=== PATIENT | male | born 1965 | race Caucasian/White ===

== ENCOUNTER 2017-10-02 13:46 | Emergency (ER) | payer OTHER ==
[2016-05-14 15:19] VITALS: Ht 175.3 cm; Wt 101.3 kg
[~2017-10-02] VITALS: Ht 175.3 cm; Wt 101.3 kg
[~2017-10-02 13:46] MED LIST: ALB18R INH; ALBU8.5H IH; BUPR-472 PO; CLIN300C99 PO; CYCL10TA29 PO; DULO30CA35 PO; ESCI10TA8 PO; FLU45SYR25 IM ONLY; FLUT1BLS3 INH; GABA-503 PO; GABA-549 PO; GLIM2TAB43 PO; INSU100I10 SQ; INSU100I30 SUBQ; INSU100I35 SQ; KET10 PO; LEVO-85 PO; LIR18IPT SUBQ; LIRA0.6P3 SQ; LISI-353 PO; LOR5/325 PO; METF-410 PO; METR-160 PO; MONT10TA PO; MULT-820 PO; OXYC5TAB38 PO; PRED20TA6 PO; SERT-1 PO; SERT-184 PO; SILD100T59 PO; SIMV-54 PO; SITA1TBM4 PO; SITA25TA PO; SULF-198 PO; TRAM-420 PO; VALS160T22 PO; VALS320T PO; VALS80TA2 PO; VANC250C3 PO; [UNRECOGNIZED DRUG - SUPPLY]
--- NOTE | 2017-10-02 13:56 | ER Report ---
History and Physical Time Seen By MD: 13:55 Hx. of Stated Complaint: PT REPORTS BLISTERS ON FEET, HAS DIABETES SO IS WORRIED HPI/ROS pt is a 52 year old male who is a diabetic toes moi feet amputated 2015, was walking in lacrosse last weekend and developed blisters to forefoot, these have popped and now has superficial open kalen to forefoot of both feet, wound are covered in dirt and hair as the patient has been walking without socks Remainder of the 14 system rev: Yes Allergies: Coded Allergies: clindamycin (Verified Allergy, Unknown, RASH, 10/02/17) piperacillin (Verified Allergy, Unknown, RASH, 10/02/17) tazobactam (Verified Allergy, Unknown, RASH, 10/02/17) Home Meds Active Scripts Sulfamethoxazole/Trimet 800-160 Mg Tab (BACTRIM DS TABLET) 1 Each Tablet, 1 TAB PO Q12H, #14 TAB Prov:RADHA PETERSON APRN-Ankur 10/02/17 Albuterol Sulfate 90 Mcg/Act (PROAIR HFA 90 MCG/ACT) 8.5 Gm Hfa.aer.ad, 1-2 PUFF IH Q4H Y for WHEEZING, #1 INHALER Prov:JARET RUANO MD 07/02/17 Valsartan (Valsartan) 320 Mg Tablet, 1 TAB PO QDAY, #30 TAB 6 Refills Prov:JARET RUANO MD 07/02/17 Escitalopram Oxalate (ESCITALOPRAM OXALATE) 10 Mg Tablet, 10 MG PO QDAY, #30 TAB 6 Refills Prov:JARET RUANO MD 07/02/17 Insulin Glargine,Hum.rec.anlog (Basaglar Kwikpen U-100) 100 Unit/Ml (3 Ml) Insuln.pen, 36 UNITS SQ QHS, #5 BOX 6 Refills ADD 2 UNITS EVERY 3 DAYS UNTIL FBS 120 OR LESS. Max dose 50 units/day Prov:JARET RUANO MD 06/05/17 Gabapentin (GABAPENTIN) 600 Mg Tablet, 600 MG PO TID, #90 TAB 3 Refills Prov:JARET RUANO MD 06/04/17 Bupropion Hcl (WELLBUTRIN XL) 150 Mg Tab.er.24h, 1 TAB PO QDAY, #90 TAB 1 Refill Prov:JARET RUANO MD 11/09/16 Simvastatin (SIMVASTATIN) 40 Mg Tablet, 40 MG PO HS, #30 TAB 6 Refills Prov:JARET RUANO MD 11/09/16 Insulin Aspart (NOVOLOG FLEXPEN) 100 Unit/1 Ml Insuln.pen, 5 UNIT SQ TIDAC, #5 VIAL 6 Refills Prov:JARET RUANO MD 07/13/16 Sildenafil Citrate (VIAGRA) 100 Mg Tablet, 100 MG PO QDAY Y for ED, #9 TAB Prov:JARET RUANO MD 09/23/15 Reported Medications Fluticasone/Vilanterol (Breo Ellipta 200-25 Mcg INH) 1 Each Blst.w.dev, 1 INH INH QDAY 07/02/17 Montelukast Sodium (SINGULAIR) 10 Mg Tablet, 1 TAB PO QDAY, TAB 07/02/17 Multivitamin (MULTIVITAMINS) 1 Each Tablet, 1 TAB PO QDAY 09/23/15 Hx Smoking: No Smoking Status: Never Smoker Exposure to Second Hand Smoke?: No Hx Substance Use Disorder: No Hx Alcohol Use: Yes (2-3 drinks per day) Constitutional Vital Sign - Last 24 Hours 10/02/17 10/02/17 10/02/17 10/02/17 13:51 13:53 14:01 14:16 Temp 98.8 Pulse 123 115 112 Resp 16 B/P (MAP) 126/92 126/92 (103) Pulse Ox 92 93 92 O2 Delivery Room Air 10/02/17 10/02/17 14:31 15:23 Pulse 110 104 B/P (MAP) 122/75 (91) Pulse Ox 92 92 Physical Exam 52-year-old male with pills appears chronically ill HEENT head is normocephalic/ atraumatic tympanic membranes are non-reddened throat is non-reddened neck is supple no JVD heart rate is regular no murmurs rubs or gallops lungs clear to auscultation abdomen is obese bowel sounds 4 quadrants a moves all extremities has had amputated toes on both feet at the forefoot of both feet he has open areas that are red and abraded no drainage no redness around the area Medical Decision Making Data Points Result Diagram: 10/02/17 1430 10/02/17 1430 Laboratory Hematology Test 10/02/17 14:30 Red Blood Count 4.15 M/uL (4.00-5.60) Mean Corpuscular Volume 95.0 fL (80.0-96.0) Mean Corpuscular Hemoglobin 32.5 pg (26.0-33.0) Mean Corpuscular Hemoglobin Concent 34.2 g/dL (32.0-36.0) Red Cell Distribution Width 12.4 % (11.5-14.5) Mean Platelet Volume 8.0 fL (7.2-11.1) Neutrophils (%) (Auto) 71.8 % (39.4-72.5) Lymphocytes (%) (Auto) 17.1 % (17.6-49.6) Monocytes (%) (Auto) 8.4 % (4.1-12.4) Eosinophils (%) (Auto) 2.0 % (0.4-6.7) Basophils (%) (Auto) 0.7 % (0.3-1.4) Nucleated RBC Relative Count (auto) 0.1 /100WBC Neutrophils # (Auto) 4.6 K/uL (2.0-7.4) Lymphocytes # (Auto) 1.1 K/uL (1.3-3.6) Monocytes # (Auto) 0.5 K/uL (0.3-1.0) Eosinophils # (Auto) 0.1 K/uL (0.0-0.5) Basophils # (Auto) 0.0 K/uL (0.0-0.1) Nucleated RBC Absolute Count (auto) 0.00 K/uL Sodium Level 136 mmol/L (137-145) Potassium Level 4.1 mmol/L (3.5-5.0) Chloride Level 103 mmol/L (98-107) Carbon Dioxide Level 25 mmol/L (22-30) Blood Urea Nitrogen 24 mg/dl (9-21) Creatinine 1.00 mg/dl (0.66-1.25) Glomerular Filtration Rate Calc > 60.0 Random Glucose 437 mg/dl (75-110) Calcium Level 9.2 mg/dl (8.4-10.2) Total Bilirubin 1.0 mg/dl (0.2-1.3) Aspartate Amino Transf (AST/SGOT) 28 U/L (0-35) Alanine Aminotransferase (ALT/SGPT) 48 U/L (0-56) Alkaline Phosphatase 80 U/L (0-126) Total Protein 6.6 gm/dl (6.3-8.2) Albumin 3.5 g/dl (3.5-5.0) Chemistry Test 10/02/17 14:30 White Blood Count 6.4 k/uL (4.5-11.0) Red Blood Count 4.15 M/uL (4.00-5.60) Hemoglobin 13.5 g/dL (14.0-18.0) Hematocrit 39.4 % (42.0-52.0) Mean Corpuscular Volume 95.0 fL (80.0-96.0) Mean Corpuscular Hemoglobin 32.5 pg (26.0-33.0) Mean Corpuscular Hemoglobin Concent 34.2 g/dL (32.0-36.0) Red Cell Distribution Width 12.4 % (11.5-14.5) Platelet Count 191 K/uL (150-450) Mean Platelet Volume 8.0 fL (7.2-11.1) Neutrophils (%) (Auto) 71.8 % (39.4-72.5) Lymphocytes (%) (Auto) 17.1 % (17.6-49.6) Monocytes (%) (Auto) 8.4 % (4.1-12.4) Eosinophils (%) (Auto) 2.0 % (0.4-6.7) Basophils (%) (Auto) 0.7 % (0.3-1.4) Nucleated RBC Relative Count (auto) 0.1 /100WBC Neutrophils # (Auto) 4.6 K/uL (2.0-7.4) Lymphocytes # (Auto) 1.1 K/uL (1.3-3.6) Monocytes # (Auto) 0.5 K/uL (0.3-1.0) Eosinophils # (Auto) 0.1 K/uL (0.0-0.5) Basophils # (Auto) 0.0 K/uL (0.0-0.1) Nucleated RBC Absolute Count (auto) 0.00 K/uL Glomerular Filtration Rate Calc > 60.0 Calcium Level 9.2 mg/dl (8.4-10.2) Total Bilirubin 1.0 mg/dl (0.2-1.3) Aspartate Amino Transf (AST/SGOT) 28 U/L (0-35) Alanine Aminotransferase (ALT/SGPT) 48 U/L (0-56) Alkaline Phosphatase 80 U/L (0-126) Total Protein 6.6 gm/dl (6.3-8.2) Albumin 3.5 g/dl (3.5-5.0) ED Course/Re-evaluation ED Course Blood sugar is 437 and talked to patient and his he states he did not take his long-term insulin last night and said she will give his dose as soon as I get home tonight Re-evaluation discussed patient with physical therapy they filled is more appropriate for dressing changes to go through Dr. Vaughn as this wound does not be debrided at this point I did talk to Dr. Vaughn he will see the patient next Sunday he asked 1st is sent home dressing supplies to do Xeroform gauze dressings daily for this patient until seen in the clinic and I will put him on Bactrim DS one by mouth twice a day, until seen in clinic Decision to Disposition Date: Oct 02, 2017 Decision to Disposition Time: 15:18 Depart Departure Latest Vital Signs Vital Signs Date Time Temp Pulse Resp B/P (MAP) Pulse Ox O2 Delivery O2 Flow Rate FiO2 10/02/17 15:23 104 122/75 (91) 92 10/02/17 13:51 98.8 16 Room Air Impression: Primary Impression: Diabetes mellitus type 2, controlled, with complications Additional Impressions: Hyperglycemia Blister of foot, right Blister of foot, left Condition: Improved Disposition: HOME OR SELF-CARE Referrals: LESLEY SHAH MD New Scripts Sulfamethoxazole/Trimet 800-160 Mg Tab (BACTRIM DS TABLET) 1 Each Tablet 1 TAB PO Q12H, #14 TAB Prov: RADHA PETERSON TRUSS ASSEMBLER-C 10/02/17 Patient Instructions: Blister (ED), Diabetes and Your Skin (DC) Additional Instructions: See Dr. 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
[2017-10-02] MEDS ORDERED: TRIMETH/SULFA DS 160-800MG TAB PO ONE (14:05)
[2017-10-02] MEDS ORDERED: SULF-198 PO (14:18)
[2017-10-02 14:51] LABS: PLATELET COUNT, AUTOMATED 191 K/uL (150-450)
[2017-10-02 15:23] VITALS: BP 122/75
== END 2017-10-02 15:26 | disposition home or self-care (01) ==
LOC: ER 14:00
DX: E11.65 Type 2 diabetes mellitus with hyperglycemia (principal); S90.822A Blister (nonthermal), left foot, initial encounter; S90.821A Blister (nonthermal), right foot, initial encounter
CPT/HCPCS: 82040; 82247; 82310; 82374; 82435; 82565; 82947; 84075; 84132; 84155; 84295; 84450; 84460; 84520; 85025; 99283

== ENCOUNTER → 2017-11-19 | Outpatient (CLI) | payer OTHER ==
[2016-05-14 15:19] VITALS: BMI 29.8
[~2017-11-19] MED LIST changes: -VALS320T PO; +VALS320T4 PO; -VALS80TA2 PO; +VALS80TA7 PO
--- NOTE | 2017-11-19 17:25 | RADIOLOGY IMAGING REPORT ---
FACILITY: [facility] PATIENT NAME: Peter Quintero : 1965 MR: [id number] V: [id number] EXAM DATE: ORDERING PHYSICIAN: LESLEY SHAH TECHNOLOGIST: Location: [facility] Patient: Peter Quintero : 1965 Visit/Account:[id number] Date of Sevice: 11/19/2017 VENOUS DOPP LOWER BILAT EXTREM ADDITIONAL PERTINENT HISTORY: Bilateral lower extremity edema with bilateral lower extremity pain. COMPARISON STUDIES: None. FINDINGS: Grayscale compression, duplex and color Doppler interrogation of the bilateral lower extremity deep v eins from common femoral vein to proximal calf was performed. The greater saphenous vein in the ipsil ateral proximal thigh was evaluated using similar technique. Bilateral lower extremity: Common femoral vein: Negative. Femoral vein: Negative. Deep femoral vein: Negative. Popliteal vein: Negative. Visualized deep calf veins Negative. Greater saphenous vein in the proximal thigh: Negative. Popliteal fossa: negative Surrounding soft tissues: There are mildly enlarged but otherwise normal-appearing lymph nodes in the groin region bilaterally. IMPRESSION: 1. No evidence of deep venous thrombosis involving the bilateral lower extremity. Report Dictated By: Madi Melton MD at 11/19/2017 5:19 PM Report E-Signed By: Madi Melton MD at 11/19/2017 5:21 PM WSN:[id number]
== END ==
LOC: RAD 15:42
PROVIDERS: ATTEND Surgery
DX: R59.0 Localized enlarged lymph nodes (principal)
CPT/HCPCS: 93970

== ENCOUNTER 2018-02-20 15:15 | Emergency (ER) | payer OTHER ==
[2016-05-14 15:19] VITALS: Wt 113.4 kg
[~2018-02-20 15:15] MED LIST changes: -METF-410 PO; +METF-411 PO
[2018-02-20] MEDS ORDERED: ASPIRIN 81 MG CHEW PO ONE (15:25)
[2018-02-20] MEDS ORDERED: cloNIDine HCL 0.1 MG TAB PO ONE (15:25)
[2018-02-20] MEDS ORDERED: methylPREDNIS SUCC 125 MG/2ML IVP ONE (15:30)
--- NOTE | 2018-02-20 15:30 | ER Report ---
History and Physical Time Seen By MD: 15:26 Hx. of Stated Complaint: Pt experiencing SOB and is coughing up phlem. Cough for 6 months. No fevers. Inhaler provides some relief. Pt is reporting swollen legs for a month. HPI/ROS CHIEF COMPLAINT: Persistent cough HISTORY OF PRESENT ILLNESS: Patient is a 52-year-old poorly controlled diabetic hypertensive morbidly obese comes emergency Department with a complaint of 6 months of a progressive and worsening cough. Patient says that the cough is sometimes productive of some thickish white sputum. Patient denies chest pain at this time. Patient states that he is a diabetic who was had both sets of toes amputated bilaterally. He is also complaining of some right lower extremity edema. Patient denies any chest pain at this time nausea vomiting diarrhea fever chills or additional complaints noted patient denies any exertional dyspnea orthopnea or PND patient also states that he has been off of his inhaled steroid for the last several months due to insurance restrictions REVIEW OF SYSTEMS: Respiratory: has cough, no dyspnea. Cardiovascular: No chest pain, no palpitations. Gastrointestinal: [No vomiting, no abdominal pain.] Musculoskeletal: [No back pain.] Remainder of the 14 system rev: Yes Allergies: Coded Allergies: clindamycin (Verified Allergy, Unknown, RASH, 10/02/17) piperacillin (Verified Allergy, Unknown, RASH, 10/02/17) tazobactam (Verified Allergy, Unknown, RASH, 10/02/17) Home Meds Active Scripts Tramadol Hcl (TRAMADOL HCL) 50 Mg Tablet, 50 MG PO QID Y for pain, #30 TAB Prov:JARET RUANO MD 12/14/17 Bupropion Hcl (WELLBUTRIN XL) 150 Mg Tab.er.24h, 1 TAB PO QDAY, #90 TAB 1 Refill Prov:JARET RUANO MD 12/11/17 Simvastatin (SIMVASTATIN) 40 Mg Tablet, 40 MG PO HS, #90 TAB 4 Refills Prov:JARET RUANO MD 11/12/17 Gabapentin (GABAPENTIN) 600 Mg Tablet, 600 MG PO TID, #270 TAB 4 Refills Prov:JARET RUANO MD 10/15/17 Albuterol Sulfate 90 Mcg/Act (PROAIR HFA 90 MCG/ACT) 8.5 Gm Hfa.aer.ad, 1-2 PUFF IH Q4H Y for WHEEZING, #1 INHALER Prov:JARET RUANO MD 07/02/17 Valsartan (Valsartan) 320 Mg Tablet, 1 TAB PO QDAY, #30 TAB 6 Refills Prov:JARET RUANO MD 07/02/17 Sildenafil Citrate (VIAGRA) 100 Mg Tablet, 100 MG PO QDAY Y for ED, #9 TAB Prov:JARET RUANO MD 09/23/15 Reported Medications Metformin Hcl (METFORMIN HCL ER) 750 Mg Tab.er.24h 02/20/18 Dulaglutide (Trulicity) 0.75 Mg/0.5 Ml Pen.injctr 02/20/18 Insulin Glargine,Hum.rec.anlog (Basaglar Kwikpen U-100) 100 Unit/Ml (3 Ml) Insuln.pen, 40 SUBQ QHS 02/20/18 Insulin Aspart 100 Un/Ml Pen (NOVOLOG FLEXPEN) 100 Unit/1 Ml Insuln.pen, 20 UNIT SQ TID, ML 02/20/18 Fluticasone/Vilanterol (Breo Ellipta 200-25 Mcg INH) 1 Each Blst.w.dev, 1 INH INH QDAY 07/02/17 Montelukast Sodium (SINGULAIR) 10 Mg Tablet, 1 TAB PO QDAY, TAB 07/02/17 Multivitamin (MULTIVITAMINS) 1 Each Tablet, 1 TAB PO QDAY 09/23/15 Discontinued Scripts Escitalopram Oxalate (ESCITALOPRAM OXALATE) 10 Mg Tablet, 10 MG PO QDAY, #30 TAB 6 Refills Prov:JARET RUANO MD 07/02/17 Insulin Glargine,Hum.rec.anlog (Basaglar Kwikpen U-100) 100 Unit/Ml (3 Ml) Insuln.pen, 36 UNITS SQ QHS, #5 BOX 6 Refills ADD 2 UNITS EVERY 3 DAYS UNTIL FBS 120 OR LESS. Max dose 50 units/day Prov:JARET RUANO MD 06/05/17 Insulin Aspart 100 Un/Ml Pen (NOVOLOG FLEXPEN) 100 Unit/1 Ml Insuln.pen, 5 UNIT SQ TIDAC, #5 VIAL 6 Refills Prov:JARET RUANO MD 07/13/16 Reviewed Nurses Notes: Yes Old Medical Records Reviewed: Yes Hx Smoking: No Smoking Status: Never Smoker Exposure to Second Hand Smoke?: No Hx Substance Use Disorder: No Hx Alcohol Use: Yes (2-3 drinks per day) Constitutional Vital Sign - Last 24 Hours 02/20/18 02/20/18 02/20/18 02/20/18 15:20 15:21 15:23 15:30 Temp 98.8 Pulse 100 100 Resp 16 26 B/P (MAP) 202/110 198/115 (142) 202/110 (140) 207/118 (147) Pulse Ox 96 100 O2 Delivery Room Air 02/20/18 02/20/18 02/20/18 02/20/18 15:49 16:00 16:15 16:20 Pulse 96 97 Resp 16 12 11 B/P (MAP) 189/109 (135) 191/108 (135) 168/89 (115) Pulse Ox 95 94 95 02/20/18 02/20/18 16:30 16:35 Pulse 104 Resp 15 B/P (MAP) 176/90 (118) Pulse Ox 97 Physical Exam General Appearance: [The patient is alert, has no immediate need for airway protection and no current signs of toxicity.] [ ] Eyes: Pupils equal and round no injection. Respiratory: Chest is non tender, lungs are clear to auscultation. Cardiac: regular rate and rhythm [ ] Gastrointestinal: Abdomen is soft and non tender, no masses, bowel sounds normal. Musculoskeletal: Neck: Neck is supple and non tender. Extremities have full range of motion and are non tender. Skin: No rashes or lesions. Right lower extremity examination has a knee brace approximately was He has a notable +1 pitting edema noted underneath the angle of the brace DIFFERENTIAL DIAGNOSIS: After history and physical exam differential diagnosis was considered for cardiac cough hyperreactive airway pulmonary emboli and DVT Medical Decision Making Data Points Result Diagram: 02/20/18 1531 02/20/18 1531 Laboratory Hematology Test 02/20/18 15:31 Red Blood Count 5.04 M/uL (4.00-5.60) Mean Corpuscular Volume 77.6 fL (80.0-96.0) Mean Corpuscular Hemoglobin 25.5 pg (26.0-33.0) Mean Corpuscular Hemoglobin Concent 32.8 g/dL (32.0-36.0) Red Cell Distribution Width 15.0 % (11.5-14.5) Mean Platelet Volume 7.1 fL (7.2-11.1) Neutrophils (%) (Auto) 62.9 % (39.4-72.5) Lymphocytes (%) (Auto) 24.0 % (17.6-49.6) Monocytes (%) (Auto) 9.3 % (4.1-12.4) Eosinophils (%) (Auto) 3.0 % (0.4-6.7) Basophils (%) (Auto) 0.8 % (0.3-1.4) Nucleated RBC Relative Count (auto) 0.0 /100WBC Neutrophils # (Auto) 3.9 K/uL (2.0-7.4) Lymphocytes # (Auto) 1.5 K/uL (1.3-3.6) Monocytes # (Auto) 0.6 K/uL (0.3-1.0) Eosinophils # (Auto) 0.2 K/uL (0.0-0.5) Basophils # (Auto) 0.0 K/uL (0.0-0.1) Nucleated RBC Absolute Count (auto) 0.00 K/uL D-Dimer Quantitative (PE/DVT) 0.72 ug/ml (0-0.50) Sodium Level 145 mmol/L (137-145) Potassium Level 4.1 mmol/L (3.5-5.0) Chloride Level 104 mmol/L (98-107) Carbon Dioxide Level 29 mmol/L (22-30) Blood Urea Nitrogen 13 mg/dl (9-21) Creatinine 0.90 mg/dl (0.66-1.25) Glomerular Filtration Rate Calc > 60.0 Random Glucose 263 mg/dl (75-110) Calcium Level 9.4 mg/dl (8.4-10.2) Total Bilirubin 0.7 mg/dl (0.2-1.3) Aspartate Amino Transf (AST/SGOT) 34 U/L (0-35) Alanine Aminotransferase (ALT/SGPT) 27 U/L (0-56) Alkaline Phosphatase 121 U/L (0-126) Troponin I < 0.012 ng/ml B-Type Natriuretic Peptide 238 pg/ml (0-100) Total Protein 8.4 g/dl (6.3-8.2) Albumin 3.7 g/dl (3.5-5.0) Chemistry Test 02/20/18 15:31 White Blood Count 6.2 k/uL (4.5-11.0) Red Blood Count 5.04 M/uL (4.00-5.60) Hemoglobin 12.9 g/dL (14.0-18.0) Hematocrit 39.2 % (42.0-52.0) Mean Corpuscular Volume 77.6 fL (80.0-96.0) Mean Corpuscular Hemoglobin 25.5 pg (26.0-33.0) Mean Corpuscular Hemoglobin Concent 32.8 g/dL (32.0-36.0) Red Cell Distribution Width 15.0 % (11.5-14.5) Platelet Count 373 K/uL (150-450) Mean Platelet Volume 7.1 fL (7.2-11.1) Neutrophils (%) (Auto) 62.9 % (39.4-72.5) Lymphocytes (%) (Auto) 24.0 % (17.6-49.6) Monocytes (%) (Auto) 9.3 % (4.1-12.4) Eosinophils (%) (Auto) 3.0 % (0.4-6.7) Basophils (%) (Auto) 0.8 % (0.3-1.4) Nucleated RBC Relative Count (auto) 0.0 /100WBC Neutrophils # (Auto) 3.9 K/uL (2.0-7.4) Lymphocytes # (Auto) 1.5 K/uL (1.3-3.6) Monocytes # (Auto) 0.6 K/uL (0.3-1.0) Eosinophils # (Auto) 0.2 K/uL (0.0-0.5) Basophils # (Auto) 0.0 K/uL (0.0-0.1) Nucleated RBC Absolute Count (auto) 0.00 K/uL D-Dimer Quantitative (PE/DVT) 0.72 ug/ml (0-0.50) Glomerular Filtration Rate Calc > 60.0 Calcium Level 9.4 mg/dl (8.4-10.2) Total Bilirubin 0.7 mg/dl (0.2-1.3) Aspartate Amino Transf (AST/SGOT) 34 U/L (0-35) Alanine Aminotransferase (ALT/SGPT) 27 U/L (0-56) Alkaline Phosphatase 121 U/L (0-126) Troponin I < 0.012 ng/ml B-Type Natriuretic Peptide 238 pg/ml (0-100) Total Protein 8.4 g/dl (6.3-8.2) Albumin 3.7 g/dl (3.5-5.0) Coagulation Test 02/20/18 15:31 D-Dimer Quantitative (PE/DVT) 0.72 ug/ml ED Course/Re-evaluation ED Course ED clinical course medical decision making 52-year-old male with a productive or nonproductive cough for the past 6 months BNP elevation shows an early detection of congestive heart failure had some swelling in his lower extremity ultrasound was negative PE rule out was also negative he'll be initially diagnosed with early congestive heart failure. Hypertension in the ED which was treated with medication his sugar was elevated he is on insulin advised him to close to regulate advised him to follow up close with primary care for outpatient echocardiogram cardiology follow-up and further workup diagnosis congestive heart failure Decision to Disposition Date: Feb 20, 2018 Decision to Disposition Time: 18:15 Depart Departure Latest Vital Signs Vital Signs Date Time Temp Pulse Resp B/P (MAP) Pulse Ox O2 Delivery O2 Flow Rate FiO2 02/20/18 16:35 104 15 97 02/20/18 16:30 176/90 (118) 02/20/18 15:20 98.8 Room Air Impression: Primary Impression: Congestive heart failure Condition: Improved Disposition: HOME OR SELF-CARE Referrals: JARET RUANO MD (PCP) 10 Days Patient Instructions: Congestive Heart Failure Zones JACQUIE LENTZ MD Feb 20, 2018 15:30
[2018-02-20] MEDS ORDERED: INSU100I10 SUBQ (15:31)
[2018-02-20] MEDS ORDERED: INSU100I35 SQ (15:31)
[2018-02-20] MEDS ORDERED: DULA0.75 (15:31)
[2018-02-20] MEDS ORDERED: METF750T25 (15:31)
[2018-02-20 15:46] LABS: PLATELET COUNT, AUTOMATED 373 K/uL (150-450)
--- NOTE | 2018-02-20 15:50 | EKG ---
FACILITY: [facility] [place] PATIENT NAME: SANTA DE SOUZA : [id number] MR: [id number] V: [id number] EXAM DATE: ORDERING PHYSICIAN: JACQUIE LENTZ TECHNOLOGIST: [place] Test Reason : Blood Pressure : / mmHG Vent. Rate : 098 BPM Atrial Rate : 098 BPM P-R Int : 140 ms QRS Dur : 076 ms QT Int : 340 ms P-R-T Axes : 042 021 043 degrees QTc Int : 434 ms Normal sinus rhythm No ST-T abnormalities R wave progression consistent with old ant/sep SC vs lead placement When compared with ECG of 25-MAY-2016 05:44, Now with poor R wave progression Confirmed by REJI NI ([id number]) on 02/21/2018 11:14:25 AM Referred By: Confirmed By:REJI NI
--- NOTE | 2018-02-20 16:15 | RADIOLOGY IMAGING REPORT ---
FACILITY: [facility] PATIENT NAME: Peter Quintero : 1965 MR: [id number] V: [id number] EXAM DATE: ORDERING PHYSICIAN: JACQUIE LENTZ TECHNOLOGIST: Location: [facility] Patient: Peter Quintero : 1965 Visit/Account:[id number] Date of Sevice: 02/20/2018 CHEST PA AND LAT COMPARISONS: 2 view chest dated May 07, 2016 ADDITIONAL PERTINENT HISTORY: Chest pain FINDINGS: Cardiomediastinal silhouette: Negative. Pulmonary vasculature: Negative. Lung lovell: Negative. Pleural spaces: Negative. Osseous structures: Mild spondylitic change involving the thoracic spine. Otherwise negative Surrounding soft tissues: Negative. IMPRESSION: No evidence of acute cardiopulmonary disease. Report Dictated By: Madi Melton MD at 02/20/2018 4:11 PM Report E-Signed By: Madi Melton MD at 02/20/2018 4:12 PM [id number]
[2018-02-20 16:30] VITALS: BP 176/90
[2018-02-20] MEDS ORDERED: NS 0.9% 25 ML BAG 50 ML ONE (16:41)
[2018-02-20] MEDS ORDERED: IOPAMIDOL 76% 100 ML INFUS BTL 100 ML ONE (16:41)
--- NOTE | 2018-02-20 16:47 | RADIOLOGY IMAGING REPORT ---
FACILITY: [facility] PATIENT NAME: Peter Quintero : 1965 MR: [id number] V: [id number] EXAM DATE: ORDERING PHYSICIAN: JACQUIE LENTZ TECHNOLOGIST: Location: [facility] Patient: Peter Quintero : 1965 Visit/Account:[id number] Date of Sevice: 02/20/2018 VENOUS DOPP LOW RIGHT EXTREMIT Provided history: Swelling Additional pertinent history: none COMPARISON STUDIES: Ultrasound 11/19/17 FINDINGS: Right leg grayscale, duplex and color Doppler interrogation of the lower extremity deep venous system from common femoral vein to proximal calf was performed. The greater saphenous vein was evaluated us ing similar technique. Common femoral vein: negative Femoral vein: negative Deep femoral vein: negative Popliteal vein: negative Visualized deep calf veins: negative Popliteal fossa: negative Greater saphenous vein in the proximal thigh: negative IMPRESSION: No evidence of acute DVT in the right lower extremity. Report Dictated By: Arie Gutierres MD at 02/20/2018 4:42 PM Report E-Signed By: Arie Gutierres MD at 02/20/2018 4:43 PM WSN:[id number]
--- NOTE | 2018-02-20 17:44 | RADIOLOGY IMAGING REPORT ---
FACILITY: [facility] [place] PATIENT NAME: Peter Quintero : 1965 MR: [id number] V: [id number] EXAM DATE: ORDERING PHYSICIAN: JACQUIE LENTZ TECHNOLOGIST: Location: [facility] Patient: Peter Quintero : 1965 Visit/Account:[id number] Date of Sevice: 02/20/2018 EXAMINATION: CT CHEST PULMONARY ANGIOGRAM COMPARISON: Chest x-ray same day and earlier. HISTORY: Shortness of breath and cough. PROCEDURE: Pulmonary arterial phase imaging of the chest with 100 mL intravenous Isovue 370. Reconstr uction of the source data set includes multiplanar 2D in the sagittal and coronal planes, and 3D davidson nstructed coronal slab MIP series. One of the following dose optimization techniques was utilized in the performance of this exam: Autom ated exposure control; adjustment of the mA and/or kV according to the patient's size; or use of an i terative reconstruction technique. Specific details can be referenced in the facility's radiology C T exam operational policy. FINDINGS: Pulmonary vasculature: There is adequate contrast opacification of the pulmonary arterial system. No pulmonary embolism. Main pulmonary artery size is normal. Cardiac and mediastinum: Cardiac chamber size is within normal limits. Mild coronary calcifications. No pericardial effusion. No thoracic aortic aneurysm. No thoracic lymph node enlargement. Lungs and pleura: No focal consolidation or pulmonary nodule. No pneumothorax, pulmonary edema, or pl eural effusion. Airways: Negative. Upper abdomen: No evidence of acute disease within the visualized upper abdomen. Osseous structures: Mild degenerative change throughout the thoracic spine. No acute findings. IMPRESSION: No pulmonary embolism or evidence of acute cardiopulmonary disease. Report Dictated By: Lui Powers MD at 02/20/2018 5:34 PM Report E-Signed By: Lui Powers MD at 02/20/2018 5:40 PM WSN:[id number]
[2018-02-22] MEDS ORDERED: ALBU8.5H IH (16:42)
== END 2018-02-20 18:57 | disposition home or self-care (01) ==
LOC: ER 15:27
DX: I50.9 Heart failure, unspecified (principal); I10 Essential (primary) hypertension; E11.9 Type 2 diabetes mellitus without complications; E66.01 Morbid (severe) obesity due to excess calories
CPT/HCPCS: 71046; 71275; 83880; 84484; 85025; 85379; 93005; 93971; 96374; 99284; J2930; Q9967; 82040; 82247; 82310; 82374; 82435; 82565; 82947; 84075; 84132; 84155; 84295; 84450; 84460; 84520

== ENCOUNTER → 2018-03-06 | Outpatient (CLI) | payer OTHER ==
[2016-05-14 15:19] VITALS: BMI 29.8
[~2018-03-06] MED LIST changes: +DULA0.75; +FURO-47 PO; +INSU100I10 SUBQ; +METF750T25; +METO25TA23 PO; +POTA-23 PO; +REGADENOSON 0.4 MG/5 ML SYR ONE
--- NOTE | 2018-03-06 16:24 | RADIOLOGY IMAGING REPORT ---
FACILITY: [facility] PATIENT NAME: Peter Quintero : 1965 MR: [id number] V: [id number] EXAM DATE: ORDERING PHYSICIAN: JARET RUANO TECHNOLOGIST: Location: [facility] Patient: Peter Quintero : 1965 Visit/Account:[id number] Date of Sevice: 03/06/2018 EXAMINATION: Single isotope SPECT imaging with regadenoson infusion and gated SPECT imaging. DATE OF EXAMINATION: 03/06/2018. DATE OF INTERPRETATION: 03/06/2018. REQUESTING PHYSICIAN: JARET RUANO. INDICATION: The patient is a 52-year-old male evaluated for CHF with diabetes. PROCEDURE: After informed consent the patient received an intravenous injection of 12.4 mCi of Tc-99 m sestamibi followed at an appropriate time interval by rest imaging. The patient then subsequently received an intravenous infusion of 0.4 mg of regadenoson per protocol without complication. Resting heart rate was 100 bpm with a peak heart rate of 112 bpm. Blood pressure at rest was 150 / 84 and f ollowing infusion was 151 / 79. Baseline EKG demonstrates normal sinus rhythm. There were no EKG ch anges of ischemia following infusion. Symptoms were nonspecific. The patient then received an intra venous injection of 30.5 mCi of Tc-99m sestamibi followed by stress imaging. RAW DATA: Examination of the summed raw data revealed a adequate quality study. Diaphragmatic attenu ation present. MYOCARDIAL PERFUSION: The tomographic images demonstrate small sized, mild intensity defect in the b damaso to mid inferior wall on rest and stress images. This defect normalizes with prone imaging sugges ting attenuation artifact. No transient ischemic dilation.. GATED IMAGES: The gated images demonstrate normal left ventricular systolic function with LVEF 55%. No regional wall motion abnormalities.. IMPRESSION: 1. Nondiagnostic pharmacologic stress ECG. 2. Probably normal myocardial perfusion scan. Attenuation artifact present. 3. Normal LV systolic function; LVEF 55%. 4. Based on the results of this exam, the patient appears to be at oh risk for near term future cardi ovascular events. Intermediate long-term risk based on need for pharmacologic stress agent as opposed to exercise. Report Dictated By: Wojciech Valencia at 03/06/2018 4:14 PM Report E-Signed By: Wojciech Valencia at 03/06/2018 4:20 PM WSN:[id number]
== END ==
LOC: NUC 01:16
PROVIDERS: ATTEND Internal Medicine
DX: I50.9 Heart failure, unspecified (principal)
CPT/HCPCS: 78452; 93017; A9500; J2785

== ENCOUNTER → 2018-03-07 | Outpatient (CLI) | payer OTHER ==
[2016-05-14 15:19] VITALS: BMI 29.8
[~2018-03-07] MED LIST changes: -REGADENOSON 0.4 MG/5 ML SYR ONE
== END ==
LOC: US 00:56
PROVIDERS: ATTEND Internal Medicine
DX: I50.9 Heart failure, unspecified (principal)
CPT/HCPCS: 93306

== ENCOUNTER → 2018-03-10 | Emergency (ER) | payer OTHER ==
[2016-05-14 15:19] VITALS: Wt 98.9 kg
--- NOTE | 2018-03-10 12:14 | ER Report ---
History and Physical Time Seen By MD: 12:14 HPI/ROS CHIEF COMPLAINT: Calf pain HISTORY OF PRESENT ILLNESS: This is a 52-year-old male who presents to the emergency department for increased right calf pain. Patient states that over the last couple of days he's had an increase in right calf discomfort moving up the calf. Patient has a history of diabetic neuropathy, amputations poor wound healing and infections. Patient states that "I pushed through the pain on Sunday and Sunday" then patient states the pain was so intense today and the right leg right calf that he decided to come in for further evaluation. Patient denies chest pain or shortness of breath, no nausea or vomiting. No other aches or pains. No fevers. No chills. REVIEW OF SYSTEMS: Constitutional: No fever, no chills. Eyes: No discharge. ENT: No sore throat. Cardiovascular: No chest pain, no palpitations. Respiratory: No cough, no shortness of breath. Gastrointestinal: No abdominal pain, no vomiting. Genitourinary: No hematuria. Musculoskeletal: As above. Skin: No rashes. Neurological: No headache. Allergies: Coded Allergies: clindamycin (Verified Allergy, Unknown, RASH, 10/02/17) piperacillin (Verified Allergy, Unknown, RASH, 10/02/17) tazobactam (Verified Allergy, Unknown, RASH, 10/02/17) Home Meds Active Scripts Metoprolol Succinate (METOPROLOL SUCCINATE) 25 Mg Tab.er.24h, 1 TAB PO QDAY, # 30 TAB 3 Refills Prov:JARET LEMOS MD 02/26/18 Potassium Chloride (KLOR-CON 10) 10 Meq Tablet.er, 10 MEQ PO QDAY, #30 TAB 3 Refills Prov:JARET LEMOS MD 02/26/18 Furosemide (FUROSEMIDE) 40 Mg Tablet, 1 TAB PO QDAY, #30 TAB 3 Refills Prov:JARET LEMOS MD 02/26/18 Albuterol Sulfate 90 Mcg/Act (PROAIR HFA 90 MCG/ACT) 8.5 Gm Hfa.aer.ad, 1-2 PUFF IH Q4H Y for WHEEZING, #1 INHALER Prov:JARET LEMOS MD 02/22/18 Tramadol Hcl (TRAMADOL HCL) 50 Mg Tablet, 50 MG PO QID Y for pain, #30 TAB Prov:JARET LEMOS MD 12/14/17 Bupropion Hcl (WELLBUTRIN XL) 150 Mg Tab.er.24h, 1 TAB PO QDAY, #90 TAB 1 Refill Prov:JARET LEMOS MD 12/11/17 Simvastatin (SIMVASTATIN) 40 Mg Tablet, 40 MG PO HS, #90 TAB 4 Refills Prov:JARET LEMOS MD 11/12/17 Gabapentin (GABAPENTIN) 600 Mg Tablet, 600 MG PO TID, #270 TAB 4 Refills Prov:JARET LEMOS MD 10/15/17 Valsartan (Valsartan) 320 Mg Tablet, 1 TAB PO QDAY, #30 TAB 6 Refills Prov:JARET LEMOS MD 07/02/17 Sildenafil Citrate (VIAGRA) 100 Mg Tablet, 100 MG PO QDAY Y for ED, #9 TAB Prov:JARET LEMOS MD 09/23/15 Reported Medications Metformin Hcl (METFORMIN HCL ER) 750 Mg Tab.er.24h 02/20/18 Dulaglutide (Trulicity) 0.75 Mg/0.5 Ml Pen.injctr 02/20/18 Insulin Glargine,Hum.rec.anlog (Basaglar Kwikpen U-100) 100 Unit/Ml (3 Ml) Insuln.pen, 40 SUBQ QHS 02/20/18 Insulin Aspart 100 Un/Ml Pen (NOVOLOG FLEXPEN) 100 Unit/1 Ml Insuln.pen, 20 UNIT SQ TID, ML 02/20/18 Fluticasone/Vilanterol (Breo Ellipta 200-25 Mcg INH) 1 Each Blst.w.dev, 1 INH INH QDAY 07/02/17 Montelukast Sodium (SINGULAIR) 10 Mg Tablet, 1 TAB PO QDAY, TAB 07/02/17 Multivitamin (MULTIVITAMINS) 1 Each Tablet, 1 TAB PO QDAY 09/23/15 Past Medical/Surgical History Patient has a past medical and surgical history of asthma, back pain, wears contacts, type II diabetes, depression, anxiety, hernia repair, toes amputated secondary to diabetes, morbidly obese, poor wound healing. Reviewed Nurses Notes: Yes Hx Smoking: No Smoking Status: Never Smoker Exposure to Second Hand Smoke?: No Hx Substance Use Disorder: No Hx Alcohol Use: Yes (2-3 drinks per day) Constitutional Vital Sign - Last 24 Hours 03/10/18 03/10/18 03/10/18 03/10/18 12:12 13:32 14:02 14:30 Temp 98.4 Pulse 104 104 Resp 16 18 B/P (MAP) 137/91 137/89 (105) 128/83 (98) 125/83 (97) Pulse Ox 94 92 O2 Delivery Room Air Room Air 03/10/18 03/10/18 15:28 16:00 Pulse 101 B/P (MAP) 123/75 (91) 126/74 (91) Physical Exam General Appearance: The patient is alert, has no immediate need for airway protection and no signs of toxicity. Eyes: Pupils equal and round no pallor or injection. ENT, Mouth: Mucous membranes are moist. Respiratory: There are no retractions, lungs are clear to auscultation. Cardiovascular: Regular rate and rhythm, no murmurs, clicks or rubs. Gastrointestinal: Abdomen is soft and non tender, no masses, bowel sounds normal. Neurological: Alert and oriented 4. Moving all extremities. Following all commands. No focal neuro deficits. Skin: Warm and dry, no rashes. Poor healing wounds to the right foot, no rashes , crepitus, cellulitis or obvious infectious process. Musculoskeletal: Neck is supple non tender. Extremities right calf tender to touch, no erythema, cellulitis or obvious deformities. DIFFERENTIAL DIAGNOSIS: After history and physical exam differential diagnosis was considered for DVT, osteomyelitis, myalgias secondary to simvastatin and chronic pain. Medical Decision Making Data Points Result Diagram: 03/10/18 1300 03/10/18 1300 Laboratory Hematology Test 03/10/18 13:00 Red Blood Count 4.94 M/uL (4.00-5.60) Mean Corpuscular Volume 76.8 fL (80.0-96.0) Mean Corpuscular Hemoglobin 25.3 pg (26.0-33.0) Mean Corpuscular Hemoglobin Concent 33.0 g/dL (32.0-36.0) Red Cell Distribution Width 15.5 % (11.5-14.5) Mean Platelet Volume 7.3 fL (7.2-11.1) Neutrophils (%) (Auto) 76.0 % (39.4-72.5) Lymphocytes (%) (Auto) 14.2 % (17.6-49.6) Monocytes (%) (Auto) 6.8 % (4.1-12.4) Eosinophils (%) (Auto) 2.2 % (0.4-6.7) Basophils (%) (Auto) 0.8 % (0.3-1.4) Nucleated RBC Relative Count (auto) 0.0 /100WBC Neutrophils # (Auto) 7.8 K/uL (2.0-7.4) Lymphocytes # (Auto) 1.5 K/uL (1.3-3.6) Monocytes # (Auto) 0.7 K/uL (0.3-1.0) Eosinophils # (Auto) 0.2 K/uL (0.0-0.5) Basophils # (Auto) 0.1 K/uL (0.0-0.1) Nucleated RBC Absolute Count (auto) 0.00 K/uL Sodium Level 141 mmol/L (137-145) Potassium Level 5.6 mmol/L (3.5-5.0) Chloride Level 102 mmol/L (98-107) Carbon Dioxide Level 24 mmol/L (22-30) Blood Urea Nitrogen 30 mg/dl (9-21) Creatinine 1.20 mg/dl (0.66-1.25) Glomerular Filtration Rate Calc > 60.0 Random Glucose 256 mg/dl (75-110) Calcium Level 10.0 mg/dl (8.4-10.2) Total Bilirubin 0.7 mg/dl (0.2-1.3) Aspartate Amino Transf (AST/SGOT) 32 U/L (0-35) Alanine Aminotransferase (ALT/SGPT) 25 U/L (0-56) Alkaline Phosphatase 137 U/L (0-126) Total Protein 8.7 g/dl (6.3-8.2) Albumin 3.9 g/dl (3.5-5.0) Chemistry Test 03/10/18 13:00 White Blood Count 10.3 k/uL (4.5-11.0) Red Blood Count 4.94 M/uL (4.00-5.60) Hemoglobin 12.5 g/dL (14.0-18.0) Hematocrit 37.9 % (42.0-52.0) Mean Corpuscular Volume 76.8 fL (80.0-96.0) Mean Corpuscular Hemoglobin 25.3 pg (26.0-33.0) Mean Corpuscular Hemoglobin Concent 33.0 g/dL (32.0-36.0) Red Cell Distribution Width 15.5 % (11.5-14.5) Platelet Count 520 K/uL (150-450) Mean Platelet Volume 7.3 fL (7.2-11.1) Neutrophils (%) (Auto) 76.0 % (39.4-72.5) Lymphocytes (%) (Auto) 14.2 % (17.6-49.6) Monocytes (%) (Auto) 6.8 % (4.1-12.4) Eosinophils (%) (Auto) 2.2 % (0.4-6.7) Basophils (%) (Auto) 0.8 % (0.3-1.4) Nucleated RBC Relative Count (auto) 0.0 /100WBC Neutrophils # (Auto) 7.8 K/uL (2.0-7.4) Lymphocytes # (Auto) 1.5 K/uL (1.3-3.6) Monocytes # (Auto) 0.7 K/uL (0.3-1.0) Eosinophils # (Auto) 0.2 K/uL (0.0-0.5) Basophils # (Auto) 0.1 K/uL (0.0-0.1) Nucleated RBC Absolute Count (auto) 0.00 K/uL Glomerular Filtration Rate Calc > 60.0 Calcium Level 10.0 mg/dl (8.4-10.2) Total Bilirubin 0.7 mg/dl (0.2-1.3) Aspartate Amino Transf (AST/SGOT) 32 U/L (0-35) Alanine Aminotransferase (ALT/SGPT) 25 U/L (0-56) Alkaline Phosphatase 137 U/L (0-126) Total Protein 8.7 g/dl (6.3-8.2) Albumin 3.9 g/dl (3.5-5.0) EKG/Imaging Imaging Location: [facility] [place] Patient: Peter Quintero : 1965 Visit/Account:[id number] Date of Sevice: 03/10/2018 Bilateral lower extremity venous ultrasound INDICATION: Pain COMPARISON: February 20, 2018 FINDINGS: The left common femoral, greater saphenous, superficial femoral, profunda femoral, popliteal, posterior tibial and peroneal veins are normal without thrombus. The right common femoral, greater saphenous, superficial femoral, profunda femoral, popliteal, posterior tibial and peroneal veins are normal without thrombus. Incidental benign reactive lymph nodes noted in the right inguinal region. IMPRESSION: Normal bilateral lower extremity venous ultrasound without DVT or venous thrombosis. Report Dictated By: Jason Woodson MD at 03/10/2018 3:40 PM Report E-Signed By: Jason Woodson MD at 03/10/2018 3:42 PM WSN:[id number] Location: [facility] [place] Patient: [place] : 1965 Visit/Account:[id number] Date of Sevice: 03/10/2018 FOOT 2 VIEW RIGHT, TIBIA FIBULA RIGHT Indication: History of amputation with pain Comparison: None Available Findings: There are changes from distal transmetatarsal indication of the foot. Diffuse soft tissue swelling is present. No periosteal reaction is identified. The tibia and fibula are intact without acute bony abnormality No evidence of radiopaque foreign body. IMPRESSION: 1. Postsurgical changes from distal transmetatarsal amputation but no acute abnormalities identified 2. Negative tibia and fibula Report Dictated By: Yoshi Yousif at 03/10/2018 1:43 PM Report E-Signed By: Yoshi Yousif at 03/10/2018 1:46 PM WSN:[id number] Location: [facility] [place] Patient: Leon, Peter : 1965 Visit/Account:[id number] Date of Sevice: 03/10/2018 FOOT 2 VIEW RIGHT, TIBIA FIBULA RIGHT Indication: History of amputation with pain Comparison: None Available Findings: There are changes from distal transmetatarsal indication of the foot. Diffuse soft tissue swelling is present. No periosteal reaction is identified. The tibia and fibula are intact without acute bony abnormality No evidence of radiopaque foreign body. IMPRESSION: 1. Postsurgical changes from distal transmetatarsal amputation but no acute abnormalities identified 2. Negative tibia and fibula Report Dictated By: Yoshi Yousif at 03/10/2018 1:43 PM Report E-Signed By: Yoshi Yousif at 03/10/2018 1:46 PM WSN:[id number] ED Course/Re-evaluation Clinical Indication for ER IV: IV Access ED Course The patient was admitted to room. A history of physical pain. Differential diagnoses were considered. An IV was started. A CBC, CMP and myoglobin were obtained. H&H showing 12.5 and 37.9, platelet count 520, chemistry showing potassium 5.6, BUN 30, glucose 256. X-ray of the right foot and tib-fib showing no abnormalities no acute changes. Negative venous Doppler. I did review the imaging studies with the patient as well as the laboratory studies. I did tell the patient that his blood sugar was elevated he did state that he had a milkshake. I did tell the patient that the pain that he is experiencing in his leg could be from the change in his fluid status, taking high-dose Lasix with a proximally 30 pound weight loss over the last several weeks could be conjoining to this as well as a mildly elevated potassium. I did tell him that he contact Dr. Lemos in the morning to see if he can increase his fluid intake, and possibly adjusting his potassium. The patient states he'll call Dr. Lemos's office tomorrow, he does have a follow-up appointment this which he will keep. The patient had no other questions or concerns at this time and was discharged home. I also suggested using compression stockings which may help with some of his discomfort. Decision to Disposition Date: Mar 10, 2018 Decision to Disposition Time: 16:02 Depart Departure Latest Vital Signs Vital Signs Date Time Temp Pulse Resp B/P (MAP) Pulse Ox O2 Delivery O2 Flow Rate FiO2 03/10/18 16:00 126/74 (91) 03/10/18 15:28 101 03/10/18 13:32 18 92 Room Air 03/10/18 12:12 98.4 Impression: Primary Impression: Diabetes mellitus Additional Impressions: Hyperglycemia Bilateral calf pain Condition: Improved Disposition: HOME OR SELF-CARE Referrals: JARET LEMOS MD (PCP) Patient Instructions: Diabetic Foot Ulcers (ED), Diabetic Hyperglycemia (ED), Leg Pain (ED) Additional Instructions: There is no evidence of a DVT or clot in your legs. No signs of bone infections noted on Xray. Drink the recommended amount of fluid Dr. Lemos has instructed you to drink. Consider calling Dr. Tapia office tomorrow and discuss your fluid restrictions , see if you can increase the amount, this could help with the muscular pain you are experiencing. Get plenty of rest. Continue to monitor your diabetes. Continue to monitor your wound and follow with Dr. Callejas as scheduled. Follow up with Dr. Lemos as scheduled this coming . Try compression stockings or clemencia wraps for the calf pain. Return to the ED for any other concerns or worsening symptoms. 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
[2018-03-10 13:16] LABS: PLATELET COUNT, AUTOMATED 520 K/uL (150-450)
--- NOTE | 2018-03-10 13:50 | RADIOLOGY IMAGING REPORT ---
FACILITY: [facility] [place] PATIENT NAME: Peter Quintero : 1965 MR: [id number] V: [id number] EXAM DATE: ORDERING PHYSICIAN: ADRIANE SHOEMAKER TECHNOLOGIST: Location: [facility] [place] Patient: Peter Quintero : 1965 Visit/Account:[id number] Date of Sevice: 03/10/2018 FOOT 2 VIEW RIGHT, TIBIA FIBULA RIGHT Indication: History of amputation with pain Comparison: None Available Findings: There are changes from distal transmetatarsal indication of the foot. Diffuse soft tissue swelling i s present. No periosteal reaction is identified. The tibia and fibula are intact without acute bony abnormality No evidence of radiopaque foreign body. IMPRESSION: 1. Postsurgical changes from distal transmetatarsal amputation but no acute abnormalities identified 2. Negative tibia and fibula Report Dictated By: Yoshi Yousif at 03/10/2018 1:43 PM Report E-Signed By: Yoshi Yousif at 03/10/2018 1:46 PM WSN:[email or web address]
--- NOTE | 2018-03-10 13:50 | RADIOLOGY IMAGING REPORT ---
[place] [facility] [place] NAME: Peter Quintero : 1965 MR: [id number] V: [id number] EXAM DATE: ORDERING PHYSICIAN: ADRIANE SHOEMAKER TECHNOLOGIST: Location: [facility] Patient: Peter Quintero : 1965 Visit/Account:[id number] Date of Sevice: 03/10/2018 FOOT 2 VIEW RIGHT, TIBIA FIBULA RIGHT Indication: History of amputation with pain Comparison: None Available Findings: There are changes from distal transmetatarsal indication of the foot. Diffuse soft tissue swelling i s present. No periosteal reaction is identified. The tibia and fibula are intact without acute bony abnormality No evidence of radiopaque foreign body. IMPRESSION: 1. Postsurgical changes from distal transmetatarsal amputation but no acute abnormalities identified 2. Negative tibia and fibula Report Dictated By: Yoshi Yousif at 03/10/2018 1:43 PM Report E-Signed By: Yoshi Yousif at 03/10/2018 1:46 PM WSN:[id number]
--- NOTE | 2018-03-10 15:46 | RADIOLOGY IMAGING REPORT ---
FACILITY: [facility] [place] PATIENT NAME: Peter Quintero : 1965 MR: [id number] V: [id number] EXAM DATE: ORDERING PHYSICIAN: ADRIANE SHOEMAKER TECHNOLOGIST: Location: [facility] [place] Patient: Peter Quintero : 1965 Visit/Account:[id number] Date of Sevice: 03/10/2018 Bilateral lower extremity venous ultrasound INDICATION: Pain COMPARISON: February 20, 2018 FINDINGS: The left common femoral, greater saphenous, superficial femoral, profunda femoral, popliteal, posteri or tibial and peroneal veins are normal without thrombus. The right common femoral, greater saphenous, superficial femoral, profunda femoral, popliteal, community health counselor ior tibial and peroneal veins are normal without thrombus. Incidental benign reactive lymph nodes noted in the right inguinal region. IMPRESSION: Normal bilateral lower extremity venous ultrasound without DVT or venous thrombosis. Report Dictated By: Jason Woodson MD at 03/10/2018 3:40 PM Report E-Signed By: Jason Woodson MD at 03/10/2018 3:42 PM WSN:[id number]
[2018-03-10 16:00] VITALS: BP 126/74
== END ==
LOC: ER 12:15
DX: E11.621 Type 2 diabetes mellitus with foot ulcer (principal); L97.509 Non-pressure chronic ulcer of other part of unspecified foot with unspecified severity; M79.604 Pain in right leg; M79.605 Pain in left leg
CPT/HCPCS: 82040; 82247; 82310; 82374; 82435; 82565; 82947; 83874; 84075; 84132; 84155; 84295; 84450; 84460; 84520; 85025; 93970; 99284

== ENCOUNTER → 2018-03-14 | Outpatient (CLI) | payer OTHER ==
[2016-05-14 15:19] VITALS: BMI 29.8
[2018-03-14 09:43] LABS: PLATELET COUNT, AUTOMATED 516 K/uL (150-450)
[2018-03-14 10:53] LABS: LDL CHOLESTEROL 41 mg/dl
== END ==
LOC: LAB 09:22
PROVIDERS: ATTEND Internal Medicine
DX: I50.9 Heart failure, unspecified (principal); E11.8 Type 2 diabetes mellitus with unspecified complications; E78.5 Hyperlipidemia, unspecified; I10 Essential (primary) hypertension
CPT/HCPCS: 36415; 82040; 82247; 82310; 82374; 82435; 82465; 82565; 82947; 83036; 83718; 83880; 84075; 84132; 84155; 84295; 84443; 84450; 84460; 84478; 84520; 85025

== ENCOUNTER → 2018-03-20 | Outpatient (CLI) | payer OTHER ==
[2016-05-14 15:19] VITALS: BMI 29.8
[~2018-03-20] MED LIST changes: -VALS320T4 PO; +VALS320T5 PO; -VALS80TA7 PO; +VALS80TA8 PO
--- NOTE | 2018-03-20 16:08 | RADIOLOGY IMAGING REPORT ---
FACILITY: [facility] [place] PATIENT NAME: Peter Quintero : 1965 MR: [id number] V: [id number] EXAM DATE: ORDERING PHYSICIAN: JARET RUANO TECHNOLOGIST: Location: [facility] [place] Patient: Peter Quintero : 1965 Visit/Account:[id number] Date of Sevice: 03/20/2018 ARTERIAL BILAT LOWER EXT EXAMINATION: Noninvasive vascular imaging of the the length bilaterally. Technique: There has been calculation of the ankle-brachial indices using brachial artery systolic bl ood pressure and ankle systolic blood pressure. There has also been ultrasound grayscale imaging wit h Doppler waveform analysis and color flow evaluation of the arteries of the legs bilaterally. HISTORY: 52-year-old male with pain in both legs. Patient with diabetes and history of toe amputati ons both feet. COMPARISON: None. Findings: Right side: Grayscale imaging findings: Grayscale imaging shows mild mural atherosclerotic change in the common f emoral and superficial femoral arteries bilaterally but no significant luminal encroachment upon galindo scale imaging. There is minimal evidence chronic change in the popliteal artery. CERTIFIED SHORTHAND REPORTER peak systolic velocity: 75 cm/sec. Waveform is triphasic. Proximal SFA peak systolic velocity: 100 cm/sec. The waveform is biphasic.. Distal SFA peak systolic velocity: 108 cm/sec. The waveform is triphasic. Popliteal artery peak systolic velocity: 95 cm/sec. The waveform is triphasic. Profunda artery peak systolic velocity: 60 cm/sec. The waveform is biphasic Posterior tibial artery peak systolic velocity: 106 cm/sec. Waveform is triphasic proximally with go od upstroke but some diastolic flow. Distally there are is perhaps a monophasic waveform Anterior tibial artery peak systolic velocity: 76 cm/sec. The waveform is triphasic Peroneal artery peak systolic velocity: 81 cm/sec. The waveform is triphasic. Dorsalis pedis artery: The peak systolic velocity is on and 47 cm. The waveform is monophasic with lo w resistance flow Left side: Grayscale imaging findings: Grayscale findings show no significant apical chronic plaque in the inflo w vessels of the left common femoral artery, superficial femoral artery and popliteal artery. There i s no encroachment upon the lumen by grayscale imaging. CERTIFIED SHORTHAND REPORTER peak systolic velocity: 140 cm/second. Waveform is triphasic Proximal SFA peak systolic velocity: 100 cm/sec. The waveform is triphasic. Distal SFA peak systolic velocity: 109 cm/sec. The waveform is triphasic. Popliteal artery peak systolic velocity: 89 cm/sec. The waveform is triphasic. Profunda artery peak systolic velocity: 69 cm/sec. The waveform is biphasic. Posterior tibial artery peak systolic velocity: 106 cm/sec. The waveform is triphasic Anterior tibial artery peak systolic velocity: 106 cm/sec. Waveform is triphasic Peroneal artery peak systolic velocity: 52 cm/sec. The waveform is triphasic IMPRESSION: 1. Triphasic or biphasic waveforms seen from the common femoral arteries to the distal infrapopliteal vessels. These findings would suggest normal inflow and infrapopliteal blood flow. The microvasculat ure has not been studied, but given the history of toe amputations it seems the patient has very sign ificant microvascular disease. A TBI index might be helpful for further evaluation. Report Dictated By: Vince Romero MD at 03/20/2018 2:40 PM Report E-Signed By: Vince Romero MD at 03/20/2018 4:05 PM WSN:[id number]
== END ==
LOC: US 01:44
PROVIDERS: ATTEND Internal Medicine
DX: I10 Essential (primary) hypertension (principal); E78.4 Other hyperlipidemia; I50.22 Chronic systolic (congestive) heart failure; F41.9 Anxiety disorder, unspecified; E11.8 Type 2 diabetes mellitus with unspecified complications
CPT/HCPCS: 93925

== ENCOUNTER 2018-07-16 22:06 | Emergency (ER) | payer OTHER ==
[2016-05-14 15:19] VITALS: Wt 103.4 kg
[~2018-07-16 22:06] MED LIST changes: +IRBE300T6 PO; -METF-411 PO; +METF-450 PO
[2018-07-16 22:16] VITALS: BP 171/96
--- NOTE | 2018-07-16 22:17 | ER Report ---
History and Physical Time Seen By : 22:17 HPI/ROS CHIEF COMPLAINT: Wound VAC problem HISTORY OF PRESENT ILLNESS: 52-year-old male presents with concerns about his wound VAC not functioning. Patient has amputation all his toes off of both feet. He has an open wound on his right foot. This undergoing wound VAC therapy. Patient notes the wound VAC stopped working for several hours tonight. He was able to plug the unit in and began to function again. Patient was told that if he had any problems, to come in to the ER for evaluation. Patient has an appointment in the morning to see Dr. Vaughn and PTT for casting of the same foot with the wound VAC intact. Patient notes no fever or chills. He notes no drainage. There is some staining of the dressings on his foot. Patient's blood pressures elevated. Allergies: Coded Allergies: clindamycin (Verified Allergy, Unknown, RASH, 10/02/17) piperacillin (Verified Allergy, Unknown, RASH, 10/02/17) tazobactam (Verified Allergy, Unknown, RASH, 10/02/17) Home Meds Active Scripts Tramadol Hcl (TRAMADOL HCL) 50 Mg Tablet, 50 MG PO QID PRN for chronic pain, #60 TAB 2 Refills Prov:JARET RUANO MD 04/25/18 Irbesartan (IRBESARTAN) 300 Mg Tablet, 300 MG PO QDAY, #30 TAB 6 Refills Prov:JARET RUANO MD 04/17/18 Duloxetine Hcl (CYMBALTA) 30 Mg Capsule.dr, 30 MG PO QDAY, #30 CAP 3 Refills Prov:JARET RUANO MD 03/14/18 Furosemide (FUROSEMIDE) 40 Mg Tablet, 1 TAB PO QDAY PRN for edema, #30 TAB 3 Refills Prov:JARET RUANO MD 03/14/18 Metoprolol Succinate (METOPROLOL SUCCINATE) 25 Mg Tab.er.24h, 1 TAB PO QDAY, #30 TAB 3 Refills Prov:JARET RUANO MD 02/26/18 Albuterol Sulfate 90 Mcg/Act (PROAIR HFA 90 MCG/ACT) 8.5 Gm Hfa.aer.ad, 1-2 PUFF IH Q4H PRN for WHEEZING, #1 INHALER Prov:JARET RUANO MD 02/22/18 Bupropion Hcl (WELLBUTRIN XL) 150 Mg Tab.er.24h, 1 TAB PO QDAY, #90 TAB 1 Refill Prov:JARET RUANO MD 12/11/17 Simvastatin (SIMVASTATIN) 40 Mg Tablet, 40 MG PO HS, #90 TAB 4 Refills Prov:JARET RUANO MD 11/12/17 Gabapentin (GABAPENTIN) 600 Mg Tablet, 600 MG PO TID, #270 TAB 4 Refills Prov:JARET RUANO MD 10/15/17 Sildenafil Citrate (VIAGRA) 100 Mg Tablet, 100 MG PO QDAY PRN for ED, #9 TAB Prov:JARET RUANO MD 09/23/15 Reported Medications Metformin Hcl (METFORMIN HCL ER) 750 Mg Tab.er.24h 02/20/18 Dulaglutide (Trulicity) 0.75 Mg/0.5 Ml Pen.injctr 02/20/18 Insulin Glargine,Hum.rec.anlog (Basaglar Kwikpen U-100) 100 Unit/Ml (3 Ml) Insuln.pen, 40 SUBQ QHS 02/20/18 Insulin Aspart 100 Un/Ml Pen (NOVOLOG FLEXPEN) 100 Unit/1 Ml Insuln.pen, 20 UNIT SQ TID, ML 02/20/18 Fluticasone/Vilanterol (Breo Ellipta 200-25 Mcg INH) 1 Each Blst.w.dev, 1 INH INH QDAY 07/02/17 Montelukast Sodium (SINGULAIR) 10 Mg Tablet, 1 TAB PO QDAY, TAB 07/02/17 Multivitamin (MULTIVITAMINS) 1 Each Tablet, 1 TAB PO QDAY 09/23/15 Past Medical/Surgical History Below information was copied from Dr. Ruano's note Patient is a 52-year-old male who came in today to see me for follow-up The patient was found to have mild congestive heart failure and was placed on furosemide and potassium his symptoms have resolved he mostly had edema of the lower extremities his BNP was slightly elevated at 238 Patient was seen in the emergency room recently on 03/10/18 he was having burning pain in both of his lower extremities. He was advised to stop furosemide but the pain has not improved patient complains of pain to be burning/aching and it does get worse with walking and improves with rest however he has noticed that some time he has it while sitting. The pain gets worse when he is on his feet. Currently he is using furosemide only when necessary basis Echocardiogram has shown slightly reduced LV systolic function of 50-55% with evidence of borderline hypertrophy of left ventricular wall left breast size was normal rest of the echo was unremarkable patient also underwent Lexiscan recently on 03/06/18 and was negative for reversible ischemia Past medical history significant for insulin-requiring diabetes mellitus and is currently on metformin 1000 mg twice a day, [place], Basaglar insulin 40 units at bedtime and NovoLog sliding scale. Patient is currently following up with activity therapist for his diabetes he has several complications related to diabetes including diabetic neuropathy and history of bilateral transmetatarsal amputation of both feet done on 05/25/16 because of infection. Currently he is f ollowing up with Dr. 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 he has recently been placed on Breo Ellipta and according to patient it has not made any difference in his symptoms Past medical history significant for depression and he is currently on Wellbutrin 150 mg once every morning and was recently placed on duloxetine 30 mg daily he does not wish to increase the dose of duloxetine because of sexual side effects Past medical history significant for hypertension and is currently on valsartan irbesartan 300 mg daily Past medical history significant for hypertension and hyperlipidemia for which he is on simvastatin 40 mg daily To mention that he has had a history of drinking alcohol but has completely stopped drinking completely Past Family Social History Reviewed Reviewed by: Dr. Jaret Ruano Reviewed: Past Medical Hx, Surgical Hx Past Medical History Cardiovascular: Reports hx of: hyperlipidemia hypertension Genitourinary: Reports hx of: kidney stones Endocrine: Reports hx of: diabetes type 2 Hematology/oncology (M): Denies hx of: prostate cancer Past Surgical History Gastrointestinal: Reports hx of: hernia repair (2009) Reviewed Nurses Notes: Yes Old Medical Records Reviewed: Yes Hx Smoking: No Smoking Status: Never Smoker Exposure to Second Hand Smoke?: No Hx Substance Use Disorder: No Hx Alcohol Use: Yes (2-3 drinks per day) Constitutional Vital Sign - Last 24 Hours 07/16/18 07/16/18 22:16 22:55 Temp 99.3 Pulse 105 98 Resp 20 B/P (MAP) 171/96 Pulse Ox 92 93 O2 Delivery Room Air Room Air Physical Exam General Appearance: The patient is alert, has no immediate need for airway protection and no current signs of toxicity. Vital signs stable, afebrile, blood pressure elevated Eyes: Pupils equal and round no injection. Respiratory: Chest is non tender, lungs are clear to auscultation. Cardiac: regular rate and rhythm Gastrointestinal: Abdomen is soft and non tender, no masses, bowel sounds normal. Musculoskeletal: Neck: Neck is supple and non tender. Extremities have full range of motion and are non tender. There are bilateral amputations of the anterior foot. The left foot is in a cast. The right foot is in a bulky dressing. There is some blood staining to the distal aspect of the dressings. There is no tenderness. The dressings are left intact. Since he will be seen in the morning Skin: No rashes or lesions. DIFFERENTIAL DIAGNOSIS: After history and physical exam differential diagnosis was considered for wound VAC malfunction, hypertension, anxiety, cellulitis. Medical Decision Making ED Course/Re-evaluation ED Course Patient was admitted to an examination room. H&P was done. The dental diagnoses was considered. On clinical examination. Patient's wound VAC appears to be functioning. The dressings are intact. Follow-up in the morning. I think unpacking his dressings at this point would not yield any benefit. He will have to be redressed in the morning. He is post-to have his right foot casted in a permanent cast with the wound VAC functioning on his dictated foot. Patient's blood pressures mildly elevated with concerns over malfunctioning wound VAC. Patient's advised to follow-up tomorrow with PT and Dr. Vaughn as planned. Decision to Disposition Date: Jul 16, 2018 Decision to Disposition Time: 22:39 Depart Departure Latest Vital Signs Vital Signs Date Time Temp Pulse Resp B/P (MAP) Pulse Ox O2 Delivery O2 Flow Rate FiO2 07/16/18 22:55 98 93 Room Air 07/16/18 22:16 99.3 20 171/96 Impression: Primary Impression: Encounter for management of wound VAC Additional Impression: Hypertension Condition: Improved Disposition: HOME OR SELF-CARE Referrals: JARET RUANO MD (PCP) Patient Instructions: Chronic Wound Care (ED) Additional Instructions: Follow-up with PT and Dr. Vaughn tomorrow as planned Problem Qualifiers Additional Impression: Hypertension Hypertension type: essential hypertension Qualified Codes: I10 - Essential (primary) hypertension MORENO HUGHES DO Jul 16, 2018 22:17
== END 2018-07-16 23:00 | disposition home or self-care (01) ==
LOC: ER 22:17
DX: Z45.89 Encounter for adjustment and management of other implanted devices (principal); I10 Essential (primary) hypertension; S91.301A Unspecified open wound, right foot, initial encounter
CPT/HCPCS: 99281

== ENCOUNTER 2018-07-29 12:00 | Outpatient (RCR) | payer OTHER ==
[2016-05-14 15:19] VITALS: BMI 29.8
--- NOTE | 2018-07-26 00:07 | PT INITIAL EVALUATION ---
MEDICAL DIAGNOSIS: neuropathic ulcer; R) foot; plantar surface TREATMENT DIAGNOSIS: same DATE OF ONSET: long-standing; slow healing wound SUBJECTIVE: Pt typically seen by Dr. Callejas's office and is scheduled for wound vac dressing change on Sun07/17/18, but noted to have drainage and leak of vac dressing. Pt arrives here for care, as Dr. Callejas is out of the office. Dr. Conner provided script for PT to eval and treat in order to address urgent wound care needs, as wound vac has now been non-functioning for an hour. REHAB PROBLEM LIST: Difficult to manage wound vac on plantar surface of R) transmetatarsal amputated foot. OBJECTIVE: Wound at R) plantar surface of foot measures: 8.8cm L x 6.5cm W x 0.5cm D. ASSESSMENT: Pt noted to have leakage of wound vac dressing seal and ineffective vac suction for at least 1 hour currently. Pt tolerated dressing change and cleansing of wound bed with betadine followed by application of marathon skin protectant to periwound skin and new wound vac application. Settings remain the same at 125mmHg, continuous suction and canister changed. Pt reminded to charge battery regularly and check for proper function of unit every few hours while awake. Short Term Goals 1. PT to assist in managing wound vac to ensure fewer complications and pauses in pt's effective use. 2. Pt to be aware of alarms and indications of non-operating vac, in order to report more quickly to care provider. 3. Pt to be compliant with contacting [facility] during off hours to attempt to resolve any vac related issues quickly to avoid a break in suction. 4. Pt to coordinate care with Dr. Callejas's staff to scheduled casting and vac change as often as possible within their clinic. Patient's Goals Effective seal for vac without blockage, to allow for vac application under total contact cast x 7 days. PLAN: Patient to be seen PRN for complicated wound vac dressing changes to coordinate with Dr. Callejas's staff as needed in support of pt's casting schedule and modifications to plan of care with any complications. Thank you for this referral. If you have any questions, comments, or concerns about this report or plan, please contact me at . H. Vicki Davies, PT, MPT, OMS MTDD
[~2018-07-29 12:00] MED LIST changes: -DULA0.75; +DULA0.75 INJ; -GABA-503 PO; +GABA-533 PO; -METF750T25; +METF750T25 PO; -METR-160 PO; +METR500T15 PO
[2018-08-06] MEDS ORDERED: INSU100I35 SQ (16:57)
[2018-08-06] MEDS ORDERED: INSU100I10 SUBQ (16:57)
[2018-08-29] MEDS ORDERED: ATR80PT PO (15:05)
[2018-08-29] MEDS ORDERED: DULO60CA56 PO (15:05)
[2018-08-29] MEDS ORDERED: TRAM-420 PO (15:06)
[2018-08-29] MEDS ORDERED: FLAS1EAC2 TD (15:51)
[2018-08-29] MEDS ORDERED: FLAS1KIT2 (15:51)
== END 2018-07-29 18:00 | disposition home or self-care (01) ==
LOC: PT 12:00
PROVIDERS: ATTEND Surgery
DX: L97.412 Non-pressure chronic ulcer of right heel and midfoot with fat layer exposed (principal)
CPT/HCPCS: 97161; 97606

== ENCOUNTER → 2018-08-28 | Outpatient (CLI) | payer OTHER ==
[2016-05-14 15:19] VITALS: BMI 29.8
[~2018-08-28] MED LIST changes: +ATR80PT PO; +DULA0.75; -DULA0.75 INJ; +DULO60CA56 PO; +FLAS1EAC2 TD; +FLAS1KIT2; +GABA-503 PO; -GABA-533 PO; +METF750T25; -METF750T25 PO; -METR500T15 PO; +METR500T54 PO
[2018-08-28 12:35] LABS: PLATELET COUNT, AUTOMATED 367 K/uL (150-450)
== END ==
LOC: LAB 12:15
PROVIDERS: ATTEND Internal Medicine
DX: I73.9 Peripheral vascular disease, unspecified (principal); E78.5 Hyperlipidemia, unspecified; I50.9 Heart failure, unspecified; E11.9 Type 2 diabetes mellitus without complications; I10 Essential (primary) hypertension; R79.0 Abnormal level of blood mineral; R79.9 Abnormal finding of blood chemistry, unspecified
CPT/HCPCS: 36415; 81001; 82040; 82043; 82247; 82310; 82374; 82435; 82465; 82565; 82728; 82947; 83036; 83540; 83550; 83718; 83880; 84075; 84132; 84153; 84155; 84295; 84443; 84450; 84460; 84478; 84520; 85025

== ENCOUNTER → 2018-09-20 | Outpatient (CLI) | payer OTHER ==
[2016-05-14 15:19] VITALS: BMI 29.8
[~2018-09-20] MED LIST changes: -GABA-503 PO; +GABA-533 PO; +METR500T15 PO; -METR500T54 PO
== END ==
LOC: LAB 11:40
PROVIDERS: ATTEND Surgery
DX: M75.91 Shoulder lesion, unspecified, right shoulder (principal)
CPT/HCPCS: 88305

== ENCOUNTER 2018-09-30 10:41 | Inpatient (IN) | payer OTHER ==
[~2018-09-30] VITALS: Ht 180.3 cm; Wt 95.4 kg
[~2018-09-30 10:41] MED LIST changes: -DULA0.75; +DULA0.75 INJ; -METF750T25; +METF750T25 PO
--- NOTE | 2018-09-30 10:42 | ER Report ---
History and Physical Time Seen By MD: 10:42 HPI/ROS CHIEF COMPLAINT: Fever, cough, shortness breath, dehydration HISTORY OF PRESENT ILLNESS: Patient is a 53-year-old male here with complaints of cough, fever, shortness breath, dehydration, decreased appetite, nausea, vomiting, body aches since Sunday. Patient reportedly has not been tolerating much oral intake that he is tolerating small quantities of fluids. He has been febrile at home and was found to be febrile at 103F today, tachycardic, hypoxic in the 70s on room air. Patient is diabetic and noted that he had hyperglycemia. Patient was sent over from his PCP due to his clinical presentation. REVIEW OF SYSTEMS: Constitutional: + fever, + chills. Eyes: No discharge. ENT: No sore throat. + dry MM Cardiovascular: No chest pain, no palpitations. + tachycardic Respiratory: + cough, + shortness of breath. Gastrointestinal: No abdominal pain, + nausea and vomiting. Genitourinary: No hematuria. Musculoskeletal: No back pain. Skin: No rashes. Neurological: + headache. Allergies: Coded Allergies: clindamycin (Verified Allergy, Unknown, RASH, 10/02/17) piperacillin (Verified Allergy, Unknown, RASH, 10/02/17) tazobactam (Verified Allergy, Unknown, RASH, 10/02/17) Home Meds Active Scripts Flash Glucose Sensor (Freestyle Muna 14 Day Sensor) 1 Each Kit, UNIT Q2WK, #2 11 Refills Prov:JARET RUANO MD 08/29/18 Flash Glucose Scanning [place] (Freestyle Muna 14 Day [place]) 1 Each Each, UNIT TD DIRECTED, #1 Prov:JARET RUANO MD 08/29/18 Tramadol Hcl (TRAMADOL HCL) 50 Mg Tablet, 50 MG PO QID PRN for chronic pain, #60 TAB 2 Refills Prov:JARET RUANO MD 08/29/18 Duloxetine Hcl (CYMBALTA) 60 Mg Capsule.dr, 60 MG PO QDAY, #30 CAP 6 Refills Prov:JARET RUANO MD 08/29/18 Atorvastatin (LIPITOR) 80 Mg Tab, 1 TAB PO QDAY, #90 TAB 3 Refills Prov:JARET RUANO MD 08/29/18 Insulin Glargine,Hum.rec.anlog (Basaglar Kwikpen U-100) 100 Unit/Ml (3 Ml) Insuln.pen, 40 UNITS SUBQ QHS, #1 BOX 6 Refills Prov:JARET RUANO MD 08/06/18 Insulin Aspart 100 Un/Ml Pen (NOVOLOG FLEXPEN) 100 Unit/1 Ml Insuln.pen, 20 UNIT SQ TID, #1 BOX 6 Refills Prov:JARET RUANO MD 08/06/18 Irbesartan (IRBESARTAN) 300 Mg Tablet, 300 MG PO QDAY, #30 TAB 6 Refills Prov:JARET RUANO MD 04/17/18 Furosemide (FUROSEMIDE) 40 Mg Tablet, 1 TAB PO QDAY PRN for edema, #30 TAB 3 Refills Prov:JARET RUANO MD 03/14/18 Metoprolol Succinate (METOPROLOL SUCCINATE) 25 Mg Tab.er.24h, 1 TAB PO QDAY, #30 TAB 3 Refills Prov:JARET RUANO MD 02/26/18 Albuterol Sulfate 90 Mcg/Act (PROAIR HFA 90 MCG/ACT) 8.5 Gm Hfa.aer.ad, 1-2 PUFF IH Q4H PRN for WHEEZING, #1 INHALER Prov:JARET RUANO MD 02/22/18 Bupropion Hcl (WELLBUTRIN XL) 150 Mg Tab.er.24h, 1 TAB PO QDAY, #90 TAB 1 Refill Prov:JARET RUANO MD 12/11/17 Gabapentin (GABAPENTIN) 600 Mg Tablet, 600 MG PO TID, #270 TAB 4 Refills Prov:JARET RUANO MD 10/15/17 Sildenafil Citrate (VIAGRA) 100 Mg Tablet, 100 MG PO QDAY PRN for ED, #9 TAB Prov:JARET RUANO MD 09/23/15 Reported Medications Metformin Hcl (METFORMIN HCL ER) 750 Mg Tab.er.24h 02/20/18 Dulaglutide (Trulicity) 0.75 Mg/0.5 Ml Pen.injctr 02/20/18 Fluticasone/Vilanterol (Breo Ellipta 200-25 Mcg INH) 1 Each Blst.w.dev, 1 INH INH QDAY 07/02/17 Montelukast Sodium (SINGULAIR) 10 Mg Tablet, 1 TAB PO QDAY, TAB 07/02/17 Multivitamin (MULTIVITAMINS) 1 Each Tablet, 1 TAB PO QDAY 09/23/15 Hx Smoking: No Smoking Status: Never Smoker Exposure to Second Hand Smoke?: No Hx Substance Use Disorder: No Hx Alcohol Use: Yes (2-3 drinks per day) Constitutional Vital Sign - Last 24 Hours 09/30/18 10:47 Temp 103.0 Pulse 124 Resp 18 B/P (MAP) 146/76 Pulse Ox 90 O2 Delivery Nasal Cannula Physical Exam General Appearance: The patient is alert, has no immediate need for airway protection and no signs of toxicity. Moderate distress Eyes: Pupils equal and round no pallor or injection. ENT, Mouth: Mucous membranes are dry Respiratory: + diffuse crackles, + cough Cardiovascular: Regular and tachy Gastrointestinal: Abdomen is soft and non tender, no masses, bowel sounds normal. Neurological: No focal deficits Skin: Warm and dry, no rashes. Musculoskeletal: Neck is supple non tender. Extremities are nontender, nonswollen and have full range of motion. DIFFERENTIAL DIAGNOSIS: After history and physical exam differential diagnosis was considered for shortness of breath including but not limited to pulmonary infectious process, COPD, asthma, pulmonary embolus and congestive heart failure, viral syndrome, sepsis Medical Decision Making Data Points Result Diagram: 09/30/18 1105 09/30/18 1105 Laboratory Hematology Test 09/30/18 11:05 09/30/18 11:15 09/30/18 12:01 Red Blood Count 4.28 M/uL (4.00-5.60) Mean Corpuscular Volume 76.0 fL (80.0-96.0) Mean Corpuscular Hemoglobin 23.5 pg (26.0-33.0) Mean Corpuscular Hemoglobin Concent 30.9 g/dL (32.0-36.0) Red Cell Distribution Width 17.1 % (11.5-14.5) Mean Platelet Volume 7.3 fL (7.2-11.1) Neutrophils (%) (Auto) 87.3 % (39.4-72.5) Lymphocytes (%) (Auto) 6.9 % (17.6-49.6) Monocytes (%) (Auto) 5.1 % (4.1-12.4) Eosinophils (%) (Auto) 0.5 % (0.4-6.7) Basophils (%) (Auto) 0.2 % (0.3-1.4) Nucleated RBC Relative Count (auto) 0.0 /100WBC Neutrophils # (Auto) 9.2 K/uL (2.0-7.4) Lymphocytes # (Auto) 0.7 K/uL (1.3-3.6) Monocytes # (Auto) 0.5 K/uL (0.3-1.0) Eosinophils # (Auto) 0.1 K/uL (0.0-0.5) Basophils # (Auto) 0.0 K/uL (0.0-0.1) Nucleated RBC Absolute Count (auto) 0.00 K/uL Sodium Level 137 mmol/L (137-145) Potassium Level 4.3 mmol/L (3.5-5.0) Chloride Level 102 mmol/L (98-107) Carbon Dioxide Level 19 mmol/L (22-30) Blood Urea Nitrogen 39 mg/dl (9-21) Creatinine 2.10 mg/dl (0.66-1.25) Glomerular Filtration Rate Calc 33.5 Random Glucose 248 mg/dl (75-110) Lactate 2.6 mmol/L (0.7-2.1) Calcium Level 8.7 mg/dl (8.4-10.2) Total Bilirubin 1.8 mg/dl (0.2-1.3) Aspartate Amino Transf (AST/SGOT) 21 U/L (0-35) Alanine Aminotransferase (ALT/SGPT) 24 U/L (0-56) Alkaline Phosphatase 108 U/L (0-126) B-Type Natriuretic Peptide 202 pg/ml (0-100) Total Protein 7.2 g/dl (6.3-8.2) Albumin 3.3 g/dl (3.5-5.0) Influenza Virus Type A (PCR) Negative (NEGATIVE) Influenza Virus Type B (PCR) Negative (NEGATIVE) Whole Blood Glucose 235 mg/DL (75-110) Blood Gas Patient Temperature 103 DEGREES Venous Blood pH 7.42 (7.31-7.41) Venous Blood Partial Pressure CO2 29 mmHg Venous Blood Partial Pressure O2 146 mmHg Venous Blood HCO3 19 mmol/L Venous Blood Oxygen Saturation 99 % Venous Blood Base Excess -5 mmol/L Oxygen Liters/Minute Room air Chemistry Test 09/30/18 11:05 09/30/18 11:15 09/30/18 12:01 White Blood Count 10.6 k/uL (4.5-11.0) Red Blood Count 4.28 M/uL (4.00-5.60) Hemoglobin 10.1 g/dL (14.0-18.0) Hematocrit 32.5 % (42.0-52.0) Mean Corpuscular Volume 76.0 fL (80.0-96.0) Mean Corpuscular Hemoglobin 23.5 pg (26.0-33.0) Mean Corpuscular Hemoglobin Concent 30.9 g/dL (32.0-36.0) Red Cell Distribution Width 17.1 % (11.5-14.5) Platelet Count 274 K/uL (150-450) Mean Platelet Volume 7.3 fL (7.2-11.1) Neutrophils (%) (Auto) 87.3 % (39.4-72.5) Lymphocytes (%) (Auto) 6.9 % (17.6-49.6) Monocytes (%) (Auto) 5.1 % (4.1-12.4) Eosinophils (%) (Auto) 0.5 % (0.4-6.7) Basophils (%) (Auto) 0.2 % (0.3-1.4) Nucleated RBC Relative Count (auto) 0.0 /100WBC Neutrophils # (Auto) 9.2 K/uL (2.0-7.4) Lymphocytes # (Auto) 0.7 K/uL (1.3-3.6) Monocytes # (Auto) 0.5 K/uL (0.3-1.0) Eosinophils # (Auto) 0.1 K/uL (0.0-0.5) Basophils # (Auto) 0.0 K/uL (0.0-0.1) Nucleated RBC Absolute Count (auto) 0.00 K/uL Glomerular Filtration Rate Calc 33.5 Lactate 2.6 mmol/L (0.7-2.1) Calcium Level 8.7 mg/dl (8.4-10.2) Total Bilirubin 1.8 mg/dl (0.2-1.3) Aspartate Amino Transf (AST/SGOT) 21 U/L (0-35) Alanine Aminotransferase (ALT/SGPT) 24 U/L (0-56) Alkaline Phosphatase 108 U/L (0-126) B-Type Natriuretic Peptide 202 pg/ml (0-100) Total Protein 7.2 g/dl (6.3-8.2) Albumin 3.3 g/dl (3.5-5.0) Influenza Virus Type A (PCR) Negative (NEGATIVE) Influenza Virus Type B (PCR) Negative (NEGATIVE) Whole Blood Glucose 235 mg/DL (75-110) Blood Gas Patient Temperature 103 DEGREES Venous Blood pH 7.42 (7.31-7.41) Venous Blood Partial Pressure CO2 29 mmHg Venous Blood Partial Pressure O2 146 mmHg Venous Blood HCO3 19 mmol/L Venous Blood Oxygen Saturation 99 % Venous Blood Base Excess -5 mmol/L Oxygen Liters/Minute Room air Toxicology Test 09/30/18 11:05 EKG/Imaging Monitor Interpretation: Sinus Tachycardia Imaging Please see radiology report. No acute consolidation or effusion noted by my read. ED Course/Re-evaluation ED Course Patient is a 53-year-old male with a history of diabetes here with complaints of a cough, fevers, shortness of breath found to be hypoxic in the low 70s on room air, generalized body aches, dehydration, nausea, vomiting. Patient was found to have an elevated lactate, with blood cell count was normal, flu was negative. Patient also was found to have acute kidney injury likely prerenal in etiology. Patient was given IV fluids, 10 units insulin for hyperglycemia, Levaquin for initial antimicrobial coverage, IV Tylenol for fever reduction. Patient was also noted to be tachycardic sinus in the 120s. I discussed the patient with Dr. Sims who accepted the patient to his service. Decision to Disposition Date: Sep 30, 2018 Decision to Disposition Time: 12:35 Depart Departure Latest Vital Signs Vital Signs Date Time Temp Pulse Resp B/P (MAP) Pulse Ox O2 Delivery O2 Flow Rate FiO2 09/30/18 10:47 103.0 124 18 146/76 90 Nasal Cannula Impression: Primary Impression: Acute renal failure Additional Impressions: Dehydration Acute respiratory failure Condition: Condition Unchanged Disposition: Admitted from ER Referrals: JARET RUANO MD (PCP) Problem Qualifiers FAB HALL DO Sep 30, 2018 10:42
[2018-09-30] MEDS ORDERED: NS(*) 0.9% 1000 ML BAG 1,000 ML IV ONE ×2 (10:50→12:41)
[2018-09-30 11:21] LABS: PLATELET COUNT, AUTOMATED 274 K/uL (150-450)
[2018-09-30] MEDS ORDERED: LEVOFLOXACIN/D5W 750 MG/150 ML 150 ML IVPB ONE (12:15)
[2018-09-30] MEDS ORDERED: INSU HUM REG 100 U/ML(ER ONLY) 10 ML VIAL IV ONE (12:15)
[2018-09-30] MEDS ORDERED: ACETAMINOPHEN(*)1000 MG/100 ML 100 ML IVPB ONE (12:15)
[2018-09-30 13:11] VITALS: BP 129/74
--- NOTE | 2018-09-30 13:32 | RADIOLOGY IMAGING REPORT ---
FACILITY: [facility] [place] PATIENT NAME: Peter Quintero : 1965 MR: [id number] V: [id number] EXAM DATE: ORDERING PHYSICIAN: FAB HALL TECHNOLOGIST: Location: [facility] Patient: Peter Quinteor : 1965 Visit/Account:[id number] Date of Sevice: 09/30/2018 Exam type: CHEST PA LAT History: cough Comparison: February 20, 2018. Findings: The lungs are free of acute effusions, infiltrates or edema. The cardiac silhouette is normal in siz e. There are moderate spondylotic changes of the thoracic spine. IMPRESSION: 1. No acute cardiopulmonary process is seen Report Dictated By: Carole Boyd MD at 09/30/2018 1:28 PM Report E-Signed By: Carole Boyd MD at 09/30/2018 1:29 PM WSN:[email or web address]
[2018-09-30] MEDS ORDERED: INSULIN HUM LISPRO 100 UN/ML 3 ML VIAL SUBQ PRN (13:55)
[2018-09-30] MEDS ORDERED: INSULIN ASPART 100 U/ML 3 ML PEN SQ SCH ×2 (14:00→17:00)
--- NOTE | 2018-09-30 14:11 | History & Physical ---
History of Present Illness Chief Complaint Cough and fever History of Present Illness This patient presented to the emergency room complaining of cough and fever. He reports that his symptoms started 3 days ago. He denies any sick contacts. History Problems: (1) Diabetic ulcer of left foot Status: Acute (2) Diabetic ulcer of right foot Status: Acute (3) Diabetes mellitus type 2 with complications, uncontrolled Status: Chronic (4) Diabetic neuropathy Status: Chronic (5) Hypertension Status: Acute (6) Anxiety and depression (7) Peripheral arterial disease (8) Status post transmetatarsal amputation of left foot Status: Chronic (9) Status post transmetatarsal amputation of right foot Status: Chronic Home Meds Active Scripts Flash Glucose Sensor (Freestyle Muna 14 Day Sensor) 1 Each Kit, UNIT Q2WK, #2 11 Refills Prov:JARET RUANO MD 08/29/18 Flash Glucose Scanning [place] (Freestyle Muna 14 Day [place]) 1 Each Each, UNIT TD DIRECTED, #1 Prov:JARET RUANO MD 08/29/18 Tramadol Hcl (TRAMADOL HCL) 50 Mg Tablet, 50 MG PO QID PRN for chronic pain, #60 TAB 2 Refills Prov:JARET RUANO MD 08/29/18 Duloxetine Hcl (CYMBALTA) 60 Mg Capsule.dr, 60 MG PO QDAY, #30 CAP 6 Refills Prov:JARET RUANO MD 08/29/18 Atorvastatin (LIPITOR) 80 Mg Tab, 1 TAB PO QDAY, #90 TAB 3 Refills Prov:JARET RUANO MD 08/29/18 Insulin Glargine,Hum.rec.anlog (Basaglar Kwikpen U-100) 100 Unit/Ml (3 Ml) Insuln.pen, 40 UNITS SUBQ QHS, #1 BOX 6 Refills Prov:JARET RUANO MD 08/06/18 Insulin Aspart 100 Un/Ml Pen (NOVOLOG FLEXPEN) 100 Unit/1 Ml Insuln.pen, 20 UNIT SQ TID, #1 BOX 6 Refills Prov:JARET RUANO MD 08/06/18 Irbesartan (IRBESARTAN) 300 Mg Tablet, 300 MG PO QDAY, #30 TAB 6 Refills Prov:JARET RUANO MD 04/17/18 Furosemide (FUROSEMIDE) 40 Mg Tablet, 1 TAB PO QDAY PRN for edema, #30 TAB 3 Refills Prov:JARET RUANO MD 03/14/18 Metoprolol Succinate (METOPROLOL SUCCINATE) 25 Mg Tab.er.24h, 1 TAB PO QDAY, #30 TAB 3 Refills Prov:JARET RUANO MD 02/26/18 Albuterol Sulfate 90 Mcg/Act (PROAIR HFA 90 MCG/ACT) 8.5 Gm Hfa.aer.ad, 1-2 PUFF IH Q4H PRN for WHEEZING, #1 INHALER Prov:JARET RUANO MD 02/22/18 Bupropion Hcl (WELLBUTRIN XL) 150 Mg Tab.er.24h, 1 TAB PO QDAY, #90 TAB 1 Refill Prov:JARET RUANO MD 12/11/17 Gabapentin (GABAPENTIN) 600 Mg Tablet, 600 MG PO TID, #270 TAB 4 Refills Prov:JARET RUANO MD 10/15/17 Sildenafil Citrate (VIAGRA) 100 Mg Tablet, 100 MG PO QDAY PRN for ED, #9 TAB Prov:JARET RUANO MD 09/23/15 Reported Medications Metformin Hcl (METFORMIN HCL ER) 750 Mg Tab.er.24h 02/20/18 Dulaglutide (Trulicity) 0.75 Mg/0.5 Ml Pen.injctr 02/20/18 Fluticasone/Vilanterol (Breo Ellipta 200-25 Mcg INH) 1 Each Blst.w.dev, 1 INH INH QDAY 07/02/17 Montelukast Sodium (SINGULAIR) 10 Mg Tablet, 1 TAB PO QDAY, TAB 07/02/17 Multivitamin (MULTIVITAMINS) 1 Each Tablet, 1 TAB PO QDAY 09/23/15 Allergies: Coded Allergies: clindamycin (Verified Allergy, Unknown, RASH, 10/02/17) piperacillin (Verified Allergy, Unknown, RASH, 10/02/17) tazobactam (Verified Allergy, Unknown, RASH, 10/02/17) Patient History: Patient reports no known family medical history. Hx Smoking: No Smoking Status: Never Smoker Exposure to Second Hand Smoke?: Yes Caffeine Intake: Soda Caffeine/Cups Per Day: 4-5 cups Hx Alcohol Use: Yes (2-3 drinks per day) Alcohol Used: Beer When Quit Alcohol?: 03/2018 Hx Substance Use Disorder: No Social Drug Use: Never History of IV Drug Use: No Review of Systems All Systems Reviewed/Normal: Yes, Except as Noted Constitutional: Fever Respiratory: Cough Exam Vital Signs Vital Signs Date Time Temp Pulse Resp B/P (MAP) Pulse Ox O2 Delivery O2 Flow Rate FiO2 09/30/18 13:11 101.8 114 20 129/74 (92) 93 Nasal Cannula 3.0 Neuro: No Gross deficits Eyes: PERRLA Cardiovascular: Regular Rate and Rhythm Respiratory: Other (Crackles on left.) GI: Abd Soft and Non-Tender Extremities: No Edema Integumentary: No Cyanosis Medical Decision Making Data Points Result Diagram: 09/30/18 1105 09/30/18 1105 EKG / Imaging Imaging Chest x-ray reviewed. Assessment and Plan Problems: (1) Acute bronchitis Assessment & Plan: He did present with fever and cough over the last 3 days. His initial chest x-ray is negative, but we have elected to start empiric antibiotics. A repeat x-ray is ordered for the morning. Testing for influenza was negative. (2) Sepsis Assessment & Plan: He did present with fever and an elevated lactate. He received 2 liters of fluid in the emergency department. A repeat lactate level is pending. (3) Acute renal failure Status: Resolved Assessment & Plan: He has been started on IV fluids. We have also held his irbesartan. A repeat chemistry is ordered for the morning. (4) Diabetes mellitus type 2, controlled, with complications Status: Chronic Assessment & Plan: He is on chronic treatment with Trulicity, Lantus, metformin, and NovoLog. We have held the metformin and Trulicity. He has been placed on sliding scale level #3. (5) Diabetic ulcer of both feet Status: Chronic Assessment & Plan: He is followed by the wound care clinic and Dr. Callejas. (6) Benign hypertension Status: Chronic Assessment & Plan: He is on chronic treatment with metoprolol and irbesartan. The irbesartan is on hold. (7) Anxiety and depression Assessment & Plan: He is on chronic treatment with Wellbutrin. Central Venous Access Medical Necessity for Access: Medication Administration Copies to: JARET RUANO MD ; Venous Thromboembolism Antithrombotics Is Pt On Any Antithrombotics?: No Exam Sepsis Risk: Sepsis Risk LESLEY DEVRIES DO Sep 30, 2018 14:11
[2018-09-30] MEDS: GABAPENTIN 300 MG CAP PO SCH ×2 (15:07→21:17)
[2018-09-30 15:41] VITALS: BP 120/67
--- NOTE | 2018-09-30 15:47 | Pharmacy Note ---
Pharmacy Note Date Provider Notified: Sep 30, 2018 Time Provider Notified: 14:00 Provider Notified: Dr. Sims Note: Levaquin 750 mg IV q24h ordered. Patient's Scr 2.10 and Crcl 44 ml/min so called to recommend 750 mg IV q48h. agreed and order was changed IFEANYI KATZ Sep 30, 2018 15:47
[2018-09-30] MEDS: INSULIN ASPART 100 U/ML 3 ML PEN SUBQ PRN ×2 (16:45→21:18)
[2018-09-30] MEDS: ALBUTEROL/IPRATROPIUM 3 ML NEB NEB SCH (17:12)
[2018-09-30] MEDS: NS(*) 0.9% 1000 ML BAG 1,000 ML IV PRN (17:38)
[2018-09-30 19:15] VITALS: BP 112/62
[2018-09-30] MEDS: ACETAMINOPHEN 500 MG TAB PO PRN (19:28)
[2018-09-30] MEDS: INSULIN GLARGINE 100 U/ML 3 ML PEN SQ SCH (21:00)
[2018-09-30 23:31] VITALS: BP 134/69
[2018-10-01] MEDS: ACETAMINOPHEN 500 MG TAB PO PRN ×2 (01:55→12:58)
[2018-10-01 02:23] VITALS: BP 127/60
[2018-10-01] MEDS: NS(*) 0.9% 1000 ML BAG 1,000 ML IV PRN (04:21)
[2018-10-01] MEDS: ALBUTEROL/IPRATROPIUM 3 ML NEB NEB SCH ×3 (05:23→16:55)
[2018-10-01] MEDS: FLUTICASONE/VILANTEROL 1 EACH INHALER INH SCH (05:23)
--- NOTE | 2018-10-01 06:23 | RADIOLOGY IMAGING REPORT ---
FACILITY: [facility] - [place] PATIENT NAME: Peter Quintero : 1965 MR: [id number] V: [id number] EXAM DATE: ORDERING PHYSICIAN: LESLEY DEVRIES TECHNOLOGIST: Location: [facility] Patient: Peter Quintero : 1965 Visit/Account:[id number] Date of Sevice: 10/01/2018 EXAMINATION: PA and Lateral Chest 10/01/2018 6:00 AM HISTORY: Cough, fever COMPARISON: 09/30/2018 FINDINGS: Cardiomediastinal contours: Normal Lungs and pleura: Stable vasculature. Minimal subsegmental atelectasis in the lateral lower lungs. No significant acute focal infiltrate or consolidation. Pleural spaces remain clear. Bones/soft tissues: Degenerative spurring along the spine. IMPRESSION: No significant acute cardiopulmonary abnormality. Report Dictated By: Bc Mendoza MD at 10/01/2018 6:16 AM Report E-Signed By: Bc Mendoza MD at 10/01/2018 6:18 AM WSN:[id number]
[2018-10-01 06:30] LABS: PLATELET COUNT, AUTOMATED 195 K/uL (150-450)
[2018-10-01 07:49] VITALS: BP 124/59
[2018-10-01] MEDS: INSULIN ASPART 100 U/ML 3 ML PEN SUBQ PRN ×3 (07:55→21:08)
[2018-10-01] MEDS: GABAPENTIN 300 MG CAP PO SCH ×3 (08:37→21:03)
[2018-10-01] MEDS: traMADol 50 MG TAB PO PRN ×3 (08:37→21:04)
[2018-10-01] MEDS: ENOXAPARIN 40 MG/0.4ML SYR SC SCH (08:37)
[2018-10-01] MEDS: METOPROLOL SUCC XL 25 MG TABCR PO SCH (08:37)
[2018-10-01] MEDS: DULoxetine HCL 30 MG CAPCR PO SCH (08:37)
[2018-10-01] MEDS: MONTELUKAST SODIUM 10 MG TAB PO SCH (08:37)
[2018-10-01] MEDS: buPROPion XL 150 MG TABCR PO SCH (08:38)
[2018-10-01] MEDS ORDERED: [UNRECOGNIZED DRUG - OTHER] IVPB ONE (09:00)
[2018-10-01] MEDS ORDERED: VANCOMYCIN HCL IVPB ONE (09:00)
[2018-10-01] MEDS ORDERED: VANCOMYCIN IVPB ONE (09:00)
--- NOTE | 2018-10-01 09:30 | Pharmacy Note ---
Vancomycin Management Note Vanco Dosing Note Pharmacy Services Pharmacokinetic Dosing Consult, Vancomycin Pharmacy has been consulted for dosing and monitoring of vancomycin for 53 yo M with bacteremia/sepsis and potential osteomyelitis r/o of RLE. Pertinent Past Medical History: DM2 with neuropathy, transmetatarsal amputations of both feet, Hx of alcohol use (2-3 drinks/day), PAD, acute renal failure, and depression/anxiety Antibiotics prior to admission; No antibiotics prior to admission. Receiving regular wound care for both feet Additional Antimicrobials: 09/30/18- Levofloxacin 750 mg IV -- initial CrCl <50 ml/min, Q48H--> due to severity of infection, improvement of renal function, CrCl ~60mL/min using AdjBW, changed to Q24H 10/01/18- Vancomycin 2.75g* IV x 1, then 1.75g IV q12h *Discussed an increased load over 2.5g (per protocol cap) with provider, s econdary to sepsis risk, positive blood cultures, and clinical assessment of the patient. Will monitor closely Patient Information: Height (cm): 180.34cm (71 in) Actual Body Weight (ABW): 112.9kg, IBW 75.3kg, AdjBW 90.4kg Pertinent Lab Tests WHITE BLOOD COUNT wnl 10.6 on admission NEUTROPHILS 87.3%, 9.2 H BLOOD UREA NITROGEN 39-->37 SCR 2.1 --> 1.8 (baseline 0.8-1.3) VANCOMYCIN TROUGH: Scheduled 10/02/18 at 0800, goal 15-20 mcg/mL Culture Results: BLOOD 09/30/18- GPC in chains in 4/4 bottles, turned (+) in < 24h WOUND 09/30/18- GPC in chains 2+ Assessment: CrCl ~60mL/min, Scr 1.8, AdjBW 90.4kg Renal function is improving with hydration, will monitor closely Vancomycin Monitoring Assessment Goal Vancomycin Trough Level: 15-20 mcg/mL, MRI of R lower leg pending, r/o osteomyelitis Plan: 1) Vancomycin 25 mg/kg loading dose (based on ABW): 2.85 g IV x 1--> per protocol recommended cap is 2.5g, based on clinical assessment and discussion with provider will give 2.75g x 1 2) Vancomycin maintenance dose (based on ABW): 1.75g IV q12h 3) Vancomycin monitoring: Early trough, 10/02/18 @0800, goal 15-20 mcg/ml Pharmacy will continue to monitor daily and adjust regimen as appropriate. Thank you for the consult. Laura Landin, PharmD, OP LAURA LANDIN Oct 01, 2018 09:03
[2018-10-01] MEDS ORDERED: PROMETHAZINE 25 MG/ML 1 ML AMP IVP PRN (09:40)
--- NOTE | 2018-10-01 09:55 | Antimicrobial Stewardship ---
Antimicrobial Stewardship Empiricly appropriate: Yes Significant PMH: Yes (DM, PAD, Transmetatarsal Amputations, neuropathy, ARF, Depression, wound care bilateral foot wounds) Support empiric regimen: Yes Approriate Cultures done: Yes (Blood Cx and wound cx) Gram stain show Microbs: Yes (09/30/18- Blood Cx x2 - GPC in chains 4/4 bottles, Wound Cx - GPC 2+ growth) Renal/Hepatic dosing: Yes (CrCl ~60 ml/min, Scr 1.8, Adj BW 90.4kg) Appropriate dose for site: Yes Serum concentration checked: Yes (10/02/18- Vancomycin trough pending at 0800) IV to PO Opportunity: No Determine cumulative duration: Day 1 Abx Determine standard duration: unknown at this time, pending MRI and cultures Comment 53 yo M with a PMH of DM2 with neuropathy, s/p transmetatarsal amputations on both LE, ARF, wound care who presented to the ED with cough and fever WBC wnl, left shift 87.3% neutrophils Tmax 103F Lactate 2.1 -->1.8 Scr 2.1 -->1.8, improving (baseline 0.8-1.2) Hx - 2016--> grew S. agalactiae (group B) Blood Cx x2 - Growing GPC in chains in 4/4 bottles Wound Cx - growing GPC 2+ Antibiotics: Levofloxacin 750mg IV q24h--> CrCl ~60 ml/min, Vancomycin 2.75g IV x 1, then 1.75g IV q12h ALL: clindamycin and zosyn--> rashes from both Trough pending 10/02/18 @ 0800, goal 15-20 mcg/ml Pt with a history of transmetatarsal amputations of both feet, currently undergoing wound care for two wounds (one on each foot), L foot healing nicely, RLE - erythematous, swollen, tunneling wounds. Pending LLE MRI to rule out osteomyelitis. Positive blood cx, on levofloxacin and vancomycin. Will follow cultures, MRI, and patient's clinical symptoms. Laura Landin, PharmD, BCOP LAUAR LANDIN Oct 01, 2018 09:55
--- NOTE | 2018-10-01 11:29 | Hospitalist Progress Note ---
Subjective Progress Notes Subjective Persistent fever with increasing pain in right foot/leg. Physical Exam Vital Signs Date Time Temp Pulse Resp B/P (MAP) Pulse Ox O2 Delivery O2 Flow Rate FiO2 10/01/18 07:57 96 Nasal Cannula 2.0 10/01/18 07:49 100.2 113 20 124/59 (80) Intake and Output 10/01/18 07:00 Intake Total 3272 ml Output Total 700 ml Balance 2572 ml Intake Oral 922 ml IV Total 2350 ml Output Urine Total 700 ml General Appearance: Alert, Awake Cardiovascular: Regular Rate and Rhythm Respiratory: Clear to Auscultation GI: Soft and Non-Tender Extremities: Other (RLE with previous transmetatarsal amputation largewound ove r plantar aspect of foot with foul smelling, dark, bloody drainage. Erythema extending from mid-tibia/fibula distal involving foot. Significant edema as well. Pain with virtually any manipulation of the foot/ankle/leg.) Integumentary: Generalized Fragile Skin Result Diagram: 10/01/18 0540 10/01/18 0540 Monitor Interpretation: Sinus Tachycardia Assessment and Plan Problems: (1) Diabetic ulcer of both feet Status: Chronic Assessment & Plan: It appears he has an acute (or acute on chronic) infection involving his right foot/leg. It appears he has cellulitis at a minimum, but suspect he could have abscess or possibly osteomyelitis as well. Will broaden coverage with the addition of IV vancomycin. Continue IV Levaquin as well. He is followed by the wound care clinic and Dr. Callejas. (2) Sepsis Assessment & Plan: He did present with fever and an elevated lactate. He received 2 liters of fluid in the emergency department. Repeat lactate level was normal. His blood cultures are growing GPC. Vancomycin has been added to his regimen. It appears the right foot/leg are the most likely source. Will get MRI to see if he has abscess or bone involvement. Dr. Callejas seeing as well. (3) Acute renal failure Status: Resolved Assessment & Plan: Improved. Creatinine is 1.8 this AM (2.1 at time of admission). He is on IV fluids. We have also held his irbesartan. (4) Diabetes mellitus type 2, controlled, with complications Status: Chronic Assessment & Plan: He is on chronic treatment with Trulicity, Lantus, metformin, and NovoLog. We have held the metformin and Trulicity. He has been placed on Lantus and sliding scale level #3. (5) Benign hypertension Status: Chronic Assessment & Plan: He is on chronic treatment with metoprolol and irbesartan. The irbesartan is on hold. (6) Anxiety and depression Assessment & Plan: He is on chronic treatment with Wellbutrin. Central Venous Access Medical Necessity for Access: Medication Administration Exam Sepsis Risk: Sepsis Risk DEIRDRE PEREZ MD Oct 01, 2018 11:29
[2018-10-01] MEDS ORDERED: LEVOFLOXACIN/D5W 750 MG/150 ML 150 ML IVPB SCH ×2 (12:00→15:00)
[2018-10-01] MEDS ORDERED: VANCOMYCIN(*) 1 GM VIAL 1 GM, VANCOMYCIN HCL 0.750 GM VIAL 0.75 GM in NS(*) 0.9% 250 ML... IVPB SCH ×2 (13:00→21:00)
[2018-10-01] MEDS: MORPHINE 2 MG/ML SYR IVP PRN ×2 (14:21→21:10)
--- NOTE | 2018-10-01 14:43 | RADIOLOGY IMAGING REPORT ---
FACILITY: [facility] - [place] PATIENT NAME: Peter Quintero : 1965 MR: [id number] V: [id number] EXAM DATE: ORDERING PHYSICIAN: LESLEY DEVRIES TECHNOLOGIST: [place] [facility] [place] Peter Quintero : 1965 Visit/Account:[id number] Date of Sevice: 09/30/2018 MR EXT LWR NONJNT W/& W/O CON RT, MR FOOT RT W & W/O CON INDICATION: Chronic right foot wound. Possible abscess. Swelling. COMPARISON: None available TECHNIQUE: Multiplanar multisequence MR images were obtained through the right foot and the right tib ia and fibula before and after administration of 15 mL IV MultiHance contrast. FINDINGS: There is extensive subcutaneous edema surrounding the midfoot and forefoot as well as the ankle consi stent with cellulitis. There is a large skin defect or ulceration along the plantar margin of the dis sneha forefoot seen best on image 9 of the short axis images with also complex rim-enhancing fluid claudette ection containing a prominent air-fluid level adjacent to this large ulceration seen best in image 10 of the short axis images Extensive postoperative change from prior amputation the right foot at the level of the metatarsals a gain noted. This is better seen on prior plain radiographs 03/10/2018 There is markedly abnormal marrow signal within the residual 3rd through the 5th metatarsals with con comitant decreased signal on T1 concerning for osteomyelitis involving all 3 residual metatarsals. Th ere is patchy likely reactive edema also suggested within the 1st and 2nd metatarsals.. Early osteomy elitis is difficult to exclude. The MR images of the right lower leg show significant motion artifact throughout the exam where there is also prominent subcutaneous edema about the right lower leg soft tissues consistent with cellulit is. There is no evidence of abnormal marrow enhancement of the tibia or fibula to suggest osteomyelitis. There is evidence of abnormal rim-enhancing complex fluid within the extensor digitorum muscle seen b est on images 8 through 15 of the axial series. This may represent an intramuscular abscess collectio n and/or tenosynovitis as there appears be fluid surrounding the extensor tendons of the level the an kle. Minimal tenosynovitis of the proximal peroneus longus and brevis also suggested. IMPRESSION: 1. Significant motion artifact right lower leg with findings concerning for intramuscular abscess of the extensor digitorum muscle as above. 2. No acute or aggressive osseous abnormality of the visualized bones right tibia and fibula. 3. The MR images of the foot show postop changes from prior resection of the metatarsals with evidenc e of osteomyelitis of the 3rd through the 5th digits at the metatarsals with an adjacent complex air- fluid level within an abscess collection adjacent to the distal residual metatarsals. 4. Cellulitis about the right lower leg and foot as well. Report Dictated By: Félix Hernandez MD at 10/01/2018 2:15 PM Report E-Signed By: Félix Hernandez MD at 10/01/2018 2:38 PM WSN:[id number]
--- NOTE | 2018-10-01 14:43 | RADIOLOGY IMAGING REPORT ---
FACILITY: [facility] - [place] PATIENT NAME: Peter Quintero : 1965 MR: [id number] V: [id number] EXAM DATE: ORDERING PHYSICIAN: DEIRDRE PEREZ TECHNOLOGIST: Location: [facility] Patient: Peter Quintero : 1965 Visit/Account:[id number] Date of Sevice: 10/01/2018 MR EXT LWR NONJNT W/& W/O CON RT, MR FOOT RT W & W/O CON INDICATION: Chronic right foot wound. Possible abscess. Swelling. COMPARISON: None available TECHNIQUE: Multiplanar multisequence MR images were obtained through the right foot and the right tib ia and fibula before and after administration of 15 mL IV MultiHance contrast. FINDINGS: There is extensive subcutaneous edema surrounding the midfoot and forefoot as well as the ankle consi stent with cellulitis. There is a large skin defect or ulceration along the plantar margin of the dis sneha forefoot seen best on image 9 of the short axis images with also complex rim-enhancing fluid claudette ection containing a prominent air-fluid level adjacent to this large ulceration seen best in image 10 of the short axis images Extensive postoperative change from prior amputation the right foot at the level of the metatarsals a gain noted. This is better seen on prior plain radiographs 03/10/2018 There is markedly abnormal marrow signal within the residual 3rd through the 5th metatarsals with con comitant decreased signal on T1 concerning for osteomyelitis involving all 3 residual metatarsals. Th ere is patchy likely reactive edema also suggested within the 1st and 2nd metatarsals.. Early osteomy elitis is difficult to exclude. The MR images of the right lower leg show significant motion artifact throughout the exam where there is also prominent subcutaneous edema about the right lower leg soft tissues consistent with cellulit is. There is no evidence of abnormal marrow enhancement of the tibia or fibula to suggest osteomyelitis. There is evidence of abnormal rim-enhancing complex fluid within the extensor digitorum muscle seen b est on images 8 through 15 of the axial series. This may represent an intramuscular abscess collectio n and/or tenosynovitis as there appears be fluid surrounding the extensor tendons of the level the an kle. Minimal tenosynovitis of the proximal peroneus longus and brevis also suggested. IMPRESSION: 1. Significant motion artifact right lower leg with findings concerning for intramuscular abscess of the extensor digitorum muscle as above. 2. No acute or aggressive osseous abnormality of the visualized bones right tibia and fibula. 3. The MR images of the foot show postop changes from prior resection of the metatarsals with evidenc e of osteomyelitis of the 3rd through the 5th digits at the metatarsals with an adjacent complex air- fluid level within an abscess collection adjacent to the distal residual metatarsals. 4. Cellulitis about the right lower leg and foot as well. Report Dictated By: Félix Hernandez MD at 10/01/2018 2:15 PM Report E-Signed By: Félix Hernandez MD at 10/01/2018 2:38 PM WSN:[id number]
[2018-10-01] MEDS ORDERED: diphenhydrAMINE 25 MG CAP PO PRN (15:00)
[2018-10-01 16:59] VITALS: BP 133/71
[2018-10-01 19:09] VITALS: BP 131/70
--- NOTE | 2018-10-01 19:32 | General Surgery Consultation ---
History of Present Illness Requesting Physician Dr. Dennys Ascencio Reason for Consult Chronic right foot wound with infection and sepsis Chief Complaint Increased right foot pain, I feel like I have the flu History of Present Illness 53-year-old gentleman, well-known to me as I have followed him for over the last 2 years. I 1st met him 2 years ago he had bilateral plantar ulcers from standing on hot concrete while standing on his hotel balcony in [place]. These ulcers rapidly progressed down to his bones and I treated these with bilateral transmetatarsal amputations. He healed well from both of these however a year ago developed bilateral plantar ulcers once again. We have been providing wound care for these in his left foot has almost completely healed at this point but his right foot ulcer has shown equivocal healing. It has at times been exhibiting new skin growth from the edges but also at the same time has been demonstrating some tunneling both towards his heal and now more recently between the 2nd and 3rd metatarsal bones on the midfoot portion of the wound. He has been undergoing routine intensive wound care but four days ago began noticing increased pain in his foot with increased swelling and yesterday began feeling like he had the flu. He had an appointment with his PCM, Dr. Ruano, but he was noted to have a fever and he was looking very ill and so he was sent to the ER and admitted to the hospitalist service from the emergency room. An MRI of his foot and lower leg today is concerning for osteomyelitis and all 5 of the metatarsal bones and surrounding complex fluid collections with diffuse cellulitis involving his foot and ankle. I have been consult to assist with further management. 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 (6) Status post transmetatarsal amputation of left foot Status: Chronic (7) Status post transmetatarsal amputation of right foot Status: Chronic Home Meds Active Scripts Flash Glucose Sensor (Freestyle Muna 14 Day Sensor) 1 Each Kit, UNIT Q2WK, #2 11 Refills Prov:JARET RUANO MD 08/29/18 Flash Glucose Scanning Elbert (Freestyle Muna 14 Day Elbert) 1 Each Each, UNIT TD DIRECTED, #1 Prov:JARET RUANO MD 08/29/18 Tramadol Hcl (TRAMADOL HCL) 50 Mg Tablet, 50 MG PO QID PRN for chronic pain, #60 TAB 2 Refills Prov:JARET RUANO MD 08/29/18 Duloxetine Hcl (CYMBALTA) 60 Mg Capsule.dr, 60 MG PO QDAY, #30 CAP 6 Refills Prov:JARET RUANO MD 08/29/18 Atorvastatin (LIPITOR) 80 Mg Tab, 1 TAB PO QDAY, #90 TAB 3 Refills Prov:JARET RUANO MD 08/29/18 Insulin Glargine,Hum.rec.anlog (Basaglar Kwikpen U-100) 100 Unit/Ml (3 Ml) Insuln.pen, 40 UNITS SUBQ QHS, #1 BOX 6 Refills Prov:JARET RUANO MD 08/06/18 Insulin Aspart 100 Un/Ml Pen (NOVOLOG FLEXPEN) 100 Unit/1 Ml Insuln.pen, 20 UNIT SQ TID, #1 BOX 6 Refills Prov:JARET RUANO MD 08/06/18 Irbesartan (IRBESARTAN) 300 Mg Tablet, 300 MG PO QDAY, #30 TAB 6 Refills Prov:JARET RUANO MD 04/17/18 Metoprolol Succinate (METOPROLOL SUCCINATE) 25 Mg Tab.er.24h, 1 TAB PO QDAY, #30 TAB 3 Refills Prov:JARET RUANO MD 02/26/18 Albuterol Sulfate 90 Mcg/Act (PROAIR HFA 90 MCG/ACT) 8.5 Gm Hfa.aer.ad, 1-2 PUFF IH Q4H PRN for WHEEZING, #1 INHALER Prov:JARET RUANO MD 02/22/18 Bupropion Hcl (WELLBUTRIN XL) 150 Mg Tab.er.24h, 1 TAB PO QDAY, #90 TAB 1 Refill Prov:JARET RUANO MD 12/11/17 Gabapentin (GABAPENTIN) 600 Mg Tablet, 600 MG PO TID, #270 TAB 4 Refills Prov:JARET RUANO MD 10/15/17 Reported Medications Metformin Hcl (METFORMIN HCL ER) 750 Mg Tab.er.24h, 2 TAB PO QAM WITH BREAKFAST 02/20/18 Dulaglutide (Trulicity) 0.75 Mg/0.5 Ml Pen.injctr, 0.75 MG INJ QWEEK 02/20/18 Fluticasone/Vilanterol (Breo Ellipta 200-25 Mcg INH) 1 Each Blst.w.dev, 1 INH INH QDAY 07/02/17 Multivitamin (MULTIVITAMINS) 1 Each Tablet, 1 TAB PO QDAY 09/23/15 Discontinued Reported Medications Montelukast Sodium (SINGULAIR) 10 Mg Tablet, 1 TAB PO QHS, TAB 07/02/17 Discontinued Scripts Furosemide (FUROSEMIDE) 40 Mg Tablet, 1 TAB PO QDAY PRN for edema, #30 TAB 3 Refills Prov:JARET RUANO MD 03/14/18 Sildenafil Citrate (VIAGRA) 100 Mg Tablet, 100 MG PO QDAY PRN for ED, #9 TAB Prov:JARET RUANO MD 09/23/15 Allergies: Coded Allergies: clindamycin (Verified Allergy, Unknown, RASH, 10/02/17) piperacillin (Verified Allergy, Unknown, RASH, 10/02/17) tazobactam (Verified Allergy, Unknown, RASH, 10/02/17) Family History: Patient reports no known family medical history. Review of Systems All Systems Reviewed/Normal: Yes, Except as Noted Constitutional: Fever, Chills, Night Sweats Musculoskeletal: Pain Exam Vital Signs Vital Signs Date Time Temp Pulse Resp B/P (MAP) Pulse Ox O2 Delivery O2 Flow Rate FiO2 10/01/18 19:09 97.9 109 18 131/70 (90) 94 Nasal Cannula 1.0 General Appearance: Alert, Awake, No Acute Distress, Afebrile Neuro: No Gross deficits Eyes: PERRLA Extremities: Warm, Perfused, Other (his right foot is edematous from the low tibial portion down to the end of his midfoot, amputation site. It is tender to palpation. It is slightly discolored but not bright red or purple. The wound appears clean but exhibits copious malodorous drainage and there is tunneling between the 2nd and 3rd metatarsal bones.) Psych: Alert & Oriented X3, Appropriate Mood & Affect Medical Decision Making Data Points Result Diagram: 10/01/18 1458 10/01/18 0540 Assessment and Plan Problems: (1) Osteomyelitis of foot, right, acute Status: Acute Assessment & Plan: 10/01/18: I have gone over his MRI findings with him in detail. I have recommended below-knee amputation. I have also presented the option of surgical drainage of the abscesses and then long-term antibiotics but I have also told him that I think this is a high probability of long-term failure due to the chronic wound on the plantar surface of his foot that has so far been resistant to healing over the last year. Even if he responded well to the drainage and antibiotics, he is at high risk for recurring infections and it is my feeling that, although I believe this has a low chance of success, it has a high probability of recurrence and will only delay his progression back to an ambulatory status. He seems to understand this discussion and wishes to think about this overnight although he did mention towards the end of my 30 minute discussion with him that "we oughtta just go ahead and do what is doing to be required." I will discuss this further with him in the morning and if he decides to proceed with a below-knee amputation then we can do this in the next couple of days. If he desires surgical drainage then this can also be done in the next couple of days. I will continue to follow along with you. (2) Abscess of right foot Status: Acute (3) Cellulitis of right foot Status: Acute Central Venous Access Medical Necessity for Access: Medication Administration Condition Stable Time Spent: < 30 min Venous Thromboembolism Antithrombotics Is Pt On Any Antithrombotics?: No LESLEY SHAH MD Oct 01, 2018 19:32
[2018-10-01] MEDS: INSULIN GLARGINE 100 U/ML 3 ML PEN SQ SCH (21:33)
[2018-10-02] VITALS (10 sets, daily range): BP systolic 122–150; BP diastolic 63–78
[2018-10-02] MEDS ORDERED: VANCOMYCIN(*) 1 GM VIAL 1 GM, VANCOMYCIN HCL 0.750 GM VIAL 0.75 GM in NS(*) 0.9% 250 ML... IVPB SCH (01:00)
[2018-10-02] MEDS: ACETAMINOPHEN 500 MG TAB PO PRN ×2 (01:45→19:33)
[2018-10-02] MEDS: traMADol 50 MG TAB PO PRN ×3 (03:27→18:14)
[2018-10-02 05:44] LABS: PLATELET COUNT, AUTOMATED 211 K/uL (150-450)
[2018-10-02] MEDS: FLUTICASONE/VILANTEROL 1 EACH INHALER INH SCH ×2 (06:00→18:30)
[2018-10-02] MEDS: ALBUTEROL/IPRATROPIUM 3 ML NEB NEB SCH (06:15)
[2018-10-02] MEDS: INSULIN ASPART 100 U/ML 3 ML PEN SUBQ PRN ×4 (08:19→20:38)
[2018-10-02] MEDS: METOPROLOL SUCC XL 25 MG TABCR PO SCH (08:26)
[2018-10-02] MEDS: GABAPENTIN 300 MG CAP PO SCH ×3 (08:27→20:36)
[2018-10-02] MEDS: MONTELUKAST SODIUM 10 MG TAB PO SCH (08:27)
[2018-10-02] MEDS: DULoxetine HCL 30 MG CAPCR PO SCH (08:27)
[2018-10-02] MEDS: buPROPion XL 150 MG TABCR PO SCH (08:28)
[2018-10-02] MEDS ORDERED: ALBUTEROL/IPRATROPIUM 3 ML NEB NEB PRN (10:45)
[2018-10-02] MEDS ORDERED: NS(*) 0.9% 250 ML BAG 250 ML ONE ×2 (11:33→16:46)
[2018-10-02] MEDS ORDERED: LEVOFLOXACIN/D5W 750 MG/150 ML 150 ML IVPB SCH (12:00)
[2018-10-02] MEDS ORDERED: VANCOMYCIN(*) 1 GM VIAL 1 GM, VANCOMYCIN (*) 0.5 GM VIAL 0.5 GM in NS(*) 0.9% 250 ML BA... IVPB SCH (13:04)
[2018-10-02] MEDS ORDERED: INFLUENZA VIRUS VAC 0.5ML SYR IM ONLY ONE (13:55)
[2018-10-02] MEDS: VANCOMYCIN(*) 1 GM VIAL 1 GM, VANCOMYCIN (*) 0.5 GM VIAL 0.5 GM in NS(*) 0.9% 250 ML BA... IVPB SCH (14:53)
--- NOTE | 2018-10-02 14:53 | Medical Nutrition Therapy ---
Nutrition Anthropometrics Height (Inches): 71.00 Height (Calculated Centimeters: 180.513106 Weight (Pounds): 249 Weight (Calculated Kilograms): 112.945 BMI: 34.7 Umesh Nutrition Score: Probably Inadequate Umesh Nutrition Risk Score: 13 Dietary Referral Nutrition Risk Factors: Nutrition Risk Comment: Physical Findings Physical Appearance: Obese BMI 30-39 Skin Appearance Skin Appearance: Edema Edema Location Modifier: Edema Location: Type of Edema: Degree of Edema: Gastrointestinal Symptoms GI Symtoms: Nausea, Appetite Changes Tube Present: Bowel Sounds: Recent Bowel Pattern: Stool Characteristics: Nutritional Diagnosis Nutritional Risk Acuity 2: Abcess/Non-Healing Wound (bilateral foot ulcers with ostomyelitis to Rt foot), Sepsis Nutritional Risk Acuity 3: Fair Appetite Past Medical History: T2DM, hyperlipidemia, HTN, diabetic neuropathy Nutritional Acuity: 2-Moderate Nutrition Diagnosis: Increased Nutrient Needs Nutrition Etiology: Psychological Issues Nutrition Problem/Etiology/Sym: Increased nutr needs r/t dx foot ulcers with ostomyelitis AEB alb 2.4. Adjusted Energy Requirement Re: 2500 ([place] adj for obestiy X 1.2-1.3 SF ([id number])) Protein Requirement: 130 (1.5gm- 1.75 gm/kg IBW (122-142)) Additional Diet Restrictions: PUT PROTEIN POWDER IN APPROPRIATE FOODS Diet Comment To RSA: ENCOURAGE HIGH PROTEIN Nutrition Monitoring & Eval Nutrition Goals: Eat 75-100% Meal RD Patient Assessment Time: [address] Assessment Type: RD Assessment Patient Nutrition Acuity: 2-Moderate Follow Up Date: Oct 06, 2018 Nutritional Comment: 10/02 Pt admitted with osteomylitis to rt foot. Pt has dx T2DM. Pt is on ADA diet and intake average 45%. BG ranging 185-262. Pt is recieving Lantus. Alb low at 2.5, BUN/creatinine elevated at 38/1.9. Pt has increased protein needs r/t wound. Will put protein powder in appropriate foods to ensure pt is recieving adequte protein for healing. Will offer nutr education when appropriate. Will cont to monitor and encourage intake. CHIQUITA PEDROZA Oct 02, 2018 14:53
--- NOTE | 2018-10-02 15:14 | RADIOLOGY IMAGING REPORT ---
FACILITY: [facility] - [place] PATIENT NAME: Peter Quintero : 1965 MR: [id number] V: [id number] EXAM DATE: ORDERING PHYSICIAN: REJI NI TECHNOLOGIST: Location: [facility] - [place] Patient: Peter Quintero : 1965 Visit/Account:[id number] Date of Sevice: 10/02/2018 KIDNEYS EXAMINATION: Renal ultrasound. History: Elevated serum creatinine COMPARISON STUDIES: FINDINGS: Kidneys: Right kidney- 14.5 x 6.5 x 6.9 cm Left kidney- 14.1 x 7.3 x 5.5 cm Uniform and symmetric blood flow in each kidney by Doppler ultrasound. Hydronephrosis: none Resistive index on the right 0.65 non the left 0.73 There is increased echogenicity of the renal parenchyma bilaterally. This can be seen with medical r enal disease Bladder: Prevoid volume 533 mL. Post void residual 137 mL. Bilateral ureteral jets are present. Prostate gland appears mildly prominent and heterogeneous Abdominal aorta and IVC: Aorta and IVC are patent by Doppler ultrasound. IMPRESSION: There is increased echogenicity in the kidneys bilaterally which can be seen with medical renal disea se Urinary bladder prevoid volume 533 mL and postvoid residual 137 mL. Mildly prominent heterogeneous prostate gland Report Dictated By: Carole Boyd MD at 10/02/2018 3:07 PM Report E-Signed By: Carole Boyd MD at 10/02/2018 3:09 PM WSN:[email or web address]
--- NOTE | 2018-10-02 15:47 | Hospitalist Progress Note ---
Subjective Progress Notes Subjective Overall, feeling improved from admission. He is still deciding about having a BKA. Physical Exam Vital Signs Date Time Temp Pulse Resp B/P (MAP) Pulse Ox O2 Delivery O2 Flow Rate FiO2 10/02/18 14:37 93 Nasal Cannula 1.0 10/02/18 14:34 99.2 117 20 130/63 l Intake and Output 10/02/18 06:59 Intake Total 1155 ml Output Total 295 ml Balance 860 ml Intake Oral 240 ml IV Total 915 ml Output Urine Total 295 ml # Voids 4 # Bowel Movements 3 General Appearance: Alert, Awake, No Acute Distress Cardiovascular: Regular Rate and Rhythm Respiratory: Clear to Auscultation Result Diagram: 10/02/18 0702 10/02/18 0524 Monitor Interpretation: Sinus Tachycardia Assessment and Plan Problems: (1) Osteomyelitis of foot, right, acute Status: Acute Assessment & Plan: 4 days prior to admission, he developed more right foot pain and then flu symptoms the day before admission. He had bilateral transmetatarsal amputation about 2 years ago. The left is nearly healed, but the right hasn't healed, so has had aggressive wound care. Now he has osteom yelitis in the 3rd-5th metatarsals with an adjacent complex of air/fluid level. Dr. Callejas is recommending a BKA, but the patient wants to think about it. Continue Vancomycin and Levofloxacin. (2) Sepsis Assessment & Plan: He did present with fever, SOB, hypoxia, myalgias and an elevated lactate. He received 2 liters of fluid in the emergency department. Repeat lactate level was normal. His blood cultures and wound culture are growing GPC. See below. (3) Acute renal failure Status: Resolved Assessment & Plan: Improved. Creatinine is 1.9 this AM (2.1 at time of admission). He is on IV fluids. We have also held his irbesartan. (4) Iron deficiency anemia Status: Chronic Assessment & Plan: Iron is very low and is lower than when checked in August. He has had a microcytosis since February of 2018. Will check stool for occult blood. He likely will need an iron infusion. (5) Diabetes mellitus type 2, controlled, with complications Status: Chronic Assessment & Plan: He is on chronic treatment with Trulicity, Lantus, metformin, and NovoLog. We have held the metformin and Trulicity. He was placed on his usual Lantus of 40 units and sliding scale level #3. Glucose ranging from 209-262. Lantus to be increased to 50 units. (6) Benign hypertension Status: Chronic Assessment & Plan: He is on chronic treatment with metoprolol and irbesartan. The irbesartan is on hold. BP wnl. (7) Anxiety and depression Assessment & Plan: He is on chronic treatment with Wellbutrin. Central Venous Access Medical Necessity for Access: Medication Administration Exam Sepsis Risk: No Definite Risk REJI NI MD Oct 02, 2018 15:47
--- NOTE | 2018-10-02 17:02 | RADIOLOGY IMAGING REPORT ---
FACILITY: [facility] - [place] PATIENT NAME: Peter Quintero : 1965 MR: [id number] V: [id number] EXAM DATE: ORDERING PHYSICIAN: REJI NI TECHNOLOGIST: [facility] Patient: Peter Quintero : 1965 Visit/Account:[id number] Date of Sevice: 10/02/2018 Exam type: PICC LINE INSERTION, US GUIDANCE VASCULAR ACCESS History: poor vascular access, custodial IV access Comparison: None. Findings: Informed consent was obtained. The patient's left arm was prepped and draped usual sterile fashion. Local anesthesia was accomplished with 1% lidocaine. Utilizing both sonographic and fluoroscopic gu idance a 44 cm long trimmed double-lumen 5 Chinese power PICC was inserted via the patent left basilic vein with the distal tip resting in superior vena cava. Both lumens the proper flushed with 5 mL of saline flush. Proximal portion PICC line was adhered patient's arm the sterile dressing. The sonog raphic images were saved to PACS. The procedure was accomplished without apparent cortication. The fluoroscopy dose area product was 54.3 micro-Chahal per meter squared. IMPRESSION: 1. Successful placement of a 44 cm long trimmed 5 Chinese double-lumen power PICC inserted via the pa tent left basilic vein with the distal tip resting in superior vena cava Report Dictated By: Carole Boyd MD at 10/02/2018 4:55 PM Report E-Signed By: Carole Boyd MD at 10/02/2018 4:57 PM WSN:[email or web address]
--- NOTE | 2018-10-02 17:02 | RADIOLOGY IMAGING REPORT ---
FACILITY: [facility] [place] PATIENT NAME: Peter Quintero : 1965 MR: [id number] V: [id number] EXAM DATE: ORDERING PHYSICIAN: REJI NI TECHNOLOGIST: Location: [facility] - [place] Patient: Peter Quintero : 1965 Visit/Account:[id number] Date of Sevice: 10/02/2018 Exam type: PICC LINE INSERTION, US GUIDANCE VASCULAR ACCESS History: poor vascular access, half-way IV access Comparison: None. Findings: Informed consent was obtained. The patient's left arm was prepped and draped usual sterile fashion. Local anesthesia was accomplished with 1% lidocaine. Utilizing both sonographic and fluoroscopic gu idance a 44 cm long trimmed double-lumen 5 Mauritian power PICC was inserted via the patent left basilic vein with the distal tip resting in superior vena cava. Both lumens the proper flushed with 5 mL of saline flush. Proximal portion PICC line was adhered patient's arm the sterile dressing. The sonog raphic images were saved to PACS. The procedure was accomplished without apparent cortication. The fluoroscopy dose area product was 54.3 micro-Chahal per meter squared. IMPRESSION: 1. Successful placement of a 44 cm long trimmed 5 Mauritian double-lumen power PICC inserted via the pa tent left basilic vein with the distal tip resting in superior vena cava Report Dictated By: Carole Boyd MD at 10/02/2018 4:55 PM Report E-Signed By: Carole Boyd MD at 10/02/2018 4:57 PM WSN:[email or web address]
[2018-10-02] MEDS: LEVOFLOXACIN/D5W 750 MG/150 ML 150 ML IVPB SCH (17:03)
[2018-10-02] MEDS: INSULIN GLARGINE 100 U/ML 3 ML PEN SQ SCH (20:37)
[2018-10-02] MEDS: NS(*) 0.9% 1000 ML BAG 1,000 ML IV PRN (21:31)
[2018-10-03] VITALS (8 sets, daily range): BP systolic 100–147; BP diastolic 67–84
[2018-10-03] MEDS: VANCOMYCIN(*) 1 GM VIAL 1 GM, VANCOMYCIN (*) 0.5 GM VIAL 0.5 GM in NS(*) 0.9% 250 ML BA... IVPB SCH ×2 (02:28→15:41)
[2018-10-03] MEDS: traMADol 50 MG TAB PO PRN ×2 (02:36→13:54)
[2018-10-03 06:18] LABS: PLATELET COUNT, AUTOMATED 268 K/uL (150-450)
--- NOTE | 2018-10-03 07:52 | General Surgery Progress Note ---
Subjective Progress Notes Subjective Right foot is hurting more this morning. Physical Exam Vital Signs Date Time Temp Pulse Resp B/P (MAP) Pulse Ox O2 Delivery O2 Flow Rate FiO2 10/03/18 02:40 83 10/03/18 02:28 98.7 104 18 100/75 (83) 1.0 10/02/18 19:20 Nasal Cannula Intake and Output 10/03/18 06:59 Intake Total 3000 ml Output Total 775 ml Balance 2225 ml Intake Oral 700 ml IV Total 1800 ml Blood Product 500 ml Output Urine Total 775 ml # Voids 4 General Appearance: Alert, Awake, No Acute Distress, Afebrile Extremities: Other (Dressing in place right leg below knee is much more edematous this morning. Dressing is intact) Result Diagram: 10/03/1860610/03/18606 Monitor Interpretation: Sinus Tachycardia Assessment and Plan Problems: (1) Osteomyelitis of foot, right, acute Status: Acute Assessment & Plan: 10/01/18: I have gone over his MRI findings with him in det ail. I have recommended below-knee amputation. I have also presented the option of surgical drainage of the abscesses and then long-term antibiotics but I have also told him that I think this is a high probability of long-term failure due to the chronic wound on the plantar surface of his foot that has so far been resistant to healing over the last year. Even if he responded well to the drainage and antibiotics, he is at high risk for recurring infections and it is my feeling that, although I believe this has a low chance of success, it has a high probability of recurrence and will only delay his progression back to an ambulatory status. He seems to understand this discussion and wishes to think about this overnight although he did mention towards the end of my 30 minute discussion with him that "we oughtta just go ahead and do what is doing to be required." I will discuss this further with him in the morning and if he decides to proceed with a below-knee amputation then we can do this in the next couple of days. If he desires surgical drainage then this can also be done in the next couple of days. I will continue to follow along with you. 10/02/18: Slept better. Still deciding on surgery. He would like to talk to enrollment counselor before surgery. Hopefully enrollment counselor can come up to [place] from [facility] tomorrow. 10/03/18: WBC up this morning, swelling worse, more pain, still having fevers. I have recommended that we proceed with surgery today due to his worsening clinical condition. After thought, he is agreeable with proceeding with right BKA later today. I have explained the surgery to him in great detail along with the alternatives, risks, and expected recovery. His questions have been answered. He would like to proceed with right BKA today. (2) Abscess of right foot Status: Acute (3) Cellulitis of right foot Status: Acute Central Venous Access Medical Necessity for Access: Medication Administration Condition Stable. Time Spent: < 30 min Exam Sepsis Risk: No Definite Risk LESLEY SHAH MD Oct 03, 2018 07:52
[2018-10-03] MEDS: MORPHINE 2 MG/ML SYR IVP PRN (08:03)
--- NOTE | 2018-10-03 08:39 | EKG ---
FACILITY: [facility] - [place] PATIENT NAME: SANTA DE SOUZA : [id number] MR: [id number] V: [id number] EXAM DATE: ORDERING PHYSICIAN: LESLEY SHAH TECHNOLOGIST: DORA Test Reason : PRE OP Blood Pressure : / mmHG Vent. Rate : 109 BPM Atrial Rate : 109 BPM P-R Int : 134 ms QRS Dur : 090 ms QT Int : 322 ms P-R-T Axes : 039 027 -02 degrees QTc Int : 433 ms Sinus tachycardia Otherwise normal ECG When compared with ECG of 20-FEB-2018 15:36, No significant change was found Confirmed by LESLEY DEVRIES ([id number]) on 10/03/2018 5:57:11 PM Referred By: PABLO Confirmed By:LESLEY DEVRIES
[2018-10-03] MEDS: GABAPENTIN 300 MG CAP PO SCH ×3 (08:54→21:00)
[2018-10-03] MEDS: DULoxetine HCL 30 MG CAPCR PO SCH (08:54)
[2018-10-03] MEDS: MONTELUKAST SODIUM 10 MG TAB PO SCH (08:54)
[2018-10-03] MEDS: METOPROLOL SUCC XL 25 MG TABCR PO SCH (08:54)
[2018-10-03] MEDS: buPROPion XL 150 MG TABCR PO SCH (08:54)
[2018-10-03] MEDS: NS(*) 0.9% 1000 ML BAG 1,000 ML IV PRN (09:14)
[2018-10-03] MEDS ORDERED: FERRIC CARBOXY 750 MG SDV 750 MG in NS(*) 0.9% 250 ML BAG 250 ML IVPB ONE (10:45)
--- NOTE | 2018-10-03 11:06 | Hospitalist Progress Note ---
Subjective Progress Notes Subjective He has no complaints this morning. He reports he is getting BKA this afternoon. Patient Complains of: Cardiovascular: No: Chest Pain Respiratory: No: Shortness of Breath Physical Exam Vital Signs Date Time Temp Pulse Resp B/P (MAP) Pulse Ox O2 Delivery O2 Flow Rate FiO2 10/03/18 07:49 99.6 110 20 147/84 (105) 92 Nasal Cannula 1.0 Intake and Output 10/03/18 00:00 Intake Total 2851 ml Output Total 420 ml Balance 2431 ml Intake Oral 536 ml IV Total 1815 ml Blood Product 500 ml Output Urine Total 420 ml # Voids 4 # Bowel Movements 1 General Appearance: Alert, Awake, No Acute Distress, Afebrile Neuro: No Gross deficits Cardiovascular: Other (tachycardia noted, regular ) Respiratory: No Respiratory Distress, Clear to Auscultation GI: Soft and Non-Tender Extremities: Warm, Perfused, Edema (2+pitting edema to right lower extremity) Psych: Alert & Oriented X3, Appropriate Mood & Affect Result Diagram: 10/03/1807 10/03/18 06 Monitor Interpretation: Sinus Tachycardia Assessment and Plan Problems: (1) Osteomyelitis of foot, right, acute Status: Acute Assessment & Plan: 4 days prior to admission, he developed more right foot pain and then flu symptoms the day before admission. He had bilateral transmetatarsal amputation about 2 years ago. The left is nearly healed, but the right hasn't healed, so has had aggressive wound care. Now he has osteomyelitis in the 3rd-5th metatarsals with an adjacent complex of air/fluid level. Dr. Callejas is recommending a BKA, which is scheduled today at 3PM. Continue Vancomycin and Levofloxacin. (2) Sepsis Assessment & Plan: He did present with fever, SOB, hypoxia, myalgias and an elevated lactate. He received 2 liters of fluid in the emergency department. Repeat lactate level was normal. His blood cultures and wound culture are growing strep dysgalactiae. See below. (3) Acute renal failure Status: Resolved Assessment & Plan: Improved. Creatinine is 1.6 this AM (2.1 at time of admission). He is on IV fluids. We have also held his irbesartan. (4) Iron deficiency anemia Status: Chronic Assessment & Plan: Iron is very low and is lower than when checked in August. He has had a microcytosis since February of 2018. Will check stool for occult blood. He will receive IV infusion prior to surgery. (5) Diabetes mellitus type 2, controlled, with complications Status: Chronic Assessment & Plan: He is on chronic treatment with Trulicity, Lantus, metformin, and NovoLog. We have held the metformin and Trulicity. He was placed on his usual Lantus of 40 units and sliding scale level #3. Glucose ranging from 209-262. Lantus to be increased to 50 units. (6) Benign hypertension Status: Chronic Assessment & Plan: He is on chronic treatment with metoprolol and irbesartan. The irbesartan is on hold. BP wnl. (7) Anxiety and depression Assessment & Plan: He is on chronic treatment with Wellbutrin. Central Venous Access Medical Necessity for Access: Medication Administration Exam Sepsis Risk: Sepsis Risk SORAYA HARMON Oct 03, 2018 11:06
[2018-10-03] MEDS ORDERED: FAMOTIDINE 20 MG TAB PO ONE (13:00)
[2018-10-03] MEDS ORDERED: NORMOSOL R SOLN(*) 1000 ML BAG 1,000 ML IV ONE (15:00)
[2018-10-03] MEDS ORDERED: LIDOCAINE MPF 1% 5 ML VIAL ONE (16:32)
[2018-10-03] MEDS ORDERED: PROPOFOL EMUL(*) 10MG/ML 20 ML 20 ML ONE (16:32)
[2018-10-03] MEDS ORDERED: ONDANSETRON 4 MG/2 ML VIAL ONE (16:32)
[2018-10-03] MEDS ORDERED: MIDAZOLAM 2 MG/2 ML VIAL ONE (16:32)
[2018-10-03] MEDS ORDERED: DEXAMETHASONE SOD PHOS 10MG/ML ONE (16:32)
[2018-10-03] MEDS ORDERED: KETAMINE HCL-NS 50 MG/5 ML SYR ONE (16:33)
[2018-10-03] MEDS ORDERED: NORMOSOL R SOLN(*) 1000 ML BAG 0 ML IV ONE (17:06)
[2018-10-03] MEDS: LEVOFLOXACIN/D5W 750 MG/150 ML 150 ML IVPB SCH (17:28)
[2018-10-03] MEDS ORDERED: fentaNYL CITR 100 MCG/2 ML AMP ONE (17:45)
[2018-10-03] MEDS ORDERED: BUPIV/EPI 0.25% 1:200,000 50ML INFIL ONE (17:47)
[2018-10-03] MEDS ORDERED: SUGAMMADEX SOD 200 MG/2 ML SDV ONE (18:08)
[2018-10-03] MEDS ORDERED: ROCURONIUM BROM 10 MG/ML 10 ML ONE (18:08)
[2018-10-03] MEDS ORDERED: NEOMYCIN/POLYMYX/BACITR 30 GM TP ONE (20:28)
[2018-10-03] MEDS: INSULIN GLARGINE 100 U/ML 3 ML PEN SQ SCH (21:00)
[2018-10-03] MEDS ORDERED: NALOXONE HCL 0.4 MG/ML VIAL IVP PRN (21:00)
[2018-10-03 21:06] LABS: PLATELET COUNT, AUTOMATED 280 K/uL (150-450)
--- NOTE | 2018-10-03 21:18 | Post Operative Progress Note ---
Post Operative Progress Note Date: Oct 03, 2018 Time: 21:03 Surgeon: Júnior Dictation number: [id number] Anesthesia: GETA by Dr. Fonseca Pre-Op Diagnosis: Right foot diabetic wound with sepsis and osteomyelitis Post-Op Diagnosis: SARTHAK Findings: pus in extensor digitorum longus muscle compartment up to just below knee Procedure(s): Right BKA Specimen Removed:(May be N/A): Right lower leg/foot Complications: None Total Tourniquet Time: 60 minutes Splint: Knee brace placed after surgery Fluids: 2L crystalloid Estimated Blood Loss: 100mL Date OP Note Dictated: Oct 03, 2018 Time OP Note Dictated: 21:09 LESLEY SHAH MD Oct 03, 2018 21:18
--- NOTE | 2018-10-03 21:57 | OPERATIVE REPORT 1 ---
EVENT DATE: October 03, 2018 SURGEON: Jono Callejas MD ANESTHESIOLOGIST: Christopher Fonseca MD ANESTHESIA: General endotracheal anesthesia. PREOPERATIVE DIAGNOSIS Chronic right foot diabetic ulcer with osteomyelitis and sepsis. POSTOPERATIVE DIAGNOSIS Chronic right foot diabetic ulcer with osteomyelitis and sepsis. PROCEDURE PERFORMED Right below-knee amputation. COMPLICATIONS None. CONDITION Stable. BLOOD LOSS 100 mL INTRAVENOUS FLUIDS Crystalloid 2 L. SPECIMENS Right foot and lower leg. FINDINGS The patient had pus in his extensor digitorum longus muscle compartment up to just below the knee. All of the rest of the muscles and bones looked unremarkable at the level of the amputation. INDICATIONS This is a 53-year-old gentleman with diabetes who I have been taking care of for several years. I initially came into contact with him after a trip to [place] where he walked barefoot on a hot balcony, and because of his neuropathy, he did not sense the heat and had two ulcers on his feet. He ultimately ended up with osteomyelitis, and I treated him with bilateral transmetatarsal amputations. He healed well from this, but then a year ago, he apparently went to [place] again and was walking around and developed blisters on the plantar surfaces of his feet. These blisters eventually fell off, and he had underlying wounds. We have been providing wound care for the last year. His left foot wound has now completely healed, but his right foot wound has never healed very successfully. We would see some progress, but then it would regress. Over the last week, he has noticed increased swelling and pain and ultimately developed flu-like symptoms, prompting him to come into the ER where he was admitted. A CT reveals osteomyelitis in all five metatarsal bones as well as surrounding abscesses and even some evidence of an abscess going up into his lower leg. I have been discussing below-knee amputation, and he has been considering it, but today he was feeling worse, and his white count went up, and so I have discussed amputation with him again, and he elected to proceed with amputation today. DESCRIPTION OF PROCEDURE The patient was brought to the operating room and placed supine on the operating table. General endotracheal anesthesia was administered, and a tourniquet was placed on his thigh. His right leg was prepped and draped from his foot all the way up to his distal thigh in a sterile fashion. Timeout was completed, and I marked the skin on his lower leg at 13 cm distal to the tibial tuberosity. I made a transverse incision anteriorly all the way medially and laterally and then cut through all of the muscles anterior to the plane between the tibia and the fibula. I then used a periosteal elevator to separate the soft tissues from the tibia circumferentially and then cut the tibia with a power bone saw at about 11 cm from the tibial tuberosity all the way through. I then cut the fibula at about 10 cm from the tibial tuberosity all the way through. I then cut off the anterior portion of the tibia at an angle so that it would not put pressure on the overlying flaps and cause necrosis of the tissue or an ulcer over this area, especially when he is up on a prosthetic. I then used an amputation knife and cut all of the soft tissues away from the posterior surfaces of the tibia and fibula distally to create a posterior flap. Once the foot was completely amputated, it was sent off to Pathology. I trimmed up the posterior muscles to create a nice flap that had adequate muscular coverage over the bones, but was not too thick. Also when I was dissecting through the musculature, copious amounts of pus were coming from the distal portion of the foot, and there was one compartment, the extensor digitorum longus muscle compartment laterally that had pus tracking up proximally for approximately 8 cm. I used 3 L of sterile normal saline through the pulse lavage and irrigated out copiously the entire exposed tissues, but especially focused on the extensor digitorum longus muscle compartment where the pus was coming out. At the end of this, this was also cleaned out. I then placed a 10 mm flat Morales-Gould drain in this muscle compartment, and this exited his anterolateral leg superior to the amputation site, and I sewed this to the skin with an 0 silk suture. After I had the posterior flap trimmed appropriately, we let down the tourniquet, and I controlled any residual bleeding with 2-0 silk sutures. I then folded the posterior flap over and sewed the muscle fascia and compartment fascia on the posterior flap to the anterior fascia with interrupted 3-0 Vicryl sutures. Once I had the skin trimmed up, I closed the skin incision with veronica. I then cleaned and dried the skin and placed antibiotic ointment over the entire incision and veronica and covered this with Xeroform, followed by 4 x 4 gauze, and then wrapped his lower leg with Kerlix and then an Jax wrap. I then placed his leg in a knee splint to keep the knee fully extended to prevent posterior contracture. He was then awoken, extubated in the operating room, and transported to the recovery room in stable condition having tolerate the procedure without any apparent problems. OTTO
[2018-10-03] MEDS: INSULIN ASPART 100 U/ML 3 ML PEN SUBQ PRN (23:07)
[2018-10-03] MEDS ORDERED: PCA LOCKBOX KEYS XX ONE (23:30)
[2018-10-03] MEDS: MORPHINE 1 MG/ML 30 ML PCA IV PRN (23:42)
[2018-10-04] VITALS (10 sets, daily range): BP systolic 85–143; BP diastolic 77–88
[2018-10-04] MEDS: NS(*) 0.9% 1000 ML BAG 1,000 ML IV PRN ×2 (02:03→14:08)
[2018-10-04] MEDS: VANCOMYCIN(*) 1 GM VIAL 1 GM, VANCOMYCIN (*) 0.5 GM VIAL 0.5 GM in NS(*) 0.9% 250 ML BA... IVPB SCH (02:04)
[2018-10-04] MEDS: FLUTICASONE/VILANTEROL 1 EACH INHALER INH SCH (06:00)
[2018-10-04 06:26] LABS: PLATELET COUNT, AUTOMATED 304 K/uL (150-450)
--- NOTE | 2018-10-04 08:46 | General Surgery Progress Note ---
Subjective Progress Notes Subjective No complaints this morning. Not much pain. Had some issues with delirium after surgery but this is improving. Physical Exam Vital Signs Date Time Temp Pulse Resp B/P (MAP) Pulse Ox O2 Delivery O2 Flow Rate FiO2 10/04/18 06:32 87 10/04/18 06:00 20 10/04/18 06:00 97.5 81 133/88 (103) Nasal Cannula 1.0 Intake and Output 10/04/18 06:59 Intake Total 4050 ml Output Total 1205 ml Balance 2845 ml Intake Oral 600 ml IV Total 3450 ml Output Urine Total 1150 ml Drainage Total 55 ml # Voids 4 General Appearance: Alert, Awake, No Acute Distress, Afebrile Extremities: Other (his right lower leg, amputation site, is wrapped in the surgical dressing and in a straight knee brace.) Result Diagram: 10/04/18 0555 10/04/18 0555 Monitor Interpretation: Sinus Tachycardia Assessment and Plan Problems: (1) Osteomyelitis of foot, right, acute Status: Acute Assessment & Plan: 10/01/18: I have gone over his MRI findings with him in detail. I have recommended below-knee amputation. I have also presented the option of surgical drainage of the abscesses and then long-term antibiotics but I have also told him that I think this is a high probability of long-term failure due to the chronic wound on the plantar surface of his foot that has so far been resistant to healing over the last year. Even if he responded well to the drainage and antibiotics, he is at high risk for recurring infections and it is my feeling that, although I believe this has a low chance of success, it has a high probability of recurrence and will only delay his progression back to an ambulatory status. He seems to understand this discussion and wishes to think about this overnight although he did mention towards the end of my 30 minute discussion with him that "we oughtta just go ahead and do what is doing to be required." I will discuss this further with him in the morning and if he decides to proceed with a below-knee amputation then we can do this in the next couple o f days. If he desires surgical drainage then this can also be done in the next couple of days. I will continue to follow along with you. 10/02/18: Slept better. Still deciding on surgery. He would like to talk to oil well cable tool operator before surgery. Hopefully oil well cable tool operator can come up to [place] from [facility] tomorrow. 10/03/18: WBC up this morning, swelling worse, more pain, still having fevers. I have recommended that we proceed with surgery today due to his worsening clinical condition. After thought, he is agreeable with proceeding with right BKA later today. I have explained the surgery to him in great detail along with the alternatives, risks, and expected recovery. His questions have been answered. He would like to proceed with right BKA today. 10/04/18: POD#1 s/p right BKA. Patient is doing well this morning. He has been afebrile overnight and his heart rate has come down from tachycardia into the 80s. We'll keep the dressing on today and will plan on removing it tomorrow and start to mobilize him with physical therapy. The oil well cable tool operator is due to meet with him today. We'll need to have him fitted for a clamshell stump brace. He had pus all the way up the lateral compartment of his lower leg and this was washed out and a RASTA drain was placed in the infected space and this will remain in until the output declines and is no longer purulent. I have explained the surgery to him and he seems to understand and he seems to be feeling better this morning. (2) Abscess of right foot Status: Acute (3) Cellulitis of right foot Status: Acute Central Venous Access Medical Necessity for Access: Medication Administration Condition Stable Time Spent: < 30 min Exam Sepsis Risk: No Definite Risk LESLEY SHAH MD Oct 04, 2018 08:46
--- NOTE | 2018-10-04 08:53 | Hospitalist Progress Note ---
Subjective Progress Notes Subjective He is receiving treatment for osteomyelitis of his right foot. He did have Right BKA yesterday. He was noted to have hallucinations post-operatively. He is still hallucinating some this morning. He has no complaints otherwise. Patient Complains of: Cardiovascular: No: Chest Pain Respiratory: No: Shortness of Breath Physical Exam Vital Signs Date Time Temp Pulse Resp B/P (MAP) Pulse Ox O2 Delivery O2 Flow Rate FiO2 10/04/18 06:32 87 10/04/18 06:00 20 10/04/18 06:00 97.5 81 133/88 (103) Nasal Cannula 1.0 Intake and Output 10/04/18 06:59 Intake Total 4050 ml Output Total 1205 ml Balance 2845 ml Intake Oral 600 ml IV Total 3450 ml Output Urine Total 1150 ml Drainage Total 55 ml # Voids 4 General Appearance: Alert, Awake, No Acute Distress, Afebrile Neuro: No Gross deficits Cardiovascular: Regular Rate and Rhythm Respiratory: No Respiratory Distress, Clear to Auscultation GI: Soft and Non-Tender Extremities: Warm, Perfused; No Edema Psych: Alert & Oriented X3, Other (hallucinating blood on his body) Result Diagram: 10/04/18 0555 10/04/18 0555 Monitor Interpretation: Sinus Tachycardia Assessment and Plan Problems: (1) Osteomyelitis of foot, right, acute Status: Acute Assessment & Plan: 4 days prior to admission, he developed more right foot pain and then flu symptoms the day before admission. He had bilateral transmetatarsal amputation about 2 years ago. The left is nearly healed, but the right hasn't healed, so has had aggressive wound care. Now he has osteo myelitis in the 3rd-5th metatarsals with an adjacent complex of air/fluid level. Dr. Callejas performed right BKA 10/03/18. He was noted to have abscess which extended along the lateral aspect of the leg up to the knee. He does have drain to leg this morning. Continue Vancomycin and Levofloxacin. (2) Sepsis Assessment & Plan: He did present with fever, SOB, hypoxia, myalgias and an elevated lactate. He received 2 liters of fluid in the emergency department. Repeat lactate level was normal. His blood cultures and wound culture are growing strep dysgalactiae. See below. (3) Acute renal failure Status: Resolved Assessment & Plan: Improved. Creatinine is 1.5 this AM (2.1 at time of a dmission). He is on IV fluids. We have also held his irbesartan. (4) Iron deficiency anemia Status: Chronic Assessment & Plan: Iron is very low and is lower than when checked in August. He has had a microcytosis since February of 2018. Will check stool for occult blood. He did receive IV iron infusion prior to surgery 10/03. Iron improved this morning. (5) Diabetes mellitus type 2, controlled, with complications Status: Chronic Assessment & Plan: He is on chronic treatment with Trulicity, Lantus, metformin, and NovoLog. We have held the metformin and Trulicity. He was placed on his usual Lantus of 40 units and sliding scale level #3. Glucose ranging from 209-262. Lantus to be increased to 50 units. (6) Benign hypertension Status: Chronic Assessment & Plan: He is on chronic treatment with metoprolol and irbesartan. The irbesartan is on hold. BP wnl. (7) Anxiety and depression Assessment & Plan: He is on chronic treatment with Wellbutrin. Central Venous Access Medical Necessity for Access: Medication Administration Exam Sepsis Risk: No Definite Risk SORAYA HARMON Oct 04, 2018 08:53
[2018-10-04] MEDS: GABAPENTIN 300 MG CAP PO SCH ×3 (09:32→21:48)
[2018-10-04] MEDS: DULoxetine HCL 30 MG CAPCR PO SCH (09:32)
[2018-10-04] MEDS: MONTELUKAST SODIUM 10 MG TAB PO SCH (09:32)
[2018-10-04] MEDS: buPROPion XL 150 MG TABCR PO SCH (09:32)
[2018-10-04] MEDS: METOPROLOL SUCC XL 25 MG TABCR PO SCH (09:33)
[2018-10-04] MEDS: INSULIN ASPART 100 U/ML 3 ML PEN SUBQ PRN ×4 (09:35→21:51)
[2018-10-04] MEDS: INSULIN ASPART 100 U/ML 3 ML PEN SUBQ SCH ×2 (12:28→17:17)
--- NOTE | 2018-10-04 17:28 | Antimicrobial Stewardship ---
Antimicrobial Stewardship Empiricly appropriate: Yes (Pt with known osteomyelitis and abscess of the R lower extremity, s/p amputation on 10/03) Approriate Cultures done: Yes (Wound cx pending- potential anaerobe) Gram stain show Microbs: Yes (possible anaerobe in wound, s. dysgalatiae in blood) Organism identified: Yes Review the antibiotic sensitiv: Yes (Blood Cx x 4 bottles = S. dysgal actiae/equisimilis, repeat Cx NGTD on 10/03) Renal/Hepatic dosing: Yes (Scr improved to 1.5) Monitored for Toxicities: Yes Determine cumulative duration: Day 1 post op Determine standard duration: 7-14 days or longer depending on progress/drainage Comment 53 yo M who presented with longstanding R foot wound (seeing wound care for past year) who presented to the ED with fevers. Blood cultures positive, wound cx pending (r/o anaerobe). He is now s/p RLE amputation. S. dysgalactiae (+) blood cx, sensitive to ceftriaxone and vancomycin. Stop Vancomycin and start ceftriaxone with consideration of the addition of flagyl to cover potential anaerobe in the wound. Per Dr. Callejas's note, R leg with significant abscess extending into the stump, post op drain in place draining pus. Will add metronidazole to cover potential anaerobe. Consideration of extent of infection and potential residual infected tissue, would be more aggressive with post op antibiotic treatment. May need 14 days or longer of therapy depending on progress. Will continue to follow. Switch antibiotic to Ceftriaxone 2g IV Q24h to continue for a minimum of 7 days post amputation (may need 14 days or longer) and add metronidazole to cover possible anaerobe. Laura Landin, PharmD, BCOP LAURA LANDIN Oct 04, 2018 16:51
[2018-10-04] MEDS: cefTRIAXone(*) 2 GM VIAL 2 GM in NS(*) 0.9% 100 ML ADDVANT BAG 100 ML IVPB SCH (17:38)
[2018-10-04] MEDS: metroNIDAZOLE* 500MG/100ML BAG 100 ML IVPB SCH (18:37)
[2018-10-04] MEDS: INSULIN GLARGINE 100 U/ML 3 ML PEN SQ SCH (21:48)
[2018-10-05 00:27] VITALS: BP 109/74
[2018-10-05] MEDS ORDERED: PCA LOCKBOX KEYS XX ONE (01:24)
[2018-10-05] MEDS: MORPHINE 1 MG/ML 30 ML PCA IV PRN (01:32)
[2018-10-05] MEDS: metroNIDAZOLE* 500MG/100ML BAG 100 ML IVPB SCH ×5 (01:34→23:58)
[2018-10-05] MEDS: NS(*) 0.9% 1000 ML BAG 1,000 ML IV PRN ×2 (04:31→17:44)
[2018-10-05 05:14] VITALS: BP 136/92
[2018-10-05] MEDS: FLUTICASONE/VILANTEROL 1 EACH INHALER INH SCH (06:00)
[2018-10-05 06:24] LABS: PLATELET COUNT, AUTOMATED 419 K/uL (150-450)
--- NOTE | 2018-10-05 07:28 | General Surgery Progress Note ---
Subjective Progress Notes Subjective Much clearer this morning, was confused last pm, fell out of bed. Now with sitter at bedside. Physical Exam Vital Signs Date Time Temp Pulse Resp B/P (MAP) Pulse Ox O2 Delivery O2 Flow Rate FiO2 10/05/18 05:14 97.6 85 16 136/92 (107) 94 Nasal Cannula 1.0 Intake and Output 10/05/18 06:59 Intake Total 1415 ml Output Total 1335 ml Balance 80 ml Intake Oral 240 ml IV Total 1175 ml Output Urine Total 1215 ml Drainage Total 120 ml # Voids 2 General Appearance: Alert, Awake, No Acute Distress, Afebrile Extremities: Other (left leg cast in place, right BKA in knee immobilizer. RASTA drain with bloody output) Result Diagram: 10/05/1841 10/05/18540 Monitor Interpretation: Sinus Tachycardia Assessment and Plan Problems: (1) Osteomyelitis of foot, right, acute Status: Acute Assessment & Plan: 10/01/18: I have gone over his MRI findings with him in detail. I have recommended below-knee amputation. I have also presented the option of surgical drainage of the abscesses and then long-term antibiotics but I have also told him that I think this is a high probability of long-term failure due to the chronic wound on the plantar surface of his foot that has so far been resistant to healing over the last year. Even if he responded well to the drainage and antibiotics, he is at high risk for recurring infections and it is my feeling that, although I believe this has a low chance of success, it has a high probability of recurrence and will only delay his progression back to an ambulatory status. He seems to understand this discussion and wishes to think ab out this overnight although he did mention towards the end of my 30 minute discussion with him that "we oughtta just go ahead and do what is doing to be required." I will discuss this further with him in the morning and if he decides to proceed with a below-knee amputation then we can do this in the next couple of days. If he desires surgical drainage then this can also be done in the next couple of days. I will continue to follow along with you. 10/02/18: Slept better. Still deciding on surgery. He would like to talk to social human services assistants before surgery. Hopefully social human services assistants can come up to [place] from [facility] tomorrow. 1/24/19: WBC up this morning, swelling worse, more pain, still having fevers. I have recommended that we proceed with surgery today due to his worsening clinical condition. After thought, he is agreeable with proceeding with right BKA later today. I have explained the surgery to him in great detail along with the alternatives, risks, and expected recovery. His questions have been answered. He would like to proceed with right BKA today. 10/04/18: POD#1 s/p right BKA. Patient is doing well this morning. He has been afebrile overnight and his heart rate has come down from tachycardia into the 80s. We'll keep the dressing on today and will plan on removing it tomorrow and start to mobilize him with physical therapy. The social human services assistants is due to meet with him today. We'll need to have him fitted for a clamshell stump brace. He had pus all the way up the lateral compartment of his lower leg and this was washed out and a RASTA drain was placed in the infected space and this will remain in until the output declines and is no longer purulent. I have explained the surgery to him and he seems to understand and he seems to be feeling better this morning. 10/05/18: POD#2 s/p right BKA. Had confusion/delirium last night and fell out of bed. No injuries sustained. Sitter now at bedside. [place] x3 this morning. RASTA still with bloody output, will leave drain until output has dried up. (2) Abscess of right foot Status: Acute (3) Cellulitis of right foot Status: Acute Central Venous Access Medical Necessity for Access: Medication Administration Time Spent: < 30 min Exam Sepsis Risk: No Definite Risk NIKI ROJAS MD Oct 05, 2018 07:28
[2018-10-05 07:43] VITALS: BP 137/84
--- NOTE | 2018-10-05 08:35 | Hospitalist Progress Note ---
Subjective Progress Notes Subjective Confusion has improved. He is awake and alert. He is having some "phantom" pain in right ankle/foot. No fever this AM. Physical Exam Vital Signs Date Time Temp Pulse Resp B/P (MAP) Pulse Ox O2 Delivery O2 Flow Rate FiO2 10/05/18 08:01 16 92 10/05/18 07:43 97.8 89 137/84 (101) Room Air 10/05/18 05:14 1.0 Intake and Output 10/05/18 07:00 Intake Total 1415 ml Output Total 1335 ml Balance 80 ml Intake Oral 240 ml IV Total 1175 ml Output Urine Total 1215 ml Drainage Total 120 ml # Voids 2 General Appearance: Alert, Awake, Other (oriented to person and place) Cardiovascular: Regular Rate and Rhythm Respiratory: Clear to Auscultation Chest: No Tenderness GI: Soft and Non-Tender Extremities: Other (RLE dressed/LLE in walking cast) Result Diagram: 10/05/18 0541 10/05/18 0541 Assessment and Plan Problems: (1) Delirium Status: Acute Assessment & Plan: It sounds as if he had some post-operative delirium. He is improved this AM. Will continue to treat the acute infectious process in RLE. Watch closely. Continue 1:1 care for now. (2) Osteomyelitis of foot, right, acute Status: Acute Assessment & Plan: 4 days prior to admission, he developed more right foot pain and then "flu-like" symptoms the day before admission. He had bilateral transmetatarsal amputation about 2 years ago. The left is nearly healed, but the right hadn't healed (so he has had aggressive wound care). Now he had developed osteomyelitis in the 3rd-5th metatarsals with an adjacent complex of air/fluid level. Dr. Callejas performed right BKA 10/03/18. He was noted to have abscess which extended along the lateral aspect of the leg up to the knee. He does have drain in place. Will continue IV Rocephin and Flagyl. Continue wound care. Discuss mobilization with PT/OT. (3) Sepsis Assessment & Plan: He did present with fever, SOB, hypoxia, myalgias and an elevated lactate. He received 2 liters of fluid in the emergency department. Repeat lactate level was normal. His blood cultures and wound culture grew strep dysgalactiae. See below. (4) Acute renal failure Status: Resolved Assessment & Plan: Improved. Creatinine is 1.3 this AM (2.1 at time of admission). He is on IV fluids - will decrease rate to TKO as he is taking PO fairly well. We have also held his irbesartan. (5) Iron deficiency anemia Status: Chronic Assessment & Plan: Iron is very low and is lower than when checked in August. He has had a microcytosis since February of 2018. Will check stool for occult blood. He did receive IV iron infusion prior to surgery 10/03. Will need to cons ider GI evaluation once the acute problems are resolved. (6) Diabetes mellitus type 2, controlled, with complications Status: Chronic Assessment & Plan: He is on chronic treatment with Trulicity, Lantus, metformin, and NovoLog. We have held the metformin and Trulicity. He was initially placed on his usual Lantus of 40 units and sliding scale level #3, but needed to be increased to 50 units daily. Glucose still significantly elevated. Will modify to twice daily dosing - Lantus 30 units BID. (7) Benign hypertension Status: Chronic Assessment & Plan: He is on chronic treatment with metoprolol and irbesartan. The irbesartan is on hold. BP acceptable. (8) Anxiety and depression Assessment & Plan: He is on chronic treatment with Wellbutrin. Central Venous Access Medical Necessity for Access: Medication Administration Exam Sepsis Risk: No Definite Risk DEIRDRE PEREZ MD Oct 05, 2018 08:35
[2018-10-05] MEDS: METOPROLOL SUCC XL 25 MG TABCR PO SCH (08:47)
[2018-10-05] MEDS: GABAPENTIN 300 MG CAP PO SCH ×3 (08:47→20:28)
[2018-10-05] MEDS: DULoxetine HCL 30 MG CAPCR PO SCH (08:47)
[2018-10-05] MEDS: buPROPion XL 150 MG TABCR PO SCH (08:47)
[2018-10-05] MEDS: traMADol 50 MG TAB PO PRN ×2 (09:02→14:44)
[2018-10-05] MEDS: MONTELUKAST SODIUM 10 MG TAB PO SCH (09:02)
[2018-10-05] MEDS: INSULIN GLARGINE 100 U/ML 3 ML PEN SQ SCH ×2 (09:30→20:29)
[2018-10-05] MEDS: INSULIN ASPART 100 U/ML 3 ML PEN SUBQ PRN ×3 (11:40→20:30)
--- NOTE | 2018-10-05 13:12 | Medical Nutrition Therapy ---
Nutrition Anthropometrics Height (Inches): 71.00 Height (Calculated Centimeters: 180.930373 Weight (Pounds): 249 Weight (Calculated Kilograms): 112.945 BMI: 34.7 Umesh Nutrition Score: Probably Inadequate Umesh Nutrition Risk Score: 12 Dietary Referral Nutrition Risk Factors: Nutrition Risk Comment: Physical Findings Physical Appearance: Obese BMI 30-39 Skin Appearance Skin Appearance: Edema Edema Location Modifier: Right Edema Location: Lower Extremity Type of Edema: Degree of Edema: Gastrointestinal Symptoms GI Symtoms: Appetite Changes Tube Present: Bowel Sounds: Recent Bowel Pattern: Stool Characteristics: Nutritional Diagnosis Nutritional Risk Acuity 2: Abcess/Non-Healing Wound (s/p rt BKA), Sepsis Nutritional Risk Acuity 3: Fair Appetite, Nutrit Anemia (low FE) Past Medical History: T2DM, hyperlipidemia, HTN, diabetic neuropathy Nutritional Acuity: 2-Moderate Nutrition Diagnosis: Increased Nutrient Needs Nutrition Etiology: Psychological Issues Nutrition Problem/Etiology/Sym: Increased nutr needs r/t dx foot ulcers and s/p Rt BKA, alb 2.1. Adjusted Energy Requirement Re: 2500 ([place] adj for obestiy X 1.2-1.3 SF ([id number])) Protein Requirement: 130 (1.5gm- 1.75 gm/kg IBW (122-142)) Fluid Requirement: 2500 (1ml/kg) Additional Diet Restrictions: PUT PROTEIN POWDER IN APPROPRIATE FOODS Diet Comment To RSA: ENCOURAGE HIGH PROTEIN AND IRON: BEEF, EGGS, BEANS, PEANUT BUTTER Nutrition Monitoring & Eval Nutrition Goals: Eat 75-100% Meal Nutrition Follow-Up: Fair Intake RD Patient Assessment Time: [address] Assessment Type: RD Re-Assessment Patient Nutrition Acuity: 2-Moderate Follow Up Date: Oct 08, 2018 Nutritional Comment: 10/02 Pt admitted with osteomylitis to rt foot. Pt has dx T2DM. Pt is on ADA diet and intake average 45%. BG ranging 185-262. Pt is recieving Lantus. Alb low at 2.5, BUN/creatinine elevated at 38/1.9. Pt has increased protein needs r/t wound. Will put protein powder in appropriate foods to ensure pt is recieving adequte protein for healing. Will offer nutr education when appropriate. Will cont to monitor and encourage intake. BK 10/05 Pt s/p Rt BKA. Cont on ADA diet and eating 100% post op. BG elevated 200's up to 365. Alb declined to 2.3. ARF resolved. Will cont to monitor and encourage intake. CHIQUITA PEDROZA Oct 05, 2018 13:12
[2018-10-05 14:51] VITALS: BP 142/80
--- NOTE | 2018-10-05 15:55 | RADIOLOGY IMAGING REPORT ---
[place] [facility] [place] Peter Quintero : 1965 MR: [id number] V: [id number] EXAM DATE: ORDERING PHYSICIAN: DEIRDRE PEREZ TECHNOLOGIST[place] [facility] [place] Quinter[place] : 1965 Visit/Account:[id number] Date of Sevice: 10/05/2018 KNEE LIMITED RIGHT HISTORY: Fall COMPARISON: None FINDINGS: Right knee: Status post BKA with skin veronica and drain. Gas within the soft tissues noted. No evid ence of acute fracture. Knee joint is unremarkable. No significant degenerative changes. No evidence of AVN. No joint effusion. No loose body. IMPRESSION: 1. Postoperative changes from recent BKA with surgical drain and gas within the soft tissues. No ac aurelio osseous abnormality. Report Dictated By: Celestine Pereira MD at 10/05/2018 3:50 PM Report E-Signed By: Celestine Pereira MD at 10/05/2018 3:52 PM [id number]
--- NOTE | 2018-10-05 16:52 | RADIOLOGY IMAGING REPORT ---
FACILITY: [facility] - [place] PATIENT NAME: Peter Quintero : 1965 MR: [id number] V: [id number] EXAM DATE: ORDERING PHYSICIAN: DEIRDRE PEREZ TECHNOLOGIST: Location: [facility] [place] Patient: Peter Quintero : 1965 Visit/Account:[id number] Date of Sevice: 10/05/2018 FEMUR RIGHT HISTORY: Fall. Pain. COMPARISON: None FINDINGS: No acute femoral fracture. Hip joint is well aligned. Chondroid lesion versus chronic bon e infarct within the mid femoral shaft. IMPRESSION: 1. No acute osseous abnormality. Report Dictated By: Celestine Pereira MD at 10/05/2018 4:45 PM Report E-Signed By: Celestine Pereira MD at 10/05/2018 4:48 PM WSN:[id number]
[2018-10-05] MEDS: cefTRIAXone(*) 2 GM VIAL 2 GM in NS(*) 0.9% 100 ML ADDVANT BAG 100 ML IVPB SCH (17:09)
[2018-10-05 18:36] VITALS: BP 143/85
[2018-10-05 22:46] VITALS: BP 132/86
[2018-10-06] MEDS ORDERED: PCA LOCKBOX KEYS XX ONE (00:26)
[2018-10-06] MEDS: MORPHINE 1 MG/ML 30 ML PCA IV PRN (00:39)
[2018-10-06 03:08] VITALS: BP 139/84
[2018-10-06] MEDS: NS(*) 0.9% 1000 ML BAG 1,000 ML IV PRN (05:09)
[2018-10-06] MEDS: metroNIDAZOLE* 500MG/100ML BAG 100 ML IVPB SCH ×3 (05:25→18:04)
[2018-10-06 05:57] LABS: PLATELET COUNT, AUTOMATED 482 K/uL (150-450)
[2018-10-06] MEDS: FLUTICASONE/VILANTEROL 1 EACH INHALER INH SCH (06:00)
--- NOTE | 2018-10-06 07:01 | General Surgery Progress Note ---
Subjective Progress Notes Subjective Having muscle spasms right leg. Less confused last pm. Did require straight cath for urinary retention. Patient Complains of: Neurological: Confusion Physical Exam Vital Signs Date Time Temp Pulse Resp B/P (MAP) Pulse Ox O2 Delivery O2 Flow Rate FiO2 10/06/18 06:28 18 93 10/06/18 03:08 97.7 91 139/84 (102) Room Air 10/05/18 05:14 1.0 Intake and Output 10/06/18 07:00 Intake Total 1440 ml Output Total 2345 ml Balance -905 ml Intake Oral 240 ml IV Total 1200 ml Output Urine Total 2195 ml Drainage Total 120 ml Other 30 ml # Voids 4 # Bowel Movements 3 General Appearance: Alert, Awake, No Acute Distress, Afebrile Extremities: Other (RASTA output decreasing, less purulent and more serous, dressing changes daily) Result Diagram: 10/06/18 0536 10/06/18 0536 Assessment and Plan Problems: (1) Osteomyelitis of foot, right, acute Status: Acute Assessment & Plan: 10/01/18: I have gone over his MRI findings with him in detail. I have recommended below-knee amputation. I have also presented the option of surgical drainage of the abscesses and then long-term antibiotics but I have also told him that I think this is a high probability of long-term failure due to the chronic wound on the plantar surface of his foot that has so far been resistant to healing over the last year. Even if he responded well to the drainage and antibiotics, he is at high risk for recurring infections and it is my feeling that, although I believe this has a low chance of success, it has a high probability of recurrence and will only delay his progression back to an ambulatory status. He seems to understand this discussion and wishes to think ab out this overnight although he did mention towards the end of my 30 minute discussion with him that "we oughtta just go ahead and do what is doing to be required." I will discuss this further with him in the morning and if he decides to proceed with a below-knee amputation then we can do this in the next couple of days. If he desires surgical drainage then this can also be done in the next couple of days. I will continue to follow along with you. 10/02/18: Slept better. Still deciding on surgery. He would like to talk to crew leader/control room operator before surgery. Hopefully crew leader/control room operator can come up to [place] from [facility] tomorrow. 10/03/18: WBC up this morning, swelling worse, more pain, still having fevers. I have recommended that we proceed with surgery today due to his worsening clinical condition. After thought, he is agreeable with proceeding with right BKA later today. I have explained the surgery to him in great detail along with the alternatives, risks, and expected recovery. His questions have been answered. He would like to proceed with right BKA today. 10/04/18: POD#1 s/p right BKA. Patient is doing well this morning. He has been afebrile overnight and his heart rate has come down from tachycardia into the 80s. We'll keep the dressing on today and will plan on removing it tomorrow and start to mobilize him with physical therapy. The crew leader/control room operator is due to meet with him today. We'll need to have him fitted for a clamshell stump brace. He had pus all the way up the lateral compartment of his lower leg and this was washed out and a RASTA drain was placed in the infected space and this will remain in until the output declines and is no longer purulent. I have explained the surgery to him and he seems to understand and he seems to be feeling better this morning. 10/05/18: POD#2 s/p right BKA. Had confusion/delirium last night and fell out of bed. No injuries sustained. Sitter now at bedside. CHAMPAGNE x3 this morning. RASTA still with bloody output, will leave drain until output has dried up. 10/06/18: POD#3 s/p right BKA. Mental status clearing, Did require straight cath for urinary retention. Afebrile, WBC down to 14 K, RASTA output more serous. Continue IV antibiotics. Daily dressing changes. (2) Abscess of right foot Status: Acute (3) Cellulitis of right foot Status: Acute (4) Urinary retention Status: Acute Assessment & Plan: 10/06/18: Required straight cath last pm with 1100 ml returned. Will start Flowmax 0.4 mg daily. Central Venous Access Medical Necessity for Access: Medication Administration Exam Sepsis Risk: No Definite Risk NIKI ROJAS MD Oct 06, 2018 07:00
[2018-10-06 07:08] VITALS: BP 142/78
[2018-10-06] MEDS: buPROPion XL 150 MG TABCR PO SCH (08:29)
[2018-10-06] MEDS: MONTELUKAST SODIUM 10 MG TAB PO SCH (08:29)
[2018-10-06] MEDS: METOPROLOL SUCC XL 25 MG TABCR PO SCH (08:29)
[2018-10-06] MEDS: DULoxetine HCL 30 MG CAPCR PO SCH (08:29)
[2018-10-06] MEDS: GABAPENTIN 300 MG CAP PO SCH ×3 (08:29→20:34)
[2018-10-06] MEDS: INSULIN GLARGINE 100 U/ML 3 ML PEN SQ SCH ×2 (08:29→20:33)
[2018-10-06] MEDS: TAMSULOSIN HCL 0.4 MG CAP PO SCH (08:30)
[2018-10-06] MEDS: CYCLOBENZAPRINE HCL 10 MG TAB PO PRN ×2 (10:36→18:41)
[2018-10-06] MEDS: ENOXAPARIN 40 MG/0.4ML SYR SC SCH (10:36)
[2018-10-06 11:51] VITALS: BP 160/92
[2018-10-06] MEDS: INSULIN ASPART 100 U/ML 3 ML PEN SUBQ PRN ×3 (11:56→20:33)
--- NOTE | 2018-10-06 16:21 | Hospitalist Progress Note ---
Subjective Progress Notes Subjective 53M admitted after BKA. LISA overnight, continues to have significant pain and cramping. Patient Complains of: Musculoskeletal: Pain Physical Exam Vital Signs Date Time Temp Pulse Resp B/P (MAP) Pulse Ox O2 Delivery O2 Flow Rate FiO2 10/06/18 14:14 16 94 10/06/18 11:51 98.2 102 160/92 (114) Room Air 10/05/18 05:14 1.0 Intake and Output 10/06/18 07:00 Intake Total 1440 ml Output Total 2345 ml Balance -905 ml Intake Oral 240 ml IV Total 1200 ml Output Urine Total 2195 ml Drainage Total 120 ml Other 30 ml # Voids 4 # Bowel Movements 3 General Appearance: Alert, Awake, No Acute Distress, Afebrile Neuro: No Gross deficits ENT: Normal Cardiovascular: Normal Rhythm & Peripheral Pulses Respiratory: No Respiratory Distress GI: Soft and Non-Tender Musculoskeletal: Other (R bka, dressing clean and dry.) Integumentary: Skin Intact without Lesion / Mass Result Diagram: 10/06/1836 10/06/1836 Assessment and Plan Problems: (1) Osteomyelitis of foot, right, acute Status: Acute Assessment & Plan: 4 days prior to admission, he developed more right foot pain and then "flu-like" symptoms the day before admission. He had bilateral transmetatarsal amputation about 2 years ago. The left is nearly healed, but the right hadn't healed (so he has had aggressive wound care). Now he had developed osteomyelitis in the 3rd-5th metatarsals with an adjacent complex of air/fluid level. Dr. Callejas performed right BKA 10/03/18. He was noted to have abscess which extended along the lateral aspect of the leg up to the knee. He does have drain in place. Will continue IV Rocephin and Flagyl. Continue wound care. PT/OT. (2) Sepsis Assessment & Plan: He did present with fever, SOB, hypoxia, myalgias and an elevated lactate. He received 2 liters of fluid in the emergency department. Repeat lactate level was normal. His blood cultures and wound culture grew strep dysgalactiae. See below. (3) Delirium Status: Acute Assessment & Plan: Improved, Post-operative delirium. Will continue to treat the acute infectious process in RLE. (4) Acute renal failure Status: Resolved Assessment & Plan: Improved. We have held his irbesartan. (5) Iron deficiency anemia Status: Chronic Assessment & Plan: Iron is very low and is lower than when checked in August. He has had a microcytosis since February of 2018. Will check stool for occult blood. He did receive IV iron infusion prior to surgery 10/03. Will need to consider GI evaluation once the acute problems are resolved. (6) Diabetes mellitus type 2, controlled, with complications Status: Chronic Assessment & Plan: He is on chronic treatment with Trulicity, Lantus, metformin, and NovoLog. We have held the metformin and Trulicity. He was ini tially placed on his usual Lantus of 40 units and sliding scale level #3, but needed to be increased to 50 units daily. Glucose still significantly elevated. Will modify to twice daily dosing - Lantus 30 units BID. (7) Benign hypertension Status: Chronic Assessment & Plan: He is on chronic treatment with metoprolol and irbesartan. The irbesartan is on hold. BP acceptable. (8) Anxiety and depression Assessment & Plan: He is on chronic treatment with Wellbutrin. Central Venous Access Medical Necessity for Access: Medication Administration Exam Sepsis Risk: No Definite Risk RASMUSSEN BRIGIDA PALMER DO Oct 06, 2018 16:21
[2018-10-06] MEDS: cefTRIAXone(*) 2 GM VIAL 2 GM in NS(*) 0.9% 100 ML ADDVANT BAG 100 ML IVPB SCH (16:39)
[2018-10-06 16:41] VITALS: BP 145/87
[2018-10-06] MEDS ORDERED: HYDROmorphone HCL 2 MG/ML SDV IVP PRN (17:55)
[2018-10-06] MEDS: oxyCODONE HCL 5 MG CAP PO PRN (18:14)
[2018-10-06 18:36] VITALS: BP 157/95
[2018-10-06] MEDS: MELATONIN 3 MG TAB PO PRN (20:34)
[2018-10-06 22:06] VITALS: BP 152/86
[2018-10-07] MEDS: metroNIDAZOLE* 500MG/100ML BAG 100 ML IVPB SCH ×5 (00:38→23:59)
[2018-10-07] MEDS: oxyCODONE HCL 5 MG CAP PO PRN ×3 (00:41→21:21)
[2018-10-07] MEDS: FLUTICASONE/VILANTEROL 1 EACH INHALER INH SCH ×2 (05:10→05:11)
[2018-10-07 06:01] LABS: PLATELET COUNT, AUTOMATED 378 K/uL (150-450)
[2018-10-07 07:37] VITALS: BP 158/81
[2018-10-07] MEDS: INSULIN ASPART 100 U/ML 3 ML PEN SUBQ PRN ×4 (07:56→21:24)
[2018-10-07] MEDS: DULoxetine HCL 30 MG CAPCR PO SCH (08:38)
[2018-10-07] MEDS: INSULIN GLARGINE 100 U/ML 3 ML PEN SQ SCH ×2 (08:39→21:22)
[2018-10-07] MEDS: METOPROLOL SUCC XL 25 MG TABCR PO SCH (08:42)
[2018-10-07] MEDS: MONTELUKAST SODIUM 10 MG TAB PO SCH (08:43)
[2018-10-07] MEDS: GABAPENTIN 300 MG CAP PO SCH ×3 (08:43→21:21)
[2018-10-07] MEDS: buPROPion XL 150 MG TABCR PO SCH (08:43)
[2018-10-07] MEDS: TAMSULOSIN HCL 0.4 MG CAP PO SCH (08:43)
[2018-10-07] MEDS: ENOXAPARIN 40 MG/0.4ML SYR SC SCH (08:43)
--- NOTE | 2018-10-07 10:46 | RADIOLOGY IMAGING REPORT ---
[facility] PATIENT NAME: Peter Quintero : 1965 MR: [id number] V: [id number] EXAM DATE: ORDERING PHYSICIAN: SORAYA HARMON TECHNOLOGIST: Location: [facility] - [place] Patient: Peter Quintero : 1965 Visit/Account:[id number] Date of Sevice: 10/07/2018 EXAMINATION: CT head without IV contrast HISTORY: Altered mental status after surgery. COMPARISON: None. TECHNIQUE: Contiguous axial images were obtained from the skull base to the vertex without intraven ous contrast. Sagittal and coronal reformatted images are also submitted. One of the following dose optimization techniques was utilized in the performance of this exam: Autom ated exposure control; adjustment of the mA and/or kV according to the patient's size; or use of an i terative reconstruction technique. Specific details can be referenced in the facility's radiology C T exam operational policy. FINDINGS: Brain volume: Normal. Ventricles: Normal. Acute ischemic changes: None. Hemorrhage: No acute intracranial hemorrhage. Masses/edema: None. Chahal-white: Negative. White matter: Normal. Vessels: Negative. Extra-axial: Negative. Calvarium/scalp: Negative. Skull base/visualized face: Negative. Visualized sinuses/orbits: Mild mucosal thickening in both maxillary sinuses. Mild nasal septal dev iation to the right. IMPRESSION: No acute hemorrhage or intracranial mass lesion. No CT evidence of acute infarct. Report Dictated By: Jennifer Morrow MD at 10/07/2018 10:40 AM Report E-Signed By: Jennifer Morrow MD at 10/07/2018 10:41 AM WSN:[id number]
[2018-10-07] MEDS: IRBESARTAN 150 MG TAB PO SCH (10:59)
[2018-10-07 11:01] VITALS: BP 159/83
--- NOTE | 2018-10-07 11:34 | General Surgery Progress Note ---
Subjective Progress Notes Subjective Had a restless night Patient Complains of: Neurological: Confusion Physical Exam Vital Signs Date Time Temp Pulse Resp B/P (MAP) Pulse Ox O2 Delivery O2 Flow Rate FiO2 10/07/18 11:01 98.6 103 20 159/83 (108) 92 Room Air 10/05/18 05:14 1.0 Intake and Output 10/07/18 07:00 Intake Total 1700 ml Output Total 1420 ml Balance 280 ml Intake Oral 1200 ml IV Total 500 ml Output Urine Total 1350 ml Drainage Total 70 ml # Voids 7 # Bowel Movements 4 General Appearance: Alert, Awake, No Acute Distress, Afebrile Extremities: Other (Right stump drain serous, still with >100 ml/day output. RN reports incision looks good upon her dressing change.) Result Diagram: 10/07/1832 10/07/18531 Assessment and Plan Problems: (1) Osteomyelitis of foot, right, acute Status: Acute Assessment & Plan: 10/01/18: I have gone over his MRI findings with him in detail. I have recommended below-knee amputation. I have also presented the option of surgical drainage of the abscesses and then long-term antibiotics but I have also told him that I think this is a high probability of long-term failure due to the chronic wound on the plantar surface of his foot that has so far been resistant to healing over the last year. Even if he responded well to the drainage and antibiotics, he is at high risk for recurring infections and it is my feeling that, although I believe this has a low chance of success, it has a high probability of recurrence and will only delay his progression back to an ambulatory status. He seems to understand this discussion and wishes to think about this overnight although he did mention towards the end of my 30 minute discussion with him that "we oughtta just go ahead and do what is doing to be required." I will discuss this further with him in the morning and if he decides to proceed with a below-knee amputation then we can do this in the next couple of days. If he desires surgical drainage then this can also be done in the next couple of days. I will continue to follow along with you. 10/02/18: Slept better. Still deciding on surgery. He would like to talk to ham clerk before surgery. Hopefully ham clerk can come up to [place] from [facility] tomorrow. 1/24/19: WBC up this morning, swelling worse, more pain, still having fevers. I have recommended that we proceed with surgery today due to his worsening clinical condition. After thought, he is agreeable with proceeding with right BKA later today. I have explained the surgery to him in great detail along with the alternatives, risks, and expected recovery. His questions have been answered. He would like to proceed with right BKA today. 10/04/18: POD#1 s/p right BKA. Patient is doing well this morning. He has been afebrile overnight and his heart rate has come down from tachycardia into the 80s. We'll keep the dressing on today and will plan on removing it tomorrow and start to mobilize him with physical therapy. The ham clerk is due to meet with him today. We'll need to have him fitted for a clamshell stump brace. He had pus all the way up the lateral compartment of his lower leg and this was washed out and a RASTA drain was placed in the infected space and this will remain in until the output declines and is no longer purulent. I have explained the surgery to him and he seems to understand and he seems to be feeling better this morning. 10/05/18: POD#2 s/p right BKA. Had confusion/delirium last night and fell out of bed. No injuries sustained. Sitter now at bedside. CHAMPAGNE x3 this morning. RASTA still with bloody output, will leave drain until output has dried up. 10/06/18: POD#3 s/p right BKA. Mental status clearing, Did require straight cath for urinary retention. Afebrile, WBC down to 14 K, RASTA output more serous. Continue IV antibiotics. Daily dressing changes. 10/07/18: POD#4 s/p BKA. Some confusion again last pm, CHAMPAGNE x3 now, CT head done today is normal. Remains afebrile. RASTA output serous but still over 100 ml/24 hours. Continue IV antibiotics, continue daily dressing changes, ham clerk to fit for clam shell type brace tomorrow. Will need to have drain out before up on the early mobilization device. (2) Abscess of right foot Status: Acute (3) Cellulitis of right foot Status: Acute (4) Urinary retention Status: Acute Assessment & Plan: 10/06/18: Required straight cath last pm with 1100 ml returned. Will start Flowmax 0.4 mg daily. Central Venous Access Medical Necessity for Access: Medication Administration Time Spent: < 30 min Exam Sepsis Risk: Sepsis Risk NIKI ROJAS MD Oct 07, 2018 11:34
--- NOTE | 2018-10-07 11:56 | Hospitalist Progress Note ---
Subjective Progress Notes Subjective He is post-op right BKA. Nursing staff reports his mental status is still altered since surgery. He is requiring assistance to eat. He denies any complaints this morning. Patient Complains of: Cardiovascular: No: Chest Pain Respiratory: No: Shortness of Breath Physical Exam Vital Signs Date Time Temp Pulse Resp B/P (MAP) Pulse Ox O2 Delivery O2 Flow Rate FiO2 10/07/18 11:01 98.6 103 20 159/83 (108) 92 Room Air 10/05/18 05:14 1.0 Intake and Output 10/07/18 07:00 Intake Total 1700 ml Output Total 1420 ml Balance 280 ml Intake Oral 1200 ml IV Total 500 ml Output Urine Total 1350 ml Drainage Total 70 ml # Voids 7 # Bowel Movements 4 General Appearance: Alert, Awake, No Acute Distress, Afebrile Neuro: No Gross deficits, Other (able to pull himself up in bed, no weakness in upper extremities) Cardiovascular: Regular Rate and Rhythm Respiratory: No Respiratory Distress, Clear to Auscultation GI: Soft and Non-Tender Extremities: Warm, Perfused; No Edema Psych: Appropriate Mood & Affect, Other (alert to person and place, not time) Result Diagram: 10/07/18 0532 10/07/18 0532 Assessment and Plan Problems: (1) Osteomyelitis of foot, right, acute Status: Acute Assessment & Plan: 4 days prior to admission, he developed more right foot pain and then "flu-like" symptoms the day before admission. He had bilateral transmetatarsal amputation about 2 years ago. The left is nearly healed, but the right hadn't healed (so he has had aggressive wound care). Now he had developed osteomyelitis in the 3rd-5th metatarsals with an adjacent complex of air/fluid level. Dr. Callejas performed right BKA 10/03/18. He was noted to have abscess which extended along the lateral aspect of the leg up to the knee. He does have drain in place. Will continue IV Rocephin and Flagyl. Continue wound care. PT/OT. (2) Sepsis Assessment & Plan: He did present with fever, SOB, hypoxia, myalgias and an elevated lactate. He received 2 liters of fluid in the emergency department. Repeat lactate level was normal. His blood cultures and wound culture grew strep dysgalactiae. See below. (3) Delirium Status: Acute Assessment & Plan: Head CT shows no acute processes. Post-operative delirium. Will continue to treat the acute infectious process in E. (4) Acute renal failure Status: Resolved Assessment & Plan: Improved. (5) Iron deficiency anemia Status: Chronic Assessment & Plan: Iron is very low and is lower than when checked in August. He has had a microcytosis since February of 2018. Will check stool for occult blood. He did receive IV iron infusion prior to surgery 10/03. Will need to consider GI evaluation once the acute problems are resolved. (6) Diabetes mellitus type 2, controlled, with complications Status: Chronic Assessment & Plan: He is on chronic treatment with Trulicity, Lantus, metformin , and NovoLog. We have held the metformin and Trulicity. He was initially placed on his usual Lantus of 40 units and sliding scale level #3, but needed to be increased to 50 units daily. Glucose still significantly elevated. Will modify to twice daily dosing - Lantus 30 units BID. (7) Benign hypertension Status: Chronic Assessment & Plan: He is on chronic treatment with metoprolol and irbesartan. BP acceptable. (8) Anxiety and depression Assessment & Plan: He is on chronic treatment with Wellbutrin. Central Venous Access Medical Necessity for Access: Medication Administration Exam Sepsis Risk: Sepsis Risk SORAYA HARMON Oct 07, 2018 11:56
[2018-10-07 15:14] VITALS: BP 150/78
[2018-10-07] MEDS: ACETAMINOPHEN 500 MG TAB PO PRN (15:17)
[2018-10-07] MEDS: cefTRIAXone(*) 2 GM VIAL 2 GM in NS(*) 0.9% 100 ML ADDVANT BAG 100 ML IVPB SCH (16:41)
[2018-10-07 19:22] VITALS: BP 147/73
[2018-10-07] MEDS: CYCLOBENZAPRINE HCL 10 MG TAB PO PRN (19:59)
[2018-10-07] MEDS: MELATONIN 3 MG TAB PO PRN (21:21)
[2018-10-07] MEDS: LOPERAMIDE HCL 2 MG CAP PO PRN (21:59)
[2018-10-08 02:40] VITALS: BP 154/81
[2018-10-08] MEDS: LOPERAMIDE HCL 2 MG CAP PO PRN ×3 (02:51→21:43)
[2018-10-08] MEDS: FLUTICASONE/VILANTEROL 1 EACH INHALER INH SCH (05:35)
[2018-10-08] MEDS: metroNIDAZOLE* 500MG/100ML BAG 100 ML IVPB SCH ×3 (05:40→21:44)
[2018-10-08] MEDS ORDERED: NS(*) 0.9% 250 ML BAG 250 ML ONE (06:32)
[2018-10-08 07:10] VITALS: BP 150/68
[2018-10-08] MEDS: MONTELUKAST SODIUM 10 MG TAB PO SCH (09:55)
[2018-10-08] MEDS: IRBESARTAN 150 MG TAB PO SCH (09:55)
[2018-10-08] MEDS: TAMSULOSIN HCL 0.4 MG CAP PO SCH (09:55)
[2018-10-08] MEDS: DULoxetine HCL 30 MG CAPCR PO SCH (09:55)
[2018-10-08] MEDS: buPROPion XL 150 MG TABCR PO SCH (09:55)
[2018-10-08] MEDS: METOPROLOL SUCC XL 25 MG TABCR PO SCH (09:55)
[2018-10-08] MEDS: GABAPENTIN 300 MG CAP PO SCH ×3 (09:56→21:44)
[2018-10-08] MEDS: ENOXAPARIN 40 MG/0.4ML SYR SC SCH (09:56)
[2018-10-08] MEDS: INSULIN GLARGINE 100 U/ML 3 ML PEN SQ SCH ×2 (09:56→21:44)
--- NOTE | 2018-10-08 10:57 | Medical Nutrition Therapy ---
Nutrition Anthropometrics Height (Inches): 71.00 Height (Calculated Centimeters: 180.246919 Weight (Pounds): 249 Weight (Calculated Kilograms): 112.945 BMI: 34.7 Umesh Nutrition Score: Adequate Umesh Nutrition Risk Score: 14 Dietary Referral Nutrition Risk Factors: Nutrition Risk Comment: Physical Findings Physical Appearance: Obese BMI 30-39 Skin Appearance Skin Appearance: Edema Edema Location Modifier: Right Edema Location: Lower Extremity Type of Edema: Degree of Edema: Gastrointestinal Symptoms GI Symtoms: Appetite Changes, Diarrhea, Change in Bowel Pattern Tube Present: Bowel Sounds: Recent Bowel Pattern: Stool Characteristics: Nutritional Diagnosis Nutritional Risk Acuity 2: Abcess/Non-Healing Wound (s/p rt BKA), Sepsis Nutritional Risk Acuity 3: Fair Appetite, Nutrit Anemia (low FE) Past Medical History: T2DM, hyperlipidemia, HTN, diabetic neuropathy Nutritional Acuity: 2-Moderate Nutrition Diagnosis: Increased Nutrient Needs Nutrition Etiology: Psychological Issues Nutrition Problem/Etiology/Sym: Increased nutr needs r/t dx foot ulcers and s/p Rt BKA, alb 2.1. Adjusted Energy Requirement Re: 2500 ([place] adj for obestiy X 1.2-1.3 SF ([id number])) Protein Requirement: 130 (1.5gm- 1.75 gm/kg IBW (122-142)) Fluid Requirement: 2500 (1ml/kg) Diet Type: Diabetic Nutrition Intervention: Cont diet as ordered, Encourage intake, Between meal supplement Additional Diet Restrictions: PUT PROTEIN POWDER IN APPROPRIATE FOODS Diet Comment To RSA: ENCOURAGE HIGH PROTEIN AND IRON: BEEF, EGGS, BEANS, PEANUT BUTTER Nutrition Monitoring & Eval Nutrition Goals: Eat 75-100% Meal Nutrition Follow-Up: Fair Intake RD Patient Assessment Time: [address] Assessment Type: RD Re-Assessment Patient Nutrition Acuity: 2-Moderate Follow Up Date: Oct 11, 2018 Nutritional Comment: 10/02 Pt admitted with osteomylitis to rt foot. Pt has dx T2DM. Pt is on ADA diet and intake average 45%. BG ranging 185-262. Pt is recieving Lantus. Alb low at 2.5, BUN/creatinine elevated at 38/1.9. Pt has increased protein needs r/t wound. Will put protein powder in appropriate foods to ensure pt is recieving adequte protein for healing. Will offer nutr education when appropriate. Will cont to monitor and encourage intake. BK 10/05 Pt s/p Rt BKA. Cont on ADA diet and eating 100% post op. BG elevated 200's up to 365. Alb declined to 2.3. ARF resolved. Will cont to monitor and encourage intake. BK 10/08 Pt's intake declnied yesterday to 5-30%. Nursing reporting altered mental status and pt requiring feeding which may have affected intake. BG improved with high of 235 yesteday and 106 fasting this morning. Will cont to offer nutr supplment and encourage high protein. Will offer nutr education when appropriate. CHIQUITA PEDROZA Oct 08, 2018 10:57
--- NOTE | 2018-10-08 11:17 | Hospitalist Progress Note ---
Subjective Progress Notes Subjective He seems to be improving in mental status. However, he seems to have increased depression. He has made some comments to nurses about "being done with life". Patient Complains of: Cardiovascular: No: Chest Pain Respiratory: No: Shortness of Breath Physical Exam Vital Signs Date Time Temp Pulse Resp B/P (MAP) Pulse Ox O2 Delivery O2 Flow Rate FiO2 10/08/18 07:10 97.6 78 16 150/68 (95) 92 Room Air 10/05/18 05:14 1.0 Intake and Output 10/08/18 06:59 Intake Total 1739 ml Output Total 1215 ml Balance 524 ml Intake Oral 600 ml IV Total 1139 ml Output Urine Total 1125 ml Drainage Total 90 ml # Voids 3 # Bowel Movements 5 General Appearance: Alert, Awake, No Acute Distress, Afebrile Neuro: No Gross deficits Cardiovascular: Regular Rate and Rhythm Respiratory: No Respiratory Distress, Clear to Auscultation GI: Soft and Non-Tender Extremities: Warm, Perfused; No Edema Psych: Alert & Oriented X3, Appropriate Mood & Affect Result Diagram: 10/07/18 0532 10/07/18 0532 Assessment and Plan Problems: (1) Osteomyelitis of foot, right, acute Status: Acute Assessment & Plan: 4 days prior to admission, he developed more right foot pain and then "flu-like" symptoms the day before admission. He had bilateral palmer smetatarsal amputation about 2 years ago. The left is nearly healed, but the right hadn't healed (so he has had aggressive wound care). Now he had developed osteomyelitis in the 3rd-5th metatarsals with an adjacent complex of air/fluid level. Dr. Callejas performed right BKA 10/03/18. He was noted to have abscess which extended along the lateral aspect of the leg up to the knee. He does have drain in place. Will continue IV Rocephin and Flagyl. Continue wound care. PT/OT. (2) Sepsis Assessment & Plan: He did present with fever, SOB, hypoxia, myalgias and an elevated lactate. He received 2 liters of fluid in the emergency department. Repeat lactate level was normal. His blood cultures and wound culture grew strep dysgalactiae. See below. (3) Delirium Status: Acute Assessment & Plan: Head CT shows no acute processes. Post-operative delirium. Will continue to treat the acute infectious process in RLE. (4) Acute renal failure Status: Resolved Assessment & Plan: Improved. (5) Iron deficiency anemia Status: Chronic Assessment & Plan: Iron is very low and is lower than when checked in August. He has had a microcytosis since February of 2018. He did receive IV iron infusion prior to surgery 10/03. Will need to consider GI evaluation once the acute problems are resolved. (6) Diabetes mellitus type 2, controlled, with complications Status: Chronic Assessment & Plan: He is on chronic treatment with Trulicity, Lantus, metformin, and NovoLog. We have held the metformin and Trulicity. He was initially placed on his usual Lantus of 40 units and sliding scale level #3, but needed to be increased to 50 units daily. Glucose still significantly elevated. His dosing was modified to Lantus 30 units BID. (7) Benign hypertension Status: Chronic Assessment & Plan: He is on chronic treatment with metoprolol and irbesartan. BP acceptable. (8) Anxiety and depression Assessment & Plan: He is on chronic treatment with Wellbutrin. He has increased depression this morning. We have consulted [facility] to come see patient today. Central Venous Access Medical Necessity for Access: Medication Administration Exam Sepsis Risk: No Definite Risk SORAYA HARMON Oct 08, 2018 11:17
[2018-10-08 11:33] VITALS: BP 167/81
--- NOTE | 2018-10-08 13:57 | Psychiatric Consult ---
History of Present Illness Requesting Physician Kesha High Reason for Consult: Psychiatric Illness Reason for Consult depression after BKA History of Present Illness 53 year old man with diabetes had semi-urgent BKA 5 days ago. Now he is depressed, had a couple of bowel/bladder accidents even though he knows when he needs to go. Also had post-operative delerium including hallucinations, but this seems to be clearing. Today on interview he is alert, fully oriented, with no evidence of confusion or delerium. He rates his depression at a 9/10, and acknowledges suicidal thoughts but no active plan nor intention. He says depression, anger, irritability, negativity, hopelessness have been with him over the past two years since he had several toes amputated. He has been on wellbutrin XL 150 mg per day for two years, and cymbalta 60 mg was added about 6 months ago for anxiety and for nerve pain. He does feel these meds help, but not all the way. Now with the sudden BKA (due to sepsis secondary to non- healing foot ulcer) he feels even more depressed, describing shock at how fast it all happened, denial, frustration at being helpless, wishing he could wake up and it would all be a bad dream. He says the reason that he has had some loss of continence is that the urge to move his bowels comes on suddenly and strongly and he can't get help in there in time-- says he had the same problem with urgency the last time he was hospitalized, and thinks a bedside commode might help. He had one prior episode of depression 4 years ago and was on zoloft briefly at that time. He has never been in any outpatient therapy. Never history of suicide attempt, never hx of psychiatric hospitalization. Pt does not use drugs or alcohol. Pt is to who is supportive and to whom I spoke as well. Patient Refused Consult: No [facility]HS - Subjective Progress Notes Subjective "I do have suicidal thoughts but I would never do anything. I want to see how things are gonna be-- the last time when I had the toes off things weren't as bad as I thought afterwards." Suicidal Ideation: Ongoing Homicidal Ideation: None BHS - Objective Mental Status Exam General Appearance: Casual, Good Eye Contact, Cooperative, Polite, Tearful (on the verge, holding back tears) Speech: Clear, Normal Rate, Normal Rhythm, Normal Volume (low volume), Normal Tone, Delayed Mood: Dysthmic/Depressed Affect: Calm, Sad Thought Process: Organized, Logical, Goal Directed Thought Content: Suicidal Ideation (denies any plan or intent); No Homicidal Id eation, No Delusions, No Auditory Halllucinations, No Visual Hallucinations, No Thought Broadcasting, No Ideas of Reference, No Obsessions, No Compulsions, No Other Sensorium: Clear Cognition: Alert & Oriented-Person, Alert & Oriented-Place, Alert & Oriented- Time, [id number] Memory: Immediate, Recent, Remote Intelligence: Average Insight Judgment: Fair Result Diagram: 10/07/1853110/07/18531 [facility] Assessment and Plan [id number] Encounter Date: Oct 08, 2018 [id number] Encounter Time: 11:30 Follow Up Testing Recommended: No Problems: (1) Persistent depressive disorder with anxious distress, currently severe Status: Chronic Assessment & Plan: Pt has ongoing history of chronic depression for at least the past 4 years, now with superimposed bereavement over sudden BKA. Recommendations: 1) increase bupropion XL to 300 mg q am. 2) Pychiatry will continue to follow pt for supportive psychotherapy. 3) try bedside commode with PT to train safe transfers 4) I spoke with his and will assist her to get him set up with [facility] for outpatient psychotherapy after discharge from hospital. 5) see if there is an amputation support group or someone he could talk to who has been through this. (2) Delirium Status: Acute Assessment & Plan: Sounds like he had acute post-op delerium, now seems resolved. Agree with transition to tramadol. IF further delerium occurs could give risperidone 0.25 mg q 6 hrs prn-- but doubt he will need this. Treatment Recommendation: Outpatient Treatment, Other (will follow) STEPAN ARCINIEGA MD Oct 08, 2018 13:57
[2018-10-08] MEDS: traMADol 50 MG TAB PO PRN ×2 (16:04→22:43)
[2018-10-08 18:55] VITALS: BP 147/73
[2018-10-08] MEDS: cefTRIAXone(*) 2 GM VIAL 2 GM in NS(*) 0.9% 100 ML ADDVANT BAG 100 ML IVPB SCH (19:41)
--- NOTE | 2018-10-08 21:33 | General Surgery Progress Note ---
Subjective Progress Notes Subjective (delayed note. pt seen around noon) pt doing fine. pain is about 4/10. not much appetite. Physical Exam Vital Signs Date Time Temp Pulse Resp B/P (MAP) Pulse Ox O2 Delivery O2 Flow Rate FiO2 10/08/18 18:55 97.9 87 18 147/73 (97) 97 Room Air 10/05/18 05:14 1.0 Intake and Output 10/08/18 07:00 Intake Total 1739 ml Output Total 1215 ml Balance 524 ml Intake Oral 600 ml IV Total 1139 ml Output Urine Total 1125 ml Drainage Total 90 ml # Voids 3 # Bowel Movements 5 General Appearance: No Acute Distress Extremities: Other (brace just placed on lle. jan - small amount serous.) Result Diagram: 10/07/18 0532 10/07/18 0532 Assessment and Plan Problems: (1) Osteomyelitis of foot, right, acute Status: Acute Assessment & Plan: 10/01/18: I have gone over his MRI findings with him in detail. I have recommended below-knee amputation. I have also presented the option of surgical drainage of the abscesses and then long-term antibiotics but I have also told him that I think this is a high probability of long-term failure due to the chronic wound on the plantar surface of his foot that has so far been resistant to healing over the last year. Even if he responded well to the drainage and antibiotics, he is at high risk for recurring infections and it is my feeling that, although I believe this has a low chance of success, it has a high probability of recurrence and will only delay his progression back to an ambulatory status. He seems to understand this discussion and wishes to think about this overnight although he did mention towards the end of my 30 minute discussion with him that "we oughtta just go ahead and do what is doing to be required." I will discuss this further with him in the morning and if he decides to proceed with a below-knee amputation then we can do this in the next couple of days. If he desires surgical drainage then this can also be done in the next couple of days. I will continue to follow along with you. 10/02/18: Slept better. Still deciding on surgery. He would like to talk to flight tower dispatcher before surgery. Hopefully flight tower dispatcher can come up to [place] from [facility] tomorrow. 10/03/18: WBC up this morning, swelling worse, more pain, still having fevers. I have recommended that we proceed with surgery today due to his worsening clinical condition. After thought, he is agreeable with proceeding with right BKA later today. I have explained the surgery to him in great detail along with the alternatives, risks, and expected recovery. His questions have been answered. He would like to proceed with right BKA today. 10/04/18: POD#1 s/p right BKA. Patient is doing well this morning. He has been afebrile overnight and his heart rate has come down from tachycardia into the 80s. We'll keep the dressing on today and will plan on removing it tomorrow and start to mobilize him with physical therapy. The flight tower dispatcher is due to meet with him today. We'll need to have him fitted for a clamshell stump brace. He had pus all the way up the lateral compartment of his lower leg and this was washed out and a JAN drain was placed in the infected space and this will remain in until the output declines and is no longer purulent. I have explained the surgery to him and he seems to understand and he seems to be feeling better this morning. 10/05/18: POD#2 s/p right BKA. Had confusion/delirium last night and fell out of bed. No injuries sustained. Sitter now at bedside. CHAMPAGNE x3 this morning. JAN still with bloody output, will leave drain until output has dried up. 10/06/18: POD#3 s/p right BKA. Mental status clearing, Did require straight cath for urinary retention. Afebrile, WBC down to 14 K, JAN output more serous. Continue IV antibiotics. Daily dressing changes. 10/07/18: POD#4 s/p BKA. Some confusion again last pm, CHAMP[place]NE x3 now, CT head done today is normal. Remains afebrile. JAN output serous but still over 100 ml/24 hours. Continue IV antibiotics, continue daily dressing changes, flight tower dispatcher to fit for clam shell type brace tomorrow. Will need to have drain out before up on the early mobilization device. 10/08/18: cont abx. PT to work with patient today. will check wound tomorrow and may d/c drain if still having minimal output. (2) Abscess of right foot Status: Acute (3) Cellulitis of right foot Status: Acute (4) Urinary retention Status: Acute Assessment & Plan: 10/06/18: Required straight cath last pm with 1100 ml returned. Will start Flowmax 0.4 mg daily. Central Venous Access Medical Necessity for Access: Medication Administration Exam Sepsis Risk: No Definite Risk BETTY ALVAREZ Oct 08, 2018 21:33
[2018-10-08] MEDS: PREGABALIN 25 MG CAP PO SCH (21:43)
[2018-10-08] MEDS: MELATONIN 3 MG TAB PO PRN (21:43)
[2018-10-08] MEDS: INSULIN ASPART 100 U/ML 3 ML PEN SUBQ PRN (21:46)
[2018-10-09] MEDS: metroNIDAZOLE* 500MG/100ML BAG 100 ML IVPB SCH ×4 (03:29→20:59)
[2018-10-09] MEDS: FLUTICASONE/VILANTEROL 1 EACH INHALER INH SCH (05:15)
[2018-10-09 06:14] LABS: PLATELET COUNT, AUTOMATED 378 K/uL (150-450)
[2018-10-09 07:37] VITALS: BP 169/85
[2018-10-09] MEDS: LOPERAMIDE HCL 2 MG CAP PO PRN (08:03)
[2018-10-09] MEDS: buPROPion XL 150 MG TABCR PO SCH (09:00)
[2018-10-09] MEDS: LACTOBACILLUS ACIDOPHILUS TAB PO SCH ×2 (09:00→17:12)
[2018-10-09] MEDS ORDERED: POTASSIUM CHL 20 MEQ TABCR PO ONE (09:00)
[2018-10-09] MEDS: ENOXAPARIN 40 MG/0.4ML SYR SC SCH (09:00)
[2018-10-09] MEDS: DULoxetine HCL 30 MG CAPCR PO SCH (09:00)
[2018-10-09] MEDS: PREGABALIN 25 MG CAP PO SCH ×2 (09:01→20:58)
[2018-10-09] MEDS: METOPROLOL SUCC XL 25 MG TABCR PO SCH (09:01)
[2018-10-09] MEDS: MONTELUKAST SODIUM 10 MG TAB PO SCH (09:01)
[2018-10-09] MEDS: IRBESARTAN 150 MG TAB PO SCH (09:01)
[2018-10-09] MEDS: GABAPENTIN 300 MG CAP PO SCH ×3 (09:09→20:59)
[2018-10-09] MEDS: TAMSULOSIN HCL 0.4 MG CAP PO SCH (09:15)
[2018-10-09] MEDS: INSULIN GLARGINE 100 U/ML 3 ML PEN SQ SCH ×2 (09:28→21:04)
[2018-10-09] MEDS ORDERED: MAGNESIUM SUL* 2 GM/50 ML IVPB 50 ML IVPB ONE ×2 (10:00→16:00)
--- NOTE | 2018-10-09 10:53 | Hospitalist Progress Note ---
Subjective Progress Notes Subjective He reports having some loose stools with the antibiotics. He has no other complaints this morning. Patient Complains of: Cardiovascular: No: Chest Pain Respiratory: No: Shortness of Breath Physical Exam Vital Signs Date Time Temp Pulse Resp B/P (MAP) Pulse Ox O2 Delivery O2 Flow Rate FiO2 10/09/18 07:37 98.4 69 20 169/85 (113) 92 10/09/18 01:45 Room Air Intake and Output 10/09/18 07:00 Intake Total 525 ml Output Total 980 ml Balance -455 ml Intake Oral 210 ml IV Total 315 ml Output Urine Total 900 ml Drainage Total 80 ml # Voids 2 # Bowel Movements 3 General Appearance: Alert, Awake, No Acute Distress, Afebrile Neuro: No Gross deficits Cardiovascular: Regular Rate and Rhythm Respiratory: No Respiratory Distress, Clear to Auscultation GI: Soft and Non-Tender Psych: Alert & Oriented X3, Appropriate Mood & Affect Result Diagram: 10/09/18 0530 10/09/18 0530 Assessment and Plan Problems: (1) Osteomyelitis of foot, right, acute Status: Acute Assessment & Plan: 4 days prior to admission, he developed more right foot pain and then "flu-like" symptoms the day before admission. He had bilateral transmetatarsal amputation about 2 years ago. The left is nearly healed, but the right hadn't healed (so he has had aggressive wound care). Now he had developed osteomyelitis in the 3rd-5th metatarsals with an adjacent complex of air/fluid level. Dr. Callejas performed right BKA 10/03/18. He was noted to have abscess which extended along the lateral aspect of the leg up to the knee. He does have drain in place. Will continue IV Rocephin and Flagyl. Continue wound care. PT/OT. Will add probiotics to help with antibiotics. (2) Sepsis Assessment & Plan: He did present with fever, SOB, hypoxia, myalgias and an elevated lactate. He received 2 liters of fluid in the emergency department. Repeat lactate level was normal. His blood cultures and wound culture grew strep dysgalactiae. See below. (3) Delirium Status: Acute Assessment & Plan: Head CT shows no acute processes. Post-operative delirium. Will continue to treat the acute infectious process in RLE. (4) Acute renal failure Status: Resolved Assessment & Plan: Improved. (5) Iron deficiency anemia Status: Chronic Assessment & Plan: Iron is very low and is lower than when checked in August. He has had a microcytosis since February of 2018. He did receive IV iron infusion prior to surgery 10/03. Will need to consider GI evaluation once the acute problems are resolved. (6) Diabetes mellitus type 2, controlled, with complications Status: Chronic Assessment & Plan: He is on chronic treatment with Trulicity, Lantus, metformin, and NovoLog. We have held the metformin and Trulicity. He was initially placed on his usual Lantus of 40 units and sliding scale level #3, but needed to be increased to 50 units daily. Glucose still significantly elevated. His dosing was modified to Lantus 30 units BID. (7) Benign hypertension Status: Chronic Assessment & Plan: He is on chronic treatment with metoprolol and irbesartan. BP acceptable. (8) Anxiety and depression Assessment & Plan: He is on chronic treatment with Wellbutrin. He has increased depression this morning. We have consulted [facility]. Dr. Conn recommended increasing his Wellbutrin dose. Central Venous Access Medical Necessity for Access: Medication Administration Exam Sepsis Risk: No Definite Risk SORAYA HARMON Oct 09, 2018 10:52
[2018-10-09] MEDS: INSULIN ASPART 100 U/ML 3 ML PEN SUBQ PRN (11:57)
[2018-10-09] MEDS: traMADol 50 MG TAB PO PRN ×2 (13:15→20:58)
--- NOTE | 2018-10-09 15:16 | General Surgery Progress Note ---
Subjective Progress Notes Subjective no acute events Physical Exam Vital Signs Date Time Temp Pulse Resp B/P (MAP) Pulse Ox O2 Delivery O2 Flow Rate FiO2 10/09/18 10:48 93 Room Air 10/09/18 07:37 98.4 69 20 169/85 (113) Intake and Output 10/09/18 07:00 Intake Total 525 ml Output Total 980 ml Balance -455 ml Intake Oral 210 ml IV Total 315 ml Output Urine Total 900 ml Drainage Total 80 ml # Voids 2 # Bowel Movements 3 Extremities: Other (right lower ext, inc c/d/i, no gross infection, jan - small amount serosang) Result Diagram: 10/09/18 0530 10/09/18 0530 Assessment and Plan Problems: (1) Osteomyelitis of foot, right, acute Status: Acute Assessment & Plan: 10/01/18: I have gone over his MRI findings with him in detail. I have recommended below-knee amputation. I have also presented the option of surgical drainage of the abscesses and then long-term antibiotics but I have also told him that I think this is a high probability of long-term failure due to the chronic wound on the plantar surface of his foot that has so far been resistant to healing over the last year. Even if he responded well to the drainage and antibiotics, he is at high risk for recurring infections and it is my feeling that, although I believe this has a low chance of success, it has a high probability of recurrence and will only delay his progression back to an ambulatory status. He seems to understand this discussion and wishes to think a bout this overnight although he did mention towards the end of my 30 minute discussion with him that "we oughtta just go ahead and do what is doing to be required." I will discuss this further with him in the morning and if he decides to proceed with a below-knee amputation then we can do this in the next couple of days. If he desires surgical drainage then this can also be done in the next couple of days. I will continue to follow along with you. 10/02/18: Slept better. Still deciding on surgery. He would like to talk to tar distillation supervisor before surgery. Hopefully tar distillation supervisor can come up to [place] from [facility] tomorrow. 10/03/18: WBC up this morning, swelling worse, more pain, still having fevers. I have recommended that we proceed with surgery today due to his worsening clinical condition. After thought, he is agreeable with proceeding with right BKA later today. I have explained the surgery to him in great detail along with the alternatives, risks, and expected recovery. His questions have been answered. He would like to proceed with right BKA today. 10/04/18: POD#1 s/p right BKA. Patient is doing well this morning. He has been afebrile overnight and his heart rate has come down from tachycardia into the 80s. We'll keep the dressing on today and will plan on removing it tomorrow and start to mobilize him with physical therapy. The tar distillation supervisor is due to meet with him today. We'll need to have him fitted for a clamshell stump brace. He had pus all the way up the lateral compartment of his lower leg and this was washed out and a JAN drain was placed in the infected space and this will remain in until the output declines and is no longer purulent. I have explained the surgery to him and he seems to understand and he seems to be feeling better this morning. 10/05/18: POD#2 s/p right BKA. Had confusion/delirium last night and fell out of bed. No injuries sustained. Sitter now at bedside. CHAMPAGNE x3 this morning. JAN still with bloody output, will leave drain until output has dried up. 10/06/18: POD#3 s/p right BKA. Mental status clearing, Did require straight cath for urinary retention. Afebrile, WBC down to 14 K, JAN output more serous. Continue IV antibiotics. Daily dressing changes. 10/07/18: POD#4 s/p BKA. Some confusion again last pm, CHAMPAGNE x3 now, CT head done today is normal. Remains afebrile. JAN output serous but still over 100 ml/24 hours. Continue IV antibiotics, continue daily dressing changes, tar distillation supervisor to fit for clam shell type brace tomorrow. Will need to have drain out before up on the early mobilization device. 10/08/18: cont abx. PT to work with patient today. will check wound tomorrow and may d/c drain if still having minimal output. 10/09/18: doing well. cont abx, physical therapy. (2) Abscess of right foot Status: Acute (3) Cellulitis of right foot Status: Acute (4) Urinary retention Status: Acute Assessment & Plan: 10/06/18: Required straight cath last pm with 1100 ml returned. Will start Flowmax 0.4 mg daily. Central Venous Access Medical Necessity for Access: Medication Administration Exam Sepsis Risk: No Definite Risk BETTY ALVAREZ Oct 09, 2018 15:16
[2018-10-09 15:40] VITALS: BP 162/87
--- NOTE | 2018-10-09 17:09 | RADIOLOGY IMAGING REPORT ---
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 Findings: Informed consent was obtained. Patient's right arm was prepped and draped usual sterile fashion. Lo sara anesthesia was accomplished with 1% lidocaine. Utilizing both sonographic and fluoroscopic mason nce a 40 cm long 5 Australian double lumen power PICC was inserted via the patent right basilic vein with the distal tip resting in the superior vena cava at the caval atrial junction junction.. Both lumen s of power PICC were flushed with 5 mL of saline flush. Proximal portion PICC line was adhered the p atient's arm the sterile dressing. The sonographic images were saved to PACS. The procedure was wit hout apparent complication. The fluoroscopy dose area product was 150.10 micro-Chahal per meter square d. IMPRESSION: 1. Successful placement of a 40 cm long trimmed 5 Australian double-lumen power PICC inserted via the pa tent right basilic vein with the distal tip resting in superior vena cava Report Dictated By: Carole Boyd MD at 10/09/2018 5:03 PM Report E-Signed By: Carole Boyd MD at 10/09/2018 5:06 PM WSN:[email or web address]
--- NOTE | 2018-10-09 17:09 | RADIOLOGY IMAGING REPORT ---
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 Findings: Informed consent was obtained. Patient's right arm was prepped and draped usual sterile fashion. Lo sara anesthesia was accomplished with 1% lidocaine. Utilizing both sonographic and fluoroscopic mason nce a 40 cm long 5 Kosovan double lumen power PICC was inserted via the patent right basilic vein with the distal tip resting in the superior vena cava at the caval atrial junction junction.. Both lumen s of power PICC were flushed with 5 mL of saline flush. Proximal portion PICC line was adhered the p atient's arm the sterile dressing. The sonographic images were saved to PACS. The procedure was wit hout apparent complication. The fluoroscopy dose area product was 150.10 micro-Chahal per meter square d. IMPRESSION: 1. Successful placement of a 40 cm long trimmed 5 Kosovan double-lumen power PICC inserted via the pa tent right basilic vein with the distal tip resting in superior vena cava Report Dictated By: Carole Boyd MD at 10/09/2018 5:03 PM Report E-Signed By: Carole Boyd MD at 10/09/2018 5:06 PM WSN:[email or web address]
[2018-10-09] MEDS: cefTRIAXone(*) 2 GM VIAL 2 GM in NS(*) 0.9% 100 ML ADDVANT BAG 100 ML IVPB SCH (17:13)
[2018-10-09 19:38] VITALS: BP 165/80
[2018-10-10] MEDS: metroNIDAZOLE* 500MG/100ML BAG 100 ML IVPB SCH ×2 (03:29→09:44)
[2018-10-10] MEDS: traMADol 50 MG TAB PO PRN ×4 (03:29→23:09)
[2018-10-10 03:33] VITALS: BP 176/90
[2018-10-10] MEDS: FLUTICASONE/VILANTEROL 1 EACH INHALER INH SCH (05:36)
[2018-10-10 05:58] LABS: PLATELET COUNT, AUTOMATED 412 K/uL (150-450)
[2018-10-10 07:20] VITALS: BP 177/97
[2018-10-10] MEDS ORDERED: KCL (*) 20 MEQ/100 ML PREMIX 100 ML IV ONE (07:45)
[2018-10-10] MEDS: ENOXAPARIN 40 MG/0.4ML SYR SC SCH (08:49)
[2018-10-10] MEDS: METOPROLOL SUCC XL 25 MG TABCR PO SCH (08:50)
[2018-10-10] MEDS: LACTOBACILLUS ACIDOPHILUS TAB PO SCH ×2 (08:50→16:54)
[2018-10-10] MEDS: MONTELUKAST SODIUM 10 MG TAB PO SCH (08:50)
[2018-10-10] MEDS: DULoxetine HCL 30 MG CAPCR PO SCH (08:50)
[2018-10-10] MEDS: GABAPENTIN 300 MG CAP PO SCH ×3 (08:51→21:44)
[2018-10-10] MEDS: amLODIPine BESYL(*) 5 MG TAB PO SCH (08:51)
[2018-10-10] MEDS: buPROPion XL 150 MG TABCR PO SCH (08:51)
[2018-10-10] MEDS: PREGABALIN 50 MG CAPSULE PO SCH ×2 (08:51→21:44)
[2018-10-10] MEDS: IRBESARTAN 150 MG TAB PO SCH (08:52)
[2018-10-10] MEDS: TAMSULOSIN HCL 0.4 MG CAP PO SCH (08:58)
[2018-10-10] MEDS: INSULIN GLARGINE 100 U/ML 3 ML PEN SQ SCH ×2 (09:00→21:45)
--- NOTE | 2018-10-10 09:29 | General Surgery Progress Note ---
Subjective Progress Notes Subjective no acute events Physical Exam Vital Signs Date Time Temp Pulse Resp B/P (MAP) Pulse Ox O2 Delivery O2 Flow Rate FiO2 10/10/18 07:20 97.9 75 18 177/97 (123) 94 Room Air Intake and Output 10/10/18 07:00 Intake Total 690 ml Output Total 2480 ml Balance -1790 ml Intake Oral 690 ml Output Urine Total 2425 ml Drainage Total 55 ml # Voids 4 # Bowel Movements 4 Extremities: Other (right bka, inc c/d/i. minimal serosang output from jan. i removed jan without complication.) Result Diagram: 10/10/18 0530 10/10/18 0530 Assessment and Plan Problems: (1) Osteomyelitis of foot, right, acute Status: Acute Assessment & Plan: 10/01/18: I have gone over his MRI findings with him in detail. I have recommended below-knee amputation. I have also presented the option of surgical drainage of the abscesses and then long-term antibiotics but I have also told him that I think this is a high probability of long-term abena lure due to the chronic wound on the plantar surface of his foot that has so far been resistant to healing over the last year. Even if he responded well to the drainage and antibiotics, he is at high risk for recurring infections and it is my feeling that, although I believe this has a low chance of success, it has a high probability of recurrence and will only delay his progression back to an ambulatory status. He seems to understand this discussion and wishes to think about this overnight although he did mention towards the end of my 30 minute discussion with him that "we oughtta just go ahead and do what is doing to be required." I will discuss this further with him in the morning and if he decides to proceed with a below-knee amputation then we can do this in the next couple of days. If he desires surgical drainage then this can also be done in the next couple of days. I will continue to follow along with you. 10/02/18: Slept better. Still deciding on surgery. He would like to talk to commercial lines assistant before surgery. Hopefully commercial lines assistant can come up to [place] from [facility] tomorrow. 10/03/18: WBC up this morning, swelling worse, more pain, still having fevers. I have recommended that we proceed with surgery today due to his worsening clinical condition. After thought, he is agreeable with proceeding with right BKA later today. I have explained the surgery to him in great detail along with the alternatives, risks, and expected recovery. His questions have been ans wered. He would like to proceed with right BKA today. 10/04/18: POD#1 s/p right BKA. Patient is doing well this morning. He has been afebrile overnight and his heart rate has come down from tachycardia into the 80s. We'll keep the dressing on today and will plan on removing it tomorrow and start to mobilize him with physical therapy. The commercial lines assistant is due to meet with him today. We'll need to have him fitted for a clamshell stump brace. He had pus all the way up the lateral compartment of his lower leg and this was washed out and a JAN drain was placed in the infected space and this will remain in until the output declines and is no longer purulent. I have explained the surgery to him and he seems to understand and he seems to be feeling better this morning. 10/05/18: POD#2 s/p right BKA. Had confusion/delirium last night and fell out of bed. No injuries sustained. Sitter now at bedside. CHAMPAGNE x3 this morning. JAN still with bloody output, will leave drain until output has dried up. 10/06/18: POD#3 s/p right BKA. Mental status clearing, Did require straight cath for urinary retention. Afebrile, WBC down to 14 K, JAN output more serous. Continue IV antibiotics. Daily dressing changes. 10/07/18: POD#4 s/p BKA. Some confusion again last pm, CHAMPAGNE x3 now, CT head done today is normal. Remains afebrile. JAN output serous but still over 100 ml/24 hours. Continue IV antibiotics, continue daily dressing changes, commercial lines assistant to fit for clam shell type brace tomorrow. Will need to have drain out before up on the early mobilization device. 10/08/18: cont abx. PT to work with patient today. will check wound tomorrow and may d/c drain if still having minimal output. 10/09/18: doing well. cont abx, physical therapy. 10/10/18: i removed drain. wound healing well. cont abx. (2) Abscess of right foot Status: Acute (3) Cellulitis of right foot Status: Acute (4) Urinary retention Status: Acute Assessment & Plan: 10/06/18: Required straight cath last pm with 1100 ml returned. Will start Flowmax 0.4 mg daily. Central Venous Access Medical Necessity for Access: Medication Administration Exam Sepsis Risk: No Definite Risk BETTY ALVAREZ Oct 10, 2018 09:29
[2018-10-10] MEDS ORDERED: NS(*) 0.9% 250 ML BAG 250 ML ONE (09:36)
--- NOTE | 2018-10-10 11:51 | Hospitalist Progress Note ---
Subjective Progress Notes Subjective He is having increased neuropathic pain to bilateral lower extremities overnight. He reports some improvement in stomach symptoms. Patient Complains of: Cardiovascular: No: Chest Pain Respiratory: No: Shortness of Breath Physical Exam Vital Signs Date Time Temp Pulse Resp B/P (MAP) Pulse Ox O2 Delivery O2 Flow Rate FiO2 10/10/18 10:56 92 Room Air 10/10/18 07:20 97.9 75 18 177/97 (123) Intake and Output 10/10/18 00:00 Intake Total 690 ml Output Total 2090 ml Balance -1400 ml Intake Oral 690 ml Output Urine Total 2050 ml Drainage Total 40 ml # Voids 5 # Bowel Movements 3 General Appearance: Alert, Awake, No Acute Distress, Afebrile Neuro: No Gross deficits Cardiovascular: Regular Rate and Rhythm Respiratory: No Respiratory Distress, Clear to Auscultation GI: Soft and Non-Tender Extremities: Warm, Perfused; No Edema Psych: Alert & Oriented X3, Appropriate Mood & Affect Result Diagram: 10/10/18 0530 10/10/18 0530 Assessment and Plan Problems: (1) Osteomyelitis of foot, right, acute Status: Acute Assessment & Plan: 4 days prior to admission, he developed more right foot pain and then "flu-like" symptoms the day before admission. He had bilateral transmetatarsal amputation about 2 years ago. The left is nearly healed, but the right hadn't healed (so he has had aggressive wound care). Now he had developed osteomyelitis in the 3rd-5th metatarsals with an adjacent complex of air/fluid level. Dr. Callejas performed right BKA 10/03/18. He was noted to have abscess which extended along the lateral aspect of the leg up to the knee. He does have drain in place. He was placed on IV Rocephin and Flagyl. Flagyl stopped 10/10. Continue wound care. PT/OT. Will add probiotics to help with antibiotics. (2) Sepsis Assessment & Plan: He did present with fever, SOB, hypoxia, myalgias and an elevated lactate. He received 2 liters of fluid in the emergency department. Repeat lactate level was normal. His blood cultures and wound culture grew strep dysgalactiae. See below. (3) Delirium Status: Acute Assessment & Plan: Head CT shows no acute processes. Post-operative delirium. Will continue to treat the acute infectious process in RLE. (4) Acute renal failure Status: Resolved Assessment & Plan: Improved. (5) Iron deficiency anemia Status: Chronic Assessment & Plan: Iron is very low and is lower than when checked in August. He has had a microcytosis since February of 2018. He did receive IV iron infusion prior to surgery 10/03. Will need to consider GI evaluation once the acute problems are resolved. (6) Diabetes mellitus type 2, controlled, with complications Status: Chronic Assessment & Plan: He is on chronic treatment with Trulicity, Lantus, metformin, and NovoLog. We have held the metformin and Trulicity. He was initially placed on his usual Lantus of 40 units and sliding scale level #3, but needed to be increased to 50 units daily. Glucose was significantly elevated upon admission. His dosing was modified to Lantus 30 units BID. He has had decreased appetite causing low morning glucose levels. Will decrease his Lantus to 30 units at night. (7) Benign hypertension Status: Chronic Assessment & Plan: He is on chronic treatment with metoprolol and irbesartan. BP have been elevated throughout admission. We will add Amlodipine 5mg. (8) Anxiety and depression Assessment & Plan: He is on chronic treatment with Wellbutrin. He has increased depression this morning. We have consulted [facility]. Dr. Conn recommended increasing his Wellbutrin dose. Central Venous Access Medical Necessity for Access: Medication Administration Exam Sepsis Risk: No Definite Risk SORAYA HARMON Oct 10, 2018 11:51
[2018-10-10 12:28] VITALS: BP 147/80
[2018-10-10 15:08] VITALS: BP 143/74
[2018-10-10] MEDS: INSULIN ASPART 100 U/ML 3 ML PEN SUBQ PRN (16:55)
[2018-10-10] MEDS: cefTRIAXone(*) 2 GM VIAL 2 GM in NS(*) 0.9% 100 ML ADDVANT BAG 100 ML IVPB SCH (16:56)
[2018-10-10 22:05] VITALS: BP 161/93
[2018-10-11] MEDS: FLUTICASONE/VILANTEROL 1 EACH INHALER INH SCH (06:00)
[2018-10-11 06:12] LABS: PLATELET COUNT, AUTOMATED 359 K/uL (150-450)
[2018-10-11 08:06] VITALS: BP 147/69
[2018-10-11] MEDS: DULoxetine HCL 30 MG CAPCR PO SCH (08:20)
[2018-10-11] MEDS: PREGABALIN 50 MG CAPSULE PO SCH ×2 (08:20→20:45)
[2018-10-11] MEDS: LACTOBACILLUS ACIDOPHILUS TAB PO SCH ×2 (08:20→16:23)
[2018-10-11] MEDS: amLODIPine BESYL(*) 5 MG TAB PO SCH (08:20)
[2018-10-11] MEDS: METOPROLOL SUCC XL 25 MG TABCR PO SCH (08:21)
[2018-10-11] MEDS: buPROPion XL 150 MG TABCR PO SCH (08:21)
[2018-10-11] MEDS: MONTELUKAST SODIUM 10 MG TAB PO SCH (08:21)
[2018-10-11] MEDS: ENOXAPARIN 40 MG/0.4ML SYR SC SCH (08:21)
[2018-10-11] MEDS: IRBESARTAN 150 MG TAB PO SCH (08:21)
[2018-10-11] MEDS: GABAPENTIN 300 MG CAP PO SCH ×3 (08:21→20:44)
--- NOTE | 2018-10-11 08:56 | General Surgery Progress Note ---
Subjective Progress Notes Subjective up in chair, no complaints Physical Exam Vital Signs Date Time Temp Pulse Resp B/P (MAP) Pulse Ox O2 Delivery O2 Flow Rate FiO2 10/11/18 08:06 98.4 83 16 147/69 (95) 93 Room Air Intake and Output 10/11/18 07:00 Intake Total 580 ml Output Total 1425 ml Balance -845 ml Intake Oral 280 ml IV Total 300 ml Output Urine Total 1425 ml # Voids 4 # Bowel Movements 2 General Appearance: Alert, Awake, No Acute Distress, Afebrile Neuro: No Gross deficits Respiratory: No Respiratory Distress, Clear to Auscultation GI: Soft and Non-Tender Extremities: Soft and Non Tender, Other (Right BKA incision clean with minimal edema and slight erythema lateral edge. 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 I have recommended below-knee amputation. I have also presented the option of surgical drainage of the abscesses and then long-term antibiotics but I have also told him that I think this is a high probability of long-term failure due to the chronic wound on the plantar surface of his foot that has so far been resistant to healing over the last year. Even if he responded well to the drainage and antibiotics, he is at high risk for recurring infections and it is my feeling that, although I believe this has a low chance of success, it has a high probability of recurrence and will only delay his progression back to an ambulatory status. He seems to understand this discussion and wishes to think about this overnight although he did mention towards the end of my 30 minute discussion with him that "we oughtta just go ahead and do what is doing to be required." I will discuss this further with him in the morning and if he decides to proceed with a below-knee amputation then we can do this in the next couple of days. If he desires surgical drainage then this can also be done in the next couple of days. I will continue to follow along with you. 10/02/18: Slept better. Still deciding on surgery. He would like to talk to filler shredder machine before surgery. Hopefully filler shredder machine can come up to [place] from [facility] tomorrow. 10/03/18: WBC up this morning, swelling worse, more pain, still having fevers. I have recommended that we proceed with surgery today due to his worsening clinical condition. After thought, he is agreeable with proceeding with right BKA later today. I have explained the surgery to him in great detail along with the alternatives, risks, and expected recovery. His questions have been answered. He would like to proceed with right BKA today. 10/04/18: POD#1 s/p right BKA. Patient is doing well this morning. He has been afebrile overnight and his heart rate has come down from tachycardia into the 80s. We'll keep the dressing on today and will plan on removing it tomorrow and start to mobilize him with physical therapy. The filler shredder machine is due to meet with him today. We'll need to have him fitted for a clamshell stump brace. He had pus all the way up the lateral compartment of his lower leg and this was washed out and a RASTA drain was placed in the infected space and this will remain in until the output declines and is no longer purulent. I have explained the surgery to him and he seems to understand and he seems to be feeling better this morning. 10/05/18: POD#2 s/p right BKA. Had confusion/delirium last night and fell out of bed. No injuries sustained. Sitter now at bedside. CHAMPAGNE x3 this morning. RASTA still with bloody output, will leave drain until output has dried up. 10/06/18: POD#3 s/p right BKA. Mental status clearing, Did require straight cath for urinary retention. Afebrile, WBC down to 14 K, RASTA output more serous. Continue IV antibiotics. Daily dressing changes. 10/07/18: POD#4 s/p BKA. Some confusion again last pm, CHAMPAGNE x3 now, CT head done today is normal. Remains afebrile. RASTA output serous but still over 100 ml/24 hours. Continue IV antibiotics, continue daily dressing changes, filler shredder machine to fit for clam shell type brace tomorrow. Will need to have drain out before up on the early mobilization device. 10/08/18: cont abx. PT to work with patient today. will check wound tomorrow and may d/c drain if still having minimal output. 10/09/18: doing well. cont abx, physical therapy. 10/10/18: i removed drain. wound healing well. cont abx. 10/11/18: plan dressing change daily. Keep stump elevated when OOB. Check CRP and transition to PO antibiotics soon per Med team. (2) Abscess of right foot Status: Acute (3) Cellulitis of right foot Status: Acute (4) Urinary retention Status: Acute Assessment & Plan: 10/06/18: Required straight cath last pm with 1100 ml returned. Will start Flowmax 0.4 mg daily. Central Venous Access Medical Necessity for Access: Medication Administration Exam Sepsis Risk: No Definite Risk NIRAJ BURGESS MD Oct 11, 2018 08:56
[2018-10-11] MEDS: LOPERAMIDE HCL 2 MG CAP PO PRN (09:01)
[2018-10-11] MEDS: traMADol 50 MG TAB PO PRN ×3 (09:01→21:51)
[2018-10-11] MEDS ORDERED: KCL (*) 20 MEQ/100 ML PREMIX 100 ML IV ONE (09:15)
[2018-10-11] MEDS ORDERED: NS(*) 0.9% 250 ML BAG 250 ML ONE (09:35)
[2018-10-11 11:15] VITALS: BP 140/83
--- NOTE | 2018-10-11 11:19 | Hospitalist Progress Note ---
Subjective Progress Notes Subjective He has no complaints this morning. He had no acute events overnight. Patient Complains of: Cardiovascular: No: Chest Pain Respiratory: No: Shortness of Breath Physical Exam Vital Signs Date Time Temp Pulse Resp B/P (MAP) Pulse Ox O2 Delivery O2 Flow Rate FiO2 10/11/18 11:15 98.0 89 16 140/83 (102) 92 Room Air Intake and Output 10/11/18 07:00 Intake Total 580 ml Output Total 1425 ml Balance -845 ml Intake Oral 280 ml IV Total 300 ml Output Urine Total 1425 ml # Voids 4 # Bowel Movements 2 General Appearance: Alert, Awake, No Acute Distress, Afebrile Neuro: No Gross deficits Cardiovascular: Regular Rate and Rhythm Respiratory: No Respiratory Distress, Clear to Auscultation GI: Soft and Non-Tender Extremities: No Edema Psych: Alert & Oriented X3, Appropriate Mood & Affect Result Diagram: 10/11/18 0545 10/11/1845 Assessment and Plan Problems: (1) Osteomyelitis of foot, right, acute Status: Acute Assessment & Plan: 4 days prior to admission, he developed more right foot pain and then "flu-like" symptoms the day before admission. He had bilateral transmetatarsal amputation about 2 years ago. The left is nearly healed, but the right hadn't healed (so he has had aggressive wound care). Now he had developed osteomyelitis in the 3rd-5th metatarsals with an adjacent complex of air/fluid level. Dr. Callejas performed right BKA 10/03/18. He was noted to have abscess which extended along the lateral aspect of the leg up to the knee. He does have drain in place. He was placed on IV Rocephin and Flagyl. Flagyl stopped 10/10. Continue wound care. PT/OT. Will add probiotics to help with antibiotics. (2) Sepsis Assessment & Plan: He did present with fever, SOB, hypoxia, myalgias and an elevated lactate. He received 2 liters of fluid in the emergency department. Repeat lactate level was normal. His blood cultures and wound culture grew strep dysgalactiae. See below. (3) Delirium Status: Acute Assessment & Plan: Head CT shows no acute processes. Post-operative delirium. Will continue to treat the acute infectious process in RLE. (4) Acute renal failure Status: Resolved Assessment & Plan: Improved. (5) Iron deficiency anemia Status: Chronic Assessment & Plan: Iron is very low and is lower than when checked in August. He has had a microcytosis since February of 2018. He did receive IV iron infusion prior to surgery 10/03. Will need to consider GI evaluation once the acute problems are resolved. (6) Diabetes mellitus type 2, controlled, with complications Status: Chronic Assessment & Plan: He is on chronic treatment with Trulicity, Lantus, metformin, and NovoLog. We have held the metformin and Trulicity. He was initially placed on his usual Lantus of 40 units and sliding scale level #3, but needed to be increased to 50 units daily. Glucose was significantly elevated upon admission. His dosing was modified to Lantus 30 units BID. He has had decreased appetite causing low morning glucose levels. Will decrease his Lantus to 30 units at night. (7) Benign hypertension Status: Chronic Assessment & Plan: He is on chronic treatment with metoprolol and irbesartan. BP have been elevated throughout admission. We will add Amlodipine 5mg. (8) Anxiety and depression Assessment & Plan: He is on chronic treatment with Wellbutrin. He has increased depression this morning. We have consulted [facility]. Dr. Conn recommended increasing his Wellbutrin dose. Central Venous Access Medical Necessity for Access: Medication Administration Exam Sepsis Risk: No Definite Risk SORAYA HARMON Oct 11, 2018 11:19
[2018-10-11] MEDS: INSULIN ASPART 100 U/ML 3 ML PEN SUBQ PRN ×3 (11:20→20:45)
[2018-10-11 14:56] VITALS: BP 139/66
--- NOTE | 2018-10-11 15:30 | Medical Nutrition Therapy ---
Nutrition Anthropometrics Height (Inches): 71.00 Height (Calculated Centimeters: 180.194653 Weight (Pounds): 249 Weight (Calculated Kilograms): 112.945 BMI: 34.7 Umesh Nutrition Score: Probably Inadequate Umesh Nutrition Risk Score: 14 Dietary Referral Nutrition Risk Factors: Nutrition Risk Comment: Physical Findings Physical Appearance: Obese BMI 30-39 Skin Appearance Skin Appearance: Edema Edema Location Modifier: Right Edema Location: Lower Extremity Type of Edema: Degree of Edema: Gastrointestinal Symptoms GI Symtoms: Appetite Changes, Diarrhea, Change in Bowel Pattern Tube Present: Bowel Sounds: Recent Bowel Pattern: Stool Characteristics: Nutritional Diagnosis Nutritional Risk Acuity 2: Abcess/Non-Healing Wound (s/p rt BKA), Sepsis Nutritional Risk Acuity 3: Fair Appetite, Nutrit Anemia (low FE) Past Medical History: T2DM, hyperlipidemia, HTN, diabetic neuropathy Nutritional Acuity: 2-Moderate Nutrition Diagnosis: Increased Nutrient Needs Nutrition Etiology: Psychological Issues Nutrition Problem/Etiology/Sym: Increased nutr needs r/t dx foot ulcers and s/p Rt BKA, alb 2.1. Adjusted Energy Requirement Re: 2500 ([place] adj for obestiy X 1.2-1.3 SF ([id number])) Protein Requirement: 130 (1.5gm- 1.75 gm/kg IBW (122-142)) Fluid Requirement: 2500 (1ml/kg) Diet Type: Diabetic Nutrition Intervention: Cont diet as ordered, Encourage intake, Between meal supplement Additional Diet Restrictions: OFFER SF NUTR SUPPLEMENTS + PUT PROTEIN POWDER IN APPROPRIATE FOODS Diet Comment To RSA: ENCOURAGE HIGH PROTEIN AND IRON: BEEF, EGGS, BEANS, PEANUT BUTTER Nutrition Monitoring & Eval Nutrition Goals: Eat 75-100% Meal Nutrition Follow-Up: Fair Intake RD Patient Assessment Time: [address] Assessment Type: RD Re-Assessment Patient Nutrition Acuity: 2-Moderate Follow Up Date: Oct 16, 2018 Nutritional Comment: 10/02 Pt admitted with osteomylitis to rt foot. Pt has dx T2DM. Pt is on ADA diet and intake average 45%. BG ranging 185-262. Pt is recieving Lantus. Alb low at 2.5, BUN/creatinine elevated at 38/1.9. Pt has increased protein needs r/t wound. Will put protein powder in appropriate foods to ensure pt is recieving adequte protein for healing. Will offer nutr education when appropriate. Will cont to monitor and encourage intake. BK 10/05 Pt s/p Rt BKA. Cont on ADA diet and eating 100% post op. BG elevated 200's up to 365. Alb declined to 2.3. ARF resolved. Will cont to monitor and encourage intake. BK 10/08 Pt's intake declnied yesterday to 5-30%. Nursing reporting altered mental status and pt requiring feeding which may have affected intake. BG improved with high of 235 yesteday and 106 fasting this morning. Will cont to offer nutr supplment and encourage high protein. Will offer nutr education when appropriate. BK 10/11 Pt cont on ADA diet . Intake average 47%. Will add Sf nutr supplment to encourage increased protein intake. alb declniend 2.2. BG ranign 78- 190 past 3 days. Will cont to monitor and encourage intake. CHIQUITA PEDROZA Oct 11, 2018 15:30
[2018-10-11] MEDS: cefTRIAXone(*) 2 GM VIAL 2 GM in NS(*) 0.9% 100 ML ADDVANT BAG 100 ML IVPB SCH (16:23)
[2018-10-11 19:32] VITALS: BP 148/80
[2018-10-11] MEDS: INSULIN GLARGINE 100 U/ML 3 ML PEN SQ SCH (20:45)
[2018-10-12] MEDS: FLUTICASONE/VILANTEROL 1 EACH INHALER INH SCH (06:00)
[2018-10-12 06:01] LABS: PLATELET COUNT, AUTOMATED 332 K/uL (150-450)
[2018-10-12 06:08] VITALS: BP 157/89
[2018-10-12] MEDS: LACTOBACILLUS ACIDOPHILUS TAB PO SCH ×2 (07:25→17:16)
[2018-10-12] MEDS: traMADol 50 MG TAB PO PRN ×2 (07:30→14:08)
[2018-10-12] MEDS: METOPROLOL SUCC XL 25 MG TABCR PO SCH (08:41)
[2018-10-12] MEDS: amLODIPine BESYL(*) 5 MG TAB PO SCH (08:41)
[2018-10-12] MEDS: MONTELUKAST SODIUM 10 MG TAB PO SCH (08:41)
[2018-10-12] MEDS: DULoxetine HCL 30 MG CAPCR PO SCH (08:41)
[2018-10-12] MEDS: ENOXAPARIN 40 MG/0.4ML SYR SC SCH (08:41)
[2018-10-12] MEDS: GABAPENTIN 300 MG CAP PO SCH ×3 (08:42→21:18)
[2018-10-12] MEDS: IRBESARTAN 150 MG TAB PO SCH (08:42)
[2018-10-12] MEDS: PREGABALIN 50 MG CAPSULE PO SCH ×2 (08:42→21:18)
[2018-10-12] MEDS: buPROPion XL 150 MG TABCR PO SCH (08:42)
--- NOTE | 2018-10-12 09:00 | General Surgery Progress Note ---
Subjective Progress Notes Subjective requests to sleep this am Physical Exam Vital Signs Date Time Temp Pulse Resp B/P (MAP) Pulse Ox O2 Delivery O2 Flow Rate FiO2 10/12/18 07:33 Room Air 10/12/18 06:08 98.4 88 16 157/89 (111) 93 Intake and Output 10/12/18 07:00 Intake Total 680 ml Balance 680 ml Intake Oral 480 ml IV Total 200 ml # Voids 2 # Bowel Movements 2 Extremities: Other (splint intact) Result Diagram: 10/12/18 0538 10/12/18537 Assessment and Plan Problems: (1) Osteomyelitis of foot, right, acute Status: Acute Assessment & Plan: 10/01/18: I have gone over his MRI findings with him in detail. I have recommended below-knee amputation. I have also presented the option of surgical drainage of the abscesses and then long-term antibiotics but I have also told him that I think this is a high probability of long-term failure due to the chronic wound on the plantar surface of his foot that has so far been resistant to healing over the last year. Even if he responded well to the drainage and antibiotics, he is at high risk for recurring infections and it is my feeling that, although I believe this has a low chance of success, it has a high probability of recurrence and will only delay his progression back to an ambulatory status. He seems to understand this discussion and wishes to think about this overnight although he did mention towards the end of my 30 minute discussion with him that "we oughtta just go ahead and do what is doing to be required." I will discuss this further with him in the morning and if he decides to proceed with a below-knee amputation then we can do this in the next couple of days. If he desires surgical drainage then this can also be done in the next couple of days. I will continue to follow along with you. 10/02/18: Slept better. Still deciding on surgery. He would like to talk to kirstin gerber before surgery. Hopefully check services clerk can come up to [place] from [facility] tomorrow. 10/03/18: WBC up this morning, swelling worse, more pain, still having fevers. I have recommended that we proceed with surgery today due to his worsening clinical condition. After thought, he is agreeable with proceeding with right BKA later today. I have explained the surgery to him in great detail along with the alternatives, risks, and expected recovery. His questions have been answered. He would like to proceed with right BKA today. 10/04/18: POD#1 s/p right BKA. Patient is doing well this morning. He has been afebrile overnight and his heart rate has come down from tachycardia into the 80s. We'll keep the dressing on today and will plan on removing it tomorrow and start to mobilize him with physical therapy. The check services clerk is due to meet with him today. We'll need to have him fitted for a clamshell stump brace. He had pus all the way up the lateral compartment of his lower leg and this was washed out and a RASTA drain was placed in the infected space and this will remain in until the output declines and is no longer purulent. I have explained the surgery to him and he seems to understand and he seems to be feeling better this morning. 10/05/18: POD#2 s/p right BKA. Had confusion/delirium last night and fell out of bed. No injuries sustained. Sitter now at bedside. CHAMPAGNE x3 this morning. RASTA still with bloody output, will leave drain until output has dried up. 10/06/18: POD#3 s/p right BKA. Mental status clearing, Did require straight cath for urinary retention. Afebrile, WBC down to 14 K, RASTA output more serous. Continue IV antibiotics. Daily dressing changes. 10/07/18: POD#4 s/p BKA. Some confusion again last pm, CHAMPAGNE x3 now, CT head done today is normal. Remains afebrile. RASTA output serous but still over 100 ml/24 hours. Continue IV antibiotics, continue daily dressing changes, check services clerk to fit for clam shell type brace tomorrow. Will need to have drain out before up on the early mobilization device. 10/08/18: cont abx. PT to work with patient today. will check wound tomorrow and may d/c drain if still having minimal output. 10/09/18: doing well. cont abx, physical therapy. 10/10/18: i removed drain. wound healing well. cont abx. 10/11/18: plan dressing change daily. Keep stump elevated when OOB. Check CRP and transition to PO antibiotics soon per Med team. 10/12/18: cont daily dressing change. Discussed with PT a stump fitter that is not as tight at proximal thigh. Keep stump elevated at all times, deena when in chair. (2) Abscess of right foot Status: Acute (3) Cellulitis of right foot Status: Acute (4) Urinary retention Status: Acute Assessment & Plan: 10/06/18: Required straight cath last pm with 1100 ml returned. Will start Flowmax 0.4 mg daily. Central Venous Access Medical Necessity for Access: Medication Administration Time Spent: > 30 min Exam Sepsis Risk: No Definite Risk NIRAJ BURGESS MD Oct 12, 2018 09:00
[2018-10-12 11:39] VITALS: BP 155/88
--- NOTE | 2018-10-12 14:57 | Hospitalist Progress Note ---
Subjective Progress Notes Subjective He reports some discomfort with edema sleeve for stump. No other complaints. No fever. Appetite is improved. Physical Exam Vital Signs Date Time Temp Pulse Resp B/P (MAP) Pulse Ox O2 Delivery O2 Flow Rate FiO2 10/12/18 11:39 98.3 86 16 155/88 (110) 86 Room Air Intake and Output 10/12/18 06:59 Intake Total 680 ml Balance 680 ml Intake Oral 480 ml IV Total 200 ml # Voids 2 # Bowel Movements 2 General Appearance: Alert, Awake Psych: Alert & Oriented X3 Result Diagram: 10/12/18 0538 10/12/18537 Assessment and Plan Problems: (1) Osteomyelitis of foot, right, acute Status: Acute Assessment & Plan: 4 days prior to admission, he developed more right foot pain and then "flu-like" symptoms the day before admission. He had bilateral transmetatarsal amputation about 2 years ago. The left is nearly healed, but the right hadn't healed (so he has had aggressive wound care). Now he developed osteomyelitis in the 3rd-5th metatarsals with an adjacent complex of air/fluid level. Dr. Callejas performed right BKA 10/03/18. He was noted to have abscess which extended along the lateral aspect of the leg up to the knee. He did have drain in place - now removed. He was placed on IV Rocephin and Flagyl. Flagyl stopped 10/10. Continue wound care. PT/OT. He will probably need fairly extensive rehab as he has significant pathology involving his left foot as well. (2) Sepsis Assessment & Plan: He did present with fever, SOB, hypoxia, myalgias and an elevated lactate. He received 2 liters of fluid in the emergency department. Repeat lactate level was normal. His blood cultures and wound culture grew strep dysgalactiae. He continues on IV Rocephin. (3) Delirium Status: Acute Assessment & Plan: Resolved. Head CT showed no acute processes. Most likely post-operative delirium or related to the acute infectious process in RLE. (4) Acute renal failure Status: Resolved Assessment & Plan: Improved. (5) Iron deficiency anemia Status: Chronic Assessment & Plan: Iron is very low and is lower than when checked in August. He has had a microcytosis since February of 2018. He did receive IV iron infusion prior to surgery 10/03. Will need to consider GI evaluation once the acute problems are resolved. (6) Diabetes mellitus type 2, controlled, with complications Status: Chronic Assessment & Plan: He is on chronic treatment with Trulicity, Lantus, metformin, and NovoLog. We have held the metformin and Trulicity. He was initially placed on his usual Lantus of 40 units and sliding scale level #3, but needed to be increased to 50 units daily. Glucose was significantly elevated upon admission. His dosing was modified to Lantus 30 units BID. He has had decreased appetite causing low morning glucose levels. We then decreased his Lantus to 30 units at night only. Glucoses have been under moderate control. (7) Benign hypertension Status: Chronic Assessment & Plan: He is on chronic treatment with metoprolol and irbesartan. BP have been elevated throughout admission. We have add Amlodipine 5mg daily. (8) Anxiety and depression Assessment & Plan: He is on chronic treatment with Wellbutrin. He has had some increased depression following surgery. We discussed with Dr. Conn and she recommended increasing his Wellbutrin dose. Central Venous Access Medical Necessity for Access: Medication Administration Exam Sepsis Risk: No Definite Risk DEIRDRE PEREZ MD Oct 12, 2018 14:57
--- NOTE | 2018-10-12 15:47 | General Surgery Progress Note ---
Physical Exam Vital Signs Date Time Temp Pulse Resp B/P (MAP) Pulse Ox O2 Delivery O2 Flow Rate FiO2 10/12/18 11:39 98.3 86 16 155/88 (110) 86 Room Air Intake and Output 10/12/18 07:00 Intake Total 680 ml Balance 680 ml Intake Oral 480 ml IV Total 200 ml # Voids 2 # Bowel Movements 2 Extremities: Other (Right BKA stump with slight increase in the erythema lateral aspect, no drainage or warmth. Less edema with stump elevated) Result Diagram: 10/12/18 0538 10/12/1838 Assessment and Plan Problems: (1) Osteomyelitis of foot, right, acute Status: Acute Assessment & Plan: 10/01/18: I have gone over his MRI findings with him in detail. I have recommended below-knee amputation. I have also presented the option of surgical drainage of the abscesses and then long-term antibiotics but I have also told him that I think this is a high probability of long-term failure due to the chronic wound on the plantar surface of his foot that has so far been resistant to healing over the last year. Even if he responded well to the drainage and antibiotics, he is at high risk for recurring infections and it is my feeling that, although I believe this has a low chance of success, it has a high probability of recurrence and will only delay his progression back to an ambulatory status. He seems to understand this discussion and wishes to think about this overnight although he did mention towards the end of my 30 minute discussion with him that "we oughtta just go ahead and do what is doing to be required." I will discuss this further with him in the morning and if he decides to proceed with a below-knee amputation then we can do this in the next couple of days. If he desires surgical drainage then this can also be done in the next couple of days. I will continue to follow along with you. 10/02/18: Slept better. Still deciding on surgery. He would like to talk to construction project mgr before surgery. Hopefully construction project mgr can come up to [place] from [facility] tomorrow. 10/03/18: WBC up this morning, swelling worse, more pain, still having fevers. I have recommended that we proceed with surgery today due to his worsening clinical condition. After thought, he is agreeable with proceeding with right BKA later today. I have explained the surgery to him in great detail along with the alternatives, risks, and expected recovery. His questions have been answered. He would like to proceed with right BKA today. 10/04/18: POD#1 s/p right BKA. Patient is doing well this morning. He has been afebrile overnight and his heart rate has come down from tachycardia into the 80s. We'll keep the dressing on today and will plan on removing it tomorrow and start to mobilize him with physical therapy. The construction project mgr is due to meet with him today. We'll need to have him fitted for a clamshell stump brace. He had pus all the way up the lateral compartment of his lower leg and this was washed out and a RASTA drain was placed in the infected space and this will remain in until the output declines and is no longer purulent. I have explained the surgery to him and he seems to understand and he seems to be feeling better this morning. 10/05/18: POD#2 s/p right BKA. Had confusion/delirium last night and fell out of bed. No injuries sustained. Sitter now at bedside. CHAMPAGNE x3 this morning. RASTA still with bloody output, will leave drain until output has dried up. 10/06/18: POD#3 s/p right BKA. Mental status clearing, Did require straight cath for urinary retention. Afebrile, WBC down to 14 K, RASTA output more serous. Continue IV antibiotics. Daily dressing changes. 10/07/18: POD#4 s/p BKA. Some confusion again last pm, CHAMPAGNE x3 now, CT head done today is normal. Remains afebrile. RASTA output serous but still over 100 ml/24 hours. Continue IV antibiotics, continue daily dressing changes, construction project mgr to fit for clam shell type brace tomorrow. Will need to have drain out before up on the early mobilization device. 10/08/18: cont abx. PT to work with patient today. will check wound tomorrow and may d/c drain if still having minimal output. 10/09/18: doing well. cont abx, physical therapy. 10/10/18: i removed drain. wound healing well. cont abx. 10/11/18: plan dressing change daily. Keep stump elevated when OOB. Check CRP and transition to PO antibiotics soon per Med team. 10/12/18: cont daily dressing change. Discussed with PT a stump fitter that is not as tight at proximal thigh. Keep stump elevated at all times, deena when in chair. 10/12/18: wound examined and increased erythema is concerning, will follow wound closely. If he transfers to Rehab on 10/14/18 can see myself or another surgeon in [place] close to his facility. (2) Abscess of right foot Status: Acute (3) Cellulitis of right foot Status: Acute (4) Urinary retention Status: Acute Assessment & Plan: 10/06/18: Required straight cath last pm with 1100 ml returned. Will start Flowmax 0.4 mg daily. Central Venous Access Medical Necessity for Access: Medication Administration Exam Sepsis Risk: No Definite Risk NIRAJ BURGESS MD Oct 12, 2018 15:47
[2018-10-12] MEDS: cefTRIAXone(*) 2 GM VIAL 2 GM in NS(*) 0.9% 100 ML ADDVANT BAG 100 ML IVPB SCH (17:17)
[2018-10-12] MEDS: INSULIN ASPART 100 U/ML 3 ML PEN SUBQ PRN ×2 (17:33→21:18)
[2018-10-12 17:58] VITALS: BP 141/66
[2018-10-12 20:04] VITALS: BP 150/78
[2018-10-12] MEDS: INSULIN GLARGINE 100 U/ML 3 ML PEN SQ SCH (21:20)
[2018-10-13] VITALS (7 sets, daily range): BP systolic 139–164; BP diastolic 66–96
[2018-10-13] MEDS: traMADol 50 MG TAB PO PRN ×3 (00:01→23:44)
[2018-10-13] MEDS: FLUTICASONE/VILANTEROL 1 EACH INHALER INH SCH (05:46)
[2018-10-13] MEDS: LACTOBACILLUS ACIDOPHILUS TAB PO SCH ×2 (07:20→17:07)
--- NOTE | 2018-10-13 08:23 | General Surgery Progress Note ---
Subjective Progress Notes Subjective up in chair, trying to keep stump elevated and padded. Physical Exam Vital Signs Date Time Temp Pulse Resp B/P (MAP) Pulse Ox O2 Delivery O2 Flow Rate FiO2 10/13/18 07:15 Room Air 10/13/18 07:15 98.5 84 16 154/72 (99) 94 Intake and Output 10/13/18 07:00 Intake Total 710 ml Output Total 950 ml Balance -240 ml Intake Oral 600 ml IV Total 110 ml Output Urine Total 950 ml # Voids 6 # Bowel Movements 1 General Appearance: Alert, Awake, No Acute Distress, Afebrile Extremities: Other (less edema and less erythema in right BKA stump, no odor or drainage) Result Diagram: 10/13/1852010/13/18520 Assessment and Plan Problems: (1) Osteomyelitis of foot, right, acute Status: Acute Assessment & Plan: 10/01/18: I have gone over his MRI findings with him in detail. I have recommended below-knee amputation. I have also presented the option of surgical drainage of the abscesses and then long-term antibiotics but I have also told him that I think this is a high probability of long-term failure due to the chronic wound on the plantar surface of his foot that has so far been resistant to healing over the last year. Even if he responded well to the drainage and antibiotics, he is at high risk for recurring infections and it is my feeling that, although I believe this has a low chance of success, it has a high probability of recurrence and will only delay his progression back to an ambulatory status. He seems to understand this discussion and wishes to think about this overnight although he did mention towards the end of my 30 minute discussion with him that "we oughtta just go ahead and do what is doing to be required." I will discuss this further with him in the morning and if he decides to proceed with a below-knee amputation then we can do this in the next couple of days. If he desires surgical drainage then this can also be done in the next couple of days. I will continue to follow along with you. 10/02/18: Slept better. Still deciding on surgery. He would like to talk to engraver hand soft metals before surgery. Hopefully engraver hand soft metals can come up to [place] from [facility] tomorrow. 10/03/18: WBC up this morning, swelling worse, more pain, still having fevers. I have recommended that we proceed with surgery today due to his worsening clinical condition. After thought, he is agreeable with proceeding with right BKA later today. I have explained the surgery to him in great detail along with the alternatives, risks, and expected recovery. His questions have been answered. He would like to proceed with right BKA today. 10/04/18: POD#1 s/p right BKA. Patient is doing well this morning. He has been afebrile overnight and his heart rate has come down from tachycardia into the 80s. We'll keep the dressing on today and will plan on removing it tomorrow and start to mobilize him with physical therapy. The engraver hand soft metals is due to meet with him today. We'll need to have him fitted for a clamshell stump brace. He had pus all the way up the lateral compartment of his lower leg and this was washed out and a RASTA drain was placed in the infected space and this will remain in until the output declines and is no longer purulent. I have explained the surgery to him and he seems to understand and he seems to be feeling better this morning. 10/05/18: POD#2 s/p right BKA. Had confusion/delirium last night and fell out of bed. No injuries sustained. Sitter now at bedside. CHAMPAGNE x3 this morning. RASTA still with bloody output, will leave drain until output has dried up. 10/06/18: POD#3 s/p right BKA. Mental status clearing, Did require straight cath for urinary retention. Afebrile, WBC down to 14 K, RASTA output more serous. Continue IV antibiotics. Daily dressing changes. 10/07/18: POD#4 s/p BKA. Some confusion again last pm, CHAMPAGNE x3 now, CT head done today is normal. Remains afebrile. RASTA output serous but still over 100 ml/24 hours. Continue IV antibiotics, continue daily dressing changes, engraver hand soft metals to fit for clam shell type brace tomorrow. Will need to have drain out before up on the early mobilization device. 10/08/18: cont abx. PT to work with patient today. will check wound tomorrow and may d/c drain if still having minimal output. 10/09/18: doing well. cont abx, physical therapy. 10/10/18: i removed drain. wound healing well. cont abx. 10/11/18: plan dressing change daily. Keep stump elevated when OOB. Check CRP a nd transition to PO antibiotics soon per Med team. 10/12/18: cont daily dressing change. Discussed with PT a stump fitter that is not as tight at proximal thigh. Keep stump elevated at all times, deena when in chair. 10/12/18: wound examined and increased erythema is concerning, will follow wound closely. If he transfers to Rehab on 10/14/18 can see myself or another surgeon in [place] close to his facility. 10/13/18: POD#10 wound continues to improve on a daily basis. Pt becoming increasingly aware to protect stump as well as his remaining left foot. Agree with LTAC transfer in am. He can follow up with surgery in [place] or with me in [place] while he is at Rehab. Cont wound care on a daily basis. Agree with change to PO antibiotics since PICC no longer functional. Check labs in a m. (2) Abscess of right foot Status: Acute (3) Cellulitis of right foot Status: Acute (4) Urinary retention Status: Acute Assessment & Plan: 10/06/18: Required straight cath last pm with 1100 ml returned. Will start Flowmax 0.4 mg daily. Central Venous Access Medical Necessity for Access: Medication Administration Exam Sepsis Risk: No Definite Risk NIRAJ BURGESS MD Oct 13, 2018 08:23
[2018-10-13] MEDS: amLODIPine BESYL(*) 5 MG TAB PO SCH (08:33)
[2018-10-13] MEDS: CEFDINIR 300 MG CAP PO SCH ×2 (08:33→21:02)
[2018-10-13] MEDS: ENOXAPARIN 40 MG/0.4ML SYR SC SCH (08:33)
[2018-10-13] MEDS: MONTELUKAST SODIUM 10 MG TAB PO SCH (08:34)
[2018-10-13] MEDS: PREGABALIN 50 MG CAPSULE PO SCH ×2 (08:34→21:02)
[2018-10-13] MEDS: IRBESARTAN 150 MG TAB PO SCH (08:34)
[2018-10-13] MEDS: DULoxetine HCL 30 MG CAPCR PO SCH (08:34)
[2018-10-13] MEDS: METOPROLOL SUCC XL 25 MG TABCR PO SCH (08:34)
[2018-10-13] MEDS: GABAPENTIN 300 MG CAP PO SCH ×3 (08:34→21:02)
[2018-10-13] MEDS: buPROPion XL 150 MG TABCR PO SCH (08:34)
--- NOTE | 2018-10-13 14:24 | Hospitalist Progress Note ---
Subjective Progress Notes Subjective 53M admitted for osteomyelitis now s/p BKA. LISA overnight, PICC has stopped flushing. Patient Complains of: Gastrointestinal: No Nausea, No Vomiting Musculoskeletal: No: Pain Physical Exam Vital Signs Date Time Temp Pulse Resp B/P (MAP) Pulse Ox O2 Delivery O2 Flow Rate FiO2 10/13/18 12:15 98.2 86 16 164/92 (116) 90 Room Air Intake and Output 10/13/18 07:00 Intake Total 710 ml Output Total 950 ml Balance -240 ml Intake Oral 600 ml IV Total 110 ml Output Urine Total 950 ml # Voids 6 # Bowel Movements 1 General Appearance: Alert, Awake, No Acute Distress, Afebrile Neuro: No Gross deficits ENT: Normal Cardiovascular: Normal Rhythm & Peripheral Pulses Respiratory: No Respiratory Distress Extremities: Soft and Non Tender, Warm, Pulses, Perfused Result Diagram: 10/13/1852010/13/18520 Assessment and Plan Problems: (1) Osteomyelitis of foot, right, acute Status: Acute Assessment & Plan: 4 days prior to admission, he developed more right foot pain and then "flu-like" symptoms the day before admission. He had bilateral transmetatarsal amputation about 2 years ago. The left is nearly healed, but the right hadn't healed (so he has had aggressive wound care). Now he developed osteomyelitis in the 3rd-5th metatarsals with an adjacent complex of air/fluid level. Dr. Callejas performed right BKA 10/03/18. He was noted to have abscess which extended along the lateral aspect of the leg up to the knee. He did have drain in place - now removed. He was placed on IV Rocephin and Flagyl. Flagyl stopped 10/10, converted to PO cefdinir 10.13.2018 after PICC stopped functioning and clinical improvement allowed. Continue wound care. PT/OT. He will probably need fairly extensive rehab as he has significant pathology involving his left f oot as well. (2) Sepsis Assessment & Plan: He did present with fever, SOB, hypoxia, myalgias and an elevated lactate. He received 2 liters of fluid in the emergency department. Repeat lactate level was normal. His blood cultures and wound culture grew strep dysgalactiae. Changed PO cefdinir 10.13.18 as PICC non-functional. (3) Delirium Status: Acute Assessment & Plan: Resolved. Head CT showed no acute processes. Most likely post-operative delirium or related to the acute infectious process in RLE. (4) Acute renal failure Status: Resolved Assessment & Plan: Improved. (5) Iron deficiency anemia Status: Chronic Assessment & Plan: Iron is very low and is lower than when checked in August. He has had a microcytosis since February of 2018. He did receive IV iron infusion prior to surgery 10/03. Will need to consider GI evaluation once the acute prob lems are resolved. (6) Diabetes mellitus type 2, controlled, with complications Status: Chronic Assessment & Plan: He is on chronic treatment with Trulicity, Lantus, metformin, and NovoLog. We have held the metformin and Trulicity. He was initially placed on his usual Lantus of 40 units and sliding scale level #3, but needed to be increased to 50 units daily. Glucose was significantly elevated upon admission. His dosing was modified to Lantus 30 units BID. He has had decreased appetite causing low morning glucose levels. We then decreased his Lantus to 30 units at night only. Glucoses have been under moderate control. (7) Benign hypertension Status: Chronic Assessment & Plan: He is on chronic treatment with metoprolol and irbesartan. BP have been elevated throughout admission. We have add Amlodipine 5mg daily. (8) Anxiety and depression Assessment & Plan: He is on chronic treatment with Wellbutrin. He has had some increased depression following surgery. We discussed with Dr. Conn and she recommended increasing his Wellbutrin dose. Central Venous Access Medical Necessity for Access: Medication Administration Exam Sepsis Risk: No Definite Risk RASMUSSEN BRIGIDA PALMER DO Oct 13, 2018 14:24
[2018-10-13] MEDS: INSULIN ASPART 100 U/ML 3 ML PEN SUBQ PRN ×2 (17:08→21:03)
[2018-10-13] MEDS: INSULIN GLARGINE 100 U/ML 3 ML PEN SQ SCH (21:02)
[2018-10-14] VITALS (7 sets, daily range): BP systolic 125–157; BP diastolic 62–86
[2018-10-14] MEDS: LOPERAMIDE HCL 2 MG CAP PO PRN (02:28)
[2018-10-14] MEDS: FLUTICASONE/VILANTEROL 1 EACH INHALER INH SCH ×2 (05:36→18:53)
[2018-10-14] MEDS: LACTOBACILLUS ACIDOPHILUS TAB PO SCH ×2 (07:40→16:56)
[2018-10-14] MEDS: traMADol 50 MG TAB PO PRN ×2 (07:40→16:56)
[2018-10-14] MEDS: INSULIN ASPART 100 U/ML 3 ML PEN SUBQ PRN ×4 (07:40→20:34)
[2018-10-14] MEDS: ENOXAPARIN 40 MG/0.4ML SYR SC SCH (09:19)
[2018-10-14] MEDS: PREGABALIN 50 MG CAPSULE PO SCH ×2 (09:19→20:34)
[2018-10-14] MEDS: DULoxetine HCL 30 MG CAPCR PO SCH (09:19)
[2018-10-14] MEDS: METOPROLOL SUCC XL 25 MG TABCR PO SCH (09:20)
[2018-10-14] MEDS: amLODIPine BESYL(*) 5 MG TAB PO SCH (09:20)
[2018-10-14] MEDS: GABAPENTIN 300 MG CAP PO SCH ×3 (09:20→20:34)
[2018-10-14] MEDS: buPROPion XL 150 MG TABCR PO SCH (09:20)
[2018-10-14] MEDS: CEFDINIR 300 MG CAP PO SCH ×2 (09:20→20:34)
[2018-10-14] MEDS: IRBESARTAN 150 MG TAB PO SCH (09:20)
[2018-10-14] MEDS: MONTELUKAST SODIUM 10 MG TAB PO SCH (09:21)
--- NOTE | 2018-10-14 12:33 | General Surgery Progress Note ---
Physical Exam Vital Signs Date Time Temp Pulse Resp B/P (MAP) Pulse Ox O2 Delivery O2 Flow Rate FiO2 10/14/18 09:24 153/77 (102) 10/14/18 07:53 91 Room Air 10/14/18 07:36 98.5 90 16 Intake and Output 10/14/18 06:59 Intake Total 1200 ml Output Total 1265 ml Balance -65 ml Intake Oral 1200 ml Output Urine Total 1250 ml Drainage Total 15 ml # Voids 3 # Bowel Movements 2 Extremities: Other (right bka stump with less edema and erythema, no foul odor or drainage) Result Diagram: 10/13/1852010/13/18520 Assessment and Plan Problems: (1) Osteomyelitis of foot, right, acute Status: Acute Assessment & Plan: 10/01/18: I have gone over his MRI findings with him in detail. I have recommended below-knee amputation. I have also presented the option of surgical drainage of the abscesses and then long-term antibiotics but I have also told him that I think this is a high probability of long-term failure due to the chronic wound on the plantar surface of his foot that has so far been resistant to healing over the last year. Even if he responded well to the drainage and antibiotics, he is at high risk for recurring infections and it is my feeling that, although I believe this has a low chance of success, it has a high probability of recurrence and will only delay his progression back to an ambulatory status. He seems to understand this discussion and wishes to think ab out this overnight although he did mention towards the end of my 30 minute discussion with him that "we oughtta just go ahead and do what is doing to be required." I will discuss this further with him in the morning and if he decides to proceed with a below-knee amputation then we can do this in the next couple of days. If he desires surgical drainage then this can also be done in the next couple of days. I will continue to follow along with you. 10/02/18: Slept better. Still deciding on surgery. He would like to talk to coat check attendant before surgery. Hopefully coat check attendant can come up to [place] from [facility] tomorrow. 10/03/18: WBC up this morning, swelling worse, more pain, still having fevers. I have recommended that we proceed with surgery today due to his worsening clinical condition. After thought, he is agreeable with proceeding with right BKA later today. I have explained the surgery to him in great detail along with the alternatives, risks, and expected recovery. His questions have been answered. He would like to proceed with right BKA today. 10/04/18: POD#1 s/p right BKA. Patient is doing well this morning. He has been afebrile overnight and his heart rate has come down from tachycardia into the 80s. We'll keep the dressing on today and will plan on removing it tomorrow and start to mobilize him with physical therapy. The coat check attendant is due to meet with him today. We'll need to have him fitted for a clamshell stump brace. He had pus all the way up the lateral compartment of his lower leg and this was washed out and a RASTA drain was placed in the infected space and this will remain in until the output declines and is no longer purulent. I have explained the surgery to him and he seems to understand and he seems to be feeling better this morning. 10/05/18: POD#2 s/p right BKA. Had confusion/delirium last night and fell out of bed. No injuries sustained. Sitter now at bedside. CHAMPAGNE x3 this morning. RASTA still with bloody output, will leave drain until output has dried up. 10/06/18: POD#3 s/p right BKA. Mental status clearing, Did require straight cath for urinary retention. Afebrile, WBC down to 14 K, RASTA output more serous. Continue IV antibiotics. Daily dressing changes. 10/07/18: POD#4 s/p BKA. Some confusion again last pm, CHAMPAGNE x3 now, CT head done today is normal. Remains afebrile. RASTA output serous but still over 100 ml/24 hours. Continue IV antibiotics, continue daily dressing changes, coat check attendant to fit for clam shell type brace tomorrow. Will need to have drain out before up on the early mobilization device. 10/08/18: cont abx. PT to work with patient today. will check wound tomorrow and may d/c drain if still having minimal output. 10/09/18: doing well. cont abx, physical therapy. 10/10/18: i removed drain. wound healing well. cont abx. 10/11/18: plan dressing change daily. Keep stump elevated when OOB. Check CRP and transition to PO antibiotics soon per Med team. 10/12/18: cont daily dressing change. Discussed with PT a stump fitter that is not as tight at proximal thigh. Keep stump elevated at all times, deena when in chair. 10/12/18: wound examined and increased erythema is concerning, will follow wound closely. If he transfers to Rehab on 10/14/18 can see myself or another surgeon in [place] close to his facility. 10/13/18: POD#10 wound continues to improve on a daily basis. Pt becoming incre asingly aware to protect stump as well as his remaining left foot. Agree with LTAC transfer in am. He can follow up with surgery in [place] or with me in [place] while he is at Rehab. Cont wound care on a daily basis. Agree with change to PO antibiotics since PICC no longer functional. Check labs in am. 10/14/18: POD#11 dressing changed with staff scientist and wound looks better. Pt again instructed to keep elevated and padded at all times. Agree with transfer to LTAC. Plan for follow up as above. (2) Abscess of right foot Status: Acute (3) Cellulitis of right foot Status: Acute (4) Urinary retention Status: Acute Assessment & Plan: 10/06/18: Required straight cath last pm with 1100 ml returned. Will start Flowmax 0.4 mg daily. Central Venous Access Medical Necessity for Access: Medication Administration Exam Sepsis Risk: No Definite Risk NIRAJ BURGESS MD Oct 14, 2018 12:33
--- NOTE | 2018-10-14 13:36 | Hospitalist Progress Note ---
Subjective Progress Notes Subjective He was admitted with osteomyelitis, is now right BKA. He has no complaints this morning. He had no acute events overnight. Patient Complains of: Cardiovascular: No: Chest Pain Respiratory: No: Shortness of Breath Physical Exam Vital Signs Date Time Temp Pulse Resp B/P (MAP) Pulse Ox O2 Delivery O2 Flow Rate FiO2 10/14/18 09:24 153/77 (102) 10/14/18 07:53 91 Room Air 10/14/18 07:36 98.5 90 16 Intake and Output 10/14/18 00:00 Intake Total 1300 ml Output Total 1315 ml Balance -15 ml Intake Oral 1300 ml Output Urine Total 1300 ml Drainage Total 15 ml # Voids 3 # Bowel Movements 2 General Appearance: Alert, Awake, No Acute Distress, Afebrile Neuro: No Gross deficits Cardiovascular: Regular Rate and Rhythm Respiratory: No Respiratory Distress, Clear to Auscultation GI: Soft and Non-Tender Extremities: Warm, Edema, Other (right stump has no signs of infection, healing well) Psych: Alert & Oriented X3, Appropriate Mood & Affect Result Diagram: 10/13/1852010/13/18520 Assessment and Plan Problems: (1) Osteomyelitis of foot, right, acute Status: Acute Assessment & Plan: 4 days prior to admission, he developed more right foot pain and then "flu-like" symptoms the day before admission. He had bilateral transmetatarsal amputation about 2 years ago. The left is nearly healed, but the right hadn't healed (so he has had aggressive wound care). Now he developed osteomyelitis in the 3rd-5th metatarsals with an adjacent complex of air/fluid level. Dr. Callejas performed right BKA 10/03/18. He was noted to have abscess which extended along the lateral aspect of the leg up to the knee. He did have drain in place - now removed. He was placed on IV Rocephin and Flagyl. Flagyl stopped 10/10, converted to PO cefdinir 10.13.2018 after PICC stopped functioning and clinical improvement allowed. Continue wound care. PT/OT. He will probably need fairly extensive rehab as he has significant pathology involving his left foot as well. (2) Sepsis Assessment & Plan: He did present with fever, SOB, hypoxia, myalgias and an elevated lactate. He received 2 liters of fluid in the emergency department. Repeat lactate level was normal. His blood cultures and wound culture grew strep dysgalactiae. Changed PO cefdinir 10.13.18 as PICC non-functional. (3) Delirium Status: Acute Assessment & Plan: Resolved. Head CT showed no acute processes. Most likely post-operative delirium or related to the acute infectious process in RLE. (4) Acute renal failure Status: Resolved Assessment & Plan: Improved. (5) Iron deficiency anemia Status: Chronic Assessment & Plan: Iron is very low and is lower than when checked in August. He has had a microcytosis since February of 2018. He did receive IV iron infusion prior to surgery 10/03. Will need to consider GI evaluation once the acute problems are resolved. (6) Diabetes mellitus type 2, controlled, with complications Status: Chronic Assessment & Plan: He is on chronic treatment with Trulicity, Lantus, metformin, and NovoLog. We have held the metformin and Trulicity. He was initially placed on his usual Lantus of 40 units and sliding scale level #3, but needed to be increased to 50 units daily. Glucose was significantly elevated upon admission. His dosing was modified to Lantus 30 units BID. He has had decreased appetite causing low morning glucose levels. We then decreased his Lantus to 30 units at night only. Glucoses have been under moderate control. (7) Benign hypertension Status: Chronic Assessment & Plan: He is on chronic treatment with metoprolol and irbesartan. BP have been elevated throughout admission. We have added Amlodipine 5mg daily. (8) Anxiety and depression Assessment & Plan: He is on chronic treatment with Wellbutrin. He has had some increased depression following surgery. We discussed with Dr. Conn and she recommended increasing his Wellbutrin dose. Central Venous Access Medical Necessity for Access: Medication Administration Exam Sepsis Risk: No Definite Risk SORAYA HARMON Oct 14, 2018 13:36
[2018-10-14] MEDS: INSULIN GLARGINE 100 U/ML 3 ML PEN SQ SCH (20:34)
[2018-10-15 04:07] VITALS: BP 159/80
[2018-10-15] MEDS: traMADol 50 MG TAB PO PRN ×3 (04:07→19:37)
[2018-10-15] MEDS: LOPERAMIDE HCL 2 MG CAP PO PRN ×2 (04:11→10:56)
[2018-10-15 07:39] VITALS: BP 150/80
[2018-10-15] MEDS: LACTOBACILLUS ACIDOPHILUS TAB PO SCH ×2 (07:43→16:56)
[2018-10-15] MEDS: INSULIN ASPART 100 U/ML 3 ML PEN SUBQ PRN ×3 (07:43→21:57)
[2018-10-15 08:19] LABS: PLATELET COUNT, AUTOMATED 369 K/uL (150-450)
[2018-10-15] MEDS: IRBESARTAN 150 MG TAB PO SCH ×2 (09:00→09:23)
[2018-10-15] MEDS: amLODIPine BESYL(*) 5 MG TAB PO SCH (09:22)
[2018-10-15] MEDS: GABAPENTIN 300 MG CAP PO SCH ×3 (09:22→21:55)
[2018-10-15] MEDS: MONTELUKAST SODIUM 10 MG TAB PO SCH (09:23)
[2018-10-15] MEDS: CEFDINIR 300 MG CAP PO SCH ×2 (09:23→21:55)
[2018-10-15] MEDS: PREGABALIN 50 MG CAPSULE PO SCH ×2 (09:23→21:55)
[2018-10-15] MEDS: DULoxetine HCL 30 MG CAPCR PO SCH (09:23)
[2018-10-15] MEDS: METOPROLOL SUCC XL 25 MG TABCR PO SCH (09:23)
[2018-10-15] MEDS: buPROPion XL 150 MG TABCR PO SCH (09:23)
[2018-10-15] MEDS: ENOXAPARIN 40 MG/0.4ML SYR SC SCH (09:24)
[2018-10-15 09:27] VITALS: BP 139/80
[2018-10-15] MEDS ORDERED: FUROSEMIDE 40 MG TAB PO ONE (11:30)
[2018-10-15 12:02] VITALS: BP 154/89
--- NOTE | 2018-10-15 12:42 | Hospitalist Progress Note ---
Subjective Progress Notes Subjective He has had increased drainage from his stump overnight. He does have increased swelling to the right lower extremity. Patient Complains of: Cardiovascular: No: Chest Pain Respiratory: No: Shortness of Breath Physical Exam Vital Signs Date Time Temp Pulse Resp B/P (MAP) Pulse Ox O2 Delivery O2 Flow Rate FiO2 10/15/18 12:02 98.1 87 18 154/89 (110) 91 Room Air Intake and Output 10/15/18 00:00 Intake Total 1720 ml Output Total 1575 ml Balance 145 ml Intake Oral 1720 ml Output Urine Total 1575 ml # Voids 6 # Bowel Movements 1 General Appearance: Alert, Awake, No Acute Distress, Afebrile Neuro: No Gross deficits Cardiovascular: Regular Rate and Rhythm Respiratory: No Respiratory Distress, Clear to Auscultation GI: Soft and Non-Tender Extremities: Warm, Perfused, Edema (2+pitting edema to right stump, left lower extremity has no edema noted), Other (serous drainage to right stump, erythema noted ) Psych: Alert & Oriented X3, Appropriate Mood & Affect Result Diagram: 10/15/18 0810 10/15/18 0810 Assessment and Plan Problems: (1) Osteomyelitis of foot, right, acute Status: Acute Assessment & Plan: 4 days prior to admission, he developed more right foot pain and then "flu-like" symptoms the day before admission. He had bilateral transmetatarsal amputation about 2 years ago. The left is nearly healed, but the right hadn't healed (so he has had aggressive wound care). Now he developed osteomyelitis in the 3rd-5th metatarsals with an adjacent complex of air/fluid level. Dr. Callejas performed right BKA 10/03/18. He was noted to have abscess which extended along the lateral aspect of the leg up to the knee. He did have drain in place - now removed. He was placed on IV Rocephin and Flagyl. Flagyl stopped 10/10, converted to PO cefdinir 10.13.2018 after PICC stopped functioning and clinical improvement allowed. Continue wound care. PT/OT. He will probably need fairly extensive rehab as he has significant pathology involving his left foot as well. He appears to have increased serous drainage right stump overnight. He will be given a dose of Lasix to help with swelling. I called surgery to re-evaluate the wound also. Rechecked labs, no WBC elevation or fever. Likely, related to increased swelling. (2) Sepsis Assessment & Plan: He did present with fever, SOB, hypoxia, myalgias and an elevated lactate. He received 2 liters of fluid in the emergency department. Repeat lactate level was normal. His blood cultures and wound culture grew strep dysgalactiae. Changed PO cefdinir 10.13.18 as PICC non-functional. (3) Delirium Status: Acute Assessment & Plan: Resolved. Head CT showed no acute processes. Most likely post-operative delirium or related to the acute infectious process in RLE. (4) Acute renal failure Status: Resolved Assessment & Plan: Improved. (5) Iron deficiency anemia Status: Chronic Assessment & Plan: Iron is very low and is lower than when checked in August. He has had a microcytosis since February of 2018. He did receive IV iron infusion prior to surgery 10/03. Will need to consider GI evaluation once the acute problems are resolved. (6) Diabetes mellitus type 2, controlled, with complications Status: Chronic Assessment & Plan: He is on chronic treatment with Trulicity, Lantus, metformin, and NovoLog. We have held the metformin and Trulicity. He was initially placed on his usual Lantus of 40 units and sliding scale level #3, but needed to be increased to 50 units daily. Glucose was significantly elevated upon admission. His dosing was modified to Lantus 30 units BID. He has had decreased appetite causing low morning glucose levels. We then decreased his Lantus to 30 units at night only. Glucoses have been under moderate control. (7) Benign hypertension Status: Chronic Assessment & Plan: He is on chronic treatment with metoprolol and irbesartan. BP have been elevated throughout admission. We have added Amlodipine 5mg daily. (8) Anxiety and depression Assessment & Plan: He is on chronic treatment with Wellbutrin. He has had some increased depression following surgery. We discussed with Dr. Conn and she recommended increasing his Wellbutrin dose. Central Venous Access Medical Necessity for Access: Medication Administration Exam Sepsis Risk: No Definite Risk SORAYA HARMON RN RADIATION Oct 15, 2018 12:42
[2018-10-15 15:13] VITALS: BP 147/72
[2018-10-15] MEDS: FLUTICASONE/VILANTEROL 1 EACH INHALER INH SCH (18:30)
[2018-10-15 19:39] VITALS: BP 153/84
--- NOTE | 2018-10-15 21:39 | General Surgery Progress Note ---
Subjective Progress Notes Subjective drainage from inc Physical Exam Vital Signs Date Time Temp Pulse Resp B/P (MAP) Pulse Ox O2 Delivery O2 Flow Rate FiO2 10/15/18 19:39 97.9 84 20 153/84 (107) Room Air 10/15/18 15:13 90 Intake and Output 10/15/18 07:00 Intake Total 1420 ml Output Total 1025 ml Balance 395 ml Intake Oral 1420 ml Output Urine Total 1025 ml # Voids 4 Extremities: Other Result Diagram: 10/15/18 0810 10/15/18 0810 Assessment and Plan Problems: (1) Osteomyelitis of foot, right, acute Status: Acute Assessment & Plan: 10/01/18: I have gone over his MRI findings with him in detail. I have recommended below-knee amputation. I have also presented the option of surgical drainage of the abscesses and then long-term antibiotics but I have also told him that I think this is a high probability of long-term failure due to the chronic wound on the plantar surface of his foot that has so far been resistant to healing over the last year. Even if he responded well to the drainage and antibiotics, he is at high risk for recurring infections and it is my feeling that, although I believe this has a low chance of success, it has a high probability of recurrence and will only delay his progression back to an ambulatory status. He seems to understand this discussion and wishes to think about this overnight although he did mention towards the end of my 30 minute discussion with him that "we oughtta just go ahead and do what is doing to be required." I will discuss this further with him in the morning and if he decides to proceed with a below-knee amputation then we can do this in the next couple of days. If he desires surgical drainage then this can also be done in the next couple of days. I will continue to follow along with you. 10/02/18: Slept better. Still deciding on surgery. He would like to talk to dental laboratory technician before surgery. Hopefully dental laboratory technician can come up to [place] from [facility] tomorrow. 10/03/18: WBC up this morning, swelling worse, more pain, still having fevers. I have recommended that we proceed with surgery today due to his worsening clinical condition. After thought, he is agreeable with proceeding with right BKA later today. I have explained the surgery to him in great detail along with the alternatives, risks, and expected recovery. His questions have been answered. He would like to proceed with right BKA today. 10/04/18: POD#1 s/p right BKA. Patient is doing well this morning. He has been afebrile overnight and his heart rate has come down from tachycardia into the 80 s. We'll keep the dressing on today and will plan on removing it tomorrow and start to mobilize him with physical therapy. The dental laboratory technician is due to meet with him today. We'll need to have him fitted for a clamshell stump brace. He had pus all the way up the lateral compartment of his lower leg and this was washed out and a RASTA drain was placed in the infected space and this will remain in until th e output declines and is no longer purulent. I have explained the surgery to him and he seems to understand and he seems to be feeling better this morning. 10/05/18: POD#2 s/p right BKA. Had confusion/delirium last night and fell out of bed. No injuries sustained. Sitter now at bedside. CHAMPAGNE x3 this morning. RASTA still with bloody output, will leave drain until output has dried up. 10/06/18: POD#3 s/p right BKA. Mental status clearing, Did require straight cath for urinary retention. Afebrile, WBC down to 14 K, RASTA output more serous. Continue IV antibiotics. Daily dressing changes. 10/07/18: POD#4 s/p BKA. Some confusion again last pm, CHAMPAGNE x3 now, CT head done today is normal. Remains afebrile. RASTA output serous but still over 100 ml/24 hours. Continue IV antibiotics, continue daily dressing changes, dental laboratory technician to fit for clam shell type brace tomorrow. Will need to have drain out before up on the early mobilization device. 10/08/18: cont abx. PT to work with patient today. will check wound tomorrow and may d/c drain if still having minimal output. 10/09/18: doing well. cont abx, physical therapy. 10/10/18: i removed drain. wound healing well. cont abx. 10/11/18: plan dressing change daily. Keep stump elevated when OOB. Check CRP and transition to PO antibiotics soon per Med team. 10/12/18: cont daily dressing change. Discussed with PT a stump fitter that is not as tight at proximal thigh. Keep stump elevated at all times, deena when in chair. 10/12/18: wound examined and increased erythema is concerning, will follow wound closely. If he transfers to Rehab on 10/14/18 can see myself or another surgeon in [place] close to his facility. 10/13/18: POD#10 wound continues to improve on a daily basis. Pt becoming increasingly aware to protect stump as well as his remaining left foot. Agree with LTAC transfer in am. He can follow up with surgery in [place] or with me in [place] while he is at Rehab. Cont wound care on a daily basis. Agree with change to PO antibiotics since PICC no longer functional. Check labs in am. 10/14/18: POD#11 dressing changed with director of midwifery/staff midwife and wound looks better. Pt again instructed to keep elevated and padded at all times. Agree with transfer to LTAC. Plan for follow up as above. 10/15/18: serous drainage from inc after starting lasix. no fever. normal wbc. cont abx. monitor. (2) Abscess of right foot Status: Acute (3) Cellulitis of right foot Status: Acute (4) Urinary retention Status: Acute Assessment & Plan: 10/06/18: Required straight cath last pm with 1100 ml returned. Will start Flowmax 0.4 mg daily. Central Venous Access Medical Necessity for Access: Medication Administration Exam Sepsis Risk: No Definite Risk BETTY ALVAREZ Oct 15, 2018 21:39
[2018-10-15] MEDS: INSULIN GLARGINE 100 U/ML 3 ML PEN SQ SCH (21:56)
[2018-10-16] VITALS: BP 158/87
[2018-10-16] MEDS: LOPERAMIDE HCL 2 MG CAP PO PRN ×2 (00:17→10:04)
[2018-10-16] MEDS: ACETAMINOPHEN 500 MG TAB PO PRN ×3 (01:40→21:20)
[2018-10-16] MEDS: traMADol 50 MG TAB PO PRN ×4 (01:40→22:12)
--- NOTE | 2018-10-16 07:31 | General Surgery Progress Note ---
Subjective Progress Notes Subjective No complaints today. Mentally clearing. Not much pain at operative site. Physical Exam Vital Signs Date Time Temp Pulse Resp B/P (MAP) Pulse Ox O2 Delivery O2 Flow Rate FiO2 10/16/18 00:00 98.5 92 20 158/87 (110) 89 Room Air Intake and Output 10/16/18 07:00 Intake Total 1094 ml Output Total 1176 ml Balance -82 ml Intake Oral 1094 ml Output Urine Total 1175 ml Stool Total 1 ml # Voids 4 # Bowel Movements 1 General Appearance: Alert, Awake, No Acute Distress, Afebrile Extremities: Warm, Perfused, Other (Right BKA stump is edematous with some mild erythema. There is serous drainage. I removed some veronica and probed the area of drainage and drained about 20mL of seropurulent fluid. I didn't detect any exposed bone in the wound with probing. I packed the wound with packing strip and covered it with dry gauze.) Result Diagram: 10/15/18 0810 10/15/18 0810 Assessment and Plan Problems: (1) Osteomyelitis of foot, right, acute Status: Acute Assessment & Plan: 10/01/18: I have gone over his MRI findings with him in detail. I have recommended below-knee amputation. I have also presented the option of surgical drainage of the abscesses and then long-term antibiotics but I have also told him that I think this is a high probability of long-term failure due to the chronic wound on the plantar surface of his foot that has so far been resistant to healing over the last year. Even if he responded well to the drainage and antibiotics, he is at high risk for recurring infections and it is my feeling that, although I believe this has a low chance of success, it has a high probability of recurrence and will only delay his progression back to an ambulatory status. He seems to understand this discussion and wishes to think about this overnight although he did mention towards the end of my 30 minute discussion with him that "we oughtta just go ahead and do what is doing to be required." I will discuss this further with him in the morning and if he decides to proceed with a below-knee amputation then we can do this in the next couple of days. If he desires surgical drainage then this can also be done in the next couple of days. I will continue to follow along with you. 10/02/18: Slept better. Still deciding on surgery. He would like to talk to literature teacher before surgery. Hopefully literature teacher can come up to [place] from [facility] tomorrow. 10/03/18: WBC up this morning, swelling worse, more pain, still having fevers. I have recommended that we proceed with surgery today due to his worsening clinical condition. After thought, he is agreeable with proceeding with right BKA later today. I have explained the surgery to him in great detail along with the alternatives, risks, and expected recovery. His questions have been answered. He would like to proceed with right BKA today. 10/04/18: POD#1 s/p right BKA. Patient is doing well this morning. He has been afebrile overnight and his heart rate has come down from tachycardia into the 80s. We'll keep the dressing on today and will plan on removing it tomorrow and start to mobilize him with physical therapy. The literature teacher is due to meet with him today. We'll need to have him fitted for a clamshell stump brace. He had pus all the way up the lateral compartment of his lower leg and this was washed out and a RASTA drain was placed in the infected space and this will remain in until the output declines and is no longer purulent. I have explained the surgery to him and he seems to understand and he seems to be feeling better this morning. 10/05/18: POD#2 s/p right BKA. Had confusion/delirium last night and fell out of bed. No injuries sustained. Sitter now at bedside. CHAMPAGNE x3 this morning. RASTA still with bloody output, will leave drain until output has dried up. 10/06/18: POD#3 s/p right BKA. Mental status clearing, Did require straight cath for urinary retention. Afebrile, WBC down to 14 K, RASTA output more serous. Continue IV antibiotics. Daily dressing changes. 10/07/18: POD#4 s/p BKA. Some confusion again last pm, CHAMPAGNE x3 now, CT head done today is normal. Remains afebrile. RASTA output serous but still over 100 ml/24 hours. Continue IV antibiotics, continue daily dressing changes, literature teacher to fit for clam shell type brace tomorrow. Will need to have drain out before up on the early mobilization device. 10/08/18: cont abx. PT to work with patient today. will check wound tomorrow and may d/c drain if still having minimal output. 10/09/18: doing well. cont abx, physical therapy. 10/10/18: i removed drain. wound healing well. cont abx. 10/11/18: plan dressing change daily. Keep stump elevated when OOB. Check CRP and transition to PO antibiotics soon per Med team. 10/12/18: cont daily dressing change. Discussed with PT a stump fitter that is not as tight at proximal thigh. Keep stump elevated at all times, deena when in chair. 10/12/18: wound examined and increased erythema is concerning, will follow wound closely. If he transfers to Rehab on 10/14/18 can see myself or another surgeon in [place] close to his facility. 10/13/18: POD#10 wound continues to improve on a daily basis. Pt becoming increasingly aware to protect stump as well as his remaining left foot. Agree with LTAC transfer in am. He can follow up with surgery in [place] or with me in [place] while he is at Rehab. Cont wound care on a daily basis. Agree with change to PO antibiotics since PICC no longer functional. Check labs in am. 10/14/18: POD#11 dressing changed with event staff member and wound looks better. Pt again instructed to keep elevated and padded at all times. Agree with transfer to LTAC. Plan for follow up as above. 10/15/18: serous drainage from inc after starting lasix. no fever. normal wbc. cont abx. monitor. 10/16/18: POD#13. Doing well but developed infected fluid collection which I drained the morning. Will start wound care and will consider a wound vac in a couple of days. Recommend holding off on transfer to LTAC for a few days so we can see how his wound progresses now that it's been drained. Plan explained to Peter and he seems to understand and seems agreeable with this plan. (2) Right BKA infection Status: Acute Assessment & Plan: S/P I/D. (3) Abscess of right foot Status: Resolved (4) Cellulitis of right foot Status: Resolved (5) Urinary retention Status: Resolved Assessment & Plan: 10/06/18: Required straight cath last pm with 1100 ml returned. Will start Flowmax 0.4 mg daily. Central Venous Access Medical Necessity for Access: Medication Administration Condition Stable. Time Spent: < 30 min Exam Sepsis Risk: No Definite Risk LESLEY SHAH MD Oct 16, 2018 07:31
[2018-10-16 08:03] VITALS: BP 157/84
[2018-10-16] MEDS: LACTOBACILLUS ACIDOPHILUS TAB PO SCH ×2 (08:19→17:37)
[2018-10-16 08:38] LABS: PLATELET COUNT, AUTOMATED 399 K/uL (150-450)
[2018-10-16] MEDS ORDERED: cefTRIAXone 2 GM VIAL IVP SCH (09:00)
[2018-10-16] MEDS ORDERED: CEFDINIR 300 MG CAP PO ONE (09:25)
[2018-10-16] MEDS: ENOXAPARIN 40 MG/0.4ML SYR SC SCH (09:57)
[2018-10-16] MEDS: IRBESARTAN 150 MG TAB PO SCH (09:58)
[2018-10-16] MEDS: buPROPion XL 150 MG TABCR PO SCH (09:58)
[2018-10-16] MEDS: DULoxetine HCL 30 MG CAPCR PO SCH (09:58)
[2018-10-16] MEDS: amLODIPine BESYL(*) 5 MG TAB PO SCH (09:58)
[2018-10-16] MEDS: METOPROLOL SUCC XL 25 MG TABCR PO SCH (09:58)
[2018-10-16] MEDS: GABAPENTIN 300 MG CAP PO SCH ×3 (09:59→21:20)
[2018-10-16] MEDS: PREGABALIN 50 MG CAPSULE PO SCH ×2 (10:00→21:20)
[2018-10-16] MEDS: MONTELUKAST SODIUM 10 MG TAB PO SCH (10:00)
[2018-10-16] MEDS: INSULIN ASPART 100 U/ML 3 ML PEN SUBQ PRN ×3 (12:36→21:21)
--- NOTE | 2018-10-16 13:12 | Hospitalist Progress Note ---
Subjective Progress Notes Subjective He is s/p right BKA. He was noted to have increased swelling with possible infection noted to the stump. This was drained by Dr. Callejas this morning. Physical Exam Vital Signs Date Time Temp Pulse Resp B/P (MAP) Pulse Ox O2 Delivery O2 Flow Rate FiO2 10/16/18 08:03 97.9 77 16 157/84 (108) 89 Room Air Intake and Output 10/16/18 07:00 Intake Total 1212 ml Output Total 1576 ml Balance -364 ml Intake Oral 1212 ml Output Urine Total 1575 ml Stool Total 1 ml # Voids 4 # Bowel Movements 1 General Appearance: Alert, Awake, No Acute Distress, Afebrile Neuro: No Gross deficits Cardiovascular: Regular Rate and Rhythm Respiratory: No Respiratory Distress, Clear to Auscultation GI: Soft and Non-Tender Extremities: Warm, Perfused, Edema, Other (erythema noted to right lower stump) Psych: Alert & Oriented X3, Appropriate Mood & Affect Result Diagram: 10/16/1883410/16/18834 Assessment and Plan Problems: (1) Osteomyelitis of foot, right, acute Status: Acute Assessment & Plan: 4 days prior to admission, he developed more right foot pain and then "flu-like" symptoms the day before admission. He had bilateral transmetatarsal amputation about 2 years ago. The left is nearly healed, but the right hadn't healed (so he has had aggressive wound care). Now he developed osteomyelitis in the 3rd-5th metatarsals with an adjacent complex of air/fluid level. Dr. Callejas performed right BKA 10/03/18. He was noted to have abscess which extended along the lateral aspect of the leg up to the knee. He did have drain in place - now removed. He was placed on IV Rocephin and Flagyl. Flagyl stopped 10/10, converted to PO cefdinir 10.13.2018 after PICC stopped functioning and clinical improvement allowed. Continue wound care. PT/OT. He will probably need fairly extensive rehab as he has significant pathology involving his left foot as well. He appears to have increased serous drainage right stump 10/14. He was given a dose of Lasix to help with swelling. Surgery was called to re-evaluate the wound also. Rechecked labs, no WBC elevation or fever. Wound was drained 2/[address] Callejas. He will be switched to IV Rocephin again to help with infection. (2) Sepsis Assessment & Plan: He did present with fever, SOB, hypoxia, myalgias and an elevated lactate. He received 2 liters of fluid in the emergency department. Repeat lactate level was normal. His blood cultures and wound culture grew strep dysgalactiae. Changed PO cefdinir 10.13.18 as PICC non-functional. (3) Delirium Status: Acute Assessment & Plan: Resolved. Head CT showed no acute processes. Most likely post-operative delirium or related to the acute infectious process in RLE. (4) Acute renal failure Status: Resolved Assessment & Plan: Improved. (5) Iron deficiency anemia Status: Chronic Assessment & Plan: Iron is very low and is lower than when checked in August. He has had a microcytosis since February of 2018. He did receive IV iron infusion prior to surgery 10/03. Will need to consider GI evaluation once the acute problems are resolved. (6) Diabetes mellitus type 2, controlled, with complications Status: Chronic Assessment & Plan: He is on chronic treatment with Trulicity, Lantus, metform in, and NovoLog. We have held the metformin and Trulicity. He was initially placed on his usual Lantus of 40 units and sliding scale level #3, but needed to be increased to 50 units daily. Glucose was significantly elevated upon admission. His dosing was modified to Lantus 30 units BID. He has had decreased appetite causing low morning glucose levels. We then decreased his Lantus to 30 units at night only. Glucoses have been under moderate control. (7) Benign hypertension Status: Chronic Assessment & Plan: He is on chronic treatment with metoprolol and irbesartan. BP have been elevated throughout admission. We have added Amlodipine 5mg daily. (8) Anxiety and depression Assessment & Plan: He is on chronic treatment with Wellbutrin. He has had some increased depression following surgery. We discussed with Dr. Conn and she recommended increasing his Wellbutrin dose. Central Venous Access Medical Necessity for Access: Medication Administration Exam Sepsis Risk: No Definite Risk SORAYA HARMONP Oct 16, 2018 13:12
--- NOTE | 2018-10-16 13:55 | RADIOLOGY IMAGING REPORT ---
FACILITY: [facility] PATIENT NAME: Peter Quintero : 1965 MR: [id number] V: [id number] EXAM DATE: ORDERING PHYSICIAN: SORAYA HARMON TECHNOLOGIST: Location: [facility] Patient: Peter Quintero : 1965 Visit/Account:[id number] Date of Sevice: 10/16/2018 Exam type: PICC LINE INSERTION, US GUIDANCE VASCULAR ACCESS History: IV abx Comparison: October 09, 2018. Findings: Informed consent was obtained. The patient's left arm was prepped and draped usual sterile fashion.. Local anesthesia was accomplished with 1% lidocaine. Utilizing sonographic and fluoroscopic guidan ce a 44 cm long trimmed 5 [place] double lumen power PICC was inserted via the patent left basilic vei n with the distal tip resting in superior vena cava. Both lumens of power PICC were flushed with 5 m L of saline flush. Proximal portion PICC line was adhered the patient's arm the sterile dressing. T he sonographic images were saved to PACS. The procedure was accomplished without apparent complicati on. The fluoroscopy dose area product is 33.39 micro-Chahal per meter squared IMPRESSION: 1. Successful placement of a 44 cm long trimmed 5 [place] double lumen power PICC inserted via the pa tent left basilic vein with the distal tip resting in superior vena cava. Report Dictated By: Carole Boyd MD at 10/16/2018 1:49 PM Report E-Signed By: Carole Boyd MD at 10/16/2018 1:52 PM WSN:[email or web address]
--- NOTE | 2018-10-16 13:56 | RADIOLOGY IMAGING REPORT ---
FACILITY: [facility] PATIENT NAME: Peter Quintero : 1965 MR: [id number] V: [id number] EXAM DATE: ORDERING PHYSICIAN: SORAYA HARMON TECHNOLOGIST: Location: [facility] Patient: Peter Quintero : 1965 Visit/Account:[id number] Date of Sevice: 10/16/2018 Exam type: PICC LINE INSERTION, US GUIDANCE VASCULAR ACCESS History: IV abx Comparison: October 09, 2018. Findings: Informed consent was obtained. The patient's left arm was prepped and draped usual sterile fashion.. Local anesthesia was accomplished with 1% lidocaine. Utilizing sonographic and fluoroscopic guidan ce a 44 cm long trimmed 5 [place] double lumen power PICC was inserted via the patent left basilic vei n with the distal tip resting in superior vena cava. Both lumens of power PICC were flushed with 5 m L of saline flush. Proximal portion PICC line was adhered the patient's arm the sterile dressing. T he sonographic images were saved to PACS. The procedure was accomplished without apparent complicati on. The fluoroscopy dose area product is 33.39 micro-Chahal per meter squared IMPRESSION: 1. Successful placement of a 44 cm long trimmed 5 [place] double lumen power PICC inserted via the pa tent left basilic vein with the distal tip resting in superior vena cava. Report Dictated By: Carole Boyd MD at 10/16/2018 1:49 PM Report E-Signed By: Carole Boyd MD at 10/16/2018 1:52 PM WSN:[email or web address]
[2018-10-16] MEDS: cefTRIAXone 2 GM VIAL IVP SCH (15:42)
[2018-10-16 16:23] VITALS: BP 145/83
[2018-10-16] MEDS: INSULIN GLARGINE 100 U/ML 3 ML PEN SQ SCH (21:21)
[2018-10-16 22:14] VITALS: BP 154/83
[2018-10-17] MEDS: LOPERAMIDE HCL 2 MG CAP PO PRN (05:25)
[2018-10-17] MEDS: traMADol 50 MG TAB PO PRN ×3 (05:25→21:24)
[2018-10-17 05:39] VITALS: BP 156/94
[2018-10-17] MEDS: FLUTICASONE/VILANTEROL 1 EACH INHALER INH SCH (06:00)
[2018-10-17 06:10] LABS: PLATELET COUNT, AUTOMATED 488 K/uL (150-450)
--- NOTE | 2018-10-17 07:23 | General Surgery Progress Note ---
Subjective Progress Notes Subjective Pt fell last evening while pivoting. Fell and struck his right knee. Had the knee brace in place. Has some discomfort on his anterior knee. Physical Exam Vital Signs Date Time Temp Pulse Resp B/P (MAP) Pulse Ox O2 Delivery O2 Flow Rate FiO2 10/17/18 05:39 98.2 87 12 156/94 (114) 93 Room Air Intake and Output 10/17/18 07:00 Intake Total 576 ml Output Total 1380 ml Balance -804 ml Intake Oral 576 ml Output Urine Total 1350 ml Drainage Total 30 ml # Voids 1 # Bowel Movements 1 General Appearance: Alert, Awake, No Acute Distress, Afebrile Extremities: Other (Dressings/packing removed. Still with edema, less erythema this morning. Still draining serosanguinous fluid, still about 20mL came out this morning when I removed the packing. His right knee appears unremarkable, no ecchymosis or edema.) Result Diagram: 10/17/1853610/17/18536 Assessment and Plan Problems: (1) Osteomyelitis of foot, right, acute Status: Acute Assessment & Plan: 10/01/18: I have gone over his MRI findings with him in detail. I have recommended below-knee amputation. I have also presented the option of surgical drainage of the abscesses and then long-term antibiotics but I have also told him that I think this is a high probability of long-term failure due to the chronic wound on the plantar surface of his foot that has so far been resistant to healing over the last year. Even if he responded well to the drainage and antibiotics, he is at high risk for recurring infections and it is my feeling that, although I believe this has a low chance of success, it has a high probability of recurrence and will only delay his progression back to an ambulatory status. He seems to understand this discussion and wishes to think about this overnight although he did mention towards the end of my 30 minute discussion with him that "we oughtta just go ahead and do what is doing to be required." I will discuss this further with him in the morning and if he decides to proceed with a below-knee amputation then we can do this in the next couple of days. If he desires surgical drainage then this can also be done in the next couple of days. I will continue to follow along with you. 10/02/18: Slept better. Still deciding on surgery. He would like to talk to certified professional midwife before surgery. Hopefully certified professional midwife can come up to [place] from [facility] tomorrow. 10/03/18: WBC up this morning, swelling worse, more pain, still having fevers. I have recommended that we proceed with surgery today due to his worsening clinical condition. After thought, he is agreeable with proceeding with right BKA later today. I have explained the surgery to him in great detail along with the alternatives, risks, and expected recovery. His questions have been answered. He would like to proceed with right BKA today. 10/04/18: POD#1 s/p right BKA. Patient is doing well this morning. He has been afebrile overnight and his heart rate has come down from tachycardia into the 80s. We'll keep the dressing on today and will plan on removing it tomorrow and start to mobilize him with physical therapy. The certified professional midwife is due to meet with him today. We'll need to have him fitted for a clamshell stump brace. He had pus all the way up the lateral compartment of his lower leg and this was washed out and a RASTA drain was placed in the infected space and this will remain in until the output declines and is no longer purulent. I have explained the surgery to him and he seems to understand and he seems to be feeling better this morning. 10/05/18: POD#2 s/p right BKA. Had confusion/delirium last night and fell out of bed. No injuries sustained. Sitter now at bedside. CHAMPAGNE x3 this morning. RASTA still with bloody output, will leave drain until output has dried up. 10/06/18: POD#3 s/p right BKA. Mental status clearing, Did require straight cath for urinary retention. Afebrile, WBC down to 14 K, RASTA output more serous. Continue IV antibiotics. Daily dressing changes. 10/07/18: POD#4 s/p BKA. Some confusion again last pm, CHAMPAGNE x3 now, CT head done today is normal. Remains afebrile. RASTA output serous but still over 100 ml/24 hours. Continue IV antibiotics, continue daily dressing changes, certified professional midwife to fit for clam shell type brace tomorrow. Will need to have drain out before up on the early mobilization device. 10/08/18: cont abx. PT to work with patient today. will check wound tomorrow and may d/c drain if still having minimal output. 10/09/18: doing well. cont abx, physical therapy. 10/10/18: i removed drain. wound healing well. cont abx. 10/11/18: plan dressing change daily. Keep stump elevated when OOB. Check CRP and transition to PO antibiotics soon per Med team. 10/12/18: cont daily dressing change. Discussed with PT a stump fitter that is not as tight at proximal thigh. Keep stump elevated at all times, deena when in chair. 10/12/18: wound examined and increased erythema is concerning, will follow wound closely. If he transfers to Rehab on 10/14/18 can see myself or another surgeon in [place] close to his facility. 10/13/18: POD#10 wound continues to improve on a daily basis. Pt becoming increasingly aware to protect stump as well as his remaining left foot. Agree with LTAC transfer in am. He can follow up with surgery in [place] or with me in [place] while he is at Rehab. Cont wound care on a daily basis. Agree with change to PO antibiotics since PICC no longer functional. Check labs in am. 10/14/18: POD#11 dressing changed with staff midwife/apprenticeship director and wound looks better. Pt again instructed to keep elevated and padded at all times. Agree with transfer to LTAC. Plan for follow up as above. 10/15/18: serous drainage from inc after starting lasix. no fever. normal wbc. cont abx. monitor. 10/16/18: POD#13. Doing well but developed infected fluid collection which I drained the morning. Will start wound care and will consider a wound vac in a c ouple of days. Recommend holding off on transfer to LTAC for a few days so we can see how his wound progresses now that it's been drained. Plan explained to Peter and he seems to understand and seems agreeable with this plan. 10/17/18: POD#14. Continue to keep an eye on the BKA site. Continue wound care. Will continue to work on ambulation with rigid thigh based prosthetic, no pressure on BKA stump. Hold off on wound vac for now until drainage decreases and starts to show signs of healing. Hold off on LTAC transfer until infection gone and healing apparent. (2) Right BKA infection Status: Acute Assessment & Plan: S/P I/D. (3) Abscess of right foot Status: Resolved (4) Cellulitis of right foot Status: Resolved (5) Urinary retention Status: Resolved Assessment & Plan: 10/06/18: Required straight cath last pm with 1100 ml returned. Will start Flowmax 0.4 mg daily. Central Venous Access Medical Necessity for Access: Medication Administration Condition Stable. Time Spent: < 30 min Exam Sepsis Risk: No Definite Risk LESLEY SHAH MD Oct 17, 2018 07:23
[2018-10-17] MEDS: LACTOBACILLUS ACIDOPHILUS TAB PO SCH ×2 (07:46→16:43)
[2018-10-17 07:47] VITALS: BP 147/77
[2018-10-17] MEDS: ACETAMINOPHEN 500 MG TAB PO PRN ×2 (07:47→15:47)
[2018-10-17] MEDS: DULoxetine HCL 30 MG CAPCR PO SCH (09:55)
[2018-10-17] MEDS: MONTELUKAST SODIUM 10 MG TAB PO SCH (09:56)
[2018-10-17] MEDS: METOPROLOL SUCC XL 25 MG TABCR PO SCH (09:56)
[2018-10-17] MEDS: amLODIPine BESYL(*) 5 MG TAB PO SCH (09:56)
[2018-10-17] MEDS: IRBESARTAN 150 MG TAB PO SCH (09:56)
[2018-10-17] MEDS: GABAPENTIN 300 MG CAP PO SCH ×3 (09:56→21:19)
[2018-10-17] MEDS: INSULIN GLARGINE 100 U/ML 3 ML PEN SQ SCH (09:56)
[2018-10-17] MEDS: ENOXAPARIN 40 MG/0.4ML SYR SC SCH (09:57)
[2018-10-17] MEDS: buPROPion XL 150 MG TABCR PO SCH (09:57)
[2018-10-17] MEDS: PREGABALIN 50 MG CAPSULE PO SCH ×2 (09:57→21:19)
--- NOTE | 2018-10-17 10:56 | Hospitalist Progress Note ---
Subjective Progress Notes Subjective He is s/p right BKA. He had a fall last night. He was trying to pivot for a transfer and fell onto his right knee. He has some pain from the fall, but reports it has improved overnight. Patient Complains of: Cardiovascular: No: Chest Pain Respiratory: No: Shortness of Breath Physical Exam Vital Signs Date Time Temp Pulse Resp B/P (MAP) Pulse Ox O2 Delivery O2 Flow Rate FiO2 10/17/18 07:47 98.4 86 16 147/77 (100) 90 Room Air Intake and Output 10/17/18 07:00 Intake Total 796 ml Output Total 1380 ml Balance -584 ml Intake Oral 796 ml Output Urine Total 1350 ml Drainage Total 30 ml # Voids 1 # Bowel Movements 1 General Appearance: Alert, Awake, No Acute Distress, Afebrile Neuro: No Gross deficits Cardiovascular: Regular Rate and Rhythm Respiratory: No Respiratory Distress, Clear to Auscultation GI: Soft and Non-Tender Extremities: Warm, Perfused Psych: Alert & Oriented X3, Appropriate Mood & Affect Result Diagram: 10/17/1837 10/17/18536 Assessment and Plan Problems: (1) Osteomyelitis of foot, right, acute Status: Acute Assessment & Plan: 4 days prior to admission, he developed more right foot pain and then "flu-like" symptoms the day before admission. He had bilateral transmetatarsal amputation about 2 years ago. The left is nearly healed, but the right hadn't healed (so he has had aggressive wound care). Now he developed osteomyelitis in the 3rd-5th metatarsals with an adjacent complex of air/fluid level. Dr. Callejas performed right BKA 10/03/18. He was noted to have abscess which extended along the lateral aspect of the leg up to the knee. He did have drain in place - now removed. He was placed on IV Rocephin and Flagyl. Flagyl stopped 10/10, converted to PO cefdinir 10.13.2018 after PICC stopped functioning and clinical improvement allowed. Continue wound care. PT/OT. He will probably need fairly extensive rehab as he has significant pathology involving his left foot as well. He appears to have increased serous drainage right stump 10/14. He was given a dose of Lasix to help with swelling. Surgery was called to re-evaluate the wound also. Rechecked labs, no WBC elevation or fever. Wound was drained 10/[address] Callejas. He will be switched to IV Rocephin again to help with infection. (2) Sepsis Assessment & Plan: He did present with fever, SOB, hypoxia, myalgias and an elevated lactate. He received 2 liters of fluid in the emergency department. Repeat lactate level was normal. His blood cultures and wound culture grew strep dysgalactiae. Changed PO cefdinir 10.13.18 as PICC non-functional. (3) Delirium Status: Acute Assessment & Plan: Resolved. Head CT showed no acute processes. Most likely post-operative delirium or related to the acute infectious process in RLE. (4) Acute renal failure Status: Resolved Assessment & Plan: Improved. (5) Iron deficiency anemia Status: Chronic Assessment & Plan: Iron is very low and is lower than when checked in August. He has had a microcytosis since February of 2018. He did receive IV iron infusion prior to surgery 10/03. Will need to consider GI evaluation once the acute problems are resolved. (6) Diabetes mellitus type 2, controlled, with complications Status: Chronic Assessment & Plan: He is on chronic treatment with Trulicity, Lantus, metformin, and NovoLog. We have held the metformin and Trulicity. He was in itially placed on his usual Lantus of 40 units and sliding scale level #3, but needed to be increased to 50 units daily. Glucose was significantly elevated upon admission. His dosing was modified to Lantus 30 units BID. He has had decreased appetite causing low morning glucose levels. We then decreased his Lantus to 30 units at night only. Glucoses have been under moderate control. (7) Benign hypertension Status: Chronic Assessment & Plan: He is on chronic treatment with metoprolol and irbesartan. BP have been elevated throughout admission. We have added Amlodipine 5mg daily. (8) Anxiety and depression Assessment & Plan: He is on chronic treatment with Wellbutrin. He has had some increased depression following surgery. We discussed with Dr. Conn and she recommended increasing his Wellbutrin dose. Central Venous Access Medical Necessity for Access: Medication Administration Exam Sepsis Risk: No Definite Risk SORAYA HARMON Oct 17, 2018 10:56
[2018-10-17 11:52] VITALS: BP 144/91
[2018-10-17] MEDS: cefTRIAXone 2 GM VIAL IVP SCH (14:40)
--- NOTE | 2018-10-17 14:57 | Medical Nutrition Therapy ---
Nutrition Anthropometrics Height (Inches): 71.00 Height (Calculated Centimeters: 180.719234 Weight (Pounds): 228 Weight (Calculated Kilograms): 103.419 BMI: 34.7 Umesh Nutrition Score: Adequate Umesh Nutrition Risk Score: 17 Dietary Referral Nutrition Risk Factors: Nutrition Risk Comment: Physical Findings Physical Appearance: Obese BMI 30-39 Skin Appearance Skin Appearance: Edema Edema Location Modifier: Left Edema Location: Lower Extremity Type of Edema: Degree of Edema: Gastrointestinal Symptoms GI Symtoms: Diarrhea, Change in Bowel Pattern Tube Present: Bowel Sounds: Recent Bowel Pattern: Stool Characteristics: Nutritional Diagnosis Nutritional Risk Acuity 2: Abcess/Non-Healing Wound (s/p rt BKA), Sepsis Nutritional Risk Acuity 3: Fair Appetite, Nutrit Anemia (low FE) Past Medical History: T2DM, hyperlipidemia, HTN, diabetic neuropathy Nutritional Acuity: 2-Moderate Nutrition Diagnosis: Increased Nutrient Needs Nutrition Etiology: Psychological Issues Nutrition Problem/Etiology/Sym: Increased nutr needs r/t dx foot ulcers and s/p Rt BKA, alb 2.1. Adjusted Energy Requirement Re: 2500 ([place] adj for obestiy X 1.2-1.3 SF ([id number])) Protein Requirement: 130 (1.5gm- 1.75 gm/kg IBW (122-142)) Fluid Requirement: 2500 (1ml/kg) Diet Type: Diabetic Nutrition Intervention: Cont diet as ordered, Encourage intake, Between meal supplement Additional Diet Restrictions: OFFER SF NUTR SUPPLEMENTS + PUT PROTEIN POWDER IN APPROPRIATE FOODS Diet Comment To RSA: ENCOURAGE HIGH PROTEIN AND IRON: BEEF, EGGS, BEANS, PEANUT BUTTER Nutritional Education Nutrition Education Topic: Diabetic Nutrition Learning Readiness: Not Interested Teaching Recipient: Patient Nutrition Counseling: Pt not interested in diabetic diet ed. Pt states limits CHO at home and trys to increase protein Nutrition Monitoring & Eval Nutrition Goals: Eat 75-100% Meal Nutrition Follow-Up: Good Intake RD Patient Assessment Time: [address] Assessment Type: RD Re-Assessment Patient Nutrition Acuity: 2-Moderate Follow Up Date: Oct 22, 2018 Nutritional Comment: 10/02 Pt admitted with osteomylitis to rt foot. Pt has dx T2DM. Pt is on ADA diet and intake average 45%. BG ranging 185-262. Pt is recieving Lantus. Alb low at 2.5, BUN/creatinine elevated at 38/1.9. Pt has increased protein needs r/t wound. Will put protein powder in appropriate foods to ensure pt is recieving adequte protein for healing. Will offer nutr education when appropriate. Will cont to monitor and encourage intake. BK 10/05 Pt s/p Rt BKA. Cont on ADA diet and eating 100% post op. BG elevated 200's up to 365. Alb declined to 2.3. ARF resolved. Will cont to monitor and encourage intake. BK 10/08 Pt's intake declnied yesterday to 5-30%. Nursing reporting altered mental status and pt requiring feeding which may have affected intake. BG improved with high of 235 yesteday and 106 fasting this morning. Will cont to offer nutr supplment and encourage high protein. Will offer nutr education when appropriate. BK 10/11 Pt cont on ADA diet . Intake average 47%. Will add Sf nutr supplment to encourage increased protein intake. alb declined 2.2. BG ranging 78- 190 past 3 days. Will cont to monitor and encourage intake. BK 10/17 Pt cont on ADA diet. Intake improved and average 84% past 3 days. BG cont elevated up to 217.alb improved to 3.3. will cont to monitor and encourage intake. CHIQUITA PEDROZA Oct 17, 2018 14:57
[2018-10-17 15:48] VITALS: BP 150/90
[2018-10-17 19:25] VITALS: BP 144/85
[2018-10-17] MEDS: INSULIN ASPART 100 U/ML 3 ML PEN SUBQ PRN (21:19)
[2018-10-17 23:54] VITALS: BP 147/83
[2018-10-18] MEDS: ACETAMINOPHEN 500 MG TAB PO PRN ×3 (00:02→20:44)
[2018-10-18 03:17] VITALS: BP 162/94
[2018-10-18] MEDS: traMADol 50 MG TAB PO PRN ×3 (05:33→22:57)
[2018-10-18] MEDS: FLUTICASONE/VILANTEROL 1 EACH INHALER INH SCH (06:00)
[2018-10-18 08:05] VITALS: BP 157/94
--- NOTE | 2018-10-18 08:37 | General Surgery Progress Note ---
Subjective Progress Notes Subjective No complaints today. He reports that he slipped last evening transferring from the commode and bumped his leg on the bed. No real pain. His leg overall is feeling better with less discomfort but he does have some phantom symptoms of proceed discomfort in his right foot. Physical Exam Vital Signs Date Time Temp Pulse Resp B/P (MAP) Pulse Ox O2 Delivery O2 Flow Rate FiO2 10/18/18 08:05 98.5 85 14 157/94 (115) 93 Room Air Intake and Output 10/18/18 07:00 Intake Total 540 ml Output Total 1180 ml Balance -640 ml Intake Oral 540 ml Output Urine Total 1150 ml Drainage Total 30 ml # Voids 1 # Bowel Movements 3 General Appearance: Alert, Awake, No Acute Distress, Afebrile Extremities: Other (there was hardly any drainage after I removed the packing this morning. There was much less drainage on the dressings and they were not saturated. His surgical site is exhibiting much less edema and improving erythema.) Result Diagram: 10/17/1837 10/17/1837 Assessment and Plan Problems: (1) Osteomyelitis of foot, right, acute Status: Acute Assessment & Plan: 10/01/18: I have gone over his MRI findings with him in detail. I have recommended below-knee amputation. I have also presented the option of surgical drainage of the abscesses and then long-term antibiotics but I have also told him that I think this is a high probability of long-term failure due to the chronic wound on the plantar surface of his foot that has so far been resistant to healing over the last year. Even if he responded well to the drainage and antibiotics, he is at high risk for recurring infections and it is my feeling that, although I believe this has a low chance of success, it has a high probability of recurrence and will only delay his progression back to an ambulatory status. He seems to understand this discussion and wishes to think about this overnight although he did mention towards the end of my 30 minute discussion with him that "we oughtta just go ahead and do what is doing to be required." I will discuss this further with him in the morning and if he decides to proceed with a below-knee amputation then we can do this in the next couple of days. If he desires surgical drainage then this can also be done in the next couple of days. I will continue to follow along with you. 10/02/18: Slept better. Still deciding on surgery. He would like to talk to locker plant attendant before surgery. Hopefully locker plant attendant can come up to [place] from [facility] tomorrow. 10/03/18: WBC up this morning, swelling worse, more pain, still having fevers. I have recommended that we proceed with surgery today due to his worsening clinical condition. After thought, he is agreeable with proceeding with right BKA later today. I have explained the surgery to him in great detail along with the alternatives, risks, and expected recovery. His questions have been answered. He would like to proceed with right BKA today. 10/04/18: POD#1 s/p right BKA. Patient is doing well this morning. He has been afebrile overnight and his heart rate has come down from tachycardia into the 80s. We'll keep the dressing on today and will plan on removing it tomorrow and start to mobilize him with physical therapy. The locker plant attendant is due to meet with him today. We'll need to have him fitted for a clamshell stump brace. He had pus all the way up the lateral compartment of his lower leg and this was washed out and a RASTA drain was placed in the infected space and this will remain in until the output declines and is no longer purulent. I have explained the surgery to him and he seems to understand and he seems to be feeling better this morning. 10/05/18: POD#2 s/p right BKA. Had confusion/delirium last night and fell out of bed. No injuries sustained. Sitter now at bedside. CHAMP[place]NE x3 this morning. RASTA still with bloody output, will leave drain until output has dried up. 10/06/18: POD#3 s/p right BKA. Mental status clearing, Did require straight cath for urinary retention. Afebrile, WBC down to 14 K, RASTA output more serous. Continue IV antibiotics. Daily dressing changes. 10/07/18: POD#4 s/p BKA. Some confusion again last pm, CHAMPAGNE x3 now, CT head done today is normal. Remains afebrile. RASTA output serous but still over 100 ml/24 hours. Continue IV antibiotics, continue daily dressing changes, locker plant attendant to fit for clam shell type brace tomorrow. Will need to have drain out before up on the early mobilization device. 10/08/18: cont abx. PT to work with patient today. will check wound tomorrow and may d/c drain if still having minimal output. 10/09/18: doing well. cont abx, physical therapy. 10/10/18: i removed drain. wound healing well. cont abx. 10/11/18: plan dressing change daily. Keep stump elevated when OOB. Check CRP and transition to PO antibiotics soon per Med team. 10/12/18: cont daily dressing change. Discussed with PT a stump fitter that is not as tight at proximal thigh. Keep stump elevated at all times, deena when in chair. 10/12/18: wound examined and increased erythema is concerning, will follow wound closely. If he transfers to Rehab on 10/14/18 can see myself or another surgeon in [place] close to his facility. 10/13/18: POD#10 wound continues to improve on a daily basis. Pt becoming increasingly aware to protect stump as well as his remaining left foot. Agree with LTAC transfer in am. He can follow up with surgery in [place] or with me in [place] while he is at Rehab. Cont wound care on a daily basis. Agree with change to PO antibiotics since PICC no longer functional. Check labs in am. 10/14/18: POD#11 dressing changed with staff readiness officer and wound looks better. Pt again instructed to keep elevated and padded at all times. Agree with transfer to LTAC. Plan for follow up as above. 10/15/18: serous drainage from inc after starting lasix. no fever. normal wbc. cont abx. monitor. 10/16/18: POD#13. Doing well but developed infected fluid collection which I drained the morning. Will start wound care and will consider a wound vac in a couple of days. Recommend holding off on transfer to LTAC for a few days so we can see how his wound progresses now that it's been drained. Plan explained to Peter and he seems to understand and seems agreeable with this plan. 10/17/18: POD#14. Continue to keep an eye on the BKA site. Continue wound care. Will continue to work on ambulation with rigid thigh based prosthetic, no pressure on BKA stump. Hold off on wound vac for now until drainage decreases and starts to show signs of healing. Hold off on LTAC transfer until infection gone and healing apparent. 10/18/18: POD#15. He seems to be doing better. He is having some issues with transfers. We will continue working on this. His stump and the wound look much better with less drainage and less swelling and erythema. We'll continue wound care including packing and dressing changes at least once a day but twice a day as needed, he has needed twice a day due to the amount of drainage but as this tapers off we may build to decrease to once a day in the next day or 2. I think the wound is too small for a wound VAC although there is significant tracking deeper into the stump but no obvious bony involvement. We will hold off on LTAC transfer until next week. (2) Right BKA infection Status: Acute Assessment & Plan: S/P I/D. (3) Abscess of right foot Status: Resolved (4) Cellulitis of right foot Status: Resolved (5) Urinary retention Status: Resolved Assessment & Plan: 10/06/18: Required straight cath last pm with 1100 ml returned. Will start Flowmax 0.4 mg daily. Central Venous Access Medical Necessity for Access: Medication Administration Condition Stable Time Spent: < 30 min Exam Sepsis Risk: No Definite Risk LESLEY SHAH MD Oct 18, 2018 08:37
[2018-10-18] MEDS: MONTELUKAST SODIUM 10 MG TAB PO SCH (09:46)
[2018-10-18] MEDS: METOPROLOL SUCC XL 25 MG TABCR PO SCH (09:46)
[2018-10-18] MEDS: buPROPion XL 150 MG TABCR PO SCH (09:46)
[2018-10-18] MEDS: PREGABALIN 50 MG CAPSULE PO SCH ×2 (09:46→20:43)
[2018-10-18] MEDS: LACTOBACILLUS ACIDOPHILUS TAB PO SCH ×2 (09:46→16:45)
[2018-10-18] MEDS: DULoxetine HCL 30 MG CAPCR PO SCH (09:46)
[2018-10-18] MEDS: amLODIPine BESYL(*) 5 MG TAB PO SCH (09:46)
[2018-10-18] MEDS: GABAPENTIN 300 MG CAP PO SCH ×3 (09:46→20:43)
[2018-10-18] MEDS: ENOXAPARIN 40 MG/0.4ML SYR SC SCH (09:47)
[2018-10-18] MEDS: IRBESARTAN 150 MG TAB PO SCH (09:47)
--- NOTE | 2018-10-18 10:58 | Hospitalist Progress Note ---
Subjective Progress Notes Subjective He reports he is having difficulties with transfers. He feels like he looses his balance easily. He had no acute events overnight. Patient Complains of: Cardiovascular: No: Chest Pain Respiratory: No: Shortness of Breath Physical Exam Vital Signs Date Time Temp Pulse Resp B/P (MAP) Pulse Ox O2 Delivery O2 Flow Rate FiO2 10/18/18 08:05 98.5 85 14 157/94 (115) 93 Room Air Intake and Output 10/18/18 07:00 Intake Total 540 ml Output Total 1180 ml Balance -640 ml Intake Oral 540 ml Output Urine Total 1150 ml Drainage Total 30 ml # Voids 1 # Bowel Movements 3 General Appearance: Alert, Awake, No Acute Distress, Afebrile Neuro: No Gross deficits Cardiovascular: Regular Rate and Rhythm Respiratory: No Respiratory Distress, Clear to Auscultation GI: Soft and Non-Tender Psych: Alert & Oriented X3, Appropriate Mood & Affect Result Diagram: 10/17/1853610/17/18536 Assessment and Plan Problems: (1) Osteomyelitis of foot, right, acute Status: Acute Assessment & Plan: 4 days prior to admission, he developed more right foot pain and then "flu-like" symptoms the day before admission. He had bilateral transmetatarsal amputation about 2 years ago. The left is nearly healed, but the right hadn't healed (so he has had aggressive wound care). Now he developed osteomyelitis in the 3rd-5th metatarsals with an adjacent complex of air/fluid l evel. Dr. Callejas performed right BKA 10/03/18. He was noted to have abscess which extended along the lateral aspect of the leg up to the knee. He did have drain in place - now removed. He was placed on IV Rocephin and Flagyl. Flagyl stopped 10/10, converted to PO cefdinir 10.13.2018 after PICC stopped functioning and clinical improvement allowed. Continue wound care. PT/OT. He will probably need fairly extensive rehab as he has significant pathology involving his left foot as well. He appeared to have increased serous drainage right stump 10/14. He was given a dose of Lasix to help with swelling. Surgery was called to re-evaluate the wound also. Rechecked labs, no WBC elevation or fever. Wound was drained 10/[address] Callejas, shows increased signs of infection to wound. He was switched back to IV Rocephin again to help with infection. (2) Sepsis Assessment & Plan: He did present with fever, SOB, hypoxia, myalgias and an elevated lactate. He received 2 liters of fluid in the emergency department. Repeat lactate level was normal. His blood cultures and wound culture grew strep dysgalactiae. Changed PO cefdinir 10.13.18 as PICC non-functional. (3) Delirium Status: Acute Assessment & Plan: Resolved. Head CT showed no acute processes. Most likely post-operative delirium or related to the acute infectious process in RLE. (4) Acute renal failure Status: Resolved Assessment & Plan: Improved. (5) Iron deficiency anemia Status: Chronic Assessment & Plan: Iron is very low and is lower than when checked in August. He has had a microcytosis since February of 2018. He did receive IV iron infusion prior to surgery 10/03. Will need to consider GI evaluation once the acute problems are resolved. (6) Diabetes mellitus type 2, controlled, with complications Status: Chronic Assessment & Plan: He is on chronic treatment with Trulicity, Lantus, metformin, and NovoLog. We have held the metformin and Trulicity. He was initially placed on his usual Lantus of 40 units and sliding scale level #3, but needed to be increased to 50 units daily. Glucose was significantly elevated u jace admission. His dosing was modified to Lantus 30 units BID. He has had decreased appetite causing low morning glucose levels. We then decreased his Lantus to 30 units at night only. Glucoses have been under moderate control. (7) Benign hypertension Status: Chronic Assessment & Plan: He is on chronic treatment with metoprolol and irbesartan. BP have been elevated throughout admission. We have added Amlodipine 5mg daily. (8) Anxiety and depression Assessment & Plan: He is on chronic treatment with Wellbutrin. He has had some increased depression following surgery. We discussed with Dr. Conn and she recommended increasing his Wellbutrin dose. Central Venous Access Medical Necessity for Access: Medication Administration Exam Sepsis Risk: No Definite Risk SORAYA HARMON Oct 18, 2018 17:58
[2018-10-18] MEDS: INSULIN ASPART 100 U/ML 3 ML PEN SUBQ PRN ×3 (12:02→20:46)
--- NOTE | 2018-10-18 12:07 | Antimicrobial Stewardship ---
Antimicrobial Stewardship Empiricly appropriate: Yes (Ceftriaxone, prior cultures showed S. dy sgalactiae/equisimilis) Significant PMH: Yes (DM2, Trans metatarsal amputation of both feet, BKA R leg, sepsis) Approriate Cultures done: Yes Gram stain show Microbs: Yes (Prior to BKA: Gram stain showed GPC, S. dysgalactiae/equisimilis) Monitored for Toxicities: Yes Clinically stable/improving: Yes IV to PO Opportunity: No Determine cumulative duration: Restarted IV antibiotics on 10/16 Determine standard duration: 10-14 days, depending on wound care/healing Comment 53 yo M with a PMH of DM2, HTN, bilateral transmetatarsal amputations, BKA of R leg, s/p BKA on 10/03/18 who was treated with IV antibiotics and switched to oral on 10/13, who was found to have a residual abscess in the stump. Afebrile WBC wnl on PE, erythema, swelling, and pain in stump Blood Cx from 09/30/18 grew S. dysgalactiae/equisimilis Wound Cx from R foot grew S. dysgalactiae/equisimilis Repeat Blood Cx 10/03/18: NGTD Plan to restart IV Ceftriaxone based on prior cultures. No repeat blood or wound cultures done to guide treatment. Plan to continue wound care with IV antibiotics for a total duration of 10-14 days. Abscess drained and pt is improving, continue antibiotics. Will follow closely. Laura Landin, PharmD, BCOP LAURA LANDIN Oct 18, 2018 12:07
[2018-10-18] MEDS: cefTRIAXone 2 GM VIAL IVP SCH (14:06)
[2018-10-18 19:19] VITALS: BP 145/81
[2018-10-18] MEDS: INSULIN GLARGINE 100 U/ML 3 ML PEN SQ SCH (20:44)
[2018-10-19 04:08] VITALS: BP 160/94
[2018-10-19] MEDS: FLUTICASONE/VILANTEROL 1 EACH INHALER INH SCH (06:00)
[2018-10-19 06:42] LABS: PLATELET COUNT, AUTOMATED 296 K/uL (150-450)
[2018-10-19 07:21] VITALS: BP 146/86
[2018-10-19] MEDS ORDERED: ALTEPLASE RECOMB 2 MG VIAL IVP ONE ×2 (07:30→11:15)
[2018-10-19] MEDS: traMADol 50 MG TAB PO PRN ×2 (07:36→22:45)
[2018-10-19] MEDS: LACTOBACILLUS ACIDOPHILUS TAB PO SCH ×2 (07:36→17:05)
--- NOTE | 2018-10-19 08:55 | General Surgery Progress Note ---
Subjective Progress Notes Subjective no acute events. pain at stump. no fever. Physical Exam Vital Signs Date Time Temp Pulse Resp B/P (MAP) Pulse Ox O2 Delivery O2 Flow Rate FiO2 10/19/18 07:21 97.8 83 16 146/86 (106) 88 Room Air Intake and Output 10/19/18 07:00 Intake Total 580 ml Output Total 15 ml Balance 565 ml Intake Oral 580 ml Drainage Total 15 ml # Voids 3 # Bowel Movements 2 Extremities: Other (erythema improving on stump, serosang drainage) Result Diagram: 10/19/18 0550 10/19/18 0550 Assessment and Plan Problems: (1) Osteomyelitis of foot, right, acute Status: Acute Assessment & Plan: 10/01/18: I have gone over his MRI findings with him in detail. I have recommended below-knee amputation. I have also presented the option of surgical drainage of the abscesses and then long-term antibiotics but I have also told him that I think this is a high probability of long-term failure due to the chronic wound on the plantar surface of his foot that has so far been resistant to healing over the last year. Even if he responded well to the drainage and antibiotics, he is at high risk for recurring infections and it is my feeling that, although I believe this has a low chance of success, it has a high probability of recurrence and will only delay his progression back to an ambulatory status. He seems to understand this discussion and wishes to think about this overnight although he did mention towards the end of my 30 minute di scussion with him that "we oughtta just go ahead and do what is doing to be required." I will discuss this further with him in the morning and if he decides to proceed with a below-knee amputation then we can do this in the next couple of days. If he desires surgical drainage then this can also be done in the next couple of days. I will continue to follow along with you. 10/02/18: Slept better. Still deciding on surgery. He would like to talk to barrel handler before surgery. Hopefully barrel handler can come up to [place] from [facility] tomorrow. 10/03/18: WBC up this morning, swelling worse, more pain, still having fevers. I have recommended that we proceed with surgery today due to his worsening clinical condition. After thought, he is agreeable with proceeding with right BKA later today. I have explained the surgery to him in great detail along with the alternatives, risks, and expected recovery. His questions have been answered. He would like to proceed with right BKA today. 10/04/18: POD#1 s/p right BKA. Patient is doing well this morning. He has been afebrile overnight and his heart rate has come down from tachycardia into the 80s. We'll keep the dressing on today and will plan on removing it tomorrow and start to mobilize him with physical therapy. The barrel handler is due to meet with him today. We'll need to have him fitted for a clamshell stump brace. He had pus all the way up the lateral compartment of his lower leg and this was washed out and a RASTA drain was placed in the infected space and this will remain in until the output declines and is no longer purulent. I have explained the surgery to him and he seems to understand and he seems to be feeling better this morning. 10/05/18: POD#2 s/p right BKA. Had confusion/delirium last night and fell out of bed. No injuries sustained. Sitter now at bedside. CHAMPAGNE x3 this morning. RASTA still with bloody output, will leave drain until output has dried up. 10/06/18: POD#3 s/p right BKA. Mental status clearing, Did require straight cath for urinary retention. Afebrile, WBC down to 14 K, RASTA output more serous. Continue IV antibiotics. Daily dressing changes. 10/07/18: POD#4 s/p BKA. Some confusion again last pm, CHAMPAGNE x3 now, CT head done today is normal. Remains afebrile. RASTA output serous but still over 100 ml/24 hours. Continue IV antibiotics, continue daily dressing changes, barrel handler to fit for clam shell type brace tomorrow. Will need to have drain out before up on the early mobilization device. 10/08/18: cont abx. PT to work with patient today. will check wound tomorrow and may d/c drain if still having minimal output. 10/09/18: doing well. cont abx, physical therapy. 10/10/18: i removed drain. wound healing well. cont abx. 10/11/18: plan dressing change daily. Keep stump elevated when OOB. Check CRP and transition to PO antibiotics soon per Med team. 10/12/18: cont daily dressing change. Discussed with PT a stump fitter that is not as tight at proximal thigh. Keep stump elevated at all times, deena when in chair. 10/12/18: wound examined and increased erythema is concerning, will follow wound closely. If he transfers to Rehab on 10/14/18 can see myself or another surgeon in [place] close to his facility. 10/13/18: POD#10 wound continues to improve on a daily basis. Pt becoming increasingly aware to protect stump as well as his remaining left foot. Agree with LTAC transfer in am. He can follow up with surgery in [place] or with me in [place] while he is at Rehab. Cont wound care on a daily basis. Agree with change to PO antibiotics since PICC no longer functional. Check labs in am. 10/14/18: POD#11 dressing changed with operations staff specialist security and wound looks better. Pt again instructed to keep elevated and padded at all times. Agree with transfer to LT AC. Plan for follow up as above. 10/15/18: serous drainage from inc after starting lasix. no fever. normal wbc. cont abx. monitor. 10/16/18: POD#13. Doing well but developed infected fluid collection which I drained the morning. Will start wound care and will consider a wound vac in a couple of days. Recommend holding off on transfer to LTAC for a few days so we can see how his wound progresses now that it's been drained. Plan explained to Peter and he seems to understand and seems agreeable with this plan. 10/17/18: POD#14. Continue to keep an eye on the BKA site. Continue wound care. Will continue to work on ambulation with rigid thigh based prosthetic, no pressure on BKA stump. Hold off on wound vac for now until drainage decreases and starts to show signs of healing. Hold off on LTAC transfer until infection gone and healing apparent. 10/18/18: POD#15. He seems to be doing better. He is having some issues with transfers. We will continue working on this. His stump and the wound look much better with less drainage and less swelling and erythema. We'll continue wound care including packing and dressing changes at least once a day but twice a day as needed, he has needed twice a day due to the amount of drainage but as this tapers off we may build to decrease to once a day in the next day or 2. I think the wound is too small for a wound VAC although there is significant tracking deeper into the stump but no obvious bony involvement. We will hold off on LTAC transfer until next week. 10/19/18: erythema improving. cont wound are and abx. (2) Right BKA infection Status: Acute Assessment & Plan: S/P I/D. (3) Abscess of right foot Status: Resolved (4) Cellulitis of right foot Status: Resolved (5) Urinary retention Status: Resolved Assessment & Plan: 10/06/18: Required straight cath last pm with 1100 ml returned. Will start Flowmax 0.4 mg daily. Central Venous Access Medical Necessity for Access: Medication Administration Exam Sepsis Risk: No Definite Risk BETTY ALVAREZ Oct 19, 2018 08:55
[2018-10-19] MEDS: DULoxetine HCL 30 MG CAPCR PO SCH (09:28)
[2018-10-19] MEDS: PREGABALIN 50 MG CAPSULE PO SCH ×2 (09:28→20:41)
[2018-10-19] MEDS: MONTELUKAST SODIUM 10 MG TAB PO SCH (09:28)
[2018-10-19] MEDS: GABAPENTIN 300 MG CAP PO SCH ×3 (09:28→20:41)
[2018-10-19] MEDS: ENOXAPARIN 40 MG/0.4ML SYR SC SCH (09:29)
[2018-10-19] MEDS: buPROPion XL 150 MG TABCR PO SCH (09:29)
[2018-10-19] MEDS: IRBESARTAN 150 MG TAB PO SCH (09:29)
[2018-10-19] MEDS: amLODIPine BESYL(*) 5 MG TAB PO SCH (09:29)
[2018-10-19] MEDS: METOPROLOL SUCC XL 25 MG TABCR PO SCH (09:29)
[2018-10-19] MEDS: INSULIN ASPART 100 U/ML 3 ML PEN SUBQ PRN ×2 (12:01→20:42)
--- NOTE | 2018-10-19 12:28 | Medical Nutrition Therapy ---
Nutrition Anthropometrics Height (Inches): 71.00 Height (Calculated Centimeters: 180.131587 Weight (Pounds): 221 Weight (Calculated Kilograms): 100.244 BMI: 34.7 Umesh Nutrition Score: Adequate Umesh Nutrition Risk Score: 17 Dietary Referral Nutrition Risk Factors: Nutrition Risk Comment: Physical Findings Physical Appearance: Obese BMI 30-39 Skin Appearance Skin Appearance: Edema Edema Location Modifier: Left Edema Location: Lower Extremity Type of Edema: Degree of Edema: Gastrointestinal Symptoms GI Symtoms: Change in Bowel Pattern Tube Present: Bowel Sounds: Recent Bowel Pattern: Stool Characteristics: Nutritional Diagnosis Nutritional Risk Acuity 2: Abcess/Non-Healing Wound (s/p rt BKA), Sepsis Nutritional Risk Acuity 3: Fair Appetite, Nutrit Anemia (low FE) Past Medical History: T2DM, hyperlipidemia, HTN, diabetic neuropathy Nutritional Acuity: 2-Moderate Nutrition Diagnosis: Increased Nutrient Needs Nutrition Etiology: Psychological Issues Nutrition Problem/Etiology/Sym: Increased nutr needs r/t dx foot ulcers and s/p Rt BKA, alb 2.1. Adjusted Energy Requirement Re: 2500 ([place] adj for obestiy X 1.2-1.3 SF ([id number])) Protein Requirement: 130 (1.5gm- 1.75 gm/kg IBW (122-142)) Fluid Requirement: 2500 (1ml/kg) Diet Type: Diabetic Nutrition Intervention: Cont diet as ordered, Encourage intake Additional Diet Restrictions: PUT PROTEIN POWDER IN APPROPRIATE FOODS Diet Comment To RSA: ENCOURAGE HIGH PROTEIN AND IRON: BEEF, EGGS, BEANS, PEANUT BUTTER Nutrition Monitoring & Eval Nutrition Goals: Eat 75-100% Meal Nutrition Follow-Up: Good Intake RD Patient Assessment Time: [address] Assessment Type: RD Re-Assessment Patient Nutrition Acuity: 2-Moderate Follow Up Date: Oct 24, 2018 Nutritional Comment: 10/02 Pt admitted with osteomylitis to rt foot. Pt has dx T2DM. Pt is on ADA diet and intake average 45%. BG ranging 185-262. Pt is recieving Lantus. Alb low at 2.5, BUN/creatinine elevated at 38/1.9. Pt has increased protein needs r/t wound. Will put protein powder in appropriate foods to ensure pt is recieving adequte protein for healing. Will offer nutr education when appropriate. Will cont to monitor and encourage intake. BK 1/26 Pt s/p Rt BKA. Cont on ADA diet and eating 100% post op. BG elevated 200's up to 365. Alb declined to 2.3. ARF resolved. Will cont to monitor and encourage intake. BK 10/08 Pt's intake declnied yesterday to 5-30%. Nursing reporting altered mental status and pt requiring feeding which may have affected intake. BG improved with high of 235 yesteday and 106 fasting this morning. Will cont to offer nutr supplment and encourage high protein. Will offer nutr education when appropriate. BK 10/11 Pt cont on ADA diet . Intake average 47%. Will add Sf nutr supplment to encourage increased protein intake. alb declined 2.2. BG ranging 78- 190 past 3 days. Will cont to monitor and encourage intake. BK 10/17 Pt cont on ADA diet. Intake improved and average 84% past 3 days. BG cont elevated up to 217.alb improved to 3.3. will cont to monitor and encourage intake. BK 10/19 Pt cont on ADA diet and eating 100% of most foods. Will d/c nutr supplment as pt is eating adequate CHO with meals but will cont to put protein powder in food and encourage high protein intake to assist with healing. CHIQUITA PEDROZA Oct 19, 2018 12:28
--- NOTE | 2018-10-19 12:49 | Hospitalist Progress Note ---
Subjective Progress Notes Subjective He denies any new complaints. No fever. Physical Exam Vital Signs Date Time Temp Pulse Resp B/P (MAP) Pulse Ox O2 Delivery O2 Flow Rate FiO2 10/19/18 08:15 94 Room Air 10/19/18 07:21 97.8 83 16 146/86 (106) Intake and Output 10/19/18 07:00 Intake Total 580 ml Output Total 15 ml Balance 565 ml Intake Oral 580 ml Drainage Total 15 ml # Voids 3 # Bowel Movements 2 General Appearance: Alert, Awake Result Diagram: 10/19/18 0550 10/19/18 0550 Assessment and Plan Problems: (1) Osteomyelitis of foot, right, acute Status: Acute Assessment & Plan: 4 days prior to admission, he developed more right foot pain and then "flu-like" symptoms the day before admission. He had bilateral transmetatarsal amputation about 2 years ago. The left is nearly healed, but the right hadn't healed (so he has had aggressive wound care). Now he developed osteomyelitis in the 3rd-5th metatarsals with an adjacent complex of air/fluid level. Dr. Callejas performed right BKA 10/03/18. He was noted to have abscess which extended along the lateral aspect of the leg up to the knee. He did have drain in place - now removed. He was placed on IV Rocephin and Flagyl. Flagyl stopped 10/10/18, converted to PO cefdinir 10/13/18 after PICC stopped functioning and clinical improvement allowed. He appeared to have increased serous drainage right stump 10/14/18. Surgery was called to re-evaluate the wound. Wound was drained 10/16/[address] Callejas as it showed increased signs of infection in the wound. He is now back on IV Rocephin. (2) Sepsis Status: Acute Assessment & Plan: He did present with fever, SOB, hypoxia, myalgias and an elevated lactate. He received 2 liters of fluid in the emergency department. Repeat lactate level was normal. His blood cultures and wound culture grew strep dysgalactiae. (3) Delirium Status: Acute Assessment & Plan: Resolved. Head CT showed no acute processes. Most likely post-operative delirium or related to the acute infectious process in RLE. (4) Acute renal failure Status: Resolved Assessment & Plan: Improved. (5) Iron deficiency anemia Status: Chronic Assessment & Plan: Iron is very low and is lower than when checked in August. He has had a microcytosis since February of 2018. He did receive IV iron infusion prior to surgery 10/03. Will need to consider GI evaluation once the acute problems are resolved. (6) Diabetes mellitus type 2, controlled, with complications Status: Chronic Assessment & Plan: He is on chronic treatment with Trulicity, Lantus, metformin, and NovoLog. We have held the metformin and Trulicity. He was initially placed on his usual Lantus of 40 units and sliding scale level #3, but needed to be increased to 50 units daily. Glucose was significantly elevated upon admission. His dosing was modified to Lantus 30 units BID. He has had decreased appetite causing low morning glucose levels. We then decreased his Lantus to 30 units at night only. Glucoses have been somewhat difficult to control. Will add a low dose of Lantus 10 units in the AM in addition to the 30 units at HS. (7) Benign hypertension Status: Chronic Assessment & Plan: He is on chronic treatment with metoprolol and irbesartan. BP have been elevated throughout admission. We have added Amlodipine 5mg daily. (8) Anxiety and depression Assessment & Plan: He is on chronic treatment with Wellbutrin. He has had some increased depression following surgery. We discussed with Dr. Conn and she recommended increasing his Wellbutrin dose. Central Venous Access Medical Necessity for Access: Medication Administration Exam Sepsis Risk: No Definite Risk DEIRDRE PEREZ MD Oct 19, 2018 12:49
[2018-10-19] MEDS: cefTRIAXone 2 GM VIAL IVP SCH (14:48)
[2018-10-19 14:55] VITALS: BP 140/85
[2018-10-19 19:20] VITALS: BP 135/93
[2018-10-19] MEDS: INSULIN GLARGINE 100 U/ML 3 ML PEN SQ SCH (20:41)
[2018-10-20 03:52] VITALS: BP 150/89
[2018-10-20] MEDS: ACETAMINOPHEN 500 MG TAB PO PRN (03:52)
[2018-10-20] MEDS: FLUTICASONE/VILANTEROL 1 EACH INHALER INH SCH (05:43)
[2018-10-20 07:35] VITALS: BP 150/89
[2018-10-20] MEDS: LACTOBACILLUS ACIDOPHILUS TAB PO SCH ×2 (08:26→16:35)
[2018-10-20] MEDS: buPROPion XL 150 MG TABCR PO SCH (08:26)
[2018-10-20] MEDS: DULoxetine HCL 30 MG CAPCR PO SCH (08:26)
[2018-10-20] MEDS: METOPROLOL SUCC XL 25 MG TABCR PO SCH (08:26)
[2018-10-20] MEDS: PREGABALIN 50 MG CAPSULE PO SCH ×2 (08:26→20:20)
[2018-10-20] MEDS: amLODIPine BESYL(*) 5 MG TAB PO SCH (08:27)
[2018-10-20] MEDS: GABAPENTIN 300 MG CAP PO SCH ×3 (08:27→20:20)
[2018-10-20] MEDS: MONTELUKAST SODIUM 10 MG TAB PO SCH (08:27)
[2018-10-20] MEDS: IRBESARTAN 150 MG TAB PO SCH (08:27)
[2018-10-20] MEDS: ENOXAPARIN 40 MG/0.4ML SYR SC SCH (08:30)
[2018-10-20] MEDS ORDERED: INSULIN GLARGINE 100 U/ML 3 ML PEN SUBQ SCH (09:00)
--- NOTE | 2018-10-20 09:10 | General Surgery Progress Note ---
Subjective Progress Notes Subjective no acute events. still having pain at stump. Physical Exam Vital Signs Date Time Temp Pulse Resp B/P (MAP) Pulse Ox O2 Delivery O2 Flow Rate FiO2 10/20/18 07:46 91 Room Air 10/20/18 07:35 98.0 98 18 150/89 (109) Intake and Output 10/20/18 07:00 Intake Total 220 ml Output Total 580 ml Balance -360 ml Intake Oral 220 ml Output Urine Total 550 ml Drainage Total 30 ml # Voids 2 # Bowel Movements 2 Cardiovascular: Other (reg rate) Extremities: Other (erythema of stump improving. still draining.) Result Diagram: 10/19/18 0550 10/19/18 0550 Assessment and Plan Problems: (1) Osteomyelitis of foot, right, acute Status: Acute Assessment & Plan: 10/01/18: I have gone over his MRI findings with him in detail. I have recommended below-knee amputation. I have also presented the option of surgical drainage of the abscesses and then long-term antibiotics but I have also told him that I think this is a high probability of long-term failure due to the chronic wound on the plantar surface of his foot that has so far been resistant to healing over the last year. Even if he responded well to the drainage and antibiotics, he is at high risk for recurring infections and it is my feeling that, although I believe this has a low chance of success, it has a high probability of recurrence and will only delay his progression back to an ambulatory status. He seems to understand this discussion and wishes to think about this overnight although he did mention towards the end of my 30 minute discussion with him that "we oughtta just go ahead and do what is doing to be required." I will discuss this further with him in the morning and if he decides to proceed with a below-knee amputation then we can do this in the next couple of days. If he desires surgical drainage then this can also be done in the next couple of days. I will continue to follow along with you. 10/02/18: Slept better. Still deciding on surgery. He would like to talk to lidar scientist before surgery. Hopefully lidar scientist can come up to [place] from [facility] tomorrow. 10/03/18: WBC up this morning, swelling worse, more pain, still having fevers. I have recommended that we proceed with surgery today due to his worsening clinical condition. After thought, he is agreeable with proceeding with right BKA later today. I have explained the surgery to him in great detail along with the alternatives, risks, and expected recovery. His questions have been answered. He would like to proceed with right BKA today. 10/04/18: POD#1 s/p right BKA. Patient is doing well this morning. He has been afebrile overnight and his heart rate has come down from tachycardia into the 80s. We'll keep the dressing on today and will plan on removing it tomorrow and start to mobilize him with physical therapy. The lidar scientist is due to meet with him today. We'll need to have him fitted for a clamshell stump brace. He had pus all the way up the lateral compartment of his lower leg and this was washed out and a RASTA drain was placed in the infected space and this will remain in until the output declines and is no longer purulent. I have explained the surgery to him and he seems to understand and he seems to be feeling better this morning. 10/05/18: POD#2 s/p right BKA. Had confusion/delirium last night and fell out of bed. No injuries sustained. Sitter now at bedside. CHAMPAGNE x3 this morning. RASTA still with bloody output, will leave drain until output has dried up. 10/06/18: POD#3 s/p right BKA. Mental status clearing, Did require straight cath for urinary retention. Afebrile, WBC down to 14 K, RASTA output more serous. Continue IV antibiotics. Daily dressing changes. 10/07/18: POD#4 s/p BKA. Some confusion again last pm, CHAMPAGNE x3 now, CT head done today is normal. Remains afebrile. RASTA output serous but still over 100 ml/24 hours. Continue IV antibiotics, continue daily dressing changes, lidar scientist to fit for clam shell type brace tomorrow. Will need to have drain out before up on the early mobilization device. 10/08/18: cont abx. PT to work with patient today. will check wound tomorrow and may d/c drain if still having minimal output. 10/09/18: doing well. cont abx, physical therapy. 10/10/18: i removed drain. wound healing well. cont abx. 10/11/18: plan dressing change daily. Keep stump elevated when OOB. Check CRP and transition to PO antibiotics soon per Med team. 10/12/18: cont daily dressing change. Discussed with PT a stump fitter that is not as tight at proximal thigh. Keep stump elevated at all times, deena when in chair. 10/12/18: wound examined and increased erythema is concerning, will follow wound closely. If he transfers to Rehab on 10/14/18 can see myself or another surgeon in [place] close to his facility. 10/13/18: POD#10 wound continues to improve on a daily basis. Pt becoming increasingly aware to protect stump as well as his remaining left foot. Agree with LTAC transfer in am. He can follow up with surgery in [place] or with me in [place] while he is at Rehab. Cont wound care on a daily basis. Agree with change to PO antibiotics since PICC no longer functional. Check labs in am. 10/14/18: POD#11 dressing changed with staff educator and wound looks better. Pt again instructed to keep elevated and padded at all times. Agree with transfer to LTAC. Plan for follow up as above. 10/15/18: serous drainage from inc after starting lasix. no fever. normal wbc. cont abx. monitor. 10/16/18: POD#13. Doing well but developed infected fluid collection which I drained the morning. Will start wound care and will consider a wound vac in a couple of days. Recommend holding off on transfer to LTAC for a few days so we can see how his wound progresses now that it's been drained. Plan explained to Peter and he seems to understand and seems agreeable with this plan. 10/17/18: POD#14. Continue to keep an eye on the BKA site. Continue wound care. Will continue to work on ambulation with rigid thigh based prosthetic, no pressure on BKA stump. Hold off on wound vac for now until drainage decreases and starts to show signs of healing. Hold off on LTAC transfer until infection gone and healing apparent. 10/18/18: POD#15. He seems to be doing better. He is having some issues with transfers. We will continue working on this. His stump and the wound look much better with less drainage and less swelling and erythema. We'll continue wound care including packing and dressing changes at least once a day but twice a day as needed, he has needed twice a day due to the amount of drainage but as this tapers off we may build to decrease to once a day in the next day or 2. I think the wound is too small for a wound VAC although there is significant tracking deeper into the stump but no obvious bony involvement. We will hold off on LTAC transfer until next week. 10/19/18: erythema improving. cont wound are and abx. 10/20/18: erythema improving. still draining. afebrile, normal wbc. cont wound care and abx. (2) Right BKA infection Status: Acute Assessment & Plan: S/P I/D. (3) Abscess of right foot Status: Resolved (4) Cellulitis of right foot Status: Resolved (5) Urinary retention Status: Resolved Assessment & Plan: 10/06/18: Required straight cath last pm with 1100 ml returned. Will start Flowmax 0.4 mg daily. Central Venous Access Medical Necessity for Access: Medication Administration Exam Sepsis Risk: No Definite Risk BETTY ALVAREZ Oct 20, 2018 09:10
--- NOTE | 2018-10-20 13:23 | Hospitalist Progress Note ---
Subjective Progress Notes Subjective The patient developed diarrhea this am. He denies blood in his stool. He has a history of C. diff. Physical Exam Vital Signs Date Time Temp Pulse Resp B/P (MAP) Pulse Ox O2 Delivery O2 Flow Rate FiO2 10/20/18 07:46 91 Room Air 10/20/18 07:35 98.0 98 18 150/89 (109) Intake and Output 10/20/18 07:00 Intake Total 220 ml Output Total 580 ml Balance -360 ml Intake Oral 220 ml Output Urine Total 550 ml Drainage Total 30 ml # Voids 2 # Bowel Movements 2 General Appearance: Alert, Awake, No Acute Distress, Afebrile Neuro: No Gross deficits Cardiovascular: Regular Rate and Rhythm Respiratory: Clear to Auscultation GI: Soft and Non-Tender Extremities: Warm, Perfused, Other (R leg wrapped. ) Integumentary: Other (R leg wrapped.) Psych: Alert & Oriented X3, Appropriate Mood & Affect Result Diagram: 10/19/18 0550 10/19/18 0550 Assessment and Plan Problems: (1) Osteomyelitis of foot, right, acute Status: Acute Assessment & Plan: 4 days prior to admission, he developed more right foot pain and then "flu-like" symptoms the day before admission. He had bilateral transmetatarsal amputation about 2 years ago. The left is nearly healed, but the right hadn't healed (so he has had aggressive wound care). Now he developed osteomyelitis in the 3rd-5th metatarsals with an adjacent complex of air/fluid level. Dr. Callejas performed right BKA 10/03/18. He was noted to have abscess which extended along the lateral aspect of the leg up to the knee. He did have drain in place - now removed. He was placed on IV Rocephin and Flagyl. Flagyl stopped 10/10/18, converted to PO cefdinir 10/13/18 after PICC stopped functioning and clinical improvement allowed. He appeared to have increased serous drainage right stump 10/14/18. Surgery was called to re-evaluate the wound. Wound was drained 10/16/[address] Callejas as it showed increased signs of infection in the wound. He is now back on IV Rocephin. (2) Sepsis Status: Acute Assessment & Plan: He did present with fever, SOB, hypoxia, myalgias and an elevated lactate. He received 2 liters of fluid in the emergency department. Repeat lactate level was normal. His blood cultures and wound culture grew strep dysgalactiae. (3) Delirium Status: Acute Assessment & Plan: Resolved. Head CT showed no acute processes. Most likely post-operative delirium or related to the acute infectious process in RLE. (4) Acute renal failure Status: Resolved Assessment & Plan: Improved. (5) Iron deficiency anemia Status: Chronic Assessment & Plan: Iron is very low and is lower than when checked in August. He has had a microcytosis since February of 2018. He did receive IV iron infusion prior to surgery 10/03. Will need to consider GI evaluation once the acute problems are resolved. (6) Diabetes mellitus type 2, controlled, with complications Status: Chronic Assessment & Plan: He is on chronic treatment with Trulicity, Lantus, metformin, and NovoLog. We have held the metformin and Trulicity. He was initially placed on his usual Lantus of 40 units and sliding scale level #3, but needed to be increased to 50 units daily. Glucose was significantly elevated upon admission. His dosing was modified to Lantus 30 units BID. He has had decreased appetite causing low morning glucose levels. We then decreased his Lantus to 30 units at night only. Glucoses have been somewhat difficult to control. Will add a low dose of Lantus 10 units in the AM in addition to the 30 units at HS. (7) Benign hypertension Status: Chronic Assessment & Plan: He is on chronic treatment with metoprolol and irbesartan. BP have been elevated throughout admission. We have added Amlodipine 5mg daily. (8) Anxiety and depression Assessment & Plan: He is on chronic treatment with Wellbutrin. He has had some increased depression following surgery. We discussed with Dr. Conn and she recommended increasing his Wellbutrin dose. (9) Diarrhea Status: Acute Assessment & Plan: He has had a couple of episodes. No blood in stool. If this persists, will order a C. diff per protocol. He has previous hx of C. diff. Central Venous Access Medical Necessity for Access: Medication Administration Time Spent on Plan of Care: < 30 min Exam Sepsis Risk: No Definite Risk ALEM PEREZ MD Oct 20, 2018 13:23
[2018-10-20] MEDS: cefTRIAXone 2 GM VIAL IVP SCH (14:19)
[2018-10-20 15:33] VITALS: BP 137/80
[2018-10-20] MEDS: INSULIN ASPART 100 U/ML 3 ML PEN SUBQ PRN ×2 (16:36→20:21)
[2018-10-20 19:28] VITALS: BP 133/82
[2018-10-20] MEDS: INSULIN GLARGINE 100 U/ML 3 ML PEN SQ SCH (20:20)
[2018-10-21] MEDS: traMADol 50 MG TAB PO PRN ×4 (00:41→23:25)
[2018-10-21 05:37] VITALS: BP 150/89
[2018-10-21] MEDS: FLUTICASONE/VILANTEROL 1 EACH INHALER INH SCH (06:00)
[2018-10-21 06:11] LABS: PLATELET COUNT, AUTOMATED 350 K/uL (150-450)
[2018-10-21] MEDS: LOPERAMIDE HCL 2 MG CAP PO PRN (07:45)
[2018-10-21] MEDS: LACTOBACILLUS ACIDOPHILUS TAB PO SCH ×2 (07:45→17:45)
[2018-10-21 07:48] VITALS: BP 150/93
--- NOTE | 2018-10-21 08:14 | General Surgery Progress Note ---
Subjective Progress Notes Subjective No new complaints today. Physical Exam Vital Signs Date Time Temp Pulse Resp B/P (MAP) Pulse Ox O2 Delivery O2 Flow Rate FiO2 10/21/18 07:48 98.0 89 16 150/93 (112) 90 Room Air Intake and Output 10/21/18 07:00 Intake Total 250 ml Output Total 1125 ml Balance -875 ml Intake Oral 250 ml Output Urine Total 1125 ml # Voids 4 # Bowel Movements 2 General Appearance: Alert, Awake, No Acute Distress, Afebrile Extremities: Warm, Perfused, Other (wound is clean but draining seropurulent fluid. No erythema and edema is improving. Remaining veronica removed today.) Result Diagram: 10/21/1854310/21/18543 Assessment and Plan Problems: (1) Osteomyelitis of foot, right, acute Status: Acute Assessment & Plan: 10/01/18: I have gone over his MRI findings with him in detail. I have recommended below-knee amputation. I have also presented the option of surgical drainage of the abscesses and then long-term antibiotics but I have also told him that I think this is a high probability of long-term failure due to the chronic wound on the plantar surface of his foot that has so far been resistant to healing over the last year. Even if he responded well to the drainage and antibiotics, he is at high risk for recurring infections and it is my feeling that, although I believe this has a low chance of success, it has a high probability of recurrence and will only delay his progression back to an ambulatory status. He seems to understand this discussion and wishes to think about this overnight although he did mention towards the end of my 30 minute discussion with him that "we oughtta just go ahead and do what is doing to be required." I will discuss this further with him in the morning and if he decides to proceed with a below-knee amputation then we can do this in the next couple of days. If he desires surgical drainage then this can also be done in the next couple of days. I will continue to follow along with you. 10/02/18: Slept better. Still deciding on surgery. He would like to talk to addiction psychiatrist before surgery. Hopefully addiction psychiatrist can come up to [place] from [facility] tomorrow. 10/03/18: WBC up this morning, swelling worse, more pain, still having fevers. I have recommended that we proceed with surgery today due to his worsening clinical condition. After thought, he is agreeable with proceeding with right BKA later today. I have explained the surgery to him in great detail along with the alternatives, risks, and expected recovery. His questions have been answered. He would like to proceed with right BKA today. 10/04/18: POD#1 s/p right BKA. Patient is doing well this morning. He has been afebrile overnight and his heart rate has come down from tachycardia into the 80s. We'll keep the dressing on today and will plan on removing it tomorrow and start to mobilize him with physical therapy. The addiction psychiatrist is due to meet with him today. We'll need to have him fitted for a clamshell stump brace. He had pus all the way up the lateral compartment of his lower leg and this was washed out and a RASTA drain was placed in the infected space and this will remain in until the output declines and is no longer purulent. I have explained the surgery to him and he seems to understand and he seems to be feeling better this morning. 10/05/18: POD#2 s/p right BKA. Had confusion/delirium last night and fell out of bed. No injuries sustained. Sitter now at bedside. CHAMPAGNE x3 this morning. RASTA still with bloody output, will leave drain until output has dried up. 10/06/18: POD#3 s/p right BKA. Mental status clearing, Did require straight cat h for urinary retention. Afebrile, WBC down to 14 K, RASTA output more serous. Continue IV antibiotics. Daily dressing changes. 10/07/18: POD#4 s/p BKA. Some confusion again last pm, CHAMPAGNE x3 now, CT head done today is normal. Remains afebrile. RASTA output serous but still over 100 ml/24 hours. Continue IV antibiotics, continue daily dressing changes, addiction psychiatrist to fit for clam shell type brace tomorrow. Will need to have drain out before up on the early mobilization device. 10/08/18: cont abx. PT to work with patient today. will check wound tomorrow and may d/c drain if still having minimal output. 10/09/18: doing well. cont abx, physical therapy. 10/10/18: i removed drain. wound healing well. cont abx. 10/11/18: plan dressing change daily. Keep stump elevated when OOB. Check CRP and transition to PO antibiotics soon per Med team. 10/12/18: cont daily dressing change. Discussed with PT a stump fitter that is not as tight at proximal thigh. Keep stump elevated at all times, deena when in chair. 10/12/18: wound examined and increased erythema is concerning, will follow wound closely. If he transfers to Rehab on 10/14/18 can see myself or another surgeon in [place] close to his facility. 10/13/18: POD#10 wound continues to improve on a daily basis. Pt becoming increasingly aware to protect stump as well as his remaining left foot. Agree with LTAC transfer in am. He can follow up with surgery in [place] or with me in [place] while he is at Rehab. Cont wound care on a daily basis. Agree with change to PO antibiotics since PICC no longer functional. Check labs in am. 10/14/18: POD#11 dressing changed with staff reporter and wound looks better. Pt again instructed to keep elevated and padded at all times. Agree with transfer to LTAC. Plan for follow up as above. 10/15/18: serous drainage from inc after starting lasix. no fever. normal wbc. cont abx. monitor. 10/16/18: POD#13. Doing well but developed infected fluid collection which I drained the morning. Will start wound care and will consider a wound vac in a couple of days. Recommend holding off on transfer to LTAC for a few days so we can see how his wound progresses now that it's been drained. Plan explained to Peter and he seems to understand and seems agreeable with this plan. 10/17/18: POD#14. Continue to keep an eye on the BKA site. Continue wound care. Will continue to work on ambulation with rigid thigh based prosthetic, no pressure on BKA stump. Hold off on wound vac for now until drainage decreases and starts to show signs of healing. Hold off on LTAC transfer until infection gone and healing apparent. 10/18/18: POD#15. He seems to be doing better. He is having some issues with transfers. We will continue working on this. His stump and the wound look much better with less drainage and less swelling and erythema. We'll continue wound care including packing and dressing changes at least once a day but twice a day as needed, he has needed twice a day due to the amount of drainage but as this tapers off we may build to decrease to once a day in the next day or 2. I think the wound is too small for a wound VAC although there is significant tracking deeper into the stump but no obvious bony involvement. We will hold off on LTAC transfer until next week. 10/19/18: erythema improving. cont wound are and abx. 10/20/18: erythema improving. still draining. afebrile, normal wbc. cont wound care and abx. 10/21/18: POD#18. Doing well. Will see if wound vac can be applied to the wound today. Will change after a couple of days and see how the wound looks. If OK then will plan on transfer to LTAC later this week. Afeb, WBC normal. Switch to PO abx. (2) Right BKA infection Status: Acute Assessment & Plan: S/P I/D. (3) Abscess of right foot Status: Resolved (4) Cellulitis of right foot Status: Resolved (5) Urinary retention Status: Resolved Assessment & Plan: 10/06/18: Required straight cath last pm with 1100 ml returned. Will start Flowmax 0.4 mg daily. Central Venous Access Medical Necessity for Access: Medication Administration Condition Stable. Time Spent: < 30 min Exam Sepsis Risk: No Definite Risk LESLEY SHAH MD Oct 21, 2018 08:14
[2018-10-21] MEDS: metFORMIN HCL XR 500 MG TABCR PO SCH (09:09)
[2018-10-21] MEDS: ENOXAPARIN 40 MG/0.4ML SYR SC SCH (09:09)
[2018-10-21] MEDS: amLODIPine BESYL(*) 5 MG TAB PO SCH (09:10)
[2018-10-21] MEDS: buPROPion XL 150 MG TABCR PO SCH (09:10)
[2018-10-21] MEDS: MONTELUKAST SODIUM 10 MG TAB PO SCH (09:10)
[2018-10-21] MEDS: PREGABALIN 50 MG CAPSULE PO SCH ×2 (09:10→21:24)
[2018-10-21] MEDS: DULoxetine HCL 30 MG CAPCR PO SCH (09:10)
[2018-10-21] MEDS: CEFDINIR 300 MG CAP PO SCH ×2 (09:11→21:25)
[2018-10-21] MEDS: IRBESARTAN 150 MG TAB PO SCH (09:11)
[2018-10-21] MEDS: GABAPENTIN 300 MG CAP PO SCH ×3 (09:11→21:24)
[2018-10-21] MEDS: METOPROLOL SUCC XL 25 MG TABCR PO SCH (09:11)
--- NOTE | 2018-10-21 10:07 | Hospitalist Progress Note ---
Subjective Progress Notes Subjective He has had some diarrhea this morning. He has no complaints otherwise. Patient Complains of: Cardiovascular: No: Chest Pain Respiratory: No: Shortness of Breath Physical Exam Vital Signs Date Time Temp Pulse Resp B/P (MAP) Pulse Ox O2 Delivery O2 Flow Rate FiO2 10/21/18 09:11 92 Room Air 10/21/18 07:48 98.0 89 16 150/93 (112) Intake and Output 10/21/18 07:00 Intake Total 250 ml Output Total 1125 ml Balance -875 ml Intake Oral 250 ml Output Urine Total 1125 ml # Voids 4 # Bowel Movements 2 General Appearance: Alert, Awake, No Acute Distress, Afebrile Neuro: No Gross deficits Cardiovascular: Regular Rate and Rhythm Respiratory: No Respiratory Distress, Clear to Auscultation Psych: Alert & Oriented X3, Appropriate Mood & Affect Result Diagram: 10/21/18 0544 10/21/18 0544 Assessment and Plan Problems: (1) Osteomyelitis of foot, right, acute Status: Acute Assessment & Plan: 4 days prior to admission, he developed more right foot pain and then "flu-like" symptoms the day before admission. He had bilateral transmetatarsal amputation about 2 years ago. The left is nearly healed, but the right hadn't healed (so he has had aggressive wound care). Now he developed osteomyelitis in the 3rd-5th metatarsals with an adjacent complex of air/fluid level. Dr. Callejas performed right BKA 10/03/18. He was noted to have abscess which extended along the lateral aspect of the leg up to the knee. He did have drain in place - now removed. He was placed on IV Rocephin and Flagyl. Flagyl stopped 10/10/18, converted to PO cefdinir 10/13/18 after PICC stopped functioning and clinical improvement allowed. He appeared to have increased serous drainage right stump 10/14/18. Surgery was called to re-evaluate the wound. Wound was drained 10/16/[address] Callejas as it showed increased signs of infection in the wound. He was placed back on IV Rocephin. He will be switched to Omnicef 10/21. (2) Sepsis Status: Acute Assessment & Plan: He did present with fever, SOB, hypoxia, myalgias and an kevin vated lactate. He received 2 liters of fluid in the emergency department. Repeat lactate level was normal. His blood cultures and wound culture grew strep dysgalactiae. (3) Delirium Status: Acute Assessment & Plan: Resolved. Head CT showed no acute processes. Most likely post-operative delirium or related to the acute infectious process in RLE. (4) Acute renal failure Status: Resolved Assessment & Plan: Improved. (5) Iron deficiency anemia Status: Chronic Assessment & Plan: Iron is very low and is lower than when checked in August. He has had a microcytosis since February of 2018. He did receive IV iron infusion prior to surgery 10/03. Will need to consider GI evaluation once the acute prob lems are resolved. (6) Diabetes mellitus type 2, controlled, with complications Status: Chronic Assessment & Plan: He is on chronic treatment with Trulicity, Lantus, metformin, and NovoLog. We have held the metformin and Trulicity. He was initially placed on his usual Lantus of 40 units and sliding scale level #3, but needed to be increased to 50 units daily. Glucose was significantly elevated upon admission. His dosing was modified to Lantus 30 units BID. He has had decreased appetite causing low morning glucose levels. We then decreased his Lantus to 30 units at night only. Glucoses have been somewhat difficult to control. Will add a low dose of Lantus 10 units in the AM in addition to the 30 units at HS. He will be placed on his Metformin and decrease his Lantus. (7) Benign hypertension Status: Chronic Assessment & Plan: He is on chronic treatment with metoprolol and irbesartan. BP have been elevated throughout admission. We have added Amlodipine 5mg daily. (8) Anxiety and depression Assessment & Plan: He is on chronic treatment with Wellbutrin. He has had some increased depression following surgery. We discussed with Dr. Conn and she recommended increasing his Wellbutrin dose. (9) Diarrhea Status: Acute Assessment & Plan: He has had a couple of episodes. No blood in stool. If this persists, will order a C. diff per protocol. He has previous hx of C. diff. Central Venous Access Medical Necessity for Access: Medication Administration Exam Sepsis Risk: No Definite Risk SORAYA HARMON Oct 21, 2018 10:07
[2018-10-21 11:28] VITALS: BP 144/67
[2018-10-21] MEDS: INSULIN HUM LISPRO 100 UN/ML 3 ML VIAL SUBQ PRN ×3 (11:31→21:51)
[2018-10-21] MEDS: ACETAMINOPHEN 500 MG TAB PO PRN (12:49)
[2018-10-21 14:53] VITALS: BP 130/93
[2018-10-21 18:56] VITALS: BP 150/92
[2018-10-21] MEDS: INSULIN GLARGINE 100 U/ML 3 ML PEN SQ SCH (21:25)
[2018-10-21 23:18] VITALS: BP 155/89
[2018-10-22] MEDS: ACETAMINOPHEN 500 MG TAB PO PRN ×2 (03:37→13:41)
[2018-10-22] MEDS: FLUTICASONE/VILANTEROL 1 EACH INHALER INH SCH (05:21)
[2018-10-22 05:48] LABS: PLATELET COUNT, AUTOMATED 328 K/uL (150-450)
[2018-10-22] MEDS: LOPERAMIDE HCL 2 MG CAP PO PRN (05:59)
[2018-10-22 07:29] VITALS: BP 131/70
--- NOTE | 2018-10-22 08:15 | General Surgery Progress Note ---
Subjective Progress Notes Subjective No complaints this morning. Physical Exam Vital Signs Date Time Temp Pulse Resp B/P (MAP) Pulse Ox O2 Delivery O2 Flow Rate FiO2 10/22/18 07:29 98.0 87 16 131/70 (90) 92 Room Air Intake and Output 10/22/18 07:00 Intake Total 236 ml Output Total 15 ml Balance 221 ml Intake Oral 236 ml Drainage Total 15 ml # Bowel Movements 3 General Appearance: Alert, Awake, No Acute Distress, Afebrile Extremities: Other (Wound vac in place with good seal.) Result Diagram: 10/22/1852510/22/18525 Assessment and Plan Problems: (1) Osteomyelitis of foot, right, acute Status: Resolved Assessment & Plan: 10/01/18: I have gone over his MRI findings with him in detail. I have recommended below-knee amputation. I have also presented the option of surgical drainage of the abscesses and then long-term antibiotics but I have also told him that I think this is a high probability of long-term failu re due to the chronic wound on the plantar surface of his foot that has so far been resistant to healing over the last year. Even if he responded well to the drainage and antibiotics, he is at high risk for recurring infections and it is my feeling that, although I believe this has a low chance of success, it has a high probability of recurrence and will only delay his progression back to an ambulatory status. He seems to understand this discussion and wishes to think about this overnight although he did mention towards the end of my 30 minute discussion with him that "we oughtta just go ahead and do what is doing to be required." I will discuss this further with him in the morning and if he decides to proceed with a below-knee amputation then we can do this in the next couple of days. If he desires surgical drainage then this can also be done in the next couple of days. I will continue to follow along with you. 10/02/18: Slept better. Still deciding on surgery. He would like to talk to histological illustrator before surgery. Hopefully histological illustrator can come up to [place] from [facility] tomorrow. 10/03/18: WBC up this morning, swelling worse, more pain, still having fevers. I have recommended that we proceed with surgery today due to his worsening clinical condition. After thought, he is agreeable with proceeding with right BKA later today. I have explained the surgery to him in great detail along with the alternatives, risks, and expected recovery. His questions have been answe red. He would like to proceed with right BKA today. 10/04/18: POD#1 s/p right BKA. Patient is doing well this morning. He has been afebrile overnight and his heart rate has come down from tachycardia into the 80s. We'll keep the dressing on today and will plan on removing it tomorrow and start to mobilize him with physical therapy. The histological illustrator is due to meet with him today. We'll need to have him fitted for a clamshell stump brace. He had pus all the way up the lateral compartment of his lower leg and this was washed out and a RASTA drain was placed in the infected space and this will remain in until the output declines and is no longer purulent. I have explained the surgery to him and he seems to understand and he seems to be feeling better this morning. 10/05/18: POD#2 s/p right BKA. Had confusion/delirium last night and fell out of bed. No injuries sustained. Sitter now at bedside. CHAMPAGNE x3 this morning. RASTA still with bloody output, will leave drain until output has dried up. 10/06/18: POD#3 s/p right BKA. Mental status clearing, Did require straight cath for urinary retention. Afebrile, WBC down to 14 K, RASTA output more serous. Continue IV antibiotics. Daily dressing changes. 10/07/18: POD#4 s/p BKA. Some confusion again last pm, CHAMPAGNE x3 now, CT head done today is normal. Remains afebrile. RASTA output serous but still over 100 ml/24 hours. Continue IV antibiotics, continue daily dressing changes, histological illustrator to fit for clam shell type brace tomorrow. Will need to have drain out before up on the early mobilization device. 10/08/18: cont abx. PT to work with patient today. will check wound tomorrow and may d/c drain if still having minimal output. 10/09/18: doing well. cont abx, physical therapy. 10/10/18: i removed drain. wound healing well. cont abx. 10/11/18: plan dressing change daily. Keep stump elevated when OOB. Check CRP and transition to PO antibiotics soon per Med team. 10/12/18: cont daily dressing change. Discussed with PT a stump fitter that is not as tight at proximal thigh. Keep stump elevated at all times, deena when in [place] r. 10/12/18: wound examined and increased erythema is concerning, will follow wound closely. If he transfers to Rehab on 10/14/18 can see myself or another surgeon in [place] close to his facility. 10/13/18: POD#10 wound continues to improve on a daily basis. Pt becoming increasingly aware to protect stump as well as his remaining left foot. Agree with LTAC transfer in am. He can follow up with surgery in [place] or with me in [place] while he is at Rehab. Cont wound care on a daily basis. Agree with change to PO antibiotics since PICC no longer functional. Check labs in am. 10/14/18: POD#11 dressing changed with research staff member and wound looks better. Pt again instructed to keep elevated and padded at all times. Agree with transfer to LTAC. Plan for follow up as above. 10/15/18: serous drainage from inc after starting lasix. no fever. normal wbc. cont abx. monitor. 10/16/18: POD#13. Doing well but developed infected fluid collection which I drained the morning. Will start wound care and will consider a wound vac in a couple of days. Recommend holding off on transfer to LTAC for a few days so we can see how his wound progresses now that it's been drained. Plan explained to Peter and he seems to understand and seems agreeable with this plan. 10/17/18: POD#14. Continue to keep an eye on the BKA site. Continue wound care. Will continue to work on ambulation with rigid thigh based prosthetic, no pressure on BKA stump. Hold off on wound vac for now until drainage decreases and starts to show signs of healing. Hold off on LTAC transfer until infection gone and healing apparent. 10/18/18: POD#15. He seems to be doing better. He is having some issues with transfers. We will continue working on this. His stump and the wound look much better with less drainage and less swelling and erythema. We'll continue wound care including packing and dressing changes at least once a day but twice a day as needed, he has needed twice a day due to the amount of drainage but as this tapers off we may build to decrease to once a day in the next day or 2. I think the wound is too small for a wound VAC although there is significant tracking deeper into the stump but no obvious bony involvement. We will hold off on LTAC transfer until next week. 10/19/18: erythema improving. cont wound are and abx. 10/20/18: erythema improving. still draining. afebrile, normal wbc. cont wound care and abx. 10/21/18: POD#18. Doing well. Will see if wound vac can be applied to the wound today. Will change after a couple of days and see how the wound looks. If OK then will plan on transfer to LTAC later this week. Afeb, WBC normal. Switch to PO abx. 10/22/18: POD#19. Doing well. Wound vac placed on stump last evening. Will change wound vac tomorrow and if OK then transfer to LTAC later this week. (2) Right BKA infection Status: Resolved Assessment & Plan: S/P I/D. (3) Abscess of right foot Status: Resolved (4) Cellulitis of right foot Status: Resolved (5) Urinary retention Status: Resolved Assessment & Plan: 10/06/18: Required straight cath last pm with 1100 ml return ed. Will start Flowmax 0.4 mg daily. Central Venous Access Medical Necessity for Access: Medication Administration Condition Stable. Time Spent: < 30 min Exam Sepsis Risk: No Definite Risk LESLEY SHAH MD Oct 22, 2018 08:15
[2018-10-22] MEDS: PREGABALIN 50 MG CAPSULE PO SCH ×2 (08:35→20:40)
[2018-10-22] MEDS: DULoxetine HCL 30 MG CAPCR PO SCH (08:36)
[2018-10-22] MEDS: traMADol 50 MG TAB PO PRN ×2 (08:36→17:48)
[2018-10-22] MEDS: buPROPion XL 150 MG TABCR PO SCH (08:36)
[2018-10-22] MEDS: MONTELUKAST SODIUM 10 MG TAB PO SCH (08:36)
[2018-10-22] MEDS: metFORMIN HCL XR 500 MG TABCR PO SCH (08:36)
[2018-10-22] MEDS: METOPROLOL SUCC XL 25 MG TABCR PO SCH (08:36)
[2018-10-22] MEDS: LACTOBACILLUS ACIDOPHILUS TAB PO SCH ×2 (08:36→16:29)
[2018-10-22] MEDS: CEFDINIR 300 MG CAP PO SCH ×2 (08:37→20:40)
[2018-10-22] MEDS: amLODIPine BESYL(*) 5 MG TAB PO SCH (08:37)
[2018-10-22] MEDS: IRBESARTAN 150 MG TAB PO SCH (08:37)
[2018-10-22] MEDS: GABAPENTIN 300 MG CAP PO SCH ×3 (08:37→20:40)
[2018-10-22] MEDS: ENOXAPARIN 40 MG/0.4ML SYR SC SCH (08:37)
--- NOTE | 2018-10-22 09:51 | Hospitalist Progress Note ---
Subjective Progress Notes Subjective He has no complaints this morning. Patient Complains of: Cardiovascular: No: Chest Pain Respiratory: No: Shortness of Breath Physical Exam Vital Signs Date Time Temp Pulse Resp B/P (MAP) Pulse Ox O2 Delivery O2 Flow Rate FiO2 10/22/18 08:37 92 Room Air 10/22/18 07:29 98.0 87 16 131/70 (90) Intake and Output 10/22/18 07:00 Intake Total 236 ml Output Total 15 ml Balance 221 ml Intake Oral 236 ml Drainage Total 15 ml # Bowel Movements 3 General Appearance: Alert, Awake, No Acute Distress, Afebrile Neuro: No Gross deficits Cardiovascular: Regular Rate and Rhythm Respiratory: No Respiratory Distress, Clear to Auscultation Psych: Alert & Oriented X3, Appropriate Mood & Affect Result Diagram: 10/22/1852510/22/18525 Assessment and Plan Problems: (1) Osteomyelitis of foot, right, acute Status: Resolved Assessment & Plan: 4 days prior to admission, he developed more right foot pain and then "flu-like" symptoms the day before admission. He had bilateral transmetatarsal amputation about 2 years ago. The left is nearly healed, but the right hadn't healed (so he has had aggressive wound care). Now he developed osteomyelitis in the 3rd-5th metatarsals with an adjacent complex of air/fluid level. Dr. Callejas performed right BKA 10/03/18. He was noted to have abscess which extended along the lateral aspect of the leg up to the knee. He did have drain in place - now removed. He was placed on IV Rocephin and Flagyl. Flagyl stopped 10/10/18, converted to PO cefdinir 10/13/18 after PICC stopped functioning and clinical improvement allowed. He appeared to have increased serous drainage right stump 10/14/18. Surgery was called to re-evaluate the wound. Wound was drained 10/16/[address] Callejas as it showed increased signs of infection in the wound. He was placed back on IV Rocephin. He will be switched to Omnicef 10/21. (2) Sepsis Status: Acute Assessment & Plan: He did present with fever, SOB, hypoxia, myalgias and an elevated lactate. He received 2 liters of fluid in the emergency department. Repeat lactate level was normal. His blood cultures and wound culture grew strep dysgalactiae. (3) Delirium Status: Acute Assessment & Plan: Resolved. Head CT showed no acute processes. Most likely post-operative delirium or related to the acute infectious process in RLE. (4) Acute renal failure Status: Resolved Assessment & Plan: Improved. (5) Iron deficiency anemia Status: Chronic Assessment & Plan: Iron is very low and is lower than when checked in August. He has had a microcytosis since February of 2018. He did receive IV iron infusion prior to surgery 10/03. Will need to consider GI evaluation once the acute problems are resolved. (6) Diabetes mellitus type 2, controlled, with complications Status: Chronic Assessment & Plan: He is on chronic treatment with Trulicity, Lantus, metformin, and NovoLog. We have held the metformin and Trulicity. He was initially placed on his usual Lantus of 40 units and sliding scale level #3, but needed to be increased to 50 units daily. Glucose was significantly elevated upon admission. His dosing was modified to Lantus 30 units BID. He has had decreased appetite causing low morning glucose levels. We then decreased his Lantus to 30 units at night only. Glucoses have been somewhat difficult to control. Will add a low dose of Lantus 10 units in the AM in addition to the 30 units at HS. He will be placed on his Metformin and decrease his Lantus. (7) Benign hypertension Status: Chronic Assessment & Plan: He is on chronic treatment with metoprolol and irbesartan. BP have been elevated throughout admission. We have added Amlodipine 5mg daily. (8) Anxiety and depression Assessment & Plan: He is on chronic treatment with Wellbutrin. He has had some increased depression following surgery. We discussed with Dr. Conn and she recommended increasing his Wellbutrin dose. (9) Diarrhea Status: Acute Assessment & Plan: He has had a couple of episodes. No blood in stool. If this persists, will order a C. diff per protocol. He has previous hx of C. diff. C. Diff negative. Central Venous Access Medical Necessity for Access: Medication Administration Exam Sepsis Risk: No Definite Risk SORAYA HARMON Oct 22, 2018 09:51
[2018-10-22 11:36] VITALS: BP 135/76
[2018-10-22 16:25] VITALS: BP 135/92
[2018-10-22 19:18] VITALS: BP 143/90
[2018-10-22] MEDS: INSULIN GLARGINE 100 U/ML 3 ML PEN SQ SCH (20:40)
[2018-10-23 03:23] VITALS: BP 154/88
[2018-10-23] MEDS: traMADol 50 MG TAB PO PRN ×3 (03:28→22:04)
[2018-10-23] MEDS: FLUTICASONE/VILANTEROL 1 EACH INHALER INH SCH (05:12)
--- NOTE | 2018-10-23 07:03 | General Surgery Progress Note ---
Subjective Progress Notes Subjective Having some phantom foot burning. No other complaints. Physical Exam Vital Signs Date Time Temp Pulse Resp B/P (MAP) Pulse Ox O2 Delivery O2 Flow Rate FiO2 10/23/18 03:23 98.3 83 20 154/88 (110) 93 Room Air Intake and Output 10/23/18 07:00 Intake Total 440 ml Output Total 2125 ml Balance -1685 ml Intake Oral 440 ml Output Urine Total 2125 ml # Voids 6 # Bowel Movements 1 General Appearance: Alert, Awake, No Acute Distress, Afebrile Extremities: Other (Wound vac in place with good seal. Small amount of drainage in the canister.) Result Diagram: 10/22/1852510/22/18525 Assessment and Plan Problems: (1) Osteomyelitis of foot, right, acute Status: Resolved Assessment & Plan: 10/01/18: I have gone over his MRI findings with him in detail. I have recommended below-knee amputation. I have also presented the option of surgical drainage of the abscesses and then long-term antibiotics but I have also told him that I think this is a high probability of long-term failure due to the chronic wound on the plantar surface of his foot that has so far been resistant to healing over the last year. Even if he responded well to the drainage and antibiotics, he is at high risk for recurring infections and it is my feeling that, although I believe this has a low chance of success, it has a high probability of recurrence and will only delay his progression back to an ambulatory status. He seems to understand this discussion and wishes to think about this overnight although he did mention towards the end of my 30 minute discussion with him that "we oughtta just go ahead and do what is doing to be required." I will discuss this further with him in the morning and if he decides to proceed with a below-knee amputation then we can do this in the next couple of days. If he desires surgical drainage then this can also be done in the next couple of days. I will continue to follow along with you. 10/02/18: Slept better. Still deciding on surgery. He would like to talk to kirstin gerber before surgery. Hopefully student assistant can come up to [place] from [facility] tomorrow. 10/03/18: WBC up this morning, swelling worse, more pain, still having fevers. I have recommended that we proceed with surgery today due to his worsening clinical condition. After thought, he is agreeable with proceeding with right BKA later today. I have explained the surgery to him in great detail along with the alternatives, risks, and expected recovery. His questions have been answered. He would like to proceed with right BKA today. 10/04/18: POD#1 s/p right BKA. Patient is doing well this morning. He has been afebrile overnight and his heart rate has come down from tachycardia into the 80s. We'll keep the dressing on today and will plan on removing it tomorrow and start to mobilize him with physical therapy. The student assistant is due to meet with him today. We'll need to have him fitted for a clamshell stump brace. He had pus all the way up the lateral compartment of his lower leg and this was washed out and a RASTA drain was placed in the infected space and this will remain in until the output declines and is no longer purulent. I have explained the surgery to him and he seems to understand and he seems to be feeling better this morning. 10/05/18: POD#2 s/p right BKA. Had confusion/delirium last night and fell out of bed. No injuries sustained. Sitter now at bedside. CHAMPAGNE x3 this morning. RASTA still with bloody output, will leave drain until output has dried up. 10/06/18: POD#3 s/p right BKA. Mental status clearing, Did require straight cath for urinary retention. Afebrile, WBC down to 14 K, RASTA output more serous. Continue IV antibiotics. Daily dressing changes. 10/07/18: POD#4 s/p BKA. Some confusion again last pm, CHAMPAGNE x3 now, CT head done today is normal. Remains afebrile. RASTA output serous but still over 100 ml/24 hours. Continue IV antibiotics, continue daily dressing changes, student assistant to fit for clam shell type brace tomorrow. Will need to have drain out before up on the early mobilization device. 10/08/18: cont abx. PT to work with patient today. will check wound tomorrow and may d/c drain if still having minimal output. 10/09/18: doing well. cont abx, physical therapy. 10/10/18: i removed drain. wound healing well. cont abx. 10/11/18: plan dressing change daily. Keep stump elevated when OOB. Check CRP and transition to PO antibiotics soon per Med team. 10/12/18: cont daily dressing change. Discussed with PT a stump fitter that is not as tight at proximal thigh. Keep stump elevated at all times, deena when in chair. 10/12/18: wound examined and increased erythema is concerning, will follow wound closely. If he transfers to Rehab on 10/14/18 can see myself or another surgeon in [place] close to his facility. 10/13/18: POD#10 wound continues to improve on a daily basis. Pt becoming increasingly aware to protect stump as well as his remaining left foot. Agree with LTAC transfer in am. He can follow up with surgery in [place] or with me in [place] while he is at Rehab. Cont wound care on a daily basis. Agree with change to PO antibiotics since PICC no longer functional. Check labs in am. 10/14/18: POD#11 dressing changed with senior staff specialized employment and wound looks better. Pt again instructed to keep elevated and padded at all times. Agree with transfer to LTAC. Plan for follow up as above. 10/15/18: serous drainage from inc after starting lasix. no fever. normal wbc. cont abx. monitor. 10/16/18: POD#13. Doing well but developed infected fluid collection which I drained the morning. Will start wound care and will consider a wound vac in a couple of days. Recommend holding off on transfer to LTAC for a few days so we can see how his wound progresses now that it's been drained. Plan explained to Peter and he seems to understand and seems agreeable with this plan. 10/17/18: POD#14. Continue to keep an eye on the BKA site. Continue wound care. Will continue to work on ambulation with rigid thigh based prosthetic, no pressure on BKA stump. Hold off on wound vac for now until drainage decreases a nd starts to show signs of healing. Hold off on LTAC transfer until infection gone and healing apparent. 10/18/18: POD#15. He seems to be doing better. He is having some issues with transfers. We will continue working on this. His stump and the wound look much better with less drainage and less swelling and erythema. We'll continue wound care including packing and dressing changes at least once a day but twice a day as needed, he has needed twice a day due to the amount of drainage but as this tapers off we may build to decrease to once a day in the next day or 2. I think the wound is too small for a wound VAC although there is significant tracking deeper into the stump but no obvious bony involvement. We will hold off on LTAC transfer until next week. 10/19/18: erythema improving. cont wound are and abx. 10/20/18: erythema improving. still draining. afebrile, normal wbc. cont wound ca re and abx. 10/21/18: POD#18. Doing well. Will see if wound vac can be applied to the wound today. Will change after a couple of days and see how the wound looks. If OK then will plan on transfer to LTAC later this week. Afeb, WBC normal. Switch to PO abx. 10/22/18: POD#19. Doing well. Wound vac placed on stump last evening. Will change wound vac tomorrow and if OK then transfer to LTAC later this week. 10/23/18: POD#20. Doing well. Wound care to change wound vac dressing today. If doing well then he could go to LTAC as soon as tomorrow. If there's a lot of retained drainage, i.e. the wound vac isn't allowing the wound to adequately drain, then will go back to packing and daily changes and then he could still go to LTAC as soon as tomorrow without a wound vac. (2) Right BKA infection Status: Resolved Assessment & Plan: S/P I/D. (3) Abscess of right foot Status: Resolved (4) Cellulitis of right foot Status: Resolved (5) Urinary retention Status: Resolved Assessment & Plan: 10/06/18: Required straight cath last pm with 1100 ml returned. Will start Flowmax 0.4 mg daily. Central Venous Access Medical Necessity for Access: Medication Administration Condition Stable. Time Spent: < 30 min Exam Sepsis Risk: No Definite Risk LESLEY SHAH MD Oct 23, 2018 07:03
[2018-10-23 07:25] VITALS: BP 152/91
[2018-10-23] MEDS: LACTOBACILLUS ACIDOPHILUS TAB PO SCH ×2 (07:26→16:29)
[2018-10-23] MEDS: PREGABALIN 50 MG CAPSULE PO SCH ×2 (08:26→21:32)
[2018-10-23] MEDS: DULoxetine HCL 30 MG CAPCR PO SCH (08:26)
[2018-10-23] MEDS: amLODIPine BESYL(*) 5 MG TAB PO SCH (08:26)
[2018-10-23] MEDS: buPROPion XL 150 MG TABCR PO SCH (08:26)
[2018-10-23] MEDS: GABAPENTIN 300 MG CAP PO SCH ×3 (08:27→21:32)
[2018-10-23] MEDS: MONTELUKAST SODIUM 10 MG TAB PO SCH (08:27)
[2018-10-23] MEDS: CEFDINIR 300 MG CAP PO SCH ×2 (08:27→21:32)
[2018-10-23] MEDS: METOPROLOL SUCC XL 25 MG TABCR PO SCH (08:27)
[2018-10-23] MEDS: IRBESARTAN 150 MG TAB PO SCH (08:27)
[2018-10-23] MEDS: metFORMIN HCL XR 500 MG TABCR PO SCH (08:27)
[2018-10-23] MEDS: ENOXAPARIN 40 MG/0.4ML SYR SC SCH (08:28)
[2018-10-23] MEDS: LOPERAMIDE HCL 2 MG CAP PO PRN ×2 (10:26→22:04)
[2018-10-23 10:27] VITALS: BP 154/91
--- NOTE | 2018-10-23 11:32 | Hospitalist Progress Note ---
Subjective Progress Notes Subjective He has no complaints this morning. He had no acute events overnight. Patient Complains of: Cardiovascular: No: Chest Pain Respiratory: No: Shortness of Breath Physical Exam Vital Signs Date Time Temp Pulse Resp B/P (MAP) Pulse Ox O2 Delivery O2 Flow Rate FiO2 10/23/18 10:27 98.4 88 20 154/91 (112) 90 Room Air Intake and Output 10/23/18 07:00 Intake Total 440 ml Output Total 2125 ml Balance -1685 ml Intake Oral 440 ml Output Urine Total 2125 ml # Voids 6 # Bowel Movements 1 General Appearance: Alert, Awake, No Acute Distress, Afebrile Neuro: No Gross deficits Cardiovascular: Regular Rate and Rhythm Respiratory: No Respiratory Distress, Clear to Auscultation GI: Soft and Non-Tender Psych: Alert & Oriented X3, Appropriate Mood & Affect Result Diagram: 10/22/1852510/22/18525 Assessment and Plan Problems: (1) Osteomyelitis of foot, right, acute Status: Resolved Assessment & Plan: 4 days prior to admission, he developed more right foot pain and then "flu-like" symptoms the day before admission. He had bilateral transmetatarsal amputation about 2 years ago. The left is nearly healed, but the right hadn't healed (so he has had aggressive wound care). Now he developed osteomyelitis in the 3rd-5th metatarsals with an adjacent complex of air/fluid level. Dr. Callejas performed right BKA 10/03/18. He was noted to have abscess which extended along the lateral aspect of the leg up to the knee. He did have drain in place - now removed. He was placed on IV Rocephin and Flagyl. Flagyl stopped 10/10/18, converted to PO cefdinir 10/13/18 after PICC stopped functioning and clinical improvement allowed. He appeared to have increased serous drainage right stump 10/14/18. Surgery was called to re-evaluate the wound. Wound was drained 10/16/[address] Callejas as it showed increased signs of infection in the wound. He was placed back on IV Rocephin. He was switched to Omnicef 10/21. He does have wound vac placed. (2) Sepsis Status: Acute Assessment & Plan: He did present with fever, SOB, hypoxia, myalgias and an elevated lactate. He received 2 liters of fluid in the emergency department. Repeat lactate level was normal. His blood cultures and wound culture grew strep dysgalactiae. (3) Delirium Status: Acute Assessment & Plan: Resolved. Head CT showed no acute processes. Most likely post-operative delirium or related to the acute infectious process in RLE. (4) Acute renal failure Status: Resolved Assessment & Plan: Improved. (5) Iron deficiency anemia Status: Chronic Assessment & Plan: Iron is very low and is lower than when checked in August. He has had a microcytosis since February of 2018. He did receive IV iron infusion prior to surgery 10/03. Will need to consider GI evaluation once the acute problems are resolved. (6) Diabetes mellitus type 2, controlled, with complications Status: Chronic Assessment & Plan: He is on chronic treatment with Trulicity, Lantus, metformin, and NovoLog. We have held the metformin and Trulicity. He was initially placed on his usual Lantus of 40 units and sliding scale level #3, but needed to be increased to 50 units daily. Glucose was significantly elevated upon admission. His dosing was modified to Lantus 30 units BID. He has had decreased appetite causing low morning glucose levels. We then decreased his Lantus to 30 units at night only. Glucoses have been somewhat difficult to control. Will add a low dose of Lantus 10 units in the AM in addition to the 30 units at HS. He is currently on placed on his usual Metformin dose and Lantus 10 units at night. (7) Benign hypertension Status: Chronic Assessment & Plan: He is on chronic treatment with metoprolol and irbesartan. BP have been elevated throughout admission. We have added Amlodipine 5mg daily. (8) Anxiety and depression Assessment & Plan: He is on chronic treatment with Wellbutrin. He has had some increased depression following surgery. We discussed with Dr. Conn and she recommended increasing his Wellbutrin dose. (9) Diarrhea Status: Acute Assessment & Plan: He has had a couple of episodes. No blood in stool. He has previous hx of C. diff. C. Diff was negative. Central Venous Access Medical Necessity for Access: Medication Administration Exam Sepsis Risk: No Definite Risk SORAYA HARMON Oct 23, 2018 11:31
[2018-10-23] MEDS: INSULIN HUM LISPRO 100 UN/ML 3 ML VIAL SUBQ PRN ×2 (12:26→21:32)
[2018-10-23 14:28] VITALS: BP 144/90
[2018-10-23] MEDS: INSULIN GLARGINE 100 U/ML 3 ML PEN SQ SCH (21:33)
[2018-10-23 22:04] VITALS: BP 156/90
[2018-10-24 03:25] VITALS: BP 153/91
[2018-10-24] MEDS: LOPERAMIDE HCL 2 MG CAP PO PRN (05:14)
[2018-10-24] MEDS: traMADol 50 MG TAB PO PRN ×2 (05:14→11:01)
[2018-10-24] MEDS: FLUTICASONE/VILANTEROL 1 EACH INHALER INH SCH (06:07)
[2018-10-24 06:34] VITALS: BP 159/94
--- NOTE | 2018-10-24 07:48 | General Surgery Progress Note ---
Subjective Progress Notes Subjective No complaints. Physical Exam Vital Signs Date Time Temp Pulse Resp B/P (MAP) Pulse Ox O2 Delivery O2 Flow Rate FiO2 10/24/18 07:06 92 Room Air 10/24/18 06:34 98.0 93 20 159/94 (115) Intake and Output 10/24/18 06:59 Intake Total 1080 ml Output Total 495 ml Balance 585 ml Intake Oral 1080 ml Output Urine Total 480 ml Drainage Total 15 ml # Voids 4 # Bowel Movements 4 General Appearance: Alert, Awake, No Acute Distress, Afebrile Extremities: Other (Wound vac changed last evening in my presence. His stump is improving although still with edema. No retained fluid collection.) Result Diagram: 10/22/1852510/22/18525 Assessment and Plan Problems: (1) Osteomyelitis of foot, right, acute Status: Resolved Assessment & Plan: 10/01/18: I have gone over his MRI findings with him in detail. I have recommended below-knee amputation. I have also presented the option of surgical drainage of the abscesses and then long-term antibiotics but I have also told him that I think this is a high probability of long-term failure due to the chronic wound on the plantar surface of his foot that has so far been resistant to healing over the last year. Even if he responded well to the drainage and antibiotics, he is at high risk for recurring infections and it is my feeling that, although I believe this has a low chance of success, it has a high probability of recurrence and will only delay his progression back to an ambulatory status. He seems to understand this discussion and wishes to think about this overnight although he did mention towards the end of my 30 minute d iscussion with him that "we oughtta just go ahead and do what is doing to be required." I will discuss this further with him in the morning and if he decides to proceed with a below-knee amputation then we can do this in the next couple of days. If he desires surgical drainage then this can also be done in the next couple of days. I will continue to follow along with you. 10/02/18: Slept better. Still deciding on surgery. He would like to talk to youth services specialist before surgery. Hopefully youth services specialist can come up to [place] [facility] tomorrow. 10/03/18: WBC up this morning, swelling worse, more pain, still having fevers. I have recommended that we proceed with surgery today due to his worsening clinical condition. After thought, he is agreeable with proceeding with right BKA later today. I have explained the surgery to him in great detail along with the alternatives, risks, and expected recovery. His questions have been answered. He would like to proceed with right BKA today. 10/04/18: POD#1 s/p right BKA. Patient is doing well this morning. He has been afebrile overnight and his heart rate has come down from tachycardia into the 80s. We'll keep the dressing on today and will plan on removing it tomorrow and start to mobilize him with physical therapy. The youth services specialist is due to meet with him today. We'll need to have him fitted for a clamshell stump brace. He had pus all the way up the lateral compartment of his lower leg and this was washed out and a RASTA drain was placed in the infected space and this will remain in until the output declines and is no longer purulent. I have explained the surgery to him and he seems to understand and he seems to be feeling better this morning. 10/05/18: POD#2 s/p right BKA. Had confusion/delirium last night and fell out o f bed. No injuries sustained. Sitter now at bedside. CHAMP[place]NE x3 this morning. RASTA still with bloody output, will leave drain until output has dried up. 10/06/18: POD#3 s/p right BKA. Mental status clearing, Did require straight cath for urinary retention. Afebrile, WBC down to 14 K, RASTA output more serous. Continue IV antibiotics. Daily dressing changes. 10/07/18: POD#4 s/p BKA. Some confusion again last pm, CHAMPAGNE x3 now, CT head done today is normal. Remains afebrile. RASTA output serous but still over 100 ml/24 hours. Continue IV antibiotics, continue daily dressing changes, youth services specialist to fit for clam shell type brace tomorrow. Will need to have drain out before up on the early mobilization device. 10/08/18: cont abx. PT to work with patient today. will check wound tomorrow and may d/c drain if still having minimal output. 10/09/18: doing well. cont abx, physical therapy. 10/10/18: i removed drain. wound healing well. cont abx. 10/11/18: plan dressing change daily. Keep stump elevated when OOB. Check CRP and transition to PO antibiotics soon per Med team. 10/12/18: cont daily dressing change. Discussed with PT a stump fitter that is not as tight at proximal thigh. Keep stump elevated at all times, deena when in chair. 10/12/18: wound examined and increased erythema is concerning, will follow wound closely. If he transfers to Rehab on 10/14/18 can see myself or another surgeon in [place] close to his facility. 10/13/18: POD#10 wound continues to improve on a daily basis. Pt becoming increasingly aware to protect stump as well as his remaining left foot. Agree with LTAC transfer in am. He can follow up with surgery in [place] or with me in [place] while he is at Rehab. Cont wound care on a daily basis. Agree with change to PO antibiotics since PICC no longer functional. Check labs in am. 10/14/18: POD#11 dressing changed with staff field engineer and wound looks better. Pt again instructed to keep elevated and padded at all times. Agree with transfer to [facility]. Plan for follow up as above. 10/15/18: serous drainage from inc after starting lasix. no fever. normal wbc. cont abx. monitor. 10/16/18: POD#13. Doing well but developed infected fluid collection which I drained the morning. Will start wound care and will consider a wound vac in a couple of days. Recommend holding off on transfer to LTAC for a few days so we can see how his wound progresses now that it's been drained. Plan explained to Peter and he seems to understand and seems agreeable with this plan. 10/17/18: POD#14. Continue to keep an eye on the BKA site. Continue wound care. Will continue to work on ambulation with rigid thigh based prosthetic, no pressure on BKA stump. Hold off on wound vac for now until drainage decreases and starts to show signs of healing. Hold off on LTAC transfer until infection gone and healing apparent. 10/18/18: POD#15. He seems to be doing better. He is having some issues with transfers. We will continue working on this. His stump and the wound look much better with less drainage and less swelling and erythema. We'll continue wound care including packing and dressing changes at least once a day but twice a day as needed, he has needed twice a day due to the amount of drainage but as this tapers off we may build to decrease to once a day in the next day or 2. I think the wound is too small for a wound VAC although there is significant tracking deeper into the stump but no obvious bony involvement. We will hold off on LTAC transfer until next week. 10/19/18: erythema improving. cont wound are and abx. 10/20/18: erythema improving. still draining. afebrile, normal wbc. cont wound care and abx. 10/21/18: POD#18. Doing well. Will see if wound vac can be applied to the wound today. Will change after a couple of days and see how the wound looks. If OK then will plan on transfer to LTAC later this week. Afeb, WBC normal. Switch to PO abx. 10/22/18: POD#19. Doing well. Wound vac placed on stump last evening. Will ch lance wound vac tomorrow and if OK then transfer to LTAC later this week. 10/23/18: POD#20. Doing well. Wound care to change wound vac dressing today. If doing well then he could go to LTAC as soon as tomorrow. If there's a lot of retained drainage, i.e. the wound vac isn't allowing the wound to adequately drain, then will go back to packing and daily changes and then he could still go to LTAC as soon as tomorrow without a wound vac. 10/24/18: POD#21. Doing well. Wound looks good, seems to be doing good with wound vac. OK to transfer to LTAC today. Will change to conventional dressing for transfer and they should apply a wound vac dressing upon arrival at rehab facility. Recommend continuing omnicef for another week. (2) Right BKA infection Status: Resolved Assessment & Plan: S/P I/D. (3) Abscess of right foot Status: Resolved (4) Cellulitis of right foot Status: Resolved (5) Urinary retention Status: Resolved Assessment & Plan: 10/06/18: Required straight cath last pm with 1100 ml returned. Will start Flowmax 0.4 mg daily. Central Venous Access Medical Necessity for Access: Medication Administration Condition Stable. Time Spent: < 30 min Exam Sepsis Risk: No Definite Risk LESLEY SHAH MD Oct 24, 2018 07:48
[2018-10-24] MEDS: LACTOBACILLUS ACIDOPHILUS TAB PO SCH (08:42)
[2018-10-24] MEDS: MONTELUKAST SODIUM 10 MG TAB PO SCH (08:42)
[2018-10-24] MEDS: metFORMIN HCL XR 500 MG TABCR PO SCH (08:42)
[2018-10-24] MEDS: DULoxetine HCL 30 MG CAPCR PO SCH (08:42)
[2018-10-24] MEDS: IRBESARTAN 150 MG TAB PO SCH (08:43)
[2018-10-24] MEDS: CEFDINIR 300 MG CAP PO SCH (08:43)
[2018-10-24] MEDS: METOPROLOL SUCC XL 25 MG TABCR PO SCH (08:43)
[2018-10-24] MEDS: buPROPion XL 150 MG TABCR PO SCH (08:43)
[2018-10-24] MEDS: PREGABALIN 50 MG CAPSULE PO SCH (08:43)
[2018-10-24] MEDS: amLODIPine BESYL(*) 5 MG TAB PO SCH (08:43)
[2018-10-24] MEDS: GABAPENTIN 300 MG CAP PO SCH (08:43)
[2018-10-24] MEDS: ENOXAPARIN 40 MG/0.4ML SYR SC SCH (08:44)
[2018-10-24] MEDS ORDERED: AMLO-127 PO (09:50)
[2018-10-24] MEDS ORDERED: LOPE2CAP88 PO (09:50)
[2018-10-24] MEDS ORDERED: TRAM-420 PO (09:50)
[2018-10-24] MEDS ORDERED: GABA-549 PO (09:50)
[2018-10-24] MEDS ORDERED: CEF300 PO (09:50)
[2018-10-24] MEDS ORDERED: INSU100I30 SQ (09:50)
[2018-10-24] MEDS ORDERED: LACT PO (09:50)
[2018-10-24] MEDS ORDERED: BUPR-474 PO (09:50)
[2018-10-24] MEDS ORDERED: PREG50CA48 PO (09:50)
--- NOTE | 2018-10-24 10:08 | Hospitalist Depart ---
Discharge Summary Reason for Hosp/Final Diag: (1) Osteomyelitis of foot, right, acute Status: Resolved Hospital Course & Plan: 4 days prior to admission, he developed more right foot pain and then "flu-like" symptoms the day before admission. He had bilateral transmetatarsal amputation about 2 years ago. The left is nearly healed, but the right hadn't healed (so he has had aggressive wound care). Now he developed osteomyelitis in the 3rd-5th metatarsals with an adjacent complex of air/fluid level. Dr. Callejas performed right BKA 10/03/18. He was noted to have abscess which extended along the lateral aspect of the leg up to the knee. He did have drain in place - now removed. He was placed on IV Rocephin and Flagyl. Flagyl stopped 10/10/18, converted to PO cefdinir 10/13/18 after PICC stopped functioning and clinical improvement allowed. He appeared to have increased serous drainage right stump 10/14/18. Surgery was called to re-evaluate the wound. Wound was drained 10/16/[address] Callejas as it showed increased signs of infection in the wound. He was placed back on IV Rocephin. He was switched to Omnicef 10/21. He does have wound vac placed. He will continue antibiotics for one more week. (2) Sepsis Status: Acute Hospital Course & Plan: He did present with fever, SOB, hypoxia, myalgias and an elevated lactate. He received 2 liters of fluid in the emergency department. Repeat lactate level was normal. His blood cultures and wound culture grew strep dysgalactiae. (3) Delirium Status: Acute Hospital Course & Plan: Resolved. Head CT showed no acute processes. Most likely post-operative delirium or related to the acute infectious process in RLE. (4) Acute renal failure Status: Resolved Hospital Course & Plan: Improved. (5) Iron deficiency anemia Status: Chronic Hospital Course & Plan: Iron is very low and is lower than when checked in August. He has had a microcytosis since February of 2018. He did receive IV iron infusion prior to surgery 10/03. Will need to consider GI evaluation once the acute problems are resolved. (6) Diabetes mellitus type 2, controlled, with complications Status: Chronic Hospital Course & Plan: He is on chronic treatment with Trulicity, Lantus, metformin, and NovoLog. We have held the metformin and Trulicity. He was initially placed on his usual Lantus of 40 units and sliding scale level #3, but needed to be increased to 50 units daily. Glucose was significantly elevated upon admission. His dosing was modified to Lantus 30 units BID. He has had decreased appetite causing low morning glucose levels. We then decreased his L antus to 30 units at night only. Glucoses have been somewhat difficult to control. Will add a low dose of Lantus 10 units in the AM in addition to the 30 units at HS. He is currently on placed on his usual Metformin dose and Lantus 10 units at night. (7) Benign hypertension Status: Chronic Hospital Course & Plan: He is on chronic treatment with metoprolol and irbesartan. BP have been elevated throughout admission. We have added Amlodipine 10mg daily. (8) Anxiety and depression Hospital Course & Plan: He is on chronic treatment with Wellbutrin. He has had some increased depression following surgery. We discussed with Dr. Conn and she recommended increasing his Wellbutrin dose to 300mg daily. (9) Diarrhea Status: Acute Hospital Course & Plan: He has had a couple of episodes. No blood in stool. He has previous hx of C. diff. C. Diff was negative. He can continue Imodium if needed. Departure Latest Vital Signs Vital Signs 10/24/18 10/24/18 06:34 07:06 Temp 98.0 Pulse 93 Resp 20 B/P (MAP) 159/94 (115) Pulse Ox 92 O2 Delivery Room Air Weight (Pounds): 210 Weight (Ounces): 5.0 Result Diagram: 10/22/1852510/22/18525 Condition: Improved Discharge: Rehab Facility PT/OT Follow Up For: PT For Strengthening, OT For ADL's, PT Evaluation and Treat, OT Evaluation and Treat Discharge Instructions Home Meds Active Scripts Pregabalin (LYRICA) 50 Mg Capsule, 50 MG PO BID, #60 CAP Prov:SORAYA HARMON 10/24/18 Loperamide Hcl (LOPERAMIDE) 2 Mg Capsule, 2 MG PO PRN PRN for DIARRHEA, #10 CAPSULE Prov:SORAYA HARMON 10/24/18 Lactobacillus Acidophilus (ACIDOPHILUS CAPLET) 1 Each Tab, 1 EACH PO BIDBS, #60 CAP Prov:SORAYA HARMON [facility] 10/24/18 Insulin Glargine 100 Un/Ml Pen (LANTUS SOLOSTAR PEN) 100 Unit/1 Ml Insuln.pen, 10 UNIT SQ QHS, #1 BOX Prov:SORAYA HARMON [facility] 10/24/18 Tramadol Hcl (TRAMADOL HCL) 50 Mg Tablet, 50-100 MG PO Q4-6H, #90 TAB Prov:SORAYA HARMON [facility] 10/24/18 Gabapentin (GABAPENTIN) 300 Mg Capsule, 300 MG PO TID, #90 CAPSULE Prov:SORAYA HARMON [facility] 10/24/18 Cefdinir 300 Mg Cap (OMNICEF 300 MG CAP (OR EQUIV)) 300 Mg Cap, 300 MG PO BID for 7 Days, #14 CAP Prov:SORAYA HARMON [facility] 10/24/18 Bupropion Hcl (WELLBUTRIN XL) 300 Mg Tab.er.24h, 300 MG PO QDAY, #30 TAB Prov:SORAYA HARMON [facility] 10/24/18 Amlodipine Besylate (AMLODIPINE BESYLATE) 10 Mg Tablet, 1 TAB PO QDAY, #30 TAB Prov:SORAYA HARMON [facility] 10/24/18 Flash Glucose Sensor (Freestyle Muna 14 Day Sensor) 1 Each Kit, UNIT Q2WK, #2 11 Refills Prov:JARET RUANO MD 08/29/18 Flash Glucose Scanning Sparks (Freestyle Muna 14 Day Sparks) 1 Each Each, UNIT TD DIRECTED, #1 Prov:JARET RUANO MD 08/29/18 Duloxetine Hcl (CYMBALTA) 60 Mg Capsule.dr, 60 MG PO QDAY, #30 CAP 6 Refills Prov:JARET RUANO MD 08/29/18 Atorvastatin (LIPITOR) 80 Mg Tab, 1 TAB PO QDAY, #90 TAB 3 Refills Prov:JARET RUANO MD 08/29/18 Irbesartan (IRBESARTAN) 300 Mg Tablet, 300 MG PO QDAY, #30 TAB 6 Refills Prov:JARET RUANO MD 04/17/18 Metoprolol Succinate (METOPROLOL SUCCINATE) 25 Mg Tab.er.24h, 1 TAB PO QDAY, #30 TAB 3 Refills Prov:JARET RUANO MD 02/26/18 Albuterol Sulfate 90 Mcg/Act (PROAIR HFA 90 MCG/ACT) 8.5 Gm Hfa.aer.ad, 1-2 PUFF IH Q4H PRN for WHEEZING, #1 INHALER Prov:JARET RUANO MD 02/22/18 Reported Medications Metformin Hcl (METFORMIN HCL ER) 750 Mg Tab.er.24h, 2 TAB PO QAM WITH BREAKFAST 02/20/18 Fluticasone/Vilanterol (Breo Ellipta 200-25 Mcg INH) 1 Each Blst.w.dev, 1 INH INH QDAY 07/02/17 Multivitamin (MULTIVITAMINS) 1 Each Tablet, 1 TAB PO QDAY 09/23/15 Discontinued Reported Medications Dulaglutide (Trulicity) 0.75 Mg/0.5 Ml Pen.injctr, 0.75 MG INJ QWEEK 02/20/18 Discontinued Scripts Tramadol Hcl (TRAMADOL HCL) 50 Mg Tablet, 50 MG PO QID PRN for chronic pain, #60 TAB 2 Refills Prov:JARET RUANO MD 08/29/18 Insulin Glargine,Hum.rec.anlog (Basaglar Kwikpen U-100) 100 Unit/Ml (3 Ml) Insu ln.pen, 40 UNITS SUBQ QHS, #1 BOX 6 Refills Prov:JARET RUANO MD 08/06/18 Insulin Aspart 100 Un/Ml Pen (NOVOLOG FLEXPEN) 100 Unit/1 Ml Insuln.pen, 20 UNIT SQ TID, #1 BOX 6 Refills Prov:JARET RUANO MD 08/06/18 Bupropion Hcl (WELLBUTRIN XL) 150 Mg Tab.er.24h, 1 TAB PO QDAY, #90 TAB 1 Refill Prov:JARET RUANO MD 12/11/17 Gabapentin (GABAPENTIN) 600 Mg Tablet, 600 MG PO TID, #270 TAB 4 Refills Prov:JARET RUANO MD 10/15/17 Venous Thromboembolism Antithrombotics Is Pt On Any Antithrombotics?: SORAYA Orozco Oct 24, 2018 10:08
[2018-10-24 11:39] VITALS: BMI 29.3
[2018-10-24 15:14] VITALS: Ht 180.3 cm; Wt 95.4 kg
== END 2018-10-24 11:00 | DRG 853 ==
LOC: ER 10:44 → INTOOBSV 12:33 → MED 12:33 → OBSVTOIN 12:33
PROVIDERS: ADMIT Family Medicine; ATTEND Family Medicine
PROC: 02HV33Z Insertion of Infusion Device into Superior Vena Cava, Percutaneous Approach (ICD-10-PCS; principal; 2018-10-02)
PROC: B548ZZA Ultrasonography of Superior Vena Cava, Guidance (ICD-10-PCS; 2018-10-02)
PROC: B518YZA Fluoroscopy of Superior Vena Cava using Other Contrast, Guidance (ICD-10-PCS; 2018-10-02)
PROC: 30233N1 Transfusion of Nonautologous Red Blood Cells into Peripheral Vein, Percutaneous Approach (ICD-10-PCS; 2018-10-02)
PROC: 0Y6H0Z3 Detachment at Right Lower Leg, Low, Open Approach (ICD-10-PCS; 2018-10-03)
PROC: 02HV33Z Insertion of Infusion Device into Superior Vena Cava, Percutaneous Approach (ICD-10-PCS; 2018-10-09)
PROC: B518YZA Fluoroscopy of Superior Vena Cava using Other Contrast, Guidance (ICD-10-PCS; 2018-10-09)
PROC: B548ZZA Ultrasonography of Superior Vena Cava, Guidance (ICD-10-PCS; 2018-10-09)
PROC: 02HV33Z Insertion of Infusion Device into Superior Vena Cava, Percutaneous Approach (ICD-10-PCS; 2018-10-16)
PROC: B518YZA Fluoroscopy of Superior Vena Cava using Other Contrast, Guidance (ICD-10-PCS; 2018-10-16)
PROC: B548ZZA Ultrasonography of Superior Vena Cava, Guidance (ICD-10-PCS; 2018-10-16)
PROC: 0Y9H3ZX Drainage of Right Lower Leg, Percutaneous Approach, Diagnostic (ICD-10-PCS; 2018-10-16)
PROC: 0JDN0ZZ Extraction of Right Lower Leg Subcutaneous Tissue and Fascia, Open Approach (ICD-10-PCS; 2018-10-17)
PROC: 2W1QX6Z Compression of Right Lower Leg using Pressure Dressing (ICD-10-PCS; 2018-10-21)
PROC: 0JDN0ZZ Extraction of Right Lower Leg Subcutaneous Tissue and Fascia, Open Approach (ICD-10-PCS; 2018-10-24)
DX: A40.8 Other streptococcal sepsis (principal); J96.01 Acute respiratory failure with hypoxia; M86.171 Other acute osteomyelitis, right ankle and foot; L02.611 Cutaneous abscess of right foot; L03.115 Cellulitis of right lower limb; L97.419 Non-pressure chronic ulcer of right heel and midfoot with unspecified severity; N17.9 Acute kidney failure, unspecified; T87.43 Infection of amputation stump, right lower extremity; F05 Delirium due to known physiological condition; F33.2 Major depressive disorder, recurrent severe without psychotic features; R45.851 Suicidal ideations; L97.529 Non-pressure chronic ulcer of other part of left foot with unspecified severity; E11.621 Type 2 diabetes mellitus with foot ulcer; I73.9 Peripheral vascular disease, unspecified; F41.8 Other specified anxiety disorders; I10 Essential (primary) hypertension; R00.0 Tachycardia, unspecified; E86.0 Dehydration; E11.65 Type 2 diabetes mellitus with hyperglycemia; R19.7 Diarrhea, unspecified; Z88.1 Allergy status to other antibiotic agents; Z88.0 Allergy status to penicillin; Z79.4 Long term (current) use of insulin; Z79.84 Long term (current) use of oral hypoglycemic drugs; Z89.422 Acquired absence of other left toe(s); D50.9 Iron deficiency anemia, unspecified; E78.5 Hyperlipidemia, unspecified; G54.6 Phantom limb syndrome with pain; R33.9 Retention of urine, unspecified; Z86.19 Personal history of other infectious and parasitic diseases; B95.4 Other streptococcus as the cause of diseases classified elsewhere; E11.69 Type 2 diabetes mellitus with other specified complication; E11.40 Type 2 diabetes mellitus with diabetic neuropathy, unspecified; W06.XXXA Fall from bed, initial encounter; Y92.230 Patient room in hospital as the place of occurrence of the external cause
CPT/HCPCS: 36415; 36416; 36430; 36573; 70450; 71046; 73720; 76705; 80202; 81001; 82009; 82040; 82247; 82310; 82374; 82435; 82565; 82607; 82728; 82746; 82803; 82947; 82948; 83540; 83550; 83605; 83735; 83880; 83930; 84075; 84132; 84155; 84295; 84450; 84460; 84520; 85007; 85014; 85018; 85025; 85027; 85045; 85651; 86140; 86850; 86900; 86901; 86920; 87040; 87070; 87073; 87077; 87186; 87205; 87324; 87449; 87502; 88305; 93005; 94640; 94667; 94668; 96361; 96365; 96367; 97161; 97162; 97166; 97605; 99284; A9577; C1751; J0131; J0696; J1100; J1439; J1642; J1650; J1815; J1956; J2001; J2250; J2270; J2405; J2550; J2704; J2997; J3010; J3370; J3475; J3480; J3490; J7030; J7040; J7050; L1830; P9016

== ENCOUNTER 2018-11-18 17:22 | Emergency (ER) | payer OTHER ==
[2018-10-24 15:14] VITALS: Wt 99.8 kg
[~2018-11-18 17:22] MED LIST changes: +AMLO-127 PO; +BUPR-474 PO; +CEF300 PO; +INSU100I30 SQ; +LACT PO; +LOPE2CAP88 PO; +PREG50CA48 PO; -VANC250C3 PO; +VANC250C4 PO
--- NOTE | 2018-11-18 17:51 | ER Report ---
History and Physical Time Seen By MD: 17:51 Hx. of Stated Complaint: PATIENT REPORTS VOMITTING NAUSEA, ABDOMINAL PAIN FOR TWO DAYS HPI/ROS CHIEF COMPLAINT: Nausea and vomiting 2 days HISTORY OF PRESENT ILLNESS: 53-year-old male patient presents to emergency room with complaint of nausea and vomiting 2 days. He states that he's not been able to keep anything down for the past 2 days. He states he time that he would eat or drink anything he would vomit immediately. Patient states he is not had anything at all to drink today. He states that he did have one bout of emesis today. States over the last couple days he's had approximately 20 episodes of emesis. Patient states that he's not been able to take his medication due to vomiting. Patient is a diabetic who recently had a [id number] amputation of the right leg. Patient was seen by his primary care provider on Sunday of last week, prior to start of the symptoms. REVIEW OF SYSTEMS: Respiratory: No cough, no dyspnea. Cardiovascular: No chest pain, no palpitations. Gastrointestinal: As noted above Musculoskeletal: No back pain. Allergies: Coded Allergies: clindamycin (Verified Allergy, Unknown, RASH, 10/02/17) piperacillin (Verified Allergy, Unknown, RASH, 10/02/17) tazobactam (Verified Allergy, Unknown, RASH, 10/02/17) Home Meds Active Scripts Ondansetron 4 Mg Odt (ONDANSETRON 4 MG ODT) 4 Mg Tab.rapdis, 4 MG PO Q6H PRN for NAUSEA/VOMITING, #20 TAB Prov:PORSCHE MAGANA [facility] 11/18/18 Pregabalin (LYRICA) 50 Mg Capsule, 50 MG PO BID, #60 CAP Prov:SORAYA HARMON [facility] 10/24/18 Loperamide Hcl (LOPERAMIDE) 2 Mg Capsule, 2 MG PO PRN PRN for DIARRHEA, #10 CAPSULE Prov:SORAYA HARMONP 10/24/18 Lactobacillus Acidophilus (ACIDOPHILUS CAPLET) 1 Each Tab, 1 EACH PO BIDBS, #60 CAP Prov:SORAYA HARMONP 10/24/18 Insulin Glargine 100 Un/Ml Pen (LANTUS SOLOSTAR PEN) 100 Unit/1 Ml Insuln.pen, 10 UNIT SQ QHS, #1 BOX Prov:SORAYA HARMONP 10/24/18 Tramadol Hcl (TRAMADOL HCL) 50 Mg Tablet, 50-100 MG PO Q4-6H, #90 TAB Prov:SORAYA HARMON [facility] 10/24/18 Gabapentin (GABAPENTIN) 300 Mg Capsule, 300 MG PO TID, #90 CAPSULE Prov:SORAYA HARMON [facility] 10/24/18 Cefdinir 300 Mg Cap (OMNICEF 300 MG CAP (OR EQUIV)) 300 Mg Cap, 300 MG PO BID for 7 Days, #14 CAP Prov:SORAYA HARMON [facility] 10/24/18 Bupropion Hcl (WELLBUTRIN XL) 300 Mg Tab.er.24h, 300 MG PO QDAY, #30 TAB Prov:SORAYA HARMON [facility] 10/24/18 Amlodipine Besylate (AMLODIPINE BESYLATE) 10 Mg Tablet, 1 TAB PO QDAY, #30 TAB Prov:SORAYA HARMON [facility] 10/24/18 Flash Glucose Sensor (Freestyle Muna 14 Day Sensor) 1 Each Kit, UNIT Q2WK, #2 11 Refills Prov:JARET RUANO MD 08/29/18 Flash Glucose Scanning [place] (Freestyle Muna 14 Day [place]) 1 Each Each, UNIT TD DIRECTED, #1 Prov:JARET RUANO MD 08/29/18 Duloxetine Hcl (CYMBALTA) 60 Mg Capsule.dr, 60 MG PO QDAY, #30 CAP 6 Refills Prov:JARET RUANO MD 08/29/18 Atorvastatin (LIPITOR) 80 Mg Tab, 1 TAB PO QDAY, #90 TAB 3 Refills Prov:JARET RUANO MD 08/29/18 Irbesartan (IRBESARTAN) 300 Mg Tablet, 300 MG PO QDAY, #30 TAB 6 Refills Prov:JARET RUANO MD 04/17/18 Metoprolol Succinate (METOPROLOL SUCCINATE) 25 Mg Tab.er.24h, 1 TAB PO QDAY, #30 TAB 3 Refills Prov:JARET RUANO MD 02/26/18 Albuterol Sulfate 90 Mcg/Act (PROAIR HFA 90 MCG/ACT) 8.5 Gm Hfa.aer.ad, 1-2 PUFF IH Q4H PRN for WHEEZING, #1 INHALER Prov:JARET RUANO MD 02/22/18 Reported Medications Metformin Hcl (METFORMIN HCL ER) 750 Mg Tab.er.24h, 2 TAB PO QAM WITH BREAKFAST 02/20/18 Fluticasone/Vilanterol (Breo Ellipta 200-25 Mcg INH) 1 Each Blst.w.dev, 1 INH INH QDAY 07/02/17 Multivitamin (MULTIVITAMINS) 1 Each Tablet, 1 TAB PO QDAY 09/23/15 Past Medical/Surgical History Patient has a past medical history of asthma, low back pain, type 2 diabetes, alcohol use, anxiety, suicide attempt. Patient has a surgical history of right below the knee dictation, hernia surgery. Patient has a family medical history of stroke, diabetes, cancer. Reviewed Nurses Notes: Yes Hx Smoking: No Smoking Status: Never Smoker Exposure to Second Hand Smoke?: Yes Hx Substance Use Disorder: No Hx Alcohol Use: Yes (2-3 drinks per day) Constitutional Vital Sign - Last 24 Hours 11/18/18 11/18/18 11/18/18 11/18/18 17:30 17:31 17:37 17:52 Temp 98.6 Pulse 94 89 91 Resp 16 B/P (MAP) 157/100 157/100 (119) Pulse Ox 95 95 96 O2 Delivery Room Air 11/18/18 11/18/18 11/18/18 11/18/18 18:00 18:07 18:37 18:52 Pulse 89 83 84 B/P (MAP) 140/124 (129) Pulse Ox 96 99 97 11/18/18 11/18/18 11/18/18 11/18/18 19:07 19:20 19:35 19:50 Pulse 84 77 83 86 Pulse Ox 98 97 97 98 11/18/18 11/18/18 11/18/18 20:05 20:20 20:35 Pulse 80 82 79 Pulse Ox 96 95 94 Physical Exam General Appearance: The patient is alert, has no immediate need for airway protection and no current signs of toxicity. Respiratory: Chest is non tender, lungs are clear to auscultation. Cardiac: regular rate and rhythm Gastrointestinal: Abdomen is soft and non tender, no masses, bowel sounds normal. Musculoskeletal: Neck: Neck is supple and non tender. Extremities have full range of motion and are non tender. Skin: No rashes or lesions. DIFFERENTIAL DIAGNOSIS: After history and physical exam differential diagnosis was considered for nausea and vomiting including but not limited to gastroenteritis, gastritis, appendicitis, and medication side effect. Medical Decision Making Data Points Result Diagram: 11/18/18 0000 11/18/18 0000 Laboratory Hematology Test 11/18/18 00:00 11/18/18 18:26 11/18/18 18:52 11/18/18 20:33 Red Blood Count 4.96 M/uL (4.00-5.60) Mean Corpuscular Volume 80.3 fL (80.0-96.0) Mean Corpuscular Hemoglobin 27.5 pg (26.0-33.0) Mean Corpuscular Hemoglobin Concent 34.2 g/dL (32.0-36.0) Red Cell Distribution Width 19.2 % (11.5-14.5) Mean Platelet Volume 7.8 fL (7.2-11.1) Neutrophils (%) (Auto) 59.9 % (39.4-72.5) Lymphocytes (%) (Auto) 33.4 % (17.6-49.6) Monocytes (%) (Auto) 5.0 % (4.1-12.4) Eosinophils (%) (Auto) 1.1 % (0.4-6.7) Basophils (%) (Auto) 0.6 % (0.3-1.4) Nucleated RBC Relative Count (auto) 0.0 /100WBC Neutrophils # (Auto) 4.1 K/uL (2.0-7.4) Lymphocytes # (Auto) 2.3 K/uL (1.3-3.6) Monocytes # (Auto) 0.3 K/uL (0.3-1.0) Eosinophils # (Auto) 0.1 K/uL (0.0-0.5) Basophils # (Auto) 0.0 K/uL (0.0-0.1) Nucleated RBC Absolute Count (auto) 0.00 K/uL Peripheral Blood Smear No Y/N Sodium Level 140 mmol/L (137-145) Potassium Level 4.0 mmol/L (3.5-5.0) Chloride Level 103 mmol/L (98-107) Carbon Dioxide Level 21 mmol/L (22-30) Blood Urea Nitrogen 17 mg/dl (9-21) Creatinine 0.90 mg/dl (0.66-1.25) Glomerular Filtration Rate Calc > 60.0 Random Glucose 323 mg/dl (75-110) Calcium Level 10.1 mg/dl (8.4-10.2) Total Bilirubin 0.9 mg/dl (0.2-1.3) Aspartate Amino Transf (AST/SGOT) 25 U/L (0-35) Alanine Aminotransferase (ALT/SGPT) 36 U/L (0-56) Alkaline Phosphatase 91 U/L (0-126) Total Protein 7.3 g/dl (6.3-8.2) Albumin 4.3 g/dl (3.5-5.0) Amylase Level 42 U/L (0-110) Lipase 121 U/L (23-300) Influenza Virus Type A (PCR) Negative (NEGATIVE) Influenza Virus Type B (PCR) Negative (NEGATIVE) Urine Color Yellow Urine Clarity Clear Urine pH 8.0 pH (4.8-9.5) Urine Specific Eros 1.019 Urine Protein 100 mg/dL (NEGATIVE) Urine Glucose (UA) 50 mg/dL (NEGATIVE) Urine Ketones Negative mg/dL (NEGATIVE) Urine Blood Moderate (NEGATIVE) Urine Nitrite Negative (NEGATIVE) Urine Bilirubin Negative (NEGATIVE) Urine Urobilinogen 4.0 mg/dL (0.2-1.9) Urine Leukocyte Esterase Negative (NEGATIVE) Urine RBC 25 /HPF (0-2/HPF) Urine WBC 3 /HPF (0-5/HPF) Urine Squamous Epithelial Cells None /LPF (</=FEW) Urine Bacteria Negative /HPF (NONE-FEW) Urine Hyaline Casts Few /LPF (NONE-FEW) Urine Mucus Few /HPF (NONE-FEW) Whole Blood Glucose 123 mg/DL (75-110) Chemistry Test 11/18/18 00:00 11/18/18 18:26 11/18/18 18:52 11/18/18 20:33 White Blood Count 6.9 k/uL (4.5-11.0) Red Blood Count 4.96 M/uL (4.00-5.60) Hemoglobin 13.6 g/dL (14.0-18.0) Hematocrit 39.9 % (42.0-52.0) Mean Corpuscular Volume 80.3 fL (80.0-96.0) Mean Corpuscular Hemoglobin 27.5 pg (26.0-33.0) Mean Corpuscular Hemoglobin Concent 34.2 g/dL (32.0-36.0) Red Cell Distribution Width 19.2 % (11.5-14.5) Platelet Count 304 K/uL (150-450) Mean Platelet Volume 7.8 fL (7.2-11.1) Neutrophils (%) (Auto) 59.9 % (39.4-72.5) Lymphocytes (%) (Auto) 33.4 % (17.6-49.6) Monocytes (%) (Auto) 5.0 % (4.1-12.4) Eosinophils (%) (Auto) 1.1 % (0.4-6.7) Basophils (%) (Auto) 0.6 % (0.3-1.4) Nucleated RBC Relative Count (auto) 0.0 /100WBC Neutrophils # (Auto) 4.1 K/uL (2.0-7.4) Lymphocytes # (Auto) 2.3 K/uL (1.3-3.6) Monocytes # (Auto) 0.3 K/uL (0.3-1.0) Eosinophils # (Auto) 0.1 K/uL (0.0-0.5) Basophils # (Auto) 0.0 K/uL (0.0-0.1) Nucleated RBC Absolute Count (auto) 0.00 K/uL Peripheral Blood Smear No Y/N Glomerular Filtration Rate Calc > 60.0 Calcium Level 10.1 mg/dl (8.4-10.2) Total Bilirubin 0.9 mg/dl (0.2-1.3) Aspartate Amino Transf (AST/SGOT) 25 U/L (0-35) Alanine Aminotransferase (ALT/SGPT) 36 U/L (0-56) Alkaline Phosphatase 91 U/L (0-126) Total Protein 7.3 g/dl (6.3-8.2) Albumin 4.3 g/dl (3.5-5.0) Amylase Level 42 U/L (0-110) Lipase 121 U/L (23-300) Influenza Virus Type A (PCR) Negative (NEGATIVE) Influenza Virus Type B (PCR) Negative (NEGATIVE) Urine Color Yellow Urine Clarity Clear Urine pH 8.0 pH (4.8-9.5) Urine Specific Eros 1.019 Urine Protein 100 mg/dL (NEGATIVE) Urine Glucose (UA) 50 mg/dL (NEGATIVE) Urine Ketones Negative mg/dL (NEGATIVE) Urine Blood Moderate (NEGATIVE) Urine Nitrite Negative (NEGATIVE) Urine Bilirubin Negative (NEGATIVE) Urine Urobilinogen 4.0 mg/dL (0.2-1.9) Urine Leukocyte Esterase Negative (NEGATIVE) Urine RBC 25 /HPF (0-2/HPF) Urine WBC 3 /HPF (0-5/HPF) Urine Squamous Epithelial Cells None /LPF (</=FEW) Urine Bacteria Negative /HPF (NONE-FEW) Urine Hyaline Casts Few /LPF (NONE-FEW) Urine Mucus Few /HPF (NONE-FEW) Whole Blood Glucose 123 mg/DL (75-110) Urinalysis Test 11/18/18 18:52 Urine Color Yellow Urine Clarity Clear Urine pH 8.0 pH (4.8-9.5) Urine Specific Eros 1.019 Urine Protein 100 mg/dL (NEGATIVE) Urine Glucose (UA) 50 mg/dL (NEGATIVE) Urine Ketones Negative mg/dL (NEGATIVE) Urine Blood Moderate (NEGATIVE) Urine Nitrite Negative (NEGATIVE) Urine Bilirubin Negative (NEGATIVE) Urine Urobilinogen 4.0 mg/dL (0.2-1.9) Urine Leukocyte Esterase Negative (NEGATIVE) Urine RBC 25 /HPF (0-2/HPF) Urine WBC 3 /HPF (0-5/HPF) Urine Squamous Epithelial Cells None /LPF (</=FEW) Urine Bacteria Negative /HPF (NONE-FEW) Urine Hyaline Casts Few /LPF (NONE-FEW) Urine Mucus Few /HPF (NONE-FEW) EKG/Imaging Imaging Examination: KUB SINGLE VIEW ABDOMEN Comparison: None. History: Vomiting and nausea. Findings: Bowel gas pattern is unremarkable. Minimal stool in the colon. No suspicious soft tissue calcifications. Osseous structures are intact with mild degenerative change at L4-L5. IMPRESSION: No radiographic findings of acute disease in the abdomen. Report Dictated By: Lui Powers MD at 11/18/2018 7:12 PM Report E-Signed By: Lui Powers MD at 11/18/2018 7:18 PM ED Course/Re-evaluation ED Course Patient was medicated exam room, history and physical were obtained. Differential diagnoses were considered. On examination lungs are clear, heart is regular, abdomen is soft and nontender. A CBC, CMP, urinalysis, acute abdominal x-ray was done. Lab results were unremarkable. Patient did have an elevated blood sugar of 300. Urinalysis showed large sugar. Patient received a liter of normal saline. He also received a dose of Zofran. Patient states he had improvement in his nausea and vomiting. We did go ahead and treat his hyperglycemia with 10 units of regular insulin. On reevaluation patient's blood sugar was down to 126. Patient had been able to keep down some water. We will go ahead and discharge him home at this time. He is follow-up with his primary care provider. I encouraged him to stay on a clear liquid diet for the next 24 hours. Patient is to monitor and keep tabs on his blood sugars closely as he can. He is to follow-up with his primary care provider in the next 3-5 days. He is return to emergency room if condition worsens. A prescription of Zofran was sent into the pharmacy. Patient verbalized understanding and agreement with plan. Decision to Disposition Date: Nov 18, 2018 Decision to Disposition Time: 20:34 Depart Departure Latest Vital Signs Vital Signs Date Time Temp Pulse Resp B/P (MAP) Pulse Ox O2 Delivery O2 Flow Rate FiO2 11/18/18 20:35 79 94 11/18/18 18:00 140/124 (129) 11/18/18 17:30 98.6 16 Room Air Impression: Primary Impression: Gastroenteritis Condition: Improved Disposition: HOME OR SELF-CARE Referrals: JARET RUANO MD (PCP) New Scripts Ondansetron 4 Mg Odt (ONDANSETRON 4 MG ODT) 4 Mg Tab.rapdis 4 MG PO Q6H PRN for NAUSEA/VOMITING, #20 TAB Prov: PORSCHE MAGANA 11/18/18 Patient Instructions: Gastroenteritis (ED) Additional Instructions: Increase fluid intake. Clear liquid diet for the next 24-48 hours. After that you may advance diet as tolerated starting with complex carbohydrates; rice, bread or pasta. Follow up with your primary care provider in the next week. Return to the ER if condition worsens. You may take over the counter Pepto Bismol as needed for cramping, diarrhea and discomfort. PORSCHE MAGANA Nov 18, 2018 17:51
[2018-11-18] MEDS ORDERED: NS(*) 0.9% 1000 ML BAG 1,000 ML IV ONE (17:58)
[2018-11-18 18:00] VITALS: BP 140/124
[2018-11-18] MEDS ORDERED: ONDANSETRON 4 MG/2 ML VIAL IVP ONE (18:00)
[2018-11-18 18:05] LABS: PLATELET COUNT, AUTOMATED 304 K/uL (150-450)
[2018-11-18] MEDS ORDERED: GABAPENTIN 300 MG CAP PO ONE (19:10)
[2018-11-18] MEDS ORDERED: ACETAMINOPHEN 500 MG TAB PO ONE (19:10)
--- NOTE | 2018-11-18 19:21 | RADIOLOGY IMAGING REPORT ---
FAC[place] [facility] [place]IENT NAME: Peter Quintero : 1965 MR: [id number] V: [id number] EXAM DATE: ORDERING PHYSICIAN: PORSCHE MAGANA TECHNOLOGIST: [place] [facility] [place] Patient: Peter Quintero : 1965 Visit/Account:[id number] Date of Sevice: 11/18/2018 Examination: KUB SINGLE VIEW ABDOMEN Comparison: None. History: Vomiting and nausea. Findings: Bowel gas pattern is unremarkable. Minimal stool in the colon. No suspicious soft tissue ca lcifications. Osseous structures are intact with mild degenerative change at L4-L5. IMPRESSION: No radiographic findings of acute disease in the abdomen. Report Dictated By: Lui Powers MD at 11/18/2018 7:12 PM Report E-Signed By: Lui Powers MD at 11/18/2018 7:18 PM WSN:[id number]
[2018-11-18] MEDS ORDERED: INSU HUM REG 100 U/ML(ER ONLY) 10 ML VIAL SUBQ ONE (19:40)
[2018-11-18] MEDS ORDERED: ONDA4TAB9 PO (20:35)
[2018-11-18] MEDS ORDERED: ONDANSETRON 4 MG ODT TH SL ONE (20:40)
[2018-11-20] MEDS ORDERED: FLUT1BLS3 INH (11:38)
[2018-11-20] MEDS ORDERED: BUPR-474 PO (11:38)
[2018-11-20] MEDS ORDERED: PREG50CA48 PO (11:38)
[2018-11-20] MEDS ORDERED: IRBE300T6 PO (11:38)
[2018-11-20] MEDS ORDERED: AMLO-127 PO ×2 (11:38→11:49)
[2018-11-20] MEDS ORDERED: INSU100I30 SQ (11:38)
[2018-11-20] MEDS ORDERED: METO25TA23 PO (11:38)
[2018-11-20] MEDS ORDERED: INSU100V24 SQ ×2 (11:38→11:49)
[2018-11-20] MEDS ORDERED: METF10002 PO (11:38)
[2018-11-20] MEDS ORDERED: ATR80PT PO (11:38)
[2018-11-20] MEDS ORDERED: DULO60CA56 PO (11:38)
[2018-11-20] MEDS ORDERED: DULA0.75 SQ (11:38)
== END 2018-11-18 20:47 | disposition home or self-care (01) ==
LOC: ER 18:05
DX: K52.9 Noninfective gastroenteritis and colitis, unspecified (principal); E11.9 Type 2 diabetes mellitus without complications; R10.9 Unspecified abdominal pain
CPT/HCPCS: 36416; 74018; 81001; 82150; 82948; 83690; 85025; 87088; 87502; 96361; 96374; 99283; J1815; J2405; J7030; S0119; 82040; 82247; 82310; 82374; 82435; 82565; 82947; 84075; 84132; 84155; 84295; 84450; 84460; 84520

== ENCOUNTER → 2018-12-03 | Outpatient (CLI) | payer OTHER ==
[2018-10-24 15:14] VITALS: BMI 29.3
[~2018-12-03] MED LIST changes: +DULA0.75 SQ; +INSU100I10 SC; +INSU100V24 SQ; +METF10002 PO; +ONDA4TAB9 PO
== END ==
LOC: LAB 13:21
PROVIDERS: ATTEND Surgery
DX: C82.91 Follicular lymphoma, unspecified, lymph nodes of head, face, and neck (principal)
CPT/HCPCS: 88305

== ENCOUNTER 2019-01-01 08:58 | Outpatient (RCR) | payer OTHER ==
[2018-10-24 15:14] VITALS: Ht 179.1 cm; Wt 102.6 kg
[~2019-01-01] VITALS: Ht 179.1 cm; Wt 102.6 kg
[2019-01-01 09:07] VITALS: BP 144/82
[2019-01-01 10:40] LABS: PLATELET COUNT, AUTOMATED 275 K/uL (150-450)
--- NOTE | 2019-01-02 08:44 | ONCOLOGY HISTORY AND PHYSICAL ---
EVENT DATE: January 01, 2019 REFERRING PROVIDER Lucas Lemos MD REASON FOR CONSULTATION Newly diagnosed follicular lymphoma of right temporal scalp. CHIEF COMPLAINT Fatigue. HISTORY OF PRESENT ILLNESS Peter is a pleasant 53-year old gentleman with an extensive past medical history to include diabetes mellitus, hyperlipidemia, hypertension, asthma, bilateral foot ulcers, prior bilateral mid foot amputations and more recent right BKA. The patient was recently noted to have a lesion over his right scalp about the size of a marble. His mother brings in a picture on her cell phone for me to look at. He underwent excisional biopsy of this lesion and surgical pathology is consistent with follicular lymphoma. BCL-2 expression was noted and there was concern for systemic lymphoma with secondary skin involvement. He was, therefore, sent for a PET scan on December 27. The study was not convincing for systemic lymphoma with only a small glucose active site in the right parietal scalp as well as warm activity in the right wrist. The patient does report that his right wrist has felt abnormal for quite some time and that he often will have to "pop it". He reports no current fevers, chills or drenching sweats. His appetite has been fair, although his weight has been somewhat fluctuant given recent medical history. He reports being quite tired and he is trying to work on blood glucose control, which most recently has been better. He has noticed no lumps or bumps otherwise in the neck, underarms or groin. He has had no abnormal bleeding or bruising. He reports no nausea or early satiety currently. He has had some bowel irregularity, again with extensive recent medical history, antibiotic use, etc. PAST MEDICAL HISTORY 1. Diabetes mellitus Type 2. 2. History of reported bilateral foot ulcers, status post bilateral mid foot amputation. More recent right BKA. 3. History of osteomyelitis. 4. Hyperlipidemia. 5. Hypertension. 6. Reported history of nephrolithiasis. SOCIAL HISTORY Patient is a never smoker. He does not currently drink alcohol. There is no history of illicit drug use. FAMILY HISTORY Noncontributory. CURRENT MEDICATIONS Insulin, Trulicity, amlodipine, Lyrica, Wellbutrin, Cymbalta, irbesartan, metoprolol, Metformin, Breo Ellipta, Lipitor, albuterol. ALLERGIES Clindamycin and Zosyn. VITAL SIGNS Temperature 97.2, blood pressure 144/82, heart rate 72, respirations 16, oxygen saturation 92% on room air, weight 102.6 kg. PHYSICAL EXAMINATION GENERAL: Patient is alert and oriented x3, in no apparent distress, sitting in his wheelchair. He appears tired but he is interactive and pleasant. HEENT: Anicteric sclerae. There is a healing incision over the upper right temporal scalp with a surrounding area of modest erythema but no drainage, tenderness, bleeding or fluctuation. NEUROLOGIC: Grossly nonfocal, although I did not test gait today due to amputation. EXTREMITY: Reveals evidence of prior right BKA. Left lower extremity is wrapped. LABORATORY STUDIES Reviewed per the [facility] record. From January 01, CBC and differential is normal. CMP with creatinine of 1.0, glucose 174, calcium 9.7, total bilirubin 0.2. Liver function tests are otherwise unremarkable. LDH is 400. Additional labs are currently pending. IMAGING Please see past medical history. PATHOLOGY Please see past medical history. ASSESSMENT AND RECOMMENDATIONS Follicular lymphoma of right temporal scalp, BCL-2 positive. I had a good visit with Peter and his mother today. We spent time discussing his extensive past medical history including recent activities. Peter is understandably having a very difficult time with everything that is going on. He appears quite tired today but he is afebrile and not toxic appearing. We moved forward with discussion about his recently diagnosed follicular lymphoma. We discussed the nature of this lymphoma and that for the time being this appears to be localized to the right scalp only. He has no other obvious/concerning exam findings and his recent CT PET scan is, indeed, encouraging. There was some expected activity of the right scalp as well as some activity in the right wrist that could well be inflammatory. As discussed, I would not expect for lymphoma to manifest that way. His exam is otherwise unremarkable with the exception of some potentially limited range of motion in the right wrist. We discussed routine workup and staging for follicular lymphoma. Because of the BCL-2 positivity, there was some concern for systemic follicular lymphoma and next step would be for bone marrow biopsy. Given his current situation, as well as a normal CBC, I would be skeptical of bone marrow involvement of this follicular lymphoma although, as discussed, I would like to review his situation with colleagues. I also would like to refer him to radiation oncology to discuss the merits of radiation to the right scalp. He has had some bloating, belching and flatulence but I would speculate that these symptoms are likely due to dietary changes as well as antibiotic therapy, etc. My suspicion for GI involvement of his lymphoma is low at this point but we also discussed the potential merits of GI evaluation. In any case, given his current clinical situation otherwise, if we were to ever consider systemic therapy for his lymphoma, which would be immunosuppressive inherently, I would want to review his situation with his multiple other providers to discuss risks and benefits. I think chemotherapy at this point is out of the question but if we were to consider monoclonal antibody therapy, for example with rituximab, I would still want to have a level of assurance that we would not be causing substantial problems with infection, risks, healing and to generally make his clinical situation otherwise more unstable. I would like for Peter to follow up with me after additional laboratory studies are resulted, hopefully my next trip to my [facility]. It would also be quite reasonable to have him follow up with my colleague, Dr. Griffith, who also comes to [place], and he has a particular interest in this area. All questions answered today. I spent a total of 45 minutes of time [id number] with Peter and his mother today and 40 minutes of this was spent in direct counseling and coordination of care. OTTO
[2019-01-16] MEDS ORDERED: TRAM-420 PO (12:09)
[2019-01-24] MEDS ORDERED: TRAM-420 PO (14:01)
== END 2019-03-31 ==
LOC: ONC 08:58
PROVIDERS: ATTEND Internal Medicine Medical Oncology
DX: C82.91 Follicular lymphoma, unspecified, lymph nodes of head, face, and neck (principal); R53.83 Other fatigue
CPT/HCPCS: 36415; 82040; 82232; 82247; 82310; 82374; 82435; 82565; 82784; 82947; 83615; 84075; 84132; 84155; 84160; 84165; 84295; 84450; 84460; 84520; 85025; 86705; 86706; 87340; 99202

== ENCOUNTER 2019-02-12 12:00 | Outpatient (RCR) | payer OTHER ==
[2018-10-24 15:14] VITALS: BMI 29.3
[2019-01-02 13:48] VITALS: BP 129/83
--- NOTE | 2019-01-02 16:49 | ONCOLOGY CONSULTATION ---
EVENT DATE: January 02, 2019 REFERRING PROVIDER Baldo Alcantara MD REASON FOR CONSULTATION Newly diagnosed follicular lymphoma of the right temporal scalp. CHIEF COMPLAINT Discussion of definitive radiotherapy. HISTORY OF PRESENT ILLNESS The patient is a 53-year-old gentleman with an extensive past medical history including diabetes mellitus, hyperlipidemia, hypertension, asthma, bilateral foot ulcers, status post right BKA. The patient presented with a lesion along his right scalp approximately the size of a marble. The patient was seen by his primary care physician, Dr. Lemos, who referred the patient for surgical excision. The patient went on to undergo an excisional biopsy of this lesion with pathology revealing a follicular lymphoma. There was no evidence of large cell suggesting a low-grade B-cell lymphoma. The tumor was BCL2 positive. The patient underwent a PET CT scan for staging workup, which shows a hypermetabolic lesion on the right parietal scalp. There are no other PET abnormalities to suggest additional disease. The patient underwent blood work and was noted to have an LDH of 400 on January 01, 2019. The patient has met with Dr. Alcantara, who has discussed treatment options and has referred the patient to Radiation Oncology to discuss definitive radiotherapy. On presentation today, the patient denies any fevers, chills, night sweats, pruritus, or alcohol intolerance. He has no lumps or easy bruising. PAST MEDICAL HISTORY 1. Diabetes type 2. 2. 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 3. History of osteomyelitis. 4. Hyperlipidemia. 5. Hypertension. 6. History of nephrolithiasis. 7. 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 SOCIAL HISTORY The patient is a nonsmoker. No alcohol or drug use. FAMILY HISTORY Noncontributory. CURRENT MEDICATIONS 1. Insulin. 2. Trulicity. 3. Amlodipine. 4. Lyrica. 5. Wellbutrin. 6. Cymbalta. 7. Irbesartan. 8. Metoprolol. 9. Metformin. 10. Breo. 11. Lipitor. 12. Albuterol. ALLERGIES CLINDAMYCIN, ZOSYN. REVIEW OF SYSTEMS A 14-point review of systems is reviewed, signed, and documented in the chart. PHYSICAL EXAMINATION VITAL SIGNS: Temperature 97.2, pulse 86, blood pressure 129/83, respiratory rate 16, O2 saturation is 93% on room air. Weight 224 pounds. CONSTITUTIONAL/GENERAL APPEARANCE: Patient is sitting comfortably in a chair in no acute distress. HEAD: On inspection of the patient's scalp, the patient has an erythematous nodular lesion along the right parietal scalp measuring approximately 2 cm in total size. There are no erythematous or nodular lesions otherwise noticed throughout the patient's scalp. ENT: Mucous membranes are moist. Sclerae are anicteric. NECK: Supple. Trachea midline. LYMPHATIC SURVEY: No palpable cervical, supraclavicular, epitrochlear, or inguinal lymphadenopathy bilaterally. LUNGS: Clear to auscultation and percussion bilaterally. CARDIOVASCULAR: Regular rate and rhythm. Normal S1, S2. No murmurs, rubs, or gallops. EXTREMITIES: Patient has a BKA on the right side and a cast on his left foot. He has no clubbing or cyanosis in his hands bilaterally. NEUROLOGIC: The patient is alert and oriented times three. Motor strength is 5/5 in the upper extremities bilaterally. IMPRESSION The patient is a 53-year-old gentleman recently diagnosed with a stage IAE follicular B-cell lymphoma involving the right parietal scalp. PET CT scan shows no evidence of additional disease outside of his scalp. 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 PLAN The patient was apprised of the treatment options, which include observation, systemic therapy, or local radiotherapy. The patient was apprised that the local radiotherapy has a greater than 90% local control rate. He was apprised, however, that the natural history of this disease is for relapses in patients of approximately 60% of the time following definitive radiotherapy. Relapses, however, are rather indolent with disease-free survival often greater than 10 years. The patient was apprised of the side effect profile of radiotherapy to his scalp including alopecia, fatigue, and skin erythema. The patient understands this discussion and wishes to proceed with definitive radiotherapy. He has signed written informed consent to undergo this treatment. The patient will be set up on the machine with an electron setup. We will plan to treat a 20-fraction course to 36 Gy via electron therapy. MTDD
== END 2019-04-01 ==
LOC: RAON 12:00
PROVIDERS: ATTEND Radiology Radiation Oncology
DX: Z51.0 Encounter for antineoplastic radiation therapy (principal); C82.81 Other types of follicular lymphoma, lymph nodes of head, face, and neck
CPT/HCPCS: 77290; 77300; 77334; 77336; 77412

== ENCOUNTER → 2019-04-07 | Outpatient (CLI) | payer OTHER ==
[2018-10-24 15:14] VITALS: BMI 29.3
== END ==
LOC: SPU 10:27
PROVIDERS: ATTEND Internal Medicine
DX: I10 Essential (primary) hypertension (principal); E11.42 Type 2 diabetes mellitus with diabetic polyneuropathy; E78.49 Other hyperlipidemia; Z89.511 Acquired absence of right leg below knee; F41.9 Anxiety disorder, unspecified
CPT/HCPCS: 81001; 82465; 83718; 84439; 84443; 84478